=== PATIENT | female | born 1950 | race Caucasian/White ===

== ENCOUNTER → 2017-03-06 | Outpatient (CLI) | payer MEDICARE, SELFPAY | PROVIDERS: Visit Provider Surgery | DX: R13.10 Dysphagia, unspecified (principal) | CPT/HCPCS: 74220 ==

== ENCOUNTER 2017-04-02 07:56 | Day surgery (SDC) | payer MEDICARE, SELFPAY ==
[2017-04-01 12:29] VITALS: BMI 24.7
[2017-04-02] VITALS (10 sets, daily range): BP systolic 81–134; BP diastolic 53–77; PULSE 61–82; RESP 16–20; TEMP 36.6; O2SAT 95–100
--- NOTE | 2017-04-02 08:47 | HMH.SCOPE ---
- Procedure: Date: 04/02/17 Procedure Performed:: Esophagogastroduodenoscopy with biopsy Indications:: This is a 67-year-old female with intermittent dysphagia and a barium swallow revealing mild diffuse tapering of the upper thoracic esophagus. These findings were felt to be most likely secondary to postradiation changes. Performing Provider:: Scooter Moore MD Referring Provider:: Leticia Kang APRN Sedation:: IV sedation with 6 mg of Versed and 100 mcg of fentanyl Procedure:: After informed consent was obtained, the patient was taken to the endoscopy suite. IV sedation ensued after she was transferred to the left lateral decubitus position. The gastroscope was advanced. The gastroesophageal junction was at 33 cm. No significant stricture or mass was seen. Some tapering was noted but this was more pronounced with contractions and significantly less pronounced between contractions. The stomach was entered. Retroflexion revealed a small to moderate sliding hiatal hernia. Moderate gastritis was confirmed. A biopsy of the antrum was obtained. The pylorus was intubated. Very mild inflammatory response within the duodenum was noted. The gastroscope was carefully removed and the patient was transferred to recovery. Findings:: No mass lesions No significant stricture (mild stricture secondary to radiation not ruled out) Small to moderate sliding hiatal hernia Moderate gastritis Minimal duodenitis Specimens:: Antrum Recommendations:: [id number] PPI and/or H2 jose Complications:: No immediate Estimated blood obtained (mL): 1
== END 2017-04-02 10:10 | disposition home or self-care (01) ==
LOC: OUTP 07:58
PROVIDERS: Family Provider Nurse Practitioner Family; PCP Nurse Practitioner Family; Visit Provider Surgery
PROC: 0DJ08ZZ Inspection of Upper Intestinal Tract, Via Natural or Artificial Opening Endoscopic (ICD-10-PCS; CPT 43235; principal; 2017-04-02 08:30)
DX: R13.10 Dysphagia, unspecified (principal); K44.9 Diaphragmatic hernia without obstruction or gangrene; K29.70 Gastritis, unspecified, without bleeding
CPT/HCPCS: 43239; 88305; 99152

== ENCOUNTER → 2017-11-30 10:44 | Outpatient (CLI) | payer MEDICARE, SELFPAY ==
--- NOTE | 2017-11-30 | NVE_ITS ---
Venous Exam Indications: 729.5 Pain in limb. IMPRESSIONS 1. There is no evidence of significant Reflux. 2. No evidence of deep or superficial vein thrombosis involving the right lower extremity Right lower extremity venous duplex evaluation. Doppler flow study including spectral analysis, color and johnson scale imaging. Location: Vascular laboratory. Patient status: Outpatient. Tables: Venous flow and imaging: + +-------+ + Location Overall Flow properties + +-------+ + Right common femoral Patent Normal phasicity; spontaneous; normal augmentation; compressible + +-------+ + Right saphenofemoral junction Patent Compressible + +-------+ + Right profunda femoral Patent Compressible + +-------+ + Right femoral Patent Normal phasicity; spontaneous; normal augmentation; compressible + +-------+ + Right greater saphenous Patent Normal phasicity; spontaneous; normal augmentation; compressible + +-------+ + Right popliteal Patent Normal phasicity; spontaneous; normal augmentation; compressible + +-------+ + Right posterior tibial Patent Compressible + +-------+ + Right peroneal Patent Compressible + +-------+ + Right gastrocnemius Patent Compressible + +-------+ + Right soleal Patent Compressible + +-------+ + (Report amended ) Electronically signed by: Geoff Erickson [id number]
== END ==
PROVIDERS: Family Provider Nurse Practitioner Family; PCP Nurse Practitioner Family; Visit Provider Nurse Practitioner Family
DX: M79.604 Pain in right leg (principal)
CPT/HCPCS: 93971

== ENCOUNTER → 2018-06-02 09:49 | Outpatient (CLI) | payer MEDICARE, SELFPAY ==
--- NOTE | 2018-06-02 09:56 | XR_ITS ---
XR chest 2V HISTORY: ITS.REASON: COUGH ORDERING PHYSICIAN: Leticia Kang PATIENT AGE: 68 years COMPARISON: 03/17/2016 FINDINGS: There are postsurgical changes from prior left upper lobectomy with left apical pleural thickening and left lung volume loss with old left-sided rib fractures. Left fourth rib is missing laterally and there is thinning of the lateral aspect of the left fifth rib. Asymmetric increased density is present in the right apex unchanged. No lobar consolidation or collapse. COPD noted. There are degenerative changes of the thoracic spine. IMPRESSION: Postsurgical and chronic changes with COPD. No change with no acute finding
== END ==
PROVIDERS: PCP Nurse Practitioner Family; Visit Provider Nurse Practitioner Family
DX: M50.123 Cervical disc disorder at C6-C7 level with radiculopathy (principal)
CPT/HCPCS: 71046

== ENCOUNTER 2018-06-03 08:48 | Outpatient (RCR) | payer MEDICARE, SELFPAY | END 2018-06-03 08:55 | disposition home or self-care (01) | LOC: PT 08:48 | PROVIDERS: Visit Provider Nurse Practitioner Family | DX: M50.123 Cervical disc disorder at C6-C7 level with radiculopathy (principal) | CPT/HCPCS: 97010; 97012; 97014; 97035; 97110; 97163; G0283 ==

== ENCOUNTER → 2018-06-04 08:51 | Outpatient (CLI) | payer MEDICARE, SELFPAY ==
--- NOTE | 2018-06-04 08:53 | MR_ITS ---
MR cervical spine wo con, MR 3-d myelogram/MRCP HISTORY: Lt shoulder pain and numbness in LT hand. Symptoms [id number]. No trauma. Headache. No hx neck surgery. ITS.REASON: CERVICAL DISC DISEASE ORDERING PHYSICIAN: Leticia Kang PATIENT AGE: 68 years Comparison: None TECHNIQUE: Standard multiplanar multiecho sequences are performed without contrast. 3-D MIP and myelographic images are also rendered and reviewed FINDINGS: The craniocervical junction has an unremarkable appearance. There is fusion of C2-C3. C3-C4: Mild degenerative disc disease. C4-C5: Mild degenerative disc disease with minimal bulging disc with a small annular fissure. There is canal stenosis at this level and millimeters with minimal flattening of the cord anteriorly C5-C6: Mild degenerative disc disease with small central disc protrusion slightly eccentric to the left abutting but not displacing the cord anteriorly C6-C7: Small central disc protrusion slightly eccentric to the right causing some minimal flattening of the right aspect of the cord. C7-T1: Unremarkable. IMPRESSION: 1. Fusion of C2-C3 2. C4-C5: Mild degenerative disc disease with minimal bulging disc with a small annular fissure. There is canal stenosis at this level and millimeters with minimal flattening of the cord anteriorly 3. C5-C6: Mild degenerative disc disease with small central disc protrusion slightly eccentric to the left abutting but not displacing the cord anteriorly 4. C6-C7: Small central disc protrusion slightly eccentric to the right causing some minimal flattening of the right aspect of the cord
== END ==
PROVIDERS: PCP Nurse Practitioner Family; Visit Provider Nurse Practitioner Family
DX: M50.123 Cervical disc disorder at C6-C7 level with radiculopathy (principal)
CPT/HCPCS: 72141; 76376

== ENCOUNTER → 2018-06-17 08:47 | Outpatient (CLI) | payer MEDICARE, SELFPAY ==
--- NOTE | 2018-06-17 09:01 | MM_ITS ---
MM Dig screening mamm BI w/CAD ORDERING PHYSICIAN : Leticia Kang PATIENT AGE: 68 years GENDER: Female COMPARISON previous bilateral mammogram. March 2016;: January 2014, April INDICATION: ITS.Routine screening mammogram. Patient takes estrogen. Patient has history of lung cancer on the left with lobectomy with this there is a thick ridge along the left chest wall superiorly at 12-1 o'clock position. TECHNIQUE: Standard CC and MLO images were obtained. R2 CAD reviewed. FINDINGS: .. Moderately dense tissue persists at the retroareolar region bilaterally . RIGHT BREAST:No significant change,. Same pattern & appearance seen today was evident on January 2014 mammogram. There are some scattered areas of punctate calcifications some loosely grouped of the kidneys are stable with no significant change since 2014 either.... Follow-up right mammogram 1 year adequate. On right LEFT BREAST: No discrete new areas significant concern. Again moderately dense glandular tissue is most evident at the retroareolar region. No significant new findings here.. Regional density of interstitium and soft tissues towards the deep left axilla appears similar to previous 2014 studies. Very subtle and would not of noted without given history of palpable ridge in this area. May question to correlate... Suspect subtle accentuation of density Reflect underlying chest surgery in this region or possibly post radiation feature images. Unclear if it is a long-standing or new feature from history... Again Today's images here show no appreciable change since previous comparison studies 2013.. No focal mass evident here. (However there could be findings along the chest which are not imaged, & not included on mammography) Correlation with patient's follow-up CT chest for lung cancer may be helpful to also surveyed & review this area for interval change. No CT chest studies at our facility.. Thus apparently her follow-up CT chest studies are performed at another facility. However If the at the ridge currently palpated at superior left breast towards 12:00, is becoming more evident clinically, then follow-up CT chest along.... Again would least recommend 4-6 month mammogram/ultrasound to confirm stability technique with patient on estrogen.. IMPRESSION: 1. Bilateral Mammogram shows no discrete or suspicious new areas of concern within the breast themselves Moderately dense breast tissue retroareolar region bilaterally again noted, with no new findings here. 2. Because the patient's history of palpable ridge superior left breast 12:00; would suggest 4- 6 month follow-up mammogram & ultrasound to further survey this region. Note:. If the palpable ridge reported by patient at 12:00 superior left breast is is becoming more evident would suggest a follow-up CT chest in with comparison to previous CT studies in this patient with lung cancer on left..;. If long-standing rather than new feature I suspect this more likely reflect post surgery or postradiation feature.... Again Today's Mammography shows no definitive change here since 2014 today's mammogram.(However there could be findings along the chest which are not imaged, & not included on today's mammography) BI-RADS Category: 3 Probably Benign Finding Short Term Follow-up RECOMMENDED FOLLOW-UP: 6M - 6 MONTH FOLLOW-UP Left mammogram and left breast ultrasound 4-6 months . ( If palpable ridge superior left breast becoming more evident-would suggest follow-up CT chest in this patient with history left pneumonectomy for lung cancer) (A letter has been sent to the patient regarding results of the study.)
== END ==
PROVIDERS: PCP Nurse Practitioner Family; Visit Provider Nurse Practitioner Family
DX: Z12.31 Encounter for screening mammogram for malignant neoplasm of breast (principal)
CPT/HCPCS: 77067

== ENCOUNTER → 2018-10-18 13:32 | Outpatient (CLI) | payer MEDICARE, SELFPAY ==
--- NOTE | 2018-10-18 13:34 | MM_ITS ---
MM Dig mamm DX unilat LT CAD, US breast LT complete INDICATION: Palpable ridge of tissue in the upper outer aspect of the left breast. Prior lung cancer with radiation therapy. The patient has a palpable ridge of tissue in the upper outer left breast which according to the patient has not significantly changed in several years ORDERING PHYSICIAN: Leticia Kang APRN PATIENT AGE: 68 years COMPARISON: 06/17/2018, 03/17/2016 TECHNIQUE: Standard images on spot compression views and left breast ultrasound FINDINGS: Average fibroglandular tissue. There is some asymmetry in the lateral aspect of the left breast and in the inferior aspect of left breast. These areas however do appear to compress out as fibroglandular tissue not significantly changed. In the upper aspect of the left breast there is asymmetric density only seen on the MLO view.. No malignant appearing appearing microcalcification. Benign cluster of calcifications are noted in the medial left breast. Left breast ultrasound: No discrete mass is evident. At the area of palpable abnormality, there is some slight increase in heterogeneous echogenicity but no discrete mass that would correspond to the palpable abnormality.. IMPRESSION: There is some slight asymmetry density in the deep upper left breast with some heterogeneous echogenicity on ultrasound. Patient reports this palpable area is stable for multiple years. Suggest CT of the chest and chest wall for further evaluation. The area of palpable abnormality could be related to scarring/radiation changes BI-RADS Category: 0 Need Additional Imaging Evaluation RECOMMENDED FOLLOW-UP: IMM - IMMEDIATE FOLLOW-UP RECOMMENDED Suggest chest CT of the palpable abnormality (A letter has been sent to the patient regarding results of the study.)
== END ==
PROVIDERS: PCP Nurse Practitioner Family; Visit Provider Nurse Practitioner Family
DX: D24.2 Benign neoplasm of left breast (principal)
CPT/HCPCS: 76641; 77065

== ENCOUNTER → 2018-11-30 10:16 | Outpatient (POV) | payer MEDICARE, SELFPAY | PROVIDERS: Visit Provider Dermatology | DX: Z00.00 Encounter for general adult medical examination without abnormal findings (principal) ==

== ENCOUNTER → 2018-12-22 14:16 | Outpatient (CLI) | payer MEDICARE, SELFPAY ==
--- NOTE | 2018-12-22 14:23 | CT_ITS ---
PROCEDURE: CT CHEST WO CON The CLINICAL INDICATION: BENIGN NEOPLASM OF LT BREAST Palpable abnormality of the left breast negative mammogram and negative ultrasound COMPARISON: BRW/O MRI-BRAIN W/O from 04/22/2016 NEST NECK SOFT TISSUE from 01/26/2017 BREASTLT US breast LT complete from 10/18/2018 DIG MAMM-DX UNI-LT from 10/18/2018 TECHNIQUE: Axial images obtained with sagittal and coronal reformats. All CT scans at the facility use one or more dose reduction, viz: automated exposure control, ma/kV adjustment per patient size (including targeted exams where dose is matched to indication, i.e. head), or iterative reconstruction technique. FINDINGS: A BB is placed along the left breast superiorly and anteriorly to denote the area of palpable concern no obvious mass is evident deep to the placed BB. There is some slight increase in soft tissue density in the subcutaneous region deep to the BB but no discrete mass is evident. There is extensive left apical pleural thickening and postsurgical changes with prior resection of the left 4th and 5th ribs posterior laterally with an old fracture of the left 6th rib. There is extensive pleural thickening in the left apex. There are no previous exams available for comparison to determine if this is a stable finding. There is mediastinal shift toward the left. Extensive calcification is present in the right upper lobe in the apex. Nodularity is noted in the left upper lobe medially probably vascular and could be confirmed with repeat exam with contrast. Upper abdominal images show nonobstructing bilateral renal calculi. There are degenerative changes in the thoracic spine. IMPRESSION: 1. No discrete mass deep to the placed marker denoting a palpable abnormality over lying the upper aspect of the left breast. There is some stranding of the subcutaneous soft tissues in this region which could be due to some underlying inflammatory change. 2. A negative mammogram negative ultrasound in negative CT does not exclude the possibility of a malignancy. If there is a palpable abnormality then it should be managed on a clinical basis. 3. Extensive postsurgical changes of the left apex with extensive pleural thickening. Parenchymal calcification right upper lobe. 4. Bilateral nonobstructing renal calculi Dictated by: Gordo Nunez MD 12/22/2018 17:17 Electronically signed by Gordo Nunez MD in [place] 12/22/2018 17:17
--- NOTE | 2018-12-22 14:41 | HMH.ITSHM ---
Current Home Medications as stated by this patient Ariane Pathak or order entry representative. []levothyroxine 50 mcg pravastatin 80 mg omeprazole .05mg
== END ==
PROVIDERS: Visit Provider Nurse Practitioner
DX: D24.2 Benign neoplasm of left breast (principal)
CPT/HCPCS: 71250

== ENCOUNTER → 2019-01-21 10:14 | Outpatient (CLI) | payer MEDICARE, SELFPAY ==
[2019-01-21 12:26] LABS: Blood Urea Nitrogen 12 mg/dL (7-18); Creatinine,Serum 1.03 mg/dL (0.55-1.02); Estimated Glomerular Filt Rate 53 ml/min (>60); GFR (African American) 64 ML/MIN (>60)
--- NOTE | 2019-01-21 12:46 | CT_ITS ---
PROCEDURE: CT CHEST WO/W CON CLINCAL INDICATION: PLEURAL PLAGUE WITHOUT ASBESTOS Follow-up abnormal chest CT, left upper lobe mass versus scarring. COMPARISON: CT CHEST WO CON from 12/22/2018 TECHNIQUE: IV Contrast: 75ml Optiray 350 Axial images obtained with sagittal and coronal reformats. All CT scans at the facility use one or more dose reduction, viz: automated exposure control, ma/kV adjustment per patient size (including targeted exams where dose is matched to indication, i.e. head), or iterative reconstruction technique. FINDINGS: Extensive left apical pleural thickening and postsurgical change with volume loss once again noted as recently described with surgical clips in the left apex. The nodularity in the left upper lobe medially does correspond to a displaced pulmonary artery from the volume loss and previous surgery. No evidence of aortic aneurysm or pulmonary embolus. No mediastinal or hilar mass evident. Coronary artery calcifications are present best demonstrated on the unenhanced images. Mediastinum is shifted to the left as before. Right apical fibrocalcific changes are present. There is hyperinflation of the right upper lobe with emphysematous changes noted. Postsurgical changes of the left hemithorax once again noted with mild degenerative changes in the thoracic spine. IMPRESSION: 1. Overall no significant change from the previous study. Extensive postsurgical changes with left apical volume loss and pleural thickening once again noted as well as fibrocalcific changes in the right apex. 2. Previously noted left sided nodular opacity medially represents a mildly displaced pulmonary artery and not a pulmonary nodule Dictated by: Gordo Nunez MD 01/21/2019 18:24 Electronically signed by Gordo Nunez MD in [place] 01/22/2019 08:37
== END ==
PROVIDERS: Visit Provider Nurse Practitioner
DX: J92.9 Pleural plaque without asbestos (principal)
CPT/HCPCS: 36415; 71270; 82565; 84520; Q9967

== ENCOUNTER → 2019-04-26 14:06 | Outpatient (POV) | payer MEDICARE, SELFPAY | PROVIDERS: PCP Dermatology; Visit Provider Dermatology | DX: Z00.00 Encounter for general adult medical examination without abnormal findings (principal) ==

== ENCOUNTER → 2019-09-09 08:10 | Outpatient (CLI) | payer MEDICARE, SELFPAY ==
--- NOTE | 2019-09-09 08:15 | CT_ITS ---
PROCEDURE: CT LUNG SCREENING CLINICAL INDICATION: HISTORY OF SMOKING Forty pack-year smoking history, asymptomatic for lung cancer COMPARISON: CT CHEST WO/W CON from 01/21/2019 TECHNIQUE: The exam was performed on a GE Light Speed [address] scanner using 2.90 mGy CTDI. A low dose helical CT CHEST was performed on a multi-detector scanner. All CT scans at the facility use one or more dose reduction, viz: automated exposure control, ma/kV adjustment per patient size (including targeted exams where dose is matched to indication, i.e. head), or iterative reconstruction technique. The LDCT was performed in a facility that meets the criteria for the screening program. Data regarding this exam was submitted to ACR which is an approved registry. The order for this exam indicates that it came as a result of a lung cancer screening counseling shard decision-making visit that included all the elements required of such a visit including smoking cessation. The radiologist interpreting this exam meets the CMS criteria for the LDCT lung cancer screening program. The exam is reported using the Lung-RADS classification scale and reported to the ACR registry. NOTE: This study was performed for the specific purposes of lung cancer screening and is not an alternative to diagnostic chest CT. RADIATION DOSE: CTDI vol(CT dose Index-volume) = 2.90mG DLP (Dose Length Product) = 94.82 mGcm Lung Rads Category: FINDINGS: COPD with centrilobular and paraseptal emphysematous change. Large calcified nodule right upper lobe at 3.9 cm with a smaller calcified nodule just anterior to this area. Stables 5 mm subpleural nodule right upper lobe extensive left apical pleural thickening with some calcification. Postsurgical changes with rib resection on the left. Prior left upper lobectomy. OTHER FINDINGS: Coronary artery calcification. Nonobstructing left renal calculi IMPRESSION: Lung rads category 2, benign Recommend annual LD CT Dictated by: Gordo Nunez MD 09/18/2019 09:27 Electronically signed by Gordo Nunez MD in [place] 09/18/2019 09:27
== END ==
PROVIDERS: PCP Dermatology; Visit Provider Nurse Practitioner Family
DX: Z87.891 Personal history of nicotine dependence (principal); Z12.2 Encounter for screening for malignant neoplasm of respiratory organs

== ENCOUNTER → 2020-01-11 10:15 | Outpatient (CLI) | payer MEDICARE, SELFPAY ==
--- NOTE | 2020-01-11 10:18 | MM_ITS ---
PROCEDURE: MM DIG SCREENING MAMM BI W/CAD Referring Doctor: Ramya Ash Patient Age:69Y CLINICAL INDICATION: SCREENING routine. Patient takes estrogen.. No new complaints. Family history: Paternal aunt and paternal cousin with breast cancer screening Left lung previously removed COMPARISON: MG DIGMAMMS MAMMOGRAM SCREEN-[employer] N/C from 01/17/2008 MG DIGMAMMS MAMMOGRAM SCREEN-[employer] N/C from 01/12/2009 MG DMSB DIGITAL MAMM-SCREEN BILATERAL from 04/21/2011 MG DMSB DIG MAMM-SCREEN CHARY from 01/12/2014 MG DMSB DIG MAMM-SCREEN CHARY W/CAD from 03/17/2016 MG SCBI MM Dig screening mamm BI w/CAD from 06/17/2018 US US BREAST LT COMPLETE from 10/18/2018 MG MM DIG MAMM DX UNILAT LT CAD from 10/18/2018 TECHNIQUE: Standard CC and MLO images were obtained. R2 CAD reviewed. Bilateral digital breast tomosynthesis included. FINDINGS: Stable mild asymmetry with moderately dense breast tissue at the retroareolar region bilaterally most notable left retroareolar region but no suspicious calcifications. Scattered small skin calcifications and vascular calcifications bilateral Right breast: No new areas of significant concern. Minimal area nodularity at the lateral central breast unchanged since multiple previous studies dating back to 2013 Left breast no new areas of concern. Again see dense area fibroglandular tissue at the wrestler areolar region unchanged since multiple previous studies. Prior 2018 left breast ultrasound revealed what appear to be dense fibroglandular 11 o'clock position which correlated with palpable ridge of tissue on that previous study Bilateral follow-up 1 year adequate IMPRESSION: . Stable bilateral mammogram. Stable moderate asymmetry with no new areas of concern Bilateral follow-up 1 year recommended BI-RAD Category: 2 Benign Finding(s) FOLLOW-UP: 1YR 1 Year Follow-up (A letter has been sent to the patient regarding results of the study.) Dictated by: Geoff Erickson MD 01/11/2020 12:31 Geoff Erickson MD in [place] 01/11/2020 12:31
== END ==
PROVIDERS: PCP Dermatology; Visit Provider Nurse Practitioner
DX: Z12.31 Encounter for screening mammogram for malignant neoplasm of breast (principal)
CPT/HCPCS: 77063; 77067

== ENCOUNTER 2020-10-21 22:41 | Inpatient (IN) | payer MEDICARE, SELFPAY ==
[2020-10-21 22:41] VITALS: BP 168/103; PULSE 119; RESP 28; TEMP 36.7; O2SAT 69; BMI 22.8
[2020-10-21 22:42] VITALS: BMI 32.3
--- NOTE | 2020-10-21 22:42 | XR_ITS ---
PROCEDURE INFORMATION: Exam: XR Chest Exam date and time: 10/21/2020 10:42 PM Age: 70 years old Clinical indication: Patient HX: Extreme difficulty breathing sudden onset TECHNIQUE: Imaging protocol: XR of the chest. Views: 1 view. COMPARISON: CT CHEST WO/W CON 01/21/2019 1:55 PM FINDINGS: Lungs: There are chronic postsurgical changes of left upper lobectomy. Chronic opacification of the left apex appears similar to prior. Left hemithoracic volume loss with left basilar pleural thickening also grossly unchanged. Calcified mass at the right lung apex, as better seen on prior CT imaging. Pleural spaces: Large right pneumothorax, spanning the anterior craniocaudal length of the chest, estimated 60% of the right hemithoracic volume. No definite pleural effusion. Heart/Mediastinum: Normal heart size. Bones/joints: Scattered degenerative changes. Multiple chronic left rib deformities. IMPRESSION: 1. Large right pneumothorax. 2. Chronic partially calcified mass at the right lung apex. Chronic postsurgical changes of left upper lobectomy. THIS REPORT CONTAINS FINDINGS THAT MAY BE CRITICAL TO PATIENT CARE. The findings were verbally communicated via telephone conference with DARCY SHANNON at 11:02 PM EDT on 10/21/2020. The findings were acknowledged and understood.
[2020-10-21 22:50] LABS: ABG Base Excess -2.7 mmol/L (-2.4-2.3); ABG HCO3 26.2 mmhg (22.0-26.0); ABG Oxygen Saturation 81 % (90-100); ABG PO2 55.1 mmhg (80-100); ABG TCO2 28.5 mmhg (23-27)
[2020-10-21 22:51] LABS: ABG PH 7.15 mmol/L (7.35-7.45); Oxygen 10L %; Source R/B
[2020-10-21 22:52] LABS: ABG PCO2 76.7 mmhg (35.0-45.0)
--- NOTE | 2020-10-21 22:58 | PC.NURSE ---
Oscar called for chest tube placement at this time
--- NOTE | 2020-10-21 22:59 | ECG_ITS ---
APPROVED REPORT Exam: Resting ECG HR:121 bpm ECG Measurements Heart Rate 121 AXES AZ 128 P 102 QRSd 76 QRS 89 QT 318 T 82 QTc 451 Conclusion Sinus tachycardia Otherwise normal ECG Electronically signed by : Dillon Jones MD 10/24/2020 11:50:28
[2020-10-21 23:00] VITALS: BP 171/101; PULSE 120; RESP 30; O2SAT 86
--- NOTE | 2020-10-21 23:00 | PC.NURSE ---
RADHA called at this time Speaking with Matheus
[2020-10-21 23:02] LABS: Coronavirus 19, PCR Not Detected (NotDetected); Influenza A, PCR Not Detected (NotDetected); Influenza B, PCR Not Detected (NotDetected)
[2020-10-21 23:05] LABS: Basophils # 0.1 K/mm3 (0-0.2); Basophils % 0.9 % (0.1-2.0); Eosinophils # 0.4 K/mm3 (0.0-0.4); Eosinophils % 3.3 % (0.1-12.0); Hematocrit 39.4 % (37.0-47.0); Hemoglobin 12.9 g/dL (12.2-16.2); Lymphocytes # 7.9 K/mm3 (0.7-4.5); Lymphocytes % 62.9 % (10-50); Mean Corpuscular HGB Conc 32.8 g/dL (31.8-35.4); Mean Corpuscular Hemoglobin 33.3 pg (27.0-31.2); Mean Corpuscular Volume 101.5 fl (81-99); Mean Platelet Volume 7.5 fl (7.4-10.4); Monocytes # 1.1 K/mm3 (0.1-1.0); Monocytes % 8.7 % (1.7-9.3); Neutrophils % 24.2 % (37.0-80.0); Platelet Count 319 K/mm3 (142-424); Red Blood Count 3.89 M/mm3 (4.20-5.40); Red Cell Distribution Width 13.3 % (11.5-17.5); White Blood Count 12.5 K/mm3 (4.8-10.8)
[2020-10-21 23:08] LABS: MANUAL DIFFERENTIAL MANUAL DIFFERENTIAL (MANUAL DIFF)
[2020-10-21 23:10] LABS: Alanine Aminotransferase 19 U/L (12-78); Albumin Level 4.5 g/dl (3.5-5.0); Alkaline Phosphatase 75 U/L (38-126); Anion Gap 14.8 mEq/L (5-15); Aspartate Amino Transferase 34 U/L (14-36); Bilirubin,Direct 0.4 mg/dl (0.0-0.4); Bilirubin,Total 0.4 mg/dl (0.2-1.3); Blood Urea Nitrogen 12 mg/dl (7-17); Carbon Dioxide 27 mmol/L (22.0-30.0); Chloride 102 mmol/L (98-107); Creatinine Clearance Estimated 75 mL/min (50-200); Estimated Glomerular Filt Rate 62 ml/min (>60); GFR (African American) 75 ML/MIN (>60); Glucose 139 mg/dl (74-100); Potassium 3.8 mmoL/L (3.5-5.1); Sodium 140 mmol/L (136-145); Total Protein,Serum 8.6 g/dl (6.3-8.2)
--- NOTE | 2020-10-21 23:10 | PC.NURSE ---
Oscar arrived at this time
[2020-10-21 23:12] LABS: Eosinophils % 2 % (0-3); Lymphocytes % 70 % (10-50); Macrocytosis 1+; Monocytes % 4 % (2-9); Neutrophils % 23 % (42-76); Platelet Estimate Normal; Total Cells Counted 100
[2020-10-21 23:15] LABS: C-Reactive Protein 9.5 mg/L (0-4)
--- NOTE | 2020-10-21 23:16 | XR_ITS ---
PROCEDURE INFORMATION: Exam: XR Chest Exam date and time: 10/21/2020 11:16 PM Age: 70 years old Clinical indication: Device placement; Chest tube; Additional info: Check chest tube placement TECHNIQUE: Imaging protocol: XR of the chest. Views: 1 view. COMPARISON: CR XR CHEST PORTABLE 10/21/2020 10:50 PM FINDINGS: Tubes, catheters and devices: Interval placement of a right apically directed chest tube. Lungs: Chronic postsurgical changes of the left upper lung. Calcified mass at the right lung apex again noted. Pleural spaces: Marked interval decrease in size of the right pneumothorax, with probable trace residual measuring 3 mm at the apex. Heart/Mediastinum: Normal heart size. Bones/joints: Osteopenia. Scattered degenerative changes. Chronic left rib deformities. Soft tissues: Subcutaneous gas in the right lateral chest wall related to recent tube placement. IMPRESSION: Interval placement of a right chest tube with marked decrease in size of the right pneumothorax. Probable trace right apical residual pneumothorax.
[2020-10-21 23:20] LABS: Lactic Acid 1.5 mmol/L (0.7-2.1)
--- NOTE | 2020-10-21 23:22 | PC.NURSE ---
DR. BEACH BEDSIDE
[2020-10-21 23:25] LABS: Troponin I < 0.01 ng/ml (0.00-0.034)
[2020-10-21 23:29] VITALS: BP 146/72; PULSE 110; RESP 26; O2SAT 84
[2020-10-21 23:29] LABS: Procalcitonin 0.052 ng/mL (0.0-2.0)
[2020-10-21 23:30] LABS: Erythrocyte Sedimentation Rate 63 mm/hr (0-30)
[2020-10-21 23:36] VITALS: BP 146/68; PULSE 95; RESP 24; O2SAT 99
[2020-10-21 23:45] VITALS: BP 132/81; PULSE 96; RESP 24; O2SAT 100; BMI 25.5
--- NOTE | 2020-10-21 23:53 | P.OP_ITS ---
Date of procedure: 10/21/20 Pre-op Diagnosis:: Right pneumothorax Post-op Diagnosis:: Same Procedure performed:: Right thoracostomy tube placement (28 [place]) Surgeon:: Scooter Moore MD Anesthesia: local Estimated blood loss (mL): 1 Operative findings:: Large nava of air Tube anchored at 17 cm Operative note:: After informed consent was obtained the patient was maintained in the supine position. Her right chest was prepped and draped in a sterile fashion. After infiltration with local anesthetic a small transverse incision was made along t he anterior axillary line below the eighth interspace. The deep subcutaneous tissue was dissected up and over the rib margin. The pleural space was entered and a fairly large nava of air was noted. A 28 [place] thoracostomy tube was placed in position. The tube was secured at 17 cm with 0 Nurolon. Dressings were applied. Chest x-ray is pending. Condition: other (Guarded) Disposition: no change Specimens:: None Complications:: No immediate
--- NOTE | 2020-10-21 23:55 | HMH.EDSOB ---
ED Disposition Clinical Impression: Respiratory distress, acute Pneumothorax Qualifiers: Pneumothorax type: spontaneous, primary Qualified Code(s): J93.11 - Primary spontaneous pneumothorax Disposition: Admitted As Inpatient Condition on Discharge: Serious - Critical Care Critical Care Time: No Attestation: On 10/21/20, the high probability of a clinically significant, sudden or life threatening deterioration of the following system(s) required my full and direct attention, intervention and personal management. The time I documented below is in addition to time spent performing reported procedures but includes the following listed in this critical care notation. Medical Decision Making - Medical Records Medical records reviewed: Yes: I reviewed the patient's medical records. - Gomez Inquiry Pt receiving controlled substance: No Vital Signs: 10/21/20 22:41 10/21/20 23:00 10/21/20 23:29 Temperature 98.1 F Temperature Source Oral Pulse Rate 120 H 110 H Pulse Rate [Apical] 119 H Respiratory Rate 28 H 30 H 26 H Blood Pressure 171/101 H 146/72 H Blood Pressure [Right Arm] 168/103 H Blood Pressure Mean [Right Arm] 124 Blood Pressure Source Automatic Cuff Blood Pressure Source [Right Arm] Automatic Cuff Blood Pressure Position Sitting Blood Pressure Position [Right Arm] Sitting 02 Sat by Pulse Oximetry 69 L 86 L 84 L Oxygen Delivery Method Room Air Non-Rebreather Non-Rebreather Oxygen Flow Rate (LPM) 10/21/20 23:36 10/21/20 23:45 10/22/20 00:17 Temperature Temperature Source Pulse Rate 95 H 96 H 92 H Pulse Rate [Apical] Respiratory Rate 24 24 20 Blood Pressure 146/68 H 132/81 134/45 L Blood Pressure [Right Arm] Blood Pressure Mean [Right Arm] Blood Pressure Source Automatic Cuff Blood Pressure Source [Right Arm] Blood Pressure Position Sitting Blood Pressure Position [Right Arm] 02 Sat by Pulse Oximetry 99 100 97 Oxygen Delivery Method Non-Rebreather Non-Rebreather Nasal Cannula Oxygen Flow Rate (LPM) 10 2 10/22/20 00:24 Temperature Temperature Source Pulse Rate Pulse Rate [Apical] Respiratory Rate Blood Pressure Blood Pressure [Right Arm] Blood Pressure Mean [Right Arm] Blood Pressure Source Blood Pressure Source [Right Arm] Blood Pressure Position Blood Pressure Position [Right Arm] 02 Sat by Pulse Oximetry Oxygen Delivery Method Non-Rebreather Oxygen Flow Rate (LPM) - Lab Data Lab results reviewed: Yes: I reviewed the patient's lab results. Lab Results 10/21/20 22:48: WBC 12.5 H, RBC 3.89 L, Hgb 12.9, Hct 39.4, MCV 101.5 H, MCH 33.3 H, MCHC 32.8, RDW 13.3, Plt Count 319, MPV 7.5, Neut % (Auto) 24.2 L, Lymph % (Auto) 62.9 H, [place] % (Auto) 8.7, Eos % (Auto) 3.3, Baso % (Auto) 0.9, Neut # (Auto) 3.0, Lymph # (Auto) 7.9 H, [place] # (Auto) 1.1 H, Eos # (Auto) 0.4, Baso # (Auto) 0.1, Total Counted 100, Neutrophils % (Manual) 23 L, Band Neutrophils % 1.0, Lymphocytes % (Manual) 70 H, Monocytes % (Manual) 4, Eosinophils % (Manual) 2, Platelet Estimate Normal, Macrocytosis 1+, ESR 63 H 10/21/20 22:48: Sodium 140, Potassium 3.8, Chloride 102, Carbon Dioxide 27, Anion Gap 14.8, BUN 12, Creatinine 0.90, Estimated Creat Clear 75, Estimated GFR 62, Est GFR ( Amer) 75, Glucose 139 H, Calcium 9.0, Total Bilirubin 0.4, Direct Bilirubin 0.4, Conjugated Bilirubin 0.0, Indirect Bilirubin 0.0, Unconjugated Bilirubin 0.0, AST 34, ALT 19, Alkaline Phosphatase 75, Troponin I < 0.01, C-Reactive Protein 9.5 H, Total Protein 8.6 H, Albumin 4.5, Procalcitonin 0.052 10/21/20 22:48: SARS-CoV-2 (PCR) Not detected, Influenza A Untype (PCR) Not detected, Influenza Type B (PCR) Not detected 10/21/20 22:49: Specimen Source R/b, O2 % 10l, ABG pH 7.15 L*, ABG pCO2 76.7 H, ABG pO2 55.1 L, ABG HCO3 26.2 H, ABG Total CO2 28.5 H, ABG O2 Saturation 81 L*, ABG Base Excess -2.7 L 10/21/20 22:50: Lactate 1.5 Result diagrams: 10/21/20 22:48 10/21/20 22:48 Orders (Te
[2020-10-22] VITALS (12 sets, daily range): BP systolic 104–134; BP diastolic 45–76; PULSE 67–92; RESP 16–20; TEMP 36.5–36.8; O2SAT 95–100; BMI 25.5; BMI 25.4
--- NOTE | 2020-10-22 | PC.NURSE ---
2329- Time out performed. Pt prepared for chest tube insertion. Consent already signed and placed on chart. Pt tolerated procedure well.
[2020-10-22 00:46] LABS: ABG Base Excess -1.4 mmol/L (-2.4-2.3); ABG HCO3 24.1 mmhg (22.0-26.0); ABG Oxygen Saturation 97 % (90-100); ABG PCO2 43.5 mmhg (35.0-45.0); ABG PH 7.36 mmol/L (7.35-7.45); ABG PO2 94.7 mmhg (80-100); ABG TCO2 25.4 mmhg (23-27); Allen's Test Y; Oxygen 2 %; Source R/R
--- NOTE | 2020-10-22 01:10 | PC.NURSE ---
Report called to EMETERIO Moreno at this time
--- NOTE | 2020-10-22 01:59 | PC.NURSE ---
PT ARRIVED TO [facility] VIA STRETCHER FROM ED W/STAFF AT 0200
--- NOTE | 2020-10-22 04:43 | PC.NURSE ---
patient arrived to floor with no s/s of acute distress noted; up to bedside toilet with assistance - tolerated well. Bed at lowest level for safety, chest tube dressing c/d/i, Chest drainage chamber taped to floor to prevent from tipping over. Call light within reach; will continue to monitor.
[2020-10-22 05:23] LABS: Basophils % 0.2 % (0.1-2.0); Eosinophils % 0.4 % (0.1-12.0); Hematocrit 35.2 % (37.0-47.0); Lymphocytes # 1.7 K/mm3 (0.7-4.5); Lymphocytes % 14.7 % (10-50); Mean Corpuscular HGB Conc 32.7 g/dL (31.8-35.4); Mean Corpuscular Hemoglobin 32.8 pg (27.0-31.2); Mean Corpuscular Volume 100.2 fl (81-99); Mean Platelet Volume 8.4 fl (7.4-10.4); Monocytes # 0.9 K/mm3 (0.1-1.0); Monocytes % 8.1 % (1.7-9.3); Neutrophils # 8.7 K/mm3 (1.8-7.8); Neutrophils % 76.7 % (37.0-80.0); Platelet Count 252 K/mm3 (142-424); Red Blood Count 3.52 M/mm3 (4.20-5.40); Red Cell Distribution Width 13.3 % (11.5-17.5); White Blood Count 11.3 K/mm3 (4.8-10.8)
[2020-10-22 05:26] LABS: Hemoglobin 11.5 g/dL (12.2-16.2)
[2020-10-22 05:41] LABS: Anion Gap 13.3 mEq/L (5-15); Blood Urea Nitrogen 13 mg/dl (7-17); Calcium 8.6 mg/dl (8.4-10.2); Carbon Dioxide 28 mmol/L (22.0-30.0); Chloride 103 mmol/L (98-107); Creatinine Clearance Estimated 60 mL/min (50-200); Estimated Glomerular Filt Rate 71 ml/min (>60); GFR (African American) 86 ML/MIN (>60); Magnesium 1.6 mg/dl (1.6-2.3); Potassium 4.3 mmoL/L (3.5-5.1); Sodium 140 mmol/L (136-145)
[2020-10-22 05:52] LABS: Glucose 109 mg/dl (74-100); Troponin I 0.33 ng/ml (0.00-0.034)
--- NOTE | 2020-10-22 07:00 | XR_ITS ---
PROCEDURE: XR CHEST PORTABLE CLINICAL HISTORY: sob/chest tube COMPARISON: CR CXR2V XR chest 2V from 06/02/[address] CHEST WO/W CON from 01/21/2019 CR XR CHEST PORTABLE from 10/21/2020 CR XR CHEST PORTABLE from 10/21/2020 FINDINGS: Right-sided chest tube is present. No obvious pneumothorax. Small amount of subcutaneous emphysema noted along the right chest wall. Postsurgical changes on the left with left apical pleural thickening left upper lung volume loss. Fibrocalcific changes in the right apex. Normal heart size. No acute bony abnormalities. IMPRESSION: Right chest tube present. No evidence of pneumothorax Dictated by: Gordo Nunez MD 10/22/2020 07:21 Gordo Nunez MD in OV 10/22/2020 07:21
--- NOTE | 2020-10-22 07:28 | HMH.GSPN ---
Subjective Patient reports: feels better Progress Note: A&P (1) Pneumothorax Status: Acute Assessment and plan: Overall, doing well status post chest tube placement. Continue continuous suction for now Follow-up serial chest x-ray in AM Possibly place to waterseal tomorrow Exam Vital signs and Labs for Last 24 Hours: Temp Pulse Resp BP Pulse Ox 98 F 67 16 122/68 100 10/22/20 04:00 10/22/20 04:00 10/22/20 04:00 10/22/20 04:00 10/22/20 04:00 Laboratory Results - last 24 hr 10/21/20 22:48: WBC 12.5 H, RBC 3.89 L, Hgb 12.9, Hct 39.4, MCV 101.5 H, MCH 33.3 H, MCHC 32.8, RDW 13.3, Plt Count 319, MPV 7.5, Neut % (Auto) 24.2 L, Lymph % (Auto) 62.9 H, [place] % (Auto) 8.7, Eos % (Auto) 3.3, Baso % (Auto) 0.9, Neut # (Auto) 3.0, Lymph # (Auto) 7.9 H, [place] # (Auto) 1.1 H, Eos # (Auto) 0.4, Baso # (Auto) 0.1, Total Counted 100, Neutrophils % (Manual) 23 L, Band Neutrophils % 1.0, Lymphocytes % (Manual) 70 H, Monocytes % (Manual) 4, Eosinophils % (Manual) 2, Platelet Estimate Normal, Macrocytosis 1+, ESR 63 H 10/21/20 22:48: Sodium 140, Potassium 3.8, Chloride 102, Carbon Dioxide 27, Anion Gap 14.8, BUN 12, Creatinine 0.90, Estimated Creat Clear 75, Estimated GFR 62, Est GFR ( Amer) 75, Glucose 139 H, Calcium 9.0, Total Bilirubin 0.4, Direct Bilirubin 0.4, Conjugated Bilirubin 0.0, Indirect Bilirubin 0.0, Unconjugated Bilirubin 0.0, AST 34, ALT 19, Alkaline Phosphatase 75, Troponin I < 0.01, C-Reactive Protein 9.5 H, Total Protein 8.6 H, Albumin 4.5, Procalcitonin 0.052 10/21/20 22:48: SARS-CoV-2 (PCR) Not detected, Influenza A Untype (PCR) Not detected, Influenza Type B (PCR) Not detected 10/21/20 22:49: Specimen Source R/b, O2 % 10l, ABG pH 7.15 L*, ABG pCO2 76.7 H, ABG pO2 55.1 L, ABG HCO3 26.2 H, ABG Total CO2 28.5 H, ABG O2 Saturation 81 L*, ABG Base Excess -2.7 L 10/21/20 22:50: Lactate 1.5 10/22/20 00:44: Specimen Source R/r, O2 % 2, ABG pH 7.36, ABG pCO2 43.5, ABG pO2 94.7, ABG HCO3 24.1, ABG Total CO2 25.4, ABG O2 Saturation 97, ABG Base Excess -1.4, Gordo Test Y 10/22/20 02:10: Troponin I 0.30 H 10/22/20 05:00: Sodium 140, Potassium 4.3, Chloride 103, Carbon Dioxide 28, Anion Gap 13.3, BUN 13, Creatinine 0.80, Estimated Creat Clear 60, Estimated GFR 71, Est GFR ( Amer) 86, Glucose 109 H D, Calcium 8.6, Magnesium 1.6, Troponin I 0.33 H 10/22/20 05:00: WBC 11.3 H, RBC 3.52 L, Hgb 11.5 L D, Hct 35.2 L, MCV 100.2 H, MCH 32.8 H, MCHC 32.7, RDW 13.3, Plt Count 252, MPV 8.4, Neut % (Auto) 76.7, Lymph % (Auto) 14.7, [place] % (Auto) 8.1, Eos % (Auto) 0.4, Baso % (Auto) 0.2, Neut # (Auto) 8.7 H, Lymph # (Auto) 1.7, [place] # (Auto) 0.9, Eos # (Auto) 0.0, Baso # (Auto) 0.0 I & O for Last 24 hours: Intake & Output 10/19/20 10/20/20 10/21/20 10/22/20 11:59 11:59 11:59 11:59 Intake Total 999 / 999 Balance 999 / 999 Weight 159 lb - Constitutional no acute distress - *Routine Respiratory Exam Absent: respiratory distress Comments: Minimal swing noted in tubing. No obvious air leak. - *Routine Cardiovascular Exam Absent: tachycardia
--- NOTE | 2020-10-22 08:00 | CA_ITS ---
APPROVED REPORT EXAM: Comprehensive 2D, Doppler, and color-flow Echocardiogram Theater Education Teacher: Marilee Santana RDCS Ht: 5 ft 6 in Wt: 200lbs BSA: 2.00 BP: 134/45 mmHg Indications: CP,SOA,H/O CA LUNG 2D Dimensions LVOT 1.56 cm (M/F) 1.5-2.5 LA Volume 29.80 mL LA Volume Index 14.064824 mL/m2 (M/F) 16-34 M-Mode Dimensions RVDd 2.39 cm (0.9-2.6) LA Diam 3.28 cm (1.9-4.0) LVDd 4.17 cm (3.5-5.7) Ao Diam 2.90 cm (2.0-3.7) LVDs 2.96 cm (3.5-5.7) IVSd 0.80 cm (0.6-1.1) PWd 0.61 cm (0.6-1.1) EF (Teich) 56.10% FS 29.00% EDV (Teich) 77.30 mL TAPSE 2.17 (<1.7) ESV (Teich) 33.90 mL LV Diastology E Decel Time 173.00 (160-240 msec) E/A Ratio 0.9 MED E' 6.30 (< 7 cm/sec) E'/MED E' Ratio 11.16 (>14) LAT E' 9.30 (<10 cm/sec) E/LAT E' Ratio 7.56 (>14) Mitral Valve MV E Max [place]qu[place]. 70.00 (40-130 cm/s) MV A Velocity 81.00 (40-130 cm/s) E/A Ratio 0.87 MV Decel. Time 173.00 (160-240 ms) MV PHT 51.00 ms Left Ventricle Left atrium is mildly enlarged, left ventricle is normal size, visually estimated ejection fraction 55% with no regional wall motion abnormality, grade 1 diastolic dysfunction seen without tissue Doppler evidence of raise left atrial pressure. Right Ventricle Right atrium and right ventricle are normal size and contractility. Aortic Valve Aortic valve is minimally thickened and fibrosed, there is no aortic stenosis or aortic insufficiency. Mitral Valve Mitral valve is grossly normal, there is trace mitral regurgitation. Tricuspid Valve Tricuspid valve grossly normal, there is trace tricuspid regurgitation, tricuspid regurgitation jet velocity is inadequate for calculation of the right ventricular systolic pressure. Pulmonic Valve Pulmonic valve is poorly visualized. Great Vessels Aortic root is normal size. Pericardium No significant pericardial effusion noted. Conclusion 1. Mildly enlarged left atrium, normal left ventricular size, mild concentric left ventricular hypertrophy, visually estimated ejection fraction 55% with no regional wall motion abnormality, grade 1 diastolic dysfunction seen without tissue Doppler evidence of raise left atrial pressure. 2. Trace mitral and tricuspid regurgitation. 3. No significant pericardial effusion noted. Electronically signed by : Hermelindo Shannon MD 10/22/2020 22:06:32
--- NOTE | 2020-10-22 08:07 | HMH.PHAVTE ---
[facility] Pharmacy VTE Monitoring - Patient Demographics Admission date: 10/21/20 Report Date: 10/22/20 Time: 08:07 Allergies/Adverse Reactions: Patient Allergies No Known Allergies Allergy (Verified 04/08/17 09:18) Height: 1.68 m Weight: 72.121 kg Patient Problems: Current Active Problems Respiratory distress, acute (Acute) Pneumothorax (Acute) - VTE Risk Labs: VTE Related Lab Results Hgb 11.5 g/dL (12.2-16.2) L D 10/22/20 05:00 Hct 35.2 % (37.0-47.0) L 10/22/20 05:00 Plt Count 252 K/mm3 (142-424) 10/22/20 05:00 BUN 13 mg/dl (7-17) 10/22/20 05:00 Creatinine 0.80 mg/dl (0.52-1.04) 10/22/20 05:00 Estimated Creat Clear 60 mL/min (50-200) 10/22/20 05:00 - Prophylaxis VTE Prophylaxis Ordered?: Yes Types of VTE Prophylaxis: TEDS Knee High Location of Applied Device: Bilateral Lower Extremeties
--- NOTE | 2020-10-22 08:59 | HMH.HP ---
*Admission Date: 10/21/20 <Glenda Branham - 10/22/20 09:16> *Chief complaint: Chest pain and shortness of breath <Glenda Branham - 10/22/20 09:16> *History of present illness: Ms. Pathak is a 70-year-old female with a history of GERD and previous left lung cancer diagnosed in 2005 with treatment of lung resection, radiation, and chemotherapy who presented to [facility] emergency room last evening due to sudden onset of right sided chest pain and severe shortness of breath. She states it started when getting up to go to the bathroom and progressively worsened. She had a usual day yesterday. In the emergency room she presented with severe respiratory distress. Chest x-ray revealed a large right pneumothorax. ABGs showed a respiratory acidosis with a PO2 of 55.1. Dr. Moore, surgeon,Placed a right Thoracostomy tube after which ABGs improved and patient stabilized. She was then admitted for further evaluation and treatment 10/21/20 22:48: WBC 12.5 H, RBC 3.89 L, Hgb 12.9, Hct 39.4, MCV 101.5 H, MCH 33.3 H, MCHC 32.8, RDW 13.3, Plt Count 319, MPV 7.5, Neut % (Auto) 24.2 L, Lymph % (Auto) 62.9 H, [place] % (Auto) 8.7, Eos % (Auto) 3.3, Baso % (Auto) 0.9, Neut # (Auto) 3.0, Lymph # (Auto) 7.9 H, [place] # (Auto) 1.1 H, Eos # (Auto) 0.4, Baso # (Auto) 0.1, Total Counted 100, Neutrophils % (Manual) 23 L, Band Neutrophils % 1.0, Lymphocytes % (Manual) 70 H, Monocytes % (Manual) 4, Eosinophils % (Manual) 2, Platelet Estimate Normal, Macrocytosis 1+, ESR 63 H 10/21/20 22:48: Sodium 140, Potassium 3.8, Chloride 102, Carbon Dioxide 27, Anion Gap 14.8, BUN 12, Creatinine 0.90, Estimated Creat Clear 75, Estimated GFR 62, Est GFR ( Amer) 75, Glucose 139 H, Calcium 9.0, Total Bilirubin 0.4, Direct Bilirubin 0.4, Conjugated Bilirubin 0.0, Indirect Bilirubin 0.0, Unconjugated Bilirubin 0.0, AST 34, ALT 19, Alkaline Phosphatase 75, Troponin I < 0.01, C-Reactive Protein 9.5 H, Total Protein 8.6 H, Albumin 4.5, Procalcitonin 0.052 10/21/20 22:48: SARS-CoV-2 (PCR) Not detected, Influenza A Untype (PCR) Not detected, Influenza Type B (PCR) Not detected 10/21/20 22:49: Specimen Source R/b, O2 % 10l, ABG pH 7.15 L*, ABG pCO2 76.7 H, ABG pO2 55.1 L, ABG HCO3 26.2 H, ABG Total CO2 28.5 H, ABG O2 Saturation 81 L*, ABG Base Excess -2.7 L 10/21/20 22:50: Lactate 1.5 This a.m. patient states she simply has right-sided soreness. She denies shortness of breath. This morning CBC reveals white blood cell count 11,300 with a hemoglobin of 11.5 and hematocrit of 35.2. Blood chemistries reveal normal electrolytes with a BUN of 13 and creatinine 0.8. Troponin I's have been less than 0.01, 0.30, and 0.33. Repeat chest x-ray showed right chest tube present and no evidence of pneumothorax. <CarrolGlenda 10/22/20 09:36> [facility] History Medical History: Reports:: Cancer (lung), Gastroesophageal Reflux Disease(GERD), Lung Disease Denies:: Arrhythmia, Atherosclerotic Heart Disease, Diabetes Mellitus Type 1, Diabetes Mellitus Type 2, Seizures <Glenda Branham 10/22/20 09:16> *Have you ever received a pneumonia vaccine?: Yes <Glenda Branham 10/22/20 09:16> *Have you received a flu vaccine this season?: Yes <Glenda Branham 10/22/20 09:16> Other Medical History: Reports: Thyroid Disease <Glenda Branham 10/22/20 09:16> Other Surgeries: Yes: Cancer Surgery, Hysterectomy-Total <Glenda Branham 10/22/20 09:16> - *Social History Last grade of school completed: 9th or 10th <Glenda Branham 08/16/21 09:16> Smoking Status: Former smoker <Glenda Branham 10/22/20 09:16> Tobacco Type: cigarettes <Glenda Branham 10/22/20 09:16> Smoking End Date: 16 years ago <Glenda Branham 10/22/20 09:16> Alcohol Intake: never <Glenda Branham 10/22/20 09:16> Substance Use Type: denies use <Glenda Branham 10/22/20 09:16> *Occupational Status:: retired <Glenda Branham 10/22/20 09:16> Housing: house <Glenda Branham 10/22/20 09:16> Household Members: spouse <Glenda Branham 10/22/20 09:
--- NOTE | 2020-10-22 10:26 | HMH.PHAINT ---
MEDICATION RECONCILIATION COMPLETED ON PATIENT USING EXTERNAL FILL HISTORY FROM PHARMACY. -NIK LOERA, PEÑAD
--- NOTE | 2020-10-22 11:03 | HMH.PULMCON ---
*Admission Date: 10/21/20 *Reason for consult:: Pneumothorax *History of present illness: Ms. Pathak is a 70-year-old female greater than [id number] smoking history last moved in 2004, carries a diagnosis of lung cancer status post resection presented to the hospital with worsening respiratory failure and found to have a large right-sided pneumothorax status post chest tube placed and pulmonary was called for further management. Patient admits significant improvement in her symptoms since admission. [facility] History Medical History: Reports:: Cancer (lung), Gastroesophageal Reflux Disease(GERD), Lung Disease Denies:: Arrhythmia, Atherosclerotic Heart Disease, Diabetes Mellitus Type 1, Diabetes Mellitus Type 2, Seizures *Have you ever received a pneumonia vaccine?: Yes *Have you received a flu vaccine this season?: Yes Other Medical History: Reports: Thyroid Disease Other Surgeries: Yes: Cancer Surgery, Hysterectomy-Total - *Social History Last grade of school completed: 9th or 10th Smoking Status: Former smoker Tobacco Type: cigarettes Smoking End Date: 16 years ago Alcohol Intake: never Substance Use Type: denies use *Occupational Status:: retired Housing: house Household Members: spouse *Travel in the last 8 weeks: None Family Hx:: Cancer, Diabetes, Heart Attack, Hyperlipidemia, Hypertension, Kidney Disease, Thyroid Disorder ROS - Cons Denies anorexia, Denies body ache(s), Denies chills - Card Reports chest pain, Reports shortness of breath, Reports shortness of breath with activity - Resp Respiratory: Denies chest congestion, Denies cough, Denies excessive phlegm production - GI Gastrointestingal: Denies: abdominal pain - Psych Denies abnormal sleep pattern Meds Home Medications Medication Instructions Recorded Confirmed Type Famotidine [Acid Controller] 20 mg PO BID 10/21/20 10/21/20 History Omeprazole [Omeprazole 40mg 40 mg PO DAILY 10/21/20 10/21/20 History Capsule] Pravastatin Sodium 80 mg PO HS 10/21/20 10/21/20 History Levothyroxine Sodium 50 mcg PO DAILY 10/22/20 10/22/20 History [Levothyroxine 50mcg (0.05mg) Tab] estradioL [Estradiol] 0.5 mg PO DAILY 10/22/20 10/22/20 History Allergies Allergy/AdvReac Type Severity Reaction Status Date / Time No Known Allergies Allergy Verified 04/08/17 09:18 Exam - Constitutional Constitutional:: Present: no acute distress - HENMT Exam HENMT: Present: normocephalic, atraumatic - Eye Exam Eyes:: Present: normal appearance both eyes and related structures - Neck Exam Neck:: Present: normal visual inspection - Respiratory Exam Respiratory:: Present: able to speak in complete sentences, lungs clear, no respiratory distress - Cardiovascular Exam Cardiac:: Present: S1, S2 - GI Exam GI:: Present: soft - Skin Exam Skin: Present: warm, no rash - Neurological Exam Neurological: Present: alert, awake, normal cognition - Extremities Exam Extremities: Present: no cyanosis, no clubbing, no edema Internal Medicine - CN: Reslt - Labs CBC & Chem 7: 10/22/20 05:00 10/22/20 05:00 Labs: Short CBC 10/21/20 10/22/20 Range/Units 22:48 05:00 WBC 12.5 H 11.3 H (4.8-10.8) K/mm3 Hgb 12.9 11.5 L D (12.2-16.2) g/dL Hct 39.4 35.2 L (37.0-47.0) % Plt Count 319 252 (142-424) K/mm3 BMP 10/21/20 10/22/20 22:48 05:00 Sodium 140 140 Potassium 3.8 4.3 Chloride 102 103 Carbon Dioxide 27 28 BUN 12 13 Creatinine 0.90 0.80 Glucose 139 H 109 H D Calcium 9.0 8.6 Cardiac Enzymes 10/21/20 10/22/20 10/22/20 Range/Units 22:48 02:10 05:00 Troponin I < 0.01 0.30 H 0.33 H (0.00-0.034) ng/ml Liver Function 10/21/20 Range/Units 22:48 Total Bilirubin 0.4 (0.2-1.3) mg/dl Direct Bilirubin 0.4 (0.0-0.4) mg/dl AST 34 (14-36) U/L ALT 19 (12-78) U/L Alkaline Phosphatase 75 (38-126) U/L Albumin 4.5 (3.5-5.0) g/dl - ABG Interpretation ABG results:
--- NOTE | 2020-10-22 17:02 | PC.NURSE ---
PT IS RESTING IN BED. TOLERATED SITTING UP IN THE CHAIR FOR A FEW HOURS THIS SHIFT. PT STATES SHE ONLY HAS SOME DISCOMFORT AT THE INSERTION SITE FROM THE CHEST TUBE. DURING ROUNDS THIS MORNING REQUESTED FOR THE CHEST TUBE TO BE CLAMPED AND REPEAT CXR 6 HOURS LATER. AFTER READING NOTE IT STATED THAT HE WANTED PT TO CONTINUE CONNECTED TO SUCTION AND REPEAT CXR IN THE MORNING AND POSSIBLY WATER SEAL. UPON ENTERING THE ROOM TO ASSESS PT IT WAS NOTICED PT'S CHEST TUBE WAS DISCONNECTED FROM WALL SUCTION CANISTER. PT STATED THIS COULD HAVE BEEN AN ACCIDENT WHEN MOVING TO CHAIR OR BSC. NOTIFIED THAT ACCORDING TO BAYLEE'S NOTE HE DID NOT WANT PT TO GO TO WATER SEAL UNTIL TOMORROW. NOTIFIED DR. BEACH AND HE CLARIFIED HE WANTED THE PT TO CONTINUE TO STAY CONNECTED TO SUCTION AND FOR NOW ON IF HE WAS THE ONE THAT INSERTED THE CHEST TUBE HE OR THE SURGEON COVERING FOR HIM NEEDED TO BE THE ONE TO MANAGE IT. PT IS STILL AT 20CM LOW WALL SUCTION PER . PT HAS NOT COMPLAINED OF SOA T/O THE SHIFT. DRESSING TO THE SITE C/D/I. RT SIDED LUNG SOUNDS DIMINISHED. ABDOMEN SOFT/NON TENDER WITH ACTIVE BOWEL SOUNDS. 42 ML'S OF DRAINAGE NOTED(PLEUROVAC). EATING AND DRINKING WELL. WILL CONTINUE TO MONITOR.
[2020-10-23] VITALS (9 sets, daily range): BP systolic 115–157; BP diastolic 61–72; PULSE 68–92; RESP 17–20; TEMP 36.6–36.9; O2SAT 95–100; BMI 24.5
--- NOTE | 2020-10-23 04:29 | PC.NURSE ---
Patient has had no acute changes this shift. She is alert and oriented x4. Patient has rested well this shift with no complaints of pain just soreness. Patient's chest tube is connected to low wall suction, dressing is clean, dry and intact. Patient remains on 2LNC. Vitals signs are stable, will continue monitor, call light within reach.
--- NOTE | 2020-10-23 06:00 | XR_ITS ---
PROCEDURE INFORMATION: Exam: XR Chest Exam date and time: 10/23/2020 6:00 AM Age: 70 years old Clinical indication: Shortness of breath; Prior surgery; Surgery date: 6+ months; Surgery type: Lt lung cancer, top of left lobe removed; Additional info: R ptx TECHNIQUE: Imaging protocol: XR of the chest. Views: 1 view. COMPARISON: CR XR CHEST PORTABLE 10/22/2020 6:46 AM FINDINGS: Tubes, catheters and devices: Right-sided pleural drain in place. There is no significant pneumothorax. Lungs: Scarring of the left lung apex with multiple clips. The lungs are otherwise clear. Pleural spaces: No pleural effusion. No left-sided pneumothorax. Heart/Mediastinum: Unremarkable. No cardiomegaly. Bones/joints: Unremarkable. There is no acute fracture present. IMPRESSION: 1. Right-sided pleural drain in place. There is no significant pneumothorax. . 2. Scarring of the left lung apex with multiple clips. 3. No evidence of pneumonia.
--- NOTE | 2020-10-23 08:01 | HMH.ACPN2 ---
<Glenda Branham - Last Filed: 10/23/20 08:01> Internal Medicine - PN: Subj *Date: 10/23/20 *Time: 08:01 Interval history: Feeling well this AM. States she slept well last night. She has some chest wall soreness at the site of her chest tube. She denies shortness of breath and other chest pain. She has been eating without difficulty. She is been up and to the bedside commode. She denies dizziness. Patient was seen by Dr. Walsh yesterday. Chest tube was clamped. Chest x-ray this a.m. reveals no significant pneumothorax. No evidence of pneumonia. Exam Vital signs and Labs for Last 24 Hours: Temp Pulse Resp BP Pulse Ox 98 F 77 19 128/72 100 10/23/20 04:00 10/23/20 06:15 10/23/20 04:00 10/23/20 04:00 10/23/20 04:00 I & O for Last 24 hours: Intake & Output 10/20/20 10/21/20 10/22/20 10/23/20 11:59 11:59 11:59 11:59 Intake Total 1000 / 1000 2257 / 2257 Output Total 42 / 42 Balance 1000 / 1000 2215 / 2215 Weight 158 lb 11.725 oz 153 lb - Constitutional no acute distress Comments: Sitting up in the bed playing a game and drinking her coffee - *Routine Respiratory Exam Present: crackles Comments: Crackles on the right. - *Routine Cardiovascular Exam Present: RRR - *Routine Abdominal Exam Present: soft, normoactive bowel sounds. Absent: tenderness - *Routine Extremities Exam Absent: edema, calf tenderness - *Routine Neurological Exam Present: alert, oriented X3 Assessment and Plan (1) Respiratory distress, acute Status: Acute Category: Medical Code(s): R06.03 - Acute respiratory distress (2) Pneumothorax Status: Acute Qualifiers: Pneumothorax type: spontaneous, primary Qualified Code(s): J93.11 - Primary spontaneous pneumothorax Category: Medical Code(s): J93.9 - Pneumothorax, unspecified (3) GERD (gastroesophageal reflux disease) Status: Chronic Category: Medical Code(s): K21.9 - Gastro-esophageal reflux disease without esophagitis (4) History of lung cancer in adulthood Status: Chronic Category: Medical Code(s): Z85.118 - Personal history of other malignant neoplasm of bronchus and lung - Assessment and plan all Dx Assessment and Plan for all problems:: Continue current care. Patient also being followed by pulmonology and surgeon Dr. Moore. <Dallin John - Last Filed: 10/23/20 08:48> Internal Medicine - PN: Subj *Date: 10/23/20 *Time: 08:48 Exam Vital signs and Labs for Last 24 Hours: Temp Pulse Resp BP Pulse Ox 98 F 77 19 128/72 100 10/23/20 04:00 10/23/20 06:15 10/23/20 04:00 10/23/20 04:00 10/23/20 04:00 I & O for Last 24 hours: Intake & Output 10/20/20 10/21/20 10/22/20 10/23/20 23:59 23:59 23:59 23:59 Intake Total 3017 / 3257 240 / 240 Output Total 42 / 42 Balance 2975 / 3215 240 / 240 Weight 158 lb 14.4 oz 158 lb 11.725 oz 153 lb Assessment and Plan (1) Respiratory distress, acute Status: Acute Category: Medical Code(s): R06.03 - Acute respiratory distress (2) Pneumothorax Status: Acute Qualifiers: Pneumothorax type: spontaneous, primary Qualified Code(s): J93.11 - Primary spontaneous pneumothorax Category: Medical Code(s): J93.9 - Pneumothorax, unspecified (3) GERD (gastroesophageal reflux disease) Status: Chronic Category: Medical Code(s): K21.9 - Gastro-esophageal reflux disease without esophagitis (4) History of lung cancer in adulthood Status: Chronic Category: Medical Code(s): Z85.118 - Personal history of other malignant neoplasm of bronchus and lung - Assessment and plan all Dx Assessment and Plan for all problems:: Saw patient, agree with above note.
--- NOTE | 2020-10-23 08:18 | HMH.GSPN ---
Subjective Patient reports: no new complaints, feels better Progress Note: A&P (1) Respiratory distress, acute Status: Acute (2) Pneumothorax Status: Acute Assessment and plan: Overall, doing well status post chest tube placement. She has now been over 24 hours on suction. No air leak. No definitive evidence of persistent pneumothorax noted on this morning's chest film. Chest tube to waterseal Chest x-ray at 2 PM (3) GERD (gastroesophageal reflux disease) Status: Chronic (4) History of lung cancer in adulthood Status: Chronic Exam Vital signs and Labs for Last 24 Hours: Temp Pulse Resp BP Pulse Ox 98 F 77 19 128/72 100 10/23/20 04:00 10/23/20 06:15 10/23/20 04:00 10/23/20 04:00 10/23/20 04:00 I & O for Last 24 hours: Intake & Output 10/20/20 10/21/20 10/22/20 10/23/20 11:59 11:59 11:59 11:59 Intake Total 1000 / 1000 2257 / 2257 Output Total 42 / 42 Balance 1000 / 1000 2215 / 2215 Weight 158 lb 11.725 oz 153 lb - Constitutional no acute distress - *Routine Respiratory Exam Absent: respiratory distress Comments: Chest tube to suction with no air leak and no swing within tubing
--- NOTE | 2020-10-23 10:20 | PC.NURSE ---
0935 During physical instructor, pt noted to have NC off. SaO2 checked and 95-96% on room air. Pt denies any difficulty breathing/SOA. Will leave on room air for now and continue to monitor.
--- NOTE | 2020-10-23 11:52 | P.PN_ITS ---
Internal Medicine - PN: Subj *Date: 10/23/20 *Time: 11:52 Interval history: Patient denies any new respiratory complaints, on room air today. Denies any respiratory distress. Exam - Constitutional Constitutional:: Present: no acute distress, comfortable - HENMT Exam HENMT: Present: normocephalic, atraumatic - Eye Exam Eyes:: Present: normal appearance both eyes and related structures - Neck Exam Neck:: Present: normal visual inspection - Respiratory Exam Respiratory:: Present: able to speak in complete sentences, no respiratory distress. Absent: crackles, wheezing - Cardiovascular Exam Cardiac:: Present: S1, S2 - GI Exam GI:: Present: soft - Skin Exam Skin: Present: warm, no rash, dry - Neurological Exam Neurological: Present: alert, awake, reflexes normal - Extremities Exam Extremities: Present: no cyanosis, no clubbing, no edema Assessment and Plan (1) Respiratory distress, acute Status: Acute Category: Medical Code(s): R06.03 - Acute respiratory distress (2) Pneumothorax Status: Acute Qualifiers: Pneumothorax type: spontaneous, primary Qualified Code(s): J93.11 - Primary spontaneous pneumothorax Category: Medical Code(s): J93.9 - Pneumothorax, unspecified (3) GERD (gastroesophageal reflux disease) Status: Chronic Category: Medical Code(s): K21.9 - Gastro-esophageal reflux disease without esophagitis (4) History of lung cancer in adulthood Status: Chronic Category: Medical Code(s): Z85.118 - Personal history of other malignant neoplasm of bronchus and lung - Assessment and plan all Dx Assessment and Plan for all problems:: #Secondary spontaneous pneumothorax: #COPD: #History of lung cancer: 70-year-old female carries a diagnosis COPD last month 16 years ago lung cancer in 2000 for status post recent presented hospital with increased pain and found to have large right-sided pneumothorax status post chest tube placement. ABG on admission showed hypercarbic hypoxic respiratory failure. Plan:s -Continue oxygen supplementation to maintain O2 sat goal of 100%. Patient is not using any oxygen therapy at home, currently on 2 L saturating 99-100%. -DuoNebs every 6 hours scheduled along with albuterol every 6 hours as needed -Chest tube and pneumothorax are being managed by surgery #Patient also having large right upper lobe mass that has been stable since 2019 which was calcified less likely to be malignant. Patient also told that she had mentioned she had a diagnosis of cancer. Patient had her cancer care at [facility] in 2004, will obtain records as an outpatient basis to determine further imaging testing for the suspicious right upper lobe lung mass which is likely to be a benign lesion #Thank you for involving pulmonary in this patient care. We will follow the patient in pulmonary clinic in 4 to 6 weeks with a full PFTs and a 6-minute walk testing. Pulmonary will sign off at this point of time. Please call with any further questions or concerns.
--- NOTE | 2020-10-23 14:00 | XR_ITS ---
PROCEDURE: XR CHEST 2V CLINICAL HISTORY: right PTX; chest tube now to water seal COMPARISON: CT CT CHEST WO/W CON from 01/21/2019 CR XR CHEST PORTABLE from 10/21/2020 CR XR CHEST PORTABLE from 10/22/2020 CR XR CHEST PORTABLE from 10/23/2020 FINDINGS: Right chest tube remains in place. No evidence of pneumothorax. Chronic changes once again noted the left lobe postsurgical changes and tracheal shift toward the left. There is a small amount of subcutaneous emphysema on the right. IMPRESSION: No evidence of pneumothorax Dictated by: Gordo Nunez MD 10/23/2020 15:05 Gordo Nunez MD in [place] 10/23/2020 15:05
--- NOTE | 2020-10-23 16:52 | PC.NURSE ---
Pt has been pleasant and cooperative this shift. A&O X4. No complaints of pain or SOA. Pt is currently on room air with sats. >90%. Lung sounds are diminished. No edema noted. Skin is C/D/I. Chest tube in place to RT chest. Telemetry reveals NSR. Pt ambulates with stand-by assistance. Pt sat up in the recliner today for several hours. Urine is clear and yellow. No BM thus far this shift. 20 G peripheral IV in the RT AC is patent and infusing NS @ 100 ML/HR. VSS. Call light within reach. Will continue to monitor.
--- NOTE | 2020-10-23 22:48 | PC.NURSE ---
LATE ENTRY: 1999 REPORT RECEIVED FROM ISMAEL STORM ON 2ND FLOOR. PT A&OX3, NO ACUTE DEFICITS. VSS.
[2020-10-24] VITALS (7 sets, daily range): BP systolic 130–163; BP diastolic 62–72; PULSE 81–93; RESP 18–20; TEMP 36.6–36.8; O2SAT 94–96
--- NOTE | 2020-10-24 03:40 | PC.NURSE ---
PT HAS RESTED WELL MAJORITY OF THIS SHIFT WITH MINIMAL C/O DISCOMFORT R/T CHEST TUBE AND A SLIGHT HEADACHE (MEDICATED PER EMAR). VS REMAIN STABLE CHARTED. CHEST TUBE DRESSING REMAINS CDI, NO CHANGE IN DRAINAGE NOTED FROM 10/23 AT 1400. RESERVOIR REMAINS IN APPROPRIATE PLACEMENT. WILL CONTINUE TO MONITOR.
--- NOTE | 2020-10-24 06:00 | XR_ITS ---
PROCEDURE INFORMATION: Exam: XR Chest Exam date and time: 10/24/2020 6:00 AM Age: 70 years old Clinical indication: Shortness of breath; Prior surgery; Surgery date: 6+ months; Surgery type: Lf lung canccer; Additional info: R ptx TECHNIQUE: Imaging protocol: XR of the chest. Views: 1 view. COMPARISON: CR XR CHEST 2V 10/23/2020 2:33 PM FINDINGS: Tubes, catheters and devices: Right chest tube remains in similar position with tip oriented towards the apex. Lungs: Chronic changes bilaterally. No consolidation. Pleural spaces: No pneumothorax. Residual right chest wall subcutaneous emphysema. Heart/Mediastinum: Unremarkable. No cardiomegaly. Bones/joints: Chronic postsurgical changes in the left lung with surgical clips and rib deformities noted. IMPRESSION: No pneumothorax. Residual right chest wall subcutaneous emphysema.
--- NOTE | 2020-10-24 08:04 | HMH.GSPN ---
Subjective Patient reports: no new complaints Progress Note: A&P (1) Respiratory distress, acute Status: Acute (2) Pneumothorax Status: Acute Assessment and plan: No airleak. No residual pneumothorax noted on this morning's chest x-ray. Chest tube removed Follow-up x-ray ordered for 2 PM (3) GERD (gastroesophageal reflux disease) Status: Chronic (4) History of lung cancer in adulthood Status: Chronic Exam Vital signs and Labs for Last 24 Hours: Temp Pulse Resp BP Pulse Ox 98.0 F 83 18 143/71 H 94 L 10/24/20 03:39 10/24/20 06:42 10/24/20 03:39 10/24/20 03:39 10/24/20 03:39 I & O for Last 24 hours: Intake & Output 10/21/20 10/22/20 10/23/20 10/24/20 11:59 11:59 11:59 11:59 Intake Total 1000 / 1000 4066 / 4066 2414 / 2414 Output Total 42 / 42 408 / 408 Balance 1000 / 1000 4024 / 4024 2005 Weight 158 lb 11.725 oz 153 lb Microbiology Reports for the Last 24 Hours: Microbiology 10/21/20 22:50 Blood Blood Culture - Preliminary NO GROWTH AFTER 48 HOURS 10/21/20 22:50 Blood Blood Culture - Preliminary NO GROWTH AFTER 48 HOURS - Constitutional no acute distress - *Routine Respiratory Exam Absent: respiratory distress Comments: No air leak
--- NOTE | 2020-10-24 08:35 | PC.NURSE ---
Dr. Moore and RN present at bedside at 0737. Dr. Moore talked pt through removal of chest tube and removed it at approximately 0746. Xeroform, 4x4's and tape applied to site per MD. Pt tolerated removal well. Continuous pulse ox initiated after removal, RN at bedside for several minutes after to complete and assessment. Pt denies any SOA. SaO2 94-97% on room air. Call light placed within reach, pt aware that she needs to call out for any SOA.
--- NOTE | 2020-10-24 08:38 | HMH.ACPN2 ---
<Salena Casillas - Last Filed: 10/24/20 08:38> Internal Medicine - PN: Subj *Date: 10/24/20 *Time: 08:38 Interval history: Patient states she is feeling much better after her chest tube has been removed. She denies any pain or shortness of breath and is anxious for cup of coffee. Exam Vital signs and Labs for Last 24 Hours: Temp Pulse Resp BP Pulse Ox 97.9 F 84 19 145/71 H 95 10/24/20 08:00 10/24/20 08:00 10/24/20 08:00 10/24/20 08:00 10/24/20 08:00 I & O for Last 24 hours: Intake & Output 10/21/20 10/22/20 10/23/20 10/24/20 11:59 11:59 11:59 11:59 Intake Total 1000 / 1000 4066 / 4066 2414 / 2414 Output Total 42 / 42 408 / 408 Balance 1000 / 1000 4024 / 4024 2005 Weight 158 lb 11.725 oz 153 lb Microbiology Reports for the Last 24 Hours: Microbiology 10/21/20 22:50 Blood Blood Culture - Preliminary NO GROWTH AFTER 48 HOURS 10/21/20 22:50 Blood Blood Culture - Preliminary NO GROWTH AFTER 48 HOURS - Constitutional no acute distress - *Routine Respiratory Exam Present: CTA bilaterally - *Routine Cardiovascular Exam Present: RRR - *Routine Abdominal Exam Present: soft, normoactive bowel sounds. Absent: tenderness - *Routine Extremities Exam Absent: cyanosis, clubbing, edema - *Routine Skin Exam Present: warm. Absent: rash - *Routine Neurological Exam Present: alert, oriented X3 Assessment and Plan (1) Respiratory distress, acute Status: Acute Category: Medical Code(s): R06.03 - Acute respiratory distress (2) Pneumothorax Status: Acute Qualifiers: Pneumothorax type: spontaneous, primary Qualified Code(s): J93.11 - Primary spontaneous pneumothorax Category: Medical Code(s): J93.9 - Pneumothorax, unspecified (3) GERD (gastroesophageal reflux disease) Status: Chronic Category: Medical Code(s): K21.9 - Gastro-esophageal reflux disease without esophagitis (4) History of lung cancer in adulthood Status: Chronic Category: Medical Code(s): Z85.118 - Personal history of other malignant neoplasm of bronchus and lung - Assessment and plan all Dx Assessment and Plan for all problems:: Chest tube has been removed and patient has been seen by Dr. Moore this morning. He is ordered a follow-up chest x-ray for 2 PM and feels she may be able to be discharged as long as that x-ray is stable. <Dallin John - Last Filed: 10/24/20 09:13> Internal Medicine - PN: Subj *Date: 10/24/20 *Time: 09:13 Exam Vital signs and Labs for Last 24 Hours: Temp Pulse Resp BP Pulse Ox 97.9 F 84 19 145/71 H 95 10/24/20 08:00 10/24/20 08:00 10/24/20 08:00 10/24/20 08:00 10/24/20 08:00 I & O for Last 24 hours: Intake & Output 10/21/20 10/22/20 10/23/20 10/24/20 23:59 23:59 23:59 23:59 Intake Total 3017 / 3257 3853 / 3853 610 / 610 Output Total 42 / 42 108 / 108 300 / 300 Balance 2975 / 3215 3745 / 3745 310 / 310 Weight 158 lb 14.4 oz 158 lb 11.725 oz 153 lb Microbiology Reports for the Last 24 Hours: Microbiology 10/21/20 22:50 Blood Blood Culture - Preliminary NO GROWTH AFTER 48 HOURS 10/21/20 22:50 Blood Blood Culture - Preliminary NO GROWTH AFTER 48 HOURS Assessment and Plan (1) Respiratory distress, acute Status: Acute Category: Medical Code(s): R06.03 - Acute respiratory distress (2) Pneumothorax Status: Acute Qualifiers: Pneumothorax type: spontaneous, primary Qualified Code(s): J93.11 - Primary spontaneous pneumothorax Category: Medical Code(s): J93.9 - Pneumothorax, unspecified (3) GERD (gastroesophageal reflux disease) Status: Chronic Category: Medical Code(s): K21.9 - Gastro-esophageal reflux disease without esophagitis (4) History of lung cancer in adulthood Status: Chronic Category: Medical Code(s): Z85.118 - Personal hi
--- NOTE | 2020-10-24 09:18 | PC.NURSE ---
Continuous pulse oximeter applied for approx 1 hour follow chest tube removal. SaO2 94-97%. Pt continues to deny any SOA.
--- NOTE | 2020-10-24 13:39 | PC.NURSE ---
1309 Elevated BP of 163/72 noted. Pt recently ambulated to to void and reports BM. Per pt, she has been ambulating in the room. Will recheck BP. SaO2 WNL. Pt continues to deny any SOA, resps even and unlabored despite increasing activity.
--- NOTE | 2020-10-24 14:00 | XR_ITS ---
PROCEDURE: XR CHEST PORTABLE CLINICAL HISTORY: right PTX COMPARISON: CT CT CHEST WO/W CON from 01/21/2019 CR XR CHEST PORTABLE from 10/23/2020 CR XR CHEST 2V from 10/23/2020 CR XR CHEST PORTABLE from 10/24/2020 FINDINGS: Right chest tube is been removed. There is no evidence of pneumothorax. There remains some subcutaneous emphysema along the right lateral chest wall inferiorly. Postsurgical changes on the left with scarring in the left apex. Fibrocalcific changes are present in the right apex. IMPRESSION: No evidence of pneumothorax Dictated by: Gordo Nunez MD 10/24/2020 15:16 Gordo Nunez MD in [facility] 10/24/2020 15:16
--- NOTE | 2020-10-26 13:13 | HMH.DCSUM ---
General - General Admission date:: 10/22/20 Discharge date: 10/24/20 HPI HPI: Ms. Pathak is a 70-year-old female with a history of GERD and previous left lung cancer diagnosed in 2005 with treatment of lung resection, radiation, and chemotherapy who presented to [facility] emergency room due to sudden onset of right sided chest pain and severe shortness of breath. She stated it started when getting up to go to the bathroom and progressively worsened. She had a usual day yesterday. In the emergency room she presented with severe respiratory distress. Chest x-ray revealed a large right pneumothorax. ABGs showed a respiratory acidosis with a PO2 of 55.1. Dr. Moore, surgeon, placed a right Thoracostomy tube after which ABGs improved and patient stabilized. She was then admitted for further evaluation and treatment Lab data on admission: 10/21/20 22:48: WBC 12.5 H, RBC 3.89 L, Hgb 12.9, Hct 39.4, MCV 101.5 H, MCH 33.3 H, MCHC 32.8, RDW 13.3, Plt Count 319, MPV 7.5, Neut % (Auto) 24.2 L, Lymph % (Auto) 62.9 H, Canadian % (Auto) 8.7, Eos % (Auto) 3.3, Baso % (Auto) 0.9, Neut # (Auto) 3.0, Lymph # (Auto) 7.9 H, Canadian # (Auto) 1.1 H, Eos # (Auto) 0.4, Baso # (Auto) 0.1, Total Counted 100, Neutrophils % (Manual) 23 L, Band Neutrophils % 1.0, Lymphocytes % (Manual) 70 H, Monocytes % (Manual) 4, Eosinophils % (Manual) 2, Platelet Estimate Normal, Macrocytosis 1+, ESR 63 H 10/21/20 22:48: Sodium 140, Potassium 3.8, Chloride 102, Carbon Dioxide 27, Anion Gap 14.8, BUN 12, Creatinine 0.90, Estimated Creat Clear 75, Estimated GFR 62, Est GFR ( Amer) 75, Glucose 139 H, Calcium 9.0, Total Bilirubin 0.4, Direct Bilirubin 0.4, Conjugated Bilirubin 0.0, Indirect Bilirubin 0.0, Unconjugated Bilirubin 0.0, AST 34, ALT 19, Alkaline Phosphatase 75, Troponin I < 0.01, C-Reactive Protein 9.5 H, Total Protein 8.6 H, Albumin 4.5, Procalcitonin 0.052 10/21/20 22:48: SARS-CoV-2 (PCR) Not detected, Influenza A Untype (PCR) Not detected, Influenza Type B (PCR) Not detected 10/21/20 22:49: Specimen Source R/b, O2 % 10l, ABG pH 7.15 L*, ABG pCO2 76.7 H, ABG pO2 55.1 L, ABG HCO3 26.2 H, ABG Total CO2 28.5 H, ABG O2 Saturation 81 L*, ABG Base Excess -2.7 L 10/21/20 22:50: Lactate 1.5 The following a.m. patient stated she simply had right-sided soreness. She denied shortness of breath. Repeat CBC showed a jwhite blood cell count of 11,300 with a hemoglobin of 11.5 and hematocrit of 35.2. Blood chemistries revealed normal electrolytes with a BUN of 13 and creatinine 0.8. Troponin I's were less than 0.01, 0.30, and 0.33. Repeat chest x-ray showed right chest tube present and no evidence of pneumothorax. Hospital Course Hospital Course: Patient had a chest tube inserted in the emergency room after which she quickly stabilized. She was followed by surgeon, Dr. Moore as well as pulmonology, Dr. Walsh..She continually denied shortness of breath and chest pain. She did have soreness at chest tube insertion site. She ate without difficulty and was able to get up and use the bedside commode. Chest tube was clamped the p.m. of 10/22/2020 with follow-up chest x-ray showing no further pneumothorax. Chest tube was removed on 10/24/2020. Follow-up chest x-rays showed no pneumothorax. O2 sats remained in the high 90s on room air. In the p.m. 10/24/2020 patient was discharged home in stable and satisfactory condition. She was to follow-up with Dr. John with Dr. Walsh... Medications as per medication reconciliation sheet. Objective Vital signs: Temp Pulse Resp BP Pulse Ox 98.3 F 81 20 140/68 96 10/24/20 13:09 10/24/20 14:00 10/24/20 13:09 10/24/20 14:00 10/24/20 13:09 Narrative: Exam Vital signs and Labs for Last 24 Hours: Temp Pulse Resp BP Pulse Ox 97.9 F 84 19 145/71 H 95 10/24/20 08:00 10/24/20 08:00 10/24/20 08:00 10/24/20 08:00 10/24/20 08:00 I & O for Last 24 hours: Intake & Output 10/21/20 0
== END 2020-10-24 16:20 | disposition home or self-care (01) | DRG 199 ==
LOC: ER 22:51 → 2ND 10-22 00:49 → OB 10-23 19:53
PROVIDERS: Admitting Provider Family Medicine; Emergency Provider Emergency Medicine; PCP Nurse Practitioner; Visit Provider Family Medicine
DX: J93.11 Primary spontaneous pneumothorax (principal); J96.01 Acute respiratory failure with hypoxia; Z20.822 Contact with and (suspected) exposure to COVID-19; Z85.118 Personal history of other malignant neoplasm of bronchus and lung; J44.9 Chronic obstructive pulmonary disease, unspecified; J96.02 Acute respiratory failure with hypercapnia; K21.9 Gastro-esophageal reflux disease without esophagitis; Z79.899 Other long term (current) drug therapy; Z79.890 Hormone replacement therapy
CPT/HCPCS: 32551; 36415; 71045; 71046; 80048; 80076; 82803; 83605; 83735; 84145; 84484; 85007; 85025; 85651; 86140; 87040; 87077; 93005; 93306; 94640; 99285; U0003

== ENCOUNTER → 2020-10-30 08:40 | Outpatient (CLI) | payer MEDICARE, SELFPAY ==
--- NOTE | 2020-10-30 08:45 | XR_ITS ---
PROCEDURE: XR CHEST 2V CLINICAL HISTORY: Pnemonthorax Follow-up COMPARISON: CT CT CHEST WO/W CON from 01/21/2019 CR XR CHEST 2V from 10/23/2020 CR XR CHEST PORTABLE from 10/24/2020 CR XR CHEST PORTABLE from 10/24/2020 FINDINGS: The cardiomediastinal silhouette and pulmonary vascularity are within normal limits. No evidence of pneumothorax. Postsurgical changes are present in the left upper lobe with left apical pleural thickening and surgical clips. There has been partial resection of the left 3rd and 4th ribs. Fibrocalcific changes are present in the right apex. The no acute bony findings. IMPRESSION: No acute finding. No evidence of pneumothorax. Dictated by: Gordo Nunez MD 10/30/2020 09:49 Gordo Nunez MD in [facility] 10/30/2020 09:49
== END ==
PROVIDERS: PCP Family Medicine; Visit Provider Surgery
DX: J93.9 Pneumothorax, unspecified (principal)
CPT/HCPCS: 71046

== ENCOUNTER → 2021-01-03 11:58 | Outpatient (CLI) | payer MEDICARE, SELFPAY ==
[2021-01-03 13:01] LABS: Basophils % 0.4 % (0.1-2.0); Eosinophils # 0.2 K/mm3 (0.0-0.4); Eosinophils % 2.3 % (0.1-12.0); Hematocrit 38.6 % (37.0-47.0); Hemoglobin 12.3 g/dL (12.2-16.2); Lymphocytes # 2.7 K/mm3 (0.7-4.5); Lymphocytes % 39.8 % (10-50); Mean Corpuscular Hemoglobin 33.8 pg (27.0-31.2); Mean Corpuscular Volume 105.8 fl (81-99); Mean Platelet Volume 8.2 fl (7.4-10.4); Monocytes # 0.5 K/mm3 (0.1-1.0); Monocytes % 7.7 % (1.7-9.3); Neutrophils # 3.4 K/mm3 (1.8-7.8); Neutrophils % 49.7 % (37.0-80.0); Platelet Count 321 K/mm3 (142-424); Red Blood Count 3.65 M/mm3 (4.20-5.40); White Blood Count 6.9 K/mm3 (4.8-10.8)
[2021-01-03 13:52] LABS: Alanine Aminotransferase 14 U/L (12-78); Albumin Level 4.2 g/dl (3.5-5.0); Albumin/Globulin Ratio 1.1 (1.1-1.8); Alkaline Phosphatase 77 U/L (38-126); Aspartate Amino Transferase 31 U/L (14-36); Bilirubin,Total 0.3 mg/dl (0.2-1.3); Blood Urea Nitrogen 12 mg/dl (7-17); Calcium 9.4 mg/dl (8.4-10.2); Carbon Dioxide 28 mmol/L (22.0-30.0); Chloride 98 mmol/L (98-107); Cholesterol 206 mg/dl (140-200); Estimated Glomerular Filt Rate 71 ml/min (>60); GFR (African American) 86 ML/MIN (>60); Globulin 3.9 g/dL (1.3-3.2); Glucose 88 mg/dl (74-100); HDL Cholesterol 69 mg/dl (40-60); Phosphorous 3.6 mg/dl (2.5-4.5); Sodium 134 mmol/L (136-145); Total Protein,Serum 8.1 g/dl (6.3-8.2); Triglycerides 176 mg/dl (30-150); VLDL Cholesterol 35 mg/dL (0-40)
[2021-01-03 14:03] LABS: Direct LDL Cholesterol 103.33 mg/dL (100-129)
[2021-01-03 14:04] LABS: Intact Parathyroid Hormone 57.1 pg/mL (7.5-53.5)
[2021-01-03 14:09] LABS: Free T4 (Free Thyroxine) 1.22 ng/dl (0.78-2.19)
[2021-01-03 14:22] LABS: Thyroid Stimulating Hormone 1.69 uIU/mL (0.465-4.68)
[2021-01-04 16:12] LABS: H. pylori Breath Test Negative (Negative)
== END ==
PROVIDERS: Visit Provider Family Medicine
DX: R10.13 Epigastric pain (principal); K21.9 Gastro-esophageal reflux disease without esophagitis; E78.2 Mixed hyperlipidemia; E03.9 Hypothyroidism, unspecified; N28.9 Disorder of kidney and ureter, unspecified
CPT/HCPCS: 36415; 80053; 80061; 83013; 83970; 84100; 84439; 84443; 85025

== ENCOUNTER → 2021-05-09 09:43 | Outpatient (CLI) | payer MEDICARE, SELFPAY | PROVIDERS: PCP Family Medicine; Visit Provider Internal Medicine Pulmonary Disease | DX: J44.9 Chronic obstructive pulmonary disease, unspecified (principal) | CPT/HCPCS: 94060; 94618; 94726; 94729 ==

== ENCOUNTER → 2021-07-10 12:42 | Outpatient (CLI) | payer MEDICARE, SELFPAY ==
--- NOTE | 2021-07-10 12:45 | US_ITS ---
FINAL REPORT CLINICAL HISTORY: THYROMEGALY FINDINGS: THYROID ULTRASOUND Sonographic images of the thyroid was obtained. The thyroid is small with heterogeneous echotexture. The right lobe of the thyroid measures 2.5 x 1.2 x 1.0 cm. The left lobe of the thyroid measures 2.7 x 1.4 x 0.9 cm. The isthmus measures 3 mm. IMPRESSION: Thyroid is small with heterogeneous echotexture. This is a nonspecific finding which can be seen in chronic thyroiditis. No mass or thyroid nodule is identified. Reviewed, Interpreted and Dictated by Pineda Nguyen III, MD Transcribed by Dionna Singer Authenticated by Pineda Nguyen III, MD on 07/10/2021 02:31:52 PM [facility]
--- NOTE | 2021-07-10 12:46 | XR_ITS ---
FINAL REPORT CLINICAL HISTORY: LT SHOULDER PAIN FINDINGS: LEFT SHOULDER Three views demonstrate no acute fracture or dislocation. There are mild degenerative changes of the acromioclavicular and the glenohumeral joints. There is postoperative change in the left thorax. There are multiple chronic rib fractures. There is left apical pleural thickening. IMPRESSION: Mild degenerative change. Reviewed, Interpreted and Dictated by Pineda Nguyen III, MD Transcribed by Jorge Talamantes Authenticated by Pineda Nguyen III, MD on 07/11/2021 07:51:46 AM [facility]
== END ==
PROVIDERS: PCP Family Medicine; Visit Provider Family Medicine
DX: E01.0 Iodine-deficiency related diffuse (endemic) goiter (principal); M25.512 Pain in left shoulder
CPT/HCPCS: 73030; 76536

== ENCOUNTER → 2021-09-10 08:10 | Outpatient (POV) | payer MEDICARE, SELFPAY | PROVIDERS: Visit Provider Dermatology | DX: Z00.00 Encounter for general adult medical examination without abnormal findings (principal) ==

== ENCOUNTER → 2021-09-16 10:49 | Outpatient (CLI) | payer MEDICARE, SELFPAY ==
[2021-09-16 12:04] LABS: Blood Urea Nitrogen 14 mg/dl (7-17); Estimated Glomerular Filt Rate 62 ml/min (>60); GFR (African American) 75 ML/MIN (>60)
== END ==
PROVIDERS: PCP Family Medicine; Visit Provider Family Medicine
DX: D48.1 Neoplasm of uncertain behavior of connective and other soft tissue (principal)
CPT/HCPCS: 36415; 82565; 84520

== ENCOUNTER → 2021-09-18 13:12 | Outpatient (CLI) | payer MEDICARE, SELFPAY ==
--- NOTE | 2021-09-18 13:13 | CT_ITS ---
FINAL REPORT TECHNIQUE: Thin section axial CT images with coronal and sagittal reformats were performed after the administration of IV contrast. This study was performed with techniques to keep radiation doses as low as reasonably achievable (ALARA). Individualized dose reduction techniques using automated exposure control or adjustment of mA and/or kV according to the patient''s size were employed. CLINICAL HISTORY: neoplasm of uncertain behavior, lt side of neck COMPARISON: 01/21/2019 FINDINGS: There is stable left apical pleural and parenchymal scarring with calcification and volume loss. There are large bulky calcifications in the right upper lobe. There is advanced centrilobular emphysema the right apex. There is a stable, noncalcified nodule in the anterior right upper lobe measuring 8 mm. This is been stable over a span of 2 years. There is a cystic mass contiguous with or arising from the lateral aspect of the left submandibular gland measuring 1.4 cm in diameter. Finding is best seen on image 43 of series 3. The paranasal sinuses are well aerated. IMPRESSION: Mass contiguous with or arising from the lateral aspect of the left submandibular gland as above, neoplasia is not excluded. Needle sampling may be of value. Stable postinflammatory changes in the lung apices. Reviewed, Interpreted and Dictated by Nathaniel Hogue MD Transcribed by Glenda Pandya Authenticated and [facility]
== END ==
PROVIDERS: PCP Family Medicine; Visit Provider Family Medicine
DX: D48.1 Neoplasm of uncertain behavior of connective and other soft tissue (principal)
CPT/HCPCS: 70491; Q9967

== ENCOUNTER → 2021-09-23 08:29 | Outpatient (CLI) | payer MEDICARE, SELFPAY ==
--- NOTE | 2021-09-23 08:41 | US_ITS ---
FINAL REPORT CLINICAL HISTORY: NEOPLASM OF UNCERTAIN BEHAVIOR OF CONNECTIVE AND SOFT TISSUE lisa bradford-- fna lt submandibular palp area FINDINGS: ULTRASOUND GUIDED LEFT SUBMANDIBULAR LESION BIOPSY HISTORY: Left submandibular lesion biopsy. ATTENDING PHYSICIAN: Dr. Patrick MD PHYSICIAN RAILWAY SIGNALLING ENGINEER: Lisa Littlejohn PA-C PROCEDURE: Informed consent was obtained from the patient. A time out procedure was performed. Ultrasound was utilized to localize the left submandibular region nodule. Patient was prepped and draped in the usual sterile fashion over the left neck. 1% Lidocaine was utilized for local anesthesia. Approximately 1mL of fluid was aspirated. Two 25-gauge FNA and a 21-gauge FNA pass was made of the left submandibular nodule using ultrasound guidance. Tissue samples were placed in Cytolyt and RPMI and sent to the lab for analysis. Patient tolerated the procedure well and left the department in good condition. IMPRESSION: Technically successful ultrasound-guided FNA of a left submandibular region nodule, as described. Reviewed, Interpreted and Dictated by Pineda Nguyen III, MD Transcribed by Lisa Littlejohn PA-C Authenticated and [facility]
== END ==
PROVIDERS: PCP Family Medicine; Visit Provider Family Medicine
DX: R22.1 Localized swelling, mass and lump, neck (principal)
CPT/HCPCS: 10005; 76942; 88173

== ENCOUNTER → 2021-10-12 08:46 | Outpatient (CLI) | payer MEDICARE, SELFPAY ==
[2021-10-12 08:54] LABS: MANUAL DIFFERENTIAL MANUAL DIFFERENTIAL (MANUAL DIFF)
[2021-10-12 09:26] LABS: Basophils # 0.1 K/mm3 (0-0.2); Basophils % 1.1 % (0.1-2.0); Eosinophils # 0.3 K/mm3 (0.0-0.4); Eosinophils % 3.6 % (0.1-12.0); Hematocrit 40.3 % (37.0-47.0); Hemoglobin 12.1 g/dL (12.2-16.2); Lymphocytes % 41.2 % (10-50); Mean Corpuscular HGB Conc 30.1 g/dL (31.8-35.4); Mean Corpuscular Hemoglobin 32.6 pg (27.0-31.2); Mean Corpuscular Volume 108.2 fl (81-99); Mean Platelet Volume 8.1 fl (7.4-10.4); Monocytes # 0.7 K/mm3 (0.1-1.0); Monocytes % 9.2 % (1.7-9.3); Neutrophils # 3.3 K/mm3 (1.8-7.8); Neutrophils % 44.8 % (37.0-80.0); Platelet Count 353 K/mm3 (142-424); Red Blood Count 3.72 M/mm3 (4.20-5.40); Red Cell Distribution Width 13.3 % (11.5-17.5); White Blood Count 7.4 K/mm3 (4.8-10.8)
[2021-10-12 09:56] LABS: Alanine Aminotransferase 20 U/L (12-78); Albumin Level 3.9 g/dl (3.5-5.0); Albumin/Globulin Ratio 1.1 (1.1-1.8); Alkaline Phosphatase 74 U/L (38-126); Anion Gap 10.1 mEq/L (5-15); Aspartate Amino Transferase 31 U/L (14-36); Blood Urea Nitrogen 11 mg/dl (7-17); Calcium 9.3 mg/dl (8.4-10.2); Carbon Dioxide 27 mmol/L (22.0-30.0); Chloride 106 mmol/L (98-107); Estimated Glomerular Filt Rate 62 ml/min (>60); GFR (African American) 75 ML/MIN (>60); Globulin 3.5 g/dL (1.3-3.2); Glucose 110 mg/dl (74-100); Potassium 4.1 mmoL/L (3.5-5.1); Sodium 139 mmol/L (136-145); Total Protein,Serum 7.4 g/dl (6.3-8.2)
[2021-10-12 09:58] LABS: Bilirubin,Total < 0.1 mg/dl (0.2-1.3)
[2021-10-12 10:00] LABS: Anisocytosis 1+; Hypochromasia 1+; Lymphocytes % 37 % (10-50); Macrocytosis 1+; Monocytes % 9 % (2-9); Neutrophils % 54 % (42-76); Platelet Estimate Normal; Total Cells Counted 100
[2021-10-12 10:01] LABS: Ovalocytes 1+
== END ==
PROVIDERS: PCP Family Medicine; Visit Provider Otolaryngology
DX: R59.0 Localized enlarged lymph nodes (principal); Z01.812 Encounter for preprocedural laboratory examination; Z20.822 Contact with and (suspected) exposure to COVID-19
CPT/HCPCS: 80053; 85007; 85014; 85018; 85048; 85049; C9803; U0003; U0005

== ENCOUNTER 2021-10-14 06:40 | Day surgery (SDC) | payer MEDICARE, SELFPAY ==
[2021-10-10 10:29] VITALS: BMI 26.9
[2021-10-14] VITALS (11 sets, daily range): BP systolic 137–170; BP diastolic 58–82; PULSE 76–95; RESP 14–18; TEMP 36.1–36.3; O2SAT 95–100
--- NOTE | 2021-10-14 07:53 | ECG_ITS ---
APPROVED REPORT Exam: Resting ECG HR:65 bpm ECG Measurements Heart Rate 65 AXES NV 123 P 93 QRSd 89 QRS 82 QT 406 T 26 QTc 417 Conclusion SINUS RHYTHM NORMAL ECG UNCONFIRMED REPORT Electronically signed by : Dillon Jones MD 10/14/2021 13:51:28
--- NOTE | 2021-10-14 07:54 | HMH.ANESCL ---
[facility] Anesthesia Checklist - Patient Identification Patient Identification: Arm Band - Structural Data Admitted From: Home Planned Operative Procedure/s: Excision Left Neck/Submandibular Mass Consent for Planned Operative Procedure(s) Verified: Yes Verified Documents: Surgical Consent, History and Physical - NPO Status Verified Time NPO: 00:00 - Additional verifications Anesthesia Reactions: No Hx Blood Transfusions: No Blood Transfusion Reaction: No - Airway Assessment C-Spine Mobility Assessed: Yes (mp2) TMJ Mobility Assessed: Yes Dentition: Edentulous - Neurological Assessment Level of Consciousness: Awake, Alert - Anesthesia Plan Anesthesia Risk discussed: Yes Anesthesia Plan: Verified ASA Class: III Anesthesia Type: General [facility] History I have reviewed the patient's past medical history: Yes Medical History: Reports:: Cancer (lung), Gastroesophageal Reflux Disease(GERD), Lung Disease Denies:: Arrhythmia, Atherosclerotic Heart Disease, Diabetes Mellitus Type 1, Diabetes Mellitus Type 2, Internal Pacemaker, MRSA, Seizures *Have you ever received a pneumonia vaccine?: Yes *Have you received a flu vaccine this season?: Yes Other Medical History: Reports: Thyroid Disease. Denies: Blood Transfusion Reaction Anesthesia experience/problems:: nac Other Surgeries: Yes: Cancer Surgery, Colonoscopy, Hysterectomy-Total. No: Pacemaker Amputation: No - *Social History Last grade of school completed: 9th or 10th Smoking Status: Former smoker Tobacco Type: cigarettes Alcohol Intake: never Substance Use Type: denies use *Occupational Status:: retired Housing: house Household Members: spouse *Travel in the last 8 weeks: None Family Hx:: Cancer, Heart Attack
--- NOTE | 2021-10-14 10:19 | HMH.ANESI ---
[facility] Anesthesia Record Part I Intake, IV Amount: 850 Estimated blood loss (mL): 5 Urine output (mL): 0 Blood Pressure: 154/75 SaO2: 100 Pulse Rate: 95 Respiratory Rate: 14 Temperature: 97 F Patient is:: Awake Stable to PACU at:: 10:17
--- NOTE | 2021-10-14 10:20 | P.OP_ITS ---
Date of procedure: 10/14/21 Pre-op Diagnosis:: Left submandibular mass Post-op Diagnosis:: Pathology pending Procedure performed:: Excision of left submandibular mass with neurovascular dissection Surgeon:: Kamlesh Aguila III, MD MACHINE OPERATOR HOP PICKER:: Tanya Terry Anesthesia: GETA Estimated blood loss (mL): 10 Operative findings:: Left deep neck mass posterior to submandibular gland, appeared to be cystic in nature Operative note:: The patient was brought to the operating room placed under general endotracheal anesthesia. The neural integrity monitoring was used to monitor the orbicularis valerio musculature. Subcutaneous electrodes were used for this purpose, a grounding stimulating electrodes were also placed. The nerve was monitored throughout the case. The left neck was prepared and draped in the usual fashion. I pre injected with 1% lidocaine with epinephrine into a natural skin crease below the angle of the mandible in the neck. An incision was then made through the skin and subcutaneous tissue. The platysma muscle was divided and retracted superiorly and inferiorly. I was able to identify the marginal mandibular branch of the facial nerve and this was retracted superiorly and preserved. I then isolated the mass which appeared to be densely adherent to the retromandibular vein. It was carefully dissected off of the venous structure and the dissection was carried around to the posterior portion of the mass which was densely adherent to the deep cervical fascia. A branch of the retromandibular vein was feeding the mass and it was divided and ligated. The mass was then carefully dissected free from its underlying fascial and muscular attachments. I did elect to send a portion of the mass for flow cytometry in case this was a lymphoma. The rest was sent in formalin. The wound was irrigated with sterile water solution. A transcutaneous drain was then placed in the depths of the incision and sutured in place with a 2-0 silk. The drain was later hooked to suction once the incision was closed. Incision was closed in multiple layers using a 4-0 Monocryl to reapproximate the platysma muscle and a running 5-0 Monocryl in the subcuticular layer. Incision was then dressed; the patient was awakened in the operating room and taken to the recovery room in good condition Condition: stable Disposition: PACU Specimens:: Left neck mass Complications:: none
--- NOTE | 2021-10-14 13:15 | P.PN_ITS ---
[facility] Anesthesia Record Part II Discharge Time: 10:47 Destination: Surgical Day Care (OP Surgery) PACU nurse assessment reviewed?: Yes Patient Condition:: Good Anesthesia Complications:: None Swallowing reflex intact?: Yes Cyanosis?: No Blood Pressure: 138/58 Pulse Rate: 83 Temperature: 97.4 F Mental Status: Alert & Oriented Pain level:: 0 Nausea and/or vomitting:: None Intake, IV Amount: 0
== END 2021-10-14 11:25 | disposition home or self-care (01) ==
PROVIDERS: PCP Family Medicine; Visit Provider Otolaryngology
DX: C76.0 Malignant neoplasm of head, face and neck (principal); K21.9 Gastro-esophageal reflux disease without esophagitis; Z85.118 Personal history of other malignant neoplasm of bronchus and lung
CPT/HCPCS: 21556; 88305; 88342; 93005; 96374; J0330; J2405

== ENCOUNTER 2021-10-15 12:13 | Outpatient (CLI) | payer MEDICARE, SELFPAY ==
--- NOTE | 2021-10-15 15:34 | PC.NURSE ---
1200- ESTRELLITA drain removed from left neck surgical site, steri strips placed over drain insertion wound. No lbeeding noted. No blood in bulb, blood noted only in ESTRELLITA drain tubing. Pt tolerated well. Educated on s/s of infection as well as follow up appt.
== END 2021-10-15 12:35 | disposition home or self-care (01) ==
LOC: OUTP 12:15
PROVIDERS: PCP Family Medicine; Visit Provider Otolaryngology
DX: Z48.03 Encounter for change or removal of drains (principal); R22.1 Localized swelling, mass and lump, neck
CPT/HCPCS: G0463

== ENCOUNTER → 2021-10-23 14:50 | Outpatient (CLI) | payer MEDICARE, SELFPAY ==
--- NOTE | 2021-10-23 14:51 | CT_ITS ---
FINAL REPORT CLINICAL HISTORY: lung cancer screening, smoker for 15 years 2 ppd, quit 18 years ago COMPARISON: 12/22/2018 and 09/09/2019 FINDINGS: Low-Dose Chest CT Axial images were obtained from the lung apex to the mid abdomen by computed tomography. Low-dose protocol was utilized. CTDI vol (mGy): 2.90 DLP (mGy-cm): 90.64 There is no axillary adenopathy. There is no hilar adenopathy. There are several borderline sized mediastinal lymph nodes which are stable. The heart is proper size. There are moderate coronary artery calcifications. There are postoperative changes of the left thorax. There is no pericardial or pleural effusion. Limited images of the upper abdomen are unremarkable. Lung window images demonstrate no new mass or nodule. A calcified mass in the right lung apex measuring 3.5 cm is stable. A right upper lobe nodule measuring 5 mm is stable. There are presumed postoperative changes in the left chest wall. IMPRESSION: Stable findings. Lung RADS category 1. Recommend 12 month follow-up low-dose chest CT. Reviewed, Interpreted and Dictated by Pineda Nguyen III, MD Transcribed by Dionna Singer Authenticated and [facility]
== END ==
PROVIDERS: PCP Family Medicine; Visit Provider Internal Medicine Pulmonary Disease
DX: Z87.891 Personal history of nicotine dependence (principal); Z12.2 Encounter for screening for malignant neoplasm of respiratory organs
CPT/HCPCS: 71271

== ENCOUNTER → 2021-11-25 10:43 | Outpatient (CLI) | payer MEDICARE, SELFPAY ==
[2021-11-25 11:10] LABS: Basophils # 0.1 K/mm3 (0-0.2); Basophils % 0.8 % (0.1-2.0); Eosinophils # 0.3 K/mm3 (0.0-0.4); Eosinophils % 2.4 % (0.1-12.0); Hematocrit 39.4 % (37.0-47.0); Hemoglobin 12.5 g/dL (12.2-16.2); Lymphocytes # 3.3 K/mm3 (0.7-4.5); Lymphocytes % 23.2 % (10-50); Mean Corpuscular HGB Conc 31.6 g/dL (31.8-35.4); Mean Corpuscular Hemoglobin 33.2 pg (27.0-31.2); Mean Corpuscular Volume 104.9 fl (81-99); Mean Platelet Volume 7.8 fl (7.4-10.4); Monocytes # 1.1 K/mm3 (0.1-1.0); Monocytes % 7.7 % (1.7-9.3); Neutrophils # 9.2 K/mm3 (1.8-7.8); Neutrophils % 65.9 % (37.0-80.0); Platelet Count 418 K/mm3 (142-424); Red Blood Count 3.76 M/mm3 (4.20-5.40); Red Cell Distribution Width 12.9 % (11.5-17.5)
== END ==
PROVIDERS: PCP Family Medicine; Visit Provider Family Medicine
DX: Z20.822 Contact with and (suspected) exposure to COVID-19 (principal)
CPT/HCPCS: 36415; 85025; C9803; U0003; U0005

== ENCOUNTER 2021-12-12 09:07 | Outpatient (CLI) | payer MEDICARE, SELFPAY ==
[2021-12-12] VITALS (14 sets, daily range): BP systolic 99–140; BP diastolic 55–73; PULSE 67–85; RESP 16–18; TEMP 36.2; O2SAT 97; BMI 26.4
[2021-12-12 09:45] LABS: Basophils # 0.1 K/mm3 (0-0.2); Basophils % 1.5 % (0.1-2.0); Eosinophils # 0.3 K/mm3 (0.0-0.4); Eosinophils % 4.4 % (0.1-12.0); Hematocrit 43.9 % (37.0-47.0); Hemoglobin 14.3 g/dL (12.2-16.2); Lymphocytes # 1.8 K/mm3 (0.7-4.5); Lymphocytes % 27.8 % (10-50); Mean Corpuscular HGB Conc 32.5 g/dL (31.8-35.4); Mean Corpuscular Hemoglobin 33.4 pg (27.0-31.2); Mean Corpuscular Volume 102.7 fl (81-99); Mean Platelet Volume 7.6 fl (7.4-10.4); Monocytes # 0.6 K/mm3 (0.1-1.0); Monocytes % 9.7 % (1.7-9.3); Neutrophils # 3.7 K/mm3 (1.8-7.8); Neutrophils % 56.7 % (37.0-80.0); Platelet Count 397 K/mm3 (142-424); Red Blood Count 4.27 M/mm3 (4.20-5.40); Red Cell Distribution Width 13.4 % (11.5-17.5); White Blood Count 6.6 K/mm3 (4.8-10.8)
[2021-12-12 09:46] LABS: Chloride 96 mmol/L (98-107); Sodium 133 mmol/L (136-145)
[2021-12-12 09:48] LABS: Blood Urea Nitrogen 14 mg/dl (7-17)
[2021-12-12 09:49] LABS: Alanine Aminotransferase 19 U/L (12-78); Albumin Level 4.3 g/dl (3.5-5.0); Albumin/Globulin Ratio 1.1 (1.1-1.8); Alkaline Phosphatase 63 U/L (38-126); Aspartate Amino Transferase 45 U/L (14-36); Bilirubin,Total 0.5 mg/dl (0.2-1.3); Calcium 8.8 mg/dl (8.4-10.2); Carbon Dioxide 28 mmol/L (22.0-30.0); Creatinine Clearance Estimated 55 mL/min (50-200); Estimated Glomerular Filt Rate 71 ml/min (>60); GFR (African American) 86 ML/MIN (>60); Globulin 3.9 g/dL (1.3-3.2); Glucose 91 mg/dl (74-100); Magnesium 1.7 mg/dl (1.6-2.3); Total Protein,Serum 8.2 g/dl (6.3-8.2)
== END 2021-12-12 16:15 | disposition home or self-care (01) ==
LOC: INF 09:08
PROVIDERS: PCP Family Medicine; Visit Provider Internal Medicine Medical Oncology
DX: Z51.11 Encounter for antineoplastic chemotherapy (principal); C76.0 Malignant neoplasm of head, face and neck
CPT/HCPCS: 80053; 83735; 85025; 96413; 96415; J2469; J9060

== ENCOUNTER 2021-12-19 09:17 | Outpatient (CLI) | payer MEDICARE, SELFPAY ==
[2021-12-19] VITALS (10 sets, daily range): BP systolic 124–155; BP diastolic 68–81; PULSE 68–79; RESP 18–19; TEMP 36.3–36.4; O2SAT 98–99; BMI 26.4
[2021-12-19 09:33] LABS: Basophils % 0.4 % (0.1-2.0); Eosinophils # 0.2 K/mm3 (0.0-0.4); Eosinophils % 2.4 % (0.1-12.0); Hematocrit 38.7 % (37.0-47.0); Hemoglobin 12.7 g/dL (12.2-16.2); Lymphocytes # 1.9 K/mm3 (0.7-4.5); Lymphocytes % 20.5 % (10-50); Mean Corpuscular HGB Conc 32.8 g/dL (31.8-35.4); Mean Corpuscular Hemoglobin 33.5 pg (27.0-31.2); Mean Corpuscular Volume 102.2 fl (81-99); Mean Platelet Volume 8.8 fl (7.4-10.4); Monocytes # 0.9 K/mm3 (0.1-1.0); Monocytes % 9.4 % (1.7-9.3); Neutrophils # 6.1 K/mm3 (1.8-7.8); Neutrophils % 67.2 % (37.0-80.0); Platelet Count 354 K/mm3 (142-424); Red Blood Count 3.78 M/mm3 (4.20-5.40); Red Cell Distribution Width 13.3 % (11.5-17.5); White Blood Count 9.1 K/mm3 (4.8-10.8)
[2021-12-19 10:08] LABS: Magnesium 1.8 mg/dl (1.6-2.3)
[2021-12-19 10:35] LABS: Chloride 92 mmol/L (98-107); Potassium 4.3 mmoL/L (3.5-5.1); Sodium 129 mmol/L (136-145)
[2021-12-19 10:38] LABS: Alanine Aminotransferase 17 U/L (12-78); Albumin Level 3.6 g/dl (3.5-5.0); Albumin/Globulin Ratio 1.2 (1.1-1.8); Alkaline Phosphatase 74 U/L (38-126); Anion Gap 11.3 mEq/L (5-15); Aspartate Amino Transferase 29 U/L (14-36); Bilirubin,Total < 0.1 mg/dl (0.2-1.3); Blood Urea Nitrogen 15 mg/dl (7-17); Carbon Dioxide 30 mmol/L (22.0-30.0); Creatinine Clearance Estimated 55 mL/min (50-200); Estimated Glomerular Filt Rate 62 ml/min (>60); GFR (African American) 75 ML/MIN (>60); Total Protein,Serum 6.6 g/dl (6.3-8.2)
[2021-12-19 10:39] LABS: Calcium 8.4 mg/dl (8.4-10.2); Glucose 90 mg/dl (74-100)
== END 2021-12-19 15:24 | disposition home or self-care (01) ==
LOC: INF 09:18
PROVIDERS: PCP Family Medicine; Visit Provider Internal Medicine Medical Oncology
DX: Z51.11 Encounter for antineoplastic chemotherapy (principal); C76.0 Malignant neoplasm of head, face and neck
CPT/HCPCS: 80053; 83735; 85025; 96413; 96415; J2469; J9060

== ENCOUNTER 2021-12-26 08:54 | Outpatient (CLI) | payer MEDICARE, SELFPAY ==
[2021-12-26] VITALS (15 sets, daily range): BP systolic 111–152; BP diastolic 66–86; PULSE 71–92; RESP 16–18; O2SAT 97; BMI 26.2
[2021-12-26 09:39] LABS: Basophils % 0.2 % (0.1-2.0); Eosinophils # 0.1 K/mm3 (0.0-0.4); Eosinophils % 0.5 % (0.1-12.0); Hematocrit 35.7 % (37.0-47.0); Hemoglobin 11.4 g/dL (12.2-16.2); Lymphocytes # 1.3 K/mm3 (0.7-4.5); Lymphocytes % 13.8 % (10-50); Mean Corpuscular HGB Conc 32.1 g/dL (31.8-35.4); Mean Corpuscular Hemoglobin 32.9 pg (27.0-31.2); Mean Corpuscular Volume 102.7 fl (81-99); Mean Platelet Volume 8.2 fl (7.4-10.4); Monocytes # 0.6 K/mm3 (0.1-1.0); Monocytes % 6.5 % (1.7-9.3); Neutrophils # 7.2 K/mm3 (1.8-7.8); Platelet Count 235 K/mm3 (142-424); Red Blood Count 3.47 M/mm3 (4.20-5.40); Red Cell Distribution Width 12.9 % (11.5-17.5); White Blood Count 9.2 K/mm3 (4.8-10.8)
[2021-12-26 09:45] LABS: Creatinine Clearance Estimated 55 mL/min (50-200)
[2021-12-26 09:46] LABS: Carbon Dioxide 31 mmol/L (22.0-30.0); Magnesium 1.9 mg/dl (1.6-2.3)
[2021-12-26 10:39] LABS: Potassium 4.3 mmoL/L (3.5-5.1); Sodium 132 mmol/L (136-145)
[2021-12-26 10:40] LABS: Anion Gap 8.3 mEq/L (5-15); Blood Urea Nitrogen 19 mg/dl (7-17); Chloride 97 mmol/L (98-107); Estimated Glomerular Filt Rate 71 ml/min (>60)
[2021-12-26 10:41] LABS: Bilirubin,Total 0.1 mg/dl (0.2-1.3); Calcium 8.2 mg/dl (8.4-10.2); GFR (African American) 86 ML/MIN (>60); Glucose 85 mg/dl (74-100)
[2021-12-26 10:42] LABS: Alanine Aminotransferase 21 U/L (12-78); Aspartate Amino Transferase 30 U/L (14-36)
[2021-12-26 10:43] LABS: Albumin Level 3.4 g/dl (3.5-5.0); Albumin/Globulin Ratio 1.1 (1.1-1.8); Alkaline Phosphatase 81 U/L (38-126); Globulin 3.1 g/dL (1.3-3.2); Total Protein,Serum 6.5 g/dl (6.3-8.2)
--- NOTE | 2021-12-26 11:21 | PC.NURSE ---
1110-PREMEDICATED WITH ALOXI 0.25MG IV, DEXAMETHASONE 12MG IV, AND EMEND 125MG PO AT THIS TIME.
== END 2021-12-26 15:05 | disposition home or self-care (01) ==
LOC: INF 08:55
PROVIDERS: PCP Family Medicine; Visit Provider Internal Medicine Medical Oncology
DX: Z51.11 Encounter for antineoplastic chemotherapy (principal); C76.0 Malignant neoplasm of head, face and neck
CPT/HCPCS: 80053; 83735; 85025; 96413; 96415; J2469; J9060

== ENCOUNTER 2022-01-02 08:59 | Outpatient (CLI) | payer MEDICARE, SELFPAY ==
[2022-01-02] VITALS (7 sets, daily range): BP systolic 119–170; BP diastolic 70–89; PULSE 68–83; RESP 18; TEMP 36.3; O2SAT 96–98; BMI 26.2
[2022-01-02 09:31] LABS: Basophils % 0.6 % (0.1-2.0); Eosinophils % 0.8 % (0.1-12.0); Hematocrit 34.6 % (37.0-47.0); Hemoglobin 11.1 g/dL (12.2-16.2); Lymphocytes # 0.9 K/mm3 (0.7-4.5); Lymphocytes % 28.2 % (10-50); Mean Corpuscular HGB Conc 32.2 g/dL (31.8-35.4); Mean Corpuscular Hemoglobin 33.9 pg (27.0-31.2); Mean Corpuscular Volume 105.3 fl (81-99); Mean Platelet Volume 7.8 fl (7.4-10.4); Monocytes # 0.2 K/mm3 (0.1-1.0); Neutrophils # 2.1 K/mm3 (1.8-7.8); Neutrophils % 65.4 % (37.0-80.0); Platelet Count 234 K/mm3 (142-424); Red Blood Count 3.28 M/mm3 (4.20-5.40); Red Cell Distribution Width 13.3 % (11.5-17.5); White Blood Count 3.3 K/mm3 (4.8-10.8)
[2022-01-02 09:49] LABS: Chloride 94 mmol/L (98-107)
[2022-01-02 09:50] LABS: Potassium 4.9 mmoL/L (3.5-5.1); Sodium 132 mmol/L (136-145)
[2022-01-02 09:52] LABS: Alanine Aminotransferase 24 U/L (12-78); Aspartate Amino Transferase 32 U/L (14-36); Blood Urea Nitrogen 15 mg/dl (7-17); Creatinine Clearance Estimated 55 mL/min (50-200); Estimated Glomerular Filt Rate 71 ml/min (>60); GFR (African American) 86 ML/MIN (>60)
[2022-01-02 09:53] LABS: Albumin Level 3.6 g/dl (3.5-5.0); Albumin/Globulin Ratio 1.3 (1.1-1.8); Alkaline Phosphatase 77 U/L (38-126); Anion Gap 11.9 mEq/L (5-15); Calcium 8.4 mg/dl (8.4-10.2); Carbon Dioxide 31 mmol/L (22.0-30.0); Globulin 2.7 g/dL (1.3-3.2); Glucose 86 mg/dl (74-100); Magnesium 1.7 mg/dl (1.6-2.3); Total Protein,Serum 6.3 g/dl (6.3-8.2)
[2022-01-02 10:02] LABS: Bilirubin,Total 0.1 mg/dl (0.2-1.3)
== END 2022-01-02 15:15 | disposition home or self-care (01) ==
LOC: INF 09:00
PROVIDERS: PCP Family Medicine; Visit Provider Internal Medicine Medical Oncology
DX: Z51.11 Encounter for antineoplastic chemotherapy (principal); C76.0 Malignant neoplasm of head, face and neck
CPT/HCPCS: 80053; 83735; 85025; 96413; 96415; J2469; J9060

== ENCOUNTER 2022-01-09 09:03 | Outpatient (CLI) | payer MEDICARE, SELFPAY ==
[2022-01-09] VITALS (10 sets, daily range): BP systolic 119–163; BP diastolic 71–81; PULSE 72–82; RESP 18; TEMP 35.8; O2SAT 98; BMI 28.1
[2022-01-09 09:30] LABS: Basophils % 0.6 % (0.1-2.0); Eosinophils % 0.7 % (0.1-12.0); Hematocrit 32.2 % (37.0-47.0); Hemoglobin 10.8 g/dL (12.2-16.2); Lymphocytes # 0.7 K/mm3 (0.7-4.5); Lymphocytes % 34.8 % (10-50); Mean Corpuscular HGB Conc 33.4 g/dL (31.8-35.4); Mean Corpuscular Hemoglobin 33.9 pg (27.0-31.2); Mean Corpuscular Volume 101.5 fl (81-99); Mean Platelet Volume 8.4 fl (7.4-10.4); Monocytes # 0.1 K/mm3 (0.1-1.0); Monocytes % 6.9 % (1.7-9.3); Neutrophils # 1.2 K/mm3 (1.8-7.8); Neutrophils % 57.1 % (37.0-80.0); Platelet Count 219 K/mm3 (142-424); Red Blood Count 3.17 M/mm3 (4.20-5.40); Red Cell Distribution Width 13.3 % (11.5-17.5); White Blood Count 2.1 K/mm3 (4.8-10.8)
[2022-01-09 09:43] LABS: Alanine Aminotransferase 28 U/L (12-78); Albumin Level 3.7 g/dl (3.5-5.0); Albumin/Globulin Ratio 1.3 (1.1-1.8); Alkaline Phosphatase 101 U/L (38-126); Anion Gap 13.2 mEq/L (5-15); Aspartate Amino Transferase 33 U/L (14-36); Bilirubin,Total 0.2 mg/dl (0.2-1.3); Blood Urea Nitrogen 20 mg/dl (7-17); Calcium 8.9 mg/dl (8.4-10.2); Carbon Dioxide 31 mmol/L (22.0-30.0); Chloride 90 mmol/L (98-107); Creatinine Clearance Estimated 53 mL/min (50-200); Estimated Glomerular Filt Rate 71 ml/min (>60); GFR (African American) 86 ML/MIN (>60); Globulin 2.9 g/dL (1.3-3.2); Glucose 83 mg/dl (74-100); Potassium 4.2 mmoL/L (3.5-5.1); Sodium 130 mmol/L (136-145); Total Protein,Serum 6.6 g/dl (6.3-8.2)
[2022-01-09 09:44] LABS: Chol/HDL Ratio 2.9 (1-3.5); Cholesterol 194 mg/dl (140-200); HDL Cholesterol 67 mg/dl (40-60); Magnesium 1.4 mg/dl (1.6-2.3); Triglycerides 172 mg/dl (30-150); VLDL Cholesterol 34 mg/dL (0-40)
[2022-01-09 10:00] LABS: Free T4 (Free Thyroxine) 1.23 ng/dl (0.78-2.19)
[2022-01-09 10:01] LABS: Direct LDL Cholesterol 89.68 mg/dL (100-129)
[2022-01-09 10:14] LABS: Thyroid Stimulating Hormone 2.15 uIU/mL (0.465-4.68)
== END 2022-01-09 14:00 | disposition home or self-care (01) ==
LOC: INF 09:04
PROVIDERS: PCP Family Medicine; Visit Provider Internal Medicine Medical Oncology
DX: Z51.11 Encounter for antineoplastic chemotherapy (principal); C76.0 Malignant neoplasm of head, face and neck; E03.9 Hypothyroidism, unspecified; E78.2 Mixed hyperlipidemia
CPT/HCPCS: 80053; 80061; 83735; 84439; 84443; 85025; 96413; 96415; J2469; J9060

== ENCOUNTER → 2022-03-10 11:35 | Outpatient (CLI) | payer MEDICARE, SELFPAY ==
--- NOTE | 2022-03-10 11:41 | XR_ITS ---
PROCEDURE INFORMATION: Exam: XR Chest Exam date and time: 03/10/2022 11:46 AM Age: 72 years old Clinical indication: Pain; Right-sided; Additional info: R sided chest pain TECHNIQUE: Imaging protocol: Radiologic exam of the chest. Views: 2 views. COMPARISON: CT LUNG SCREENING 10/23/2021 3:07 PM FINDINGS: Lungs: No evidence of pneumonia or interstitial edema. Volume loss in the left upper lobe is re-identified in keeping with posttreatment changes. Pleural spaces: Unremarkable. No pleural effusion. No pneumothorax. Heart/Mediastinum: Unremarkable. No cardiomegaly. Bones/joints: Unremarkable. IMPRESSION: No evidence of pneumonia or interstitial edema.
[2022-03-10 13:54] LABS: Basophils % 0.2 % (0.1-2.0); Eosinophils # 0.2 K/mm3 (0.0-0.4); Eosinophils % 0.8 % (0.1-12.0); Hematocrit 31.3 % (37.0-47.0); Lymphocytes # 1.4 K/mm3 (0.7-4.5); Lymphocytes % 7.7 % (10-50); Mean Corpuscular Hemoglobin 34.4 pg (27.0-31.2); Mean Corpuscular Volume 107.7 fl (81-99); Monocytes # 0.7 K/mm3 (0.1-1.0); Monocytes % 3.9 % (1.7-9.3); Neutrophils # 15.7 K/mm3 (1.8-7.8); Neutrophils % 87.4 % (37.0-80.0); Platelet Count 305 K/mm3 (142-424); Red Blood Count 2.91 M/mm3 (4.20-5.40); Red Cell Distribution Width 16.6 % (11.5-17.5)
[2022-03-10 14:05] LABS: MANUAL DIFFERENTIAL MANUAL DIFFERENTIAL (MANUAL DIFF)
[2022-03-10 15:30] LABS: Lymphocytes % 10 % (10-50); Monocytes % 3 % (2-9); Neutrophils % 87 % (42-76); Rouleaux 1+; Total Cells Counted 100
[2022-03-10 15:31] LABS: Macrocytosis 2+; Platelet Estimate Normal
== END ==
PROVIDERS: PCP Family Medicine; Visit Provider Family Medicine
DX: R07.9 Chest pain, unspecified (principal)
CPT/HCPCS: 36415; 71046; 85007; 85025

== ENCOUNTER 2022-04-10 09:57 | Day surgery (SDC) | payer MEDICARE, SELFPAY ==
[2022-03-25 12:37] VITALS: BMI 22.4
[2022-04-10 10:40] VITALS: BP 124/65; PULSE 101; RESP 18; TEMP 36.5; O2SAT 94
--- NOTE | 2022-04-10 11:07 | EXP.ANES.CKL ---
[facility] Disclaimer: The information contained in this section may have been updated after the patient was seen, as this information can be updated by other users. Medical History COPD (chronic obstructive pulmonary disease) case management patient Encounter for screening for malignant neoplasm of lung in current smoker with 30 pack year history or greater GERD (gastroesophageal reflux disease) History of chemotherapy History of lung cancer in adulthood Hx of therapeutic radiation Hyperlipidemia Hypothyroid Lung disease Normal colonoscopy Pneumothorax Respiratory distress, acute Squamous cell carcinoma of head and neck Stopped smoking with greater than 30 pack year history Surgical History History of hysterectomy History of lung surgery Hx of colonoscopy Family History Other Cancer Colon cancer Diabetes Family history of myocardial infarction Heart attack Hyperlipidemia Hypertension Kidney disease Liver cancer Thyroid disorder Social History Smoking Status: Former smoker alcohol intake: never substance use type: denies use current occupational status: retired Travel in the last 8 weeks: None household members: spouse housing: house lives independently: Yes marital status: caffeine: Yes special giovanna needs: No agree to transfusion: No do you feel safe at home: Yes victim of physical abuse: No victim of emotional abuse: No victim of sexual abuse: No would you like helpful sources: No [facility] Anesthesia Checklist Patient Identification Patient Identification: Arm Band and Family Structural Data Admitted From: Home Planned Operative Procedure/s: EGD Consent for Planned Operative Procedure(s) Verified: Yes Verified Documents: Surgical Consent and History and Physical NPO Status Verified Time NPO: 00:00 Additional verifications Patient : No Anesthesia Reactions: No Hx Blood Transfusions: No Blood Transfusion Reaction: No Cephalosporin Allergy: No Previous Colonoscopy: Yes Airway Assessment C-Spine Mobility Assessed: Yes TMJ Mobility Assessed: Yes Dentition: Edentulous Neurological Assessment Level of Consciousness: Awake, Alert, Appropriate and Follows Commands Hx Seizures: No Numbness or tingling in extremities: No Anesthesia Plan Anesthesia Risk discussed: Yes ASA Class: III Anesthesia Type: MAC Preoperative Comments Pre-Operative Comments: Left upper lobe pneumonectomy. Hypothyroid. Gastric reflux. Quit smoking 2004.
[2022-04-10 11:26] VITALS: O2SAT 94
--- NOTE | 2022-04-10 11:36 | P.PCN_ITS ---
Procedure: Date: 04/10/22 Patient Date of :: 1950 Procedure Performed:: EGD and dilation Indications:: Anemia, dysphagia Performing Provider:: Susan Looney MD Referring Provider:: Dallin John Sedation:: Propofol Procedure:: The gastroscope was gently passed through the incisoral orifice into the oral cavity and under direct visualization the esophagus was intubated. The endoscope was passed down the esophagus, through the stomach, and into the duodenum. Color, texture, mucosa, and anatomy of the esophagus, stomach, and duodenum were carefully examined with the scope. Findings:: Oropharynx: normal Esophagus: normal, mid esophageal web noted, dilated with 56F bougie dilator EG Junction: intact at 40 cm Cardia: normal Fundus: normal Body: normal Antrum: normal Duodenal bulb: normal Duodenum (second and third portion): normal Impression: Esophageal web, treated with bougie dilation Overall normal EGD No evidence of ulcer disease or blood loss Recommendations:: Consider capsule endoscopy in [place] if clinically indicated. Repeat EGD in about THREE years or so for repeat dilation. Complications:: None Estimated blood obtained (mL): 0
[2022-04-10 11:39] VITALS: BP 113/61; PULSE 91; RESP 16; TEMP 36.1; O2SAT 94
[2022-04-10 11:49] VITALS: BP 110/63; PULSE 85; RESP 18; O2SAT 99
[2022-04-10 11:59] VITALS: BP 120/82; PULSE 86; RESP 17; O2SAT 99
[2022-04-10 12:09] VITALS: BP 124/86; PULSE 84; RESP 16; O2SAT 99
--- NOTE | 2022-04-10 13:39 | P.PN_ITS ---
[facility] Disclaimer: The information contained in this section may have been updated after the patient was seen, as this information can be updated by other users. Medical History Allergies COPD (chronic obstructive pulmonary disease) case management patient COPD mixed type Dyspnea on exertion Dyspnea on exertion Encounter for screening for malignant neoplasm of lung in current smoker with 30 pack year history or greater GERD (gastroesophageal reflux disease) Hilar lymphadenopathy History of cataract History of chemotherapy History of diverticulitis History of lung cancer in adulthood Hx of therapeutic radiation Hyperlipidemia Hypothyroid Lung cancer Lung disease Lung nodule Mediastinal lymphadenopathy Normal colonoscopy Pneumothorax Respiratory distress, acute Screening for lung cancer Sinus headache Squamous cell carcinoma of head and neck Stopped smoking with greater than 30 pack year history Stopped smoking with greater than 30 pack year history Surgical History H/O removal of cyst History of hysterectomy History of lung surgery left lung upper lobe cancer removed History of surgery Hx of cataract surgery Hx of colonoscopy Family History Other Cancer Colon cancer Diabetes Family history of myocardial infarction Heart attack Hyperlipidemia Hypertension Kidney disease Liver cancer Thyroid disorder Social History Smoking Status: Former smoker years smoked: 20 how long ago did patient quit smokin YEARS alcohol intake: never substance use type: denies use current occupational status: retired Travel in the last 8 weeks: None household members: spouse housing: house lives independently: Yes marital status: caffeine: Yes special giovanna needs: No agree to transfusion: No do you feel safe at home: Yes victim of physical abuse: No victim of emotional abuse: No victim of sexual abuse: No would you like helpful sources: No [facility] Anesthesia Checklist Patient Identification Patient Identification: Verbal (Name & ) Structural Data Admitted From: Home Planned Operative Procedure/s: egd Consent for Planned Operative Procedure(s) Verified: Yes Additional verifications Anesthesia Reactions: No Hx Blood Transfusions: No Blood Transfusion Reaction: No Cephalosporin Allergy: No Airway Assessment C-Spine Mobility Assessed: Yes TMJ Mobility Assessed: Yes Dentition: Good Dentition Neurological Assessment Level of Consciousness: Awake, Alert and Appropriate Anesthesia Plan Anesthesia Risk discussed: Yes Anesthesia Plan: Verified ASA Class: II Anesthesia Type: MAC
== END 2022-04-10 12:10 | disposition home or self-care (01) ==
PROVIDERS: PCP Family Medicine; Visit Provider Internal Medicine Gastroenterology
PROC: 0DJ08ZZ Inspection of Upper Intestinal Tract, Via Natural or Artificial Opening Endoscopic (ICD-10-PCS; CPT 43235; principal; 2022-04-10 11:30)
DX: R13.10 Dysphagia, unspecified (principal); D64.9 Anemia, unspecified; Z79.899 Other long term (current) drug therapy
CPT/HCPCS: 43248

== ENCOUNTER 2022-05-19 08:32 | Day surgery (SDC) | payer MEDICARE, SELFPAY ==
[2022-05-15 10:16] VITALS: BMI 23.0
[2022-05-19] VITALS (13 sets, daily range): BP systolic 107–139; BP diastolic 57–79; PULSE 82–101; RESP 13–18; TEMP 36.1–43; O2SAT 87–98
--- NOTE | 2022-05-19 09:24 | EXP.ANES.CKL ---
[facility] Disclaimer: The information contained in this section may have been updated after the patient was seen, as this information can be updated by other users. Medical History Allergies COPD (chronic obstructive pulmonary disease) case management patient COPD mixed type Dyspnea on exertion Dyspnea on exertion Encounter for screening for malignant neoplasm of lung in current smoker with 30 pack year history or greater GERD (gastroesophageal reflux disease) Hilar lymphadenopathy History of cataract History of chemotherapy History of diverticulitis History of lung cancer in adulthood Hx of therapeutic radiation Hyperlipidemia Hypothyroid Lung cancer Lung disease Lung nodule Mediastinal lymphadenopathy Normal colonoscopy Pneumothorax Respiratory distress, acute Screening for lung cancer Sinus headache Squamous cell carcinoma of head and neck Stopped smoking with greater than 30 pack year history Stopped smoking with greater than 30 pack year history Surgical History H/O removal of cyst History of hysterectomy History of lung surgery History of surgery Hx of cataract surgery Hx of colonoscopy Family History Other Cancer Colon cancer Diabetes Family history of myocardial infarction Heart attack Hyperlipidemia Hypertension Kidney disease Liver cancer Thyroid disorder Social History Smoking Status: Former smoker years smoked: 20 how long ago did patient quit smokin YEARS alcohol intake: never substance use type: denies use current occupational status: retired Travel in the last 8 weeks: None household members: spouse housing: house lives independently: Yes marital status: caffeine: Yes special giovanna needs: No agree to transfusion: No do you feel safe at home: Yes victim of physical abuse: No victim of emotional abuse: No victim of sexual abuse: No would you like helpful sources: No [facility] Anesthesia Checklist Patient Identification Patient Identification: Arm Band Structural Data Admitted From: Home Planned Operative Procedure/s: Bronchoscopy, EBUS Consent for Planned Operative Procedure(s) Verified: Yes Verified Documents: Surgical Consent and History and Physical NPO Status Verified Time NPO: 00:00 Additional verifications Anesthesia Reactions: No Hx Blood Transfusions: No Blood Transfusion Reaction: No Airway Assessment C-Spine Mobility Assessed: Yes TMJ Mobility Assessed: Yes Dentition: Edentulous Neurological Assessment Level of Consciousness: Awake and Alert Anesthesia Plan Anesthesia Risk discussed: Yes Anesthesia Plan: Verified ASA Class: III Anesthesia Type: General
--- NOTE | 2022-05-19 12:03 | XR_ITS ---
FINAL REPORT CLINICAL HISTORY: BRONCH IN OR, FT 2MIN FINDINGS: FLUORO TIME PROCEDURE: Fluoroscopy in the operating room. FINDINGS: Fluoroscopy time was provided by the radiology department for the clinical service. One spot film was obtained. Fluoroscopy exposure time: 2 minutes IMPRESSION: See above Reviewed, Interpreted and Dictated by Pineda Nguyen III, MD Transcribed by Dionna Singer Authenticated and [facility]
--- NOTE | 2022-05-19 12:12 | XR_ITS ---
FINAL REPORT TECHNIQUE: Single view chest CLINICAL HISTORY: post op Bronch COMPARISON: 03/10/2022 FINDINGS: A single view of the chest was obtained. The heart and mediastinum are within normal limits. There are postoperative changes noted in the left thorax. There is bilateral, left greater than right pleural thickening. The lungs are otherwise clear. There is no pneumothorax. Osseous structures are unremarkable. IMPRESSION: No acute cardiopulmonary process. No pneumothorax. Reviewed, Interpreted and Dictated by Pineda Nguyen III, MD Transcribed by Bobbi Carlisle Authenticated and [facility]
--- NOTE | 2022-05-19 12:15 | EXP.ANES.I ---
[facility] Anesthesia Record Part I Anesthesia Record I Intake, IV Amount: 900 Estimated blood loss (mL): 5 Urine output (mL): 0 Blood Pressure: 137/73 SaO2: 94 Pulse Rate: 100 Respiratory Rate: 13 Temperature: 97.0 F Patient is:: Drowsy, Nasal O2 and Stable Stable to PACU at:: 12:12
--- NOTE | 2022-05-19 12:26 | PC.NURSE ---
Lung sounds diminished in left lower lobe
--- NOTE | 2022-05-19 14:17 | P.PNANES_ITS ---
[facility] Anesthesia Record Part II Anesthesia Record Part II Discharge Time: 12:42 Destination: Surgical Day Care (OP Surgery) PACU nurse assessment reviewed?: Yes Patient Condition:: Good Anesthesia Complications:: None Swallowing reflex intact?: Yes Cyanosis?: No Blood Pressure: 124/73 Pulse Rate: 92 Temperature: 97.0 F Mental Status: Alert & Oriented Pain level:: 0 Nausea and/or vomitting:: None Intake, IV Amount: 0
--- NOTE | 2022-05-19 16:21 | EXP.BRONCH.N ---
Procedure: Date: 05/19/22 Patient Date of :: 1950 Procedure Performed:: Bronchoscopy airway examination, transbronchial biopsy EBUS FNA Indications:: Lung nodule and lymphadenopathy Performing Provider:: Giacomo Walsh MD Referring Provider:: Dr. Perdomo Sedation:: General anesthesia Procedure:: Bronchoscopy airway examination, bronchoalveolar lavage, endobronchial biopsy, transbronchial lung biopsy and EBUS FNA: A clean EBUS bronchoscopy was advanced to the ET tube and lymph node surveillance was performed. Patient noted lymphadenopathy at station 7. Total of 5 passes were performed. Pathology at bedside did not show any evidence of malignancy. Confirm adequate lymphoid tissue but will follow with final results. No other significantly enlarged lymphadenopathy noted. EBUS bronchoscopy was retracted and a clean A clean DIAGNOSTIC bronchoscopy was advanced through the ET tube and airways were examined up to subsegmental bronchi. Airways appeared grossly normal except for fibrotic changes noted in the left upper lobe bronchi, patient has a previous left upper lobectomy performed., No evidence of mucoid secretions, mucous plugging active bleeding/old blood clots noted. Bronchoalveolar lavage was performed in the RIGHT LOWER LOBE with instillation of 60 cc normal saline with return of 30 cc back. BAL fluid was sent for cell count and differential and cytopathology. No cultures were performed. Bronchial wash was also performed in the left upper lobe and was sent for cytopathologic examination. Endobronchial biopsies were also performed at the origin of the left upper lobe stump/bronchi where she had a prior lobectomy performed and were sent in formalin for cytopathologic examination. Transbronchial biopsy was performed in the LEFT LOWER LOBE with a total of 5 biopsies performed and were sent in formalin for cytopathologic examination. Patient tolerated the procedure with no immediate acute complications. We will follow the patient in pulmonary clinic in 7 to 10 days. Findings:: Please see the procedure note Recommendations:: Follow the patient in pulmonary clinic in 5 to 7 days. Follow postoperative procedure instructions Complications:: No acute immediate complications Estimated blood obtained (mL): 10
== END 2022-05-19 13:44 | disposition home or self-care (01) ==
PROVIDERS: PCP Family Medicine; Visit Provider Internal Medicine Pulmonary Disease
DX: R91.1 Solitary pulmonary nodule (principal); R59.0 Localized enlarged lymph nodes; C76.0 Malignant neoplasm of head, face and neck; Z87.891 Personal history of nicotine dependence; R06.09 Other forms of dyspnea; J44.9 Chronic obstructive pulmonary disease, unspecified; Z90.2 Acquired absence of lung [part of]; Z85.118 Personal history of other malignant neoplasm of bronchus and lung
CPT/HCPCS: 31624; 31628; 71045; 76000; 88112; 88172; 88173; 88177; 88305; 89051; 96372; J2405

== ENCOUNTER → 2022-07-01 09:41 | Outpatient (CLI) | payer MEDICARE, SELFPAY ==
--- NOTE | 2022-07-01 09:44 | MM_ITS ---
PROCEDURE INFORMATION: Exam: MG Bilateral Screening 3D Mammography Exam date and time: 07/01/2022 9:46 AM Age: 72 years old Clinical indication: Screening examination . Family history of breast carcinoma. TECHNIQUE: Imaging protocol: Bilateral Screening tomosynthesis and 2D mammography including computer-aided detection (CAD) when performed. COMPARISON: 1. MG MM DIG SCREENING MAMM BI W/CAD 01/11/2020 10:22 AM 2. MG MM DIG MAMM DX UNILAT LT CAD 10/18/2018 2:04 PM 3. MG SCBI MM Dig screening mamm BI w/CAD 06/17/2018 9:24 AM FINDINGS: MAMMOGRAPHY: Breast composition: The breasts are heterogeneously dense, which may obscure small masses. Mass: No suspicious masses. Architectural distortion: No suspicious distortion. Calcifications: No suspicious calcifications. Asymmetric density: None. Skin thickening: None. Axillary adenopathy: None. IMPRESSION: 1. No mammographic evidence of malignancy. Annual screening is recommended unless otherwise clinically indicated. 2. Given the reported risk factors for this patient, a breast cancer risk assessment may prove useful for further evaluation. ASSESSMENT: BI-RADS Category 1: Negative
== END ==
PROVIDERS: PCP Family Medicine; Visit Provider Family Medicine
DX: Z12.31 Encounter for screening mammogram for malignant neoplasm of breast (principal)
CPT/HCPCS: 77063; 77067

== ENCOUNTER → 2023-01-05 10:39 | Outpatient (CLI) | payer MEDICARE, SELFPAY ==
--- NOTE | 2023-01-05 10:51 | XR_ITS ---
FINAL REPORT CLINICAL HISTORY: LT HAND PAIN FINDINGS: LEFT HAND Three views demonstrate no acute fracture or dislocation. There are mild to moderate degenerative changes, greatest at the carpometacarpal joint. The soft tissues are unremarkable. IMPRESSION: No acute process. Reviewed, Interpreted and Dictated by Pineda Nguyen III, MD Transcribed by Bobbi Carlisle Authenticated and . [facility]
--- NOTE | 2023-01-05 10:51 | XR_ITS ---
FINAL REPORT CLINICAL HISTORY: RT HAND PAIN FINDINGS: RIGHT HAND Three views demonstrate no acute fracture or dislocation. There are mild to moderate degenerative changes, greatest at the carpometacarpal joint. The soft tissues are unremarkable. IMPRESSION: No acute process. Reviewed, Interpreted and Dictated by Pineda Nguyen III, MD Transcribed by Bobbi Carlisle Authenticated and . [facility]
== END ==
PROVIDERS: PCP Family Medicine; Visit Provider Family Medicine
DX: M79.641 Pain in right hand (principal); M79.642 Pain in left hand
CPT/HCPCS: 73130

== ENCOUNTER → 2023-02-26 10:08 | Outpatient (CLI) | payer MEDICARE, SELFPAY ==
--- NOTE | 2023-02-26 10:09 | CT_ITS ---
FINAL REPORT TECHNIQUE: Thin section axial CT images with coronal and sagittal reformats were performed through the neck. This study was performed with techniques to keep radiation doses as low as reasonably achievable (ALARA). Individualized dose reduction techniques using automated exposure control or adjustment of mA and/or kV according to the patient''s size were employed. CLINICAL HISTORY: right side swollen lymph node, hx of lymph node ca COMPARISON: Compared with a PET CT from 04/11/2022 FINDINGS: The paranasal sinuses are unremarkable in appearance. There is soft tissue stranding noted around the left submandibular gland. There is a nodule in the right posterior parotid gland measuring 1.2 cm in size best seen on image #39 of series 3. Larynx is unremarkable. Thyroid gland is unremarkable. There is a large densely calcified focus in the right upper lobe, which has been seen on prior examinations and is stable. There is volume loss secondary to pleural and parenchymal scarring in the left apex, also stable since May 2022. IMPRESSION: Soft tissue stranding around the left submandibular gland, where a mass was noted in September 2021 and may have been surgically resected. This may represent postoperative change, or may be secondary to infection or obstruction. There is a nodule in the right posterior parietal lobe measuring 1.2 cm in size seen on image #39 of series 3. Would recommend ultrasound for further evaluation. Chronic changes in the lung apices as described, which appears stable since prior exams. Reviewed, Interpreted and Dictated by Nathaniel Hogue MD Transcribed by Reny Burnett Authenticated and [facility]
== END ==
PROVIDERS: PCP Family Medicine; Visit Provider Nurse Practitioner
DX: R59.1 Generalized enlarged lymph nodes (principal)
CPT/HCPCS: 70490

== ENCOUNTER → 2023-03-06 09:07 | Outpatient (CLI) | payer MEDICARE, SELFPAY ==
--- NOTE | 2023-03-06 09:08 | US_ITS ---
FINAL REPORT TECHNIQUE: Real-time grayscale and color ultrasound of the soft tissues of the neck was performed. CLINICAL HISTORY: 1.2cm right neck nodule COMPARISON: CT neck soft tissue 02/26/2023 FINDINGS: Ultrasound images of the area of concern in the right side of the neck soft tissues were obtained. There is a lobular hypoechoic mass with mild through-transmission corresponding to the palpable abnormality and abnormality seen on CT scan. The parotid glands are otherwise unremarkable. The submandibular glands are unremarkable. IMPRESSION: Lobular mass as above. This could represent complex cyst or solid mass. Needle sampling may be of value to exclude malignancy. Reviewed, Interpreted and Dictated by Nathaniel Hogue MD Transcribed by Florecita Ordaz Authenticated and . [facility]
== END ==
PROVIDERS: PCP Family Medicine; Visit Provider Nurse Practitioner
DX: R59.1 Generalized enlarged lymph nodes (principal)
CPT/HCPCS: 76536

== ENCOUNTER 2023-03-16 09:19 | Outpatient (CLI) | payer MEDICARE, SELFPAY ==
--- NOTE | 2023-03-16 09:19 | US_ITS ---
FINAL REPORT CLINICAL HISTORY: .GEOFF MORALES -- RT PALPABLE LYMPH NODE FINDINGS: Ultrasound guided lymph node biopsy. HISTORY: Right neck lymph node, in or adjacent to the right parotid gland. Attending radiologist: Dr. Nguyen Physician Senior Ios Software Engineer: Geoff Grewal PA-C PROCEDURE: After informed consent was obtained and a time-out was performed, the patient was prepped and draped in usual sterile fashion over the right neck. Utilizing local anesthesia and sterile technique with a 25-gauge needle, access to lesion was obtained. A total of 5 passes were made under direct ultrasound guidance. The pathologist preschool assistant stated that the samples contained diagnostic material. The patient received no conscious sedation. The patient tolerated procedure well and left the department in good condition. IMPRESSION: Status post ultrasound guided biopsy of right neck lymph nodewithout immediate complication. Films reviewed , interpreted and dictated by Dr. Nguyen. Transcribed by Geoff Grewal PA-C. Reviewed, Interpreted and Dictated by Pineda Nguyen III, MD Transcribed by ANDREW Meier Authenticated and [facility]
== END 2023-03-16 23:59 ==
LOC: RAD 09:19
PROVIDERS: PCP Family Medicine; Visit Provider Nurse Practitioner
DX: R59.1 Generalized enlarged lymph nodes (principal)
CPT/HCPCS: 10005; 88173; 88184; 88185; 88305; 88341; 88342

== ENCOUNTER 2023-04-21 11:25 | Outpatient (CLI) | payer MEDICARE, SELFPAY ==
--- NOTE | 2023-04-21 11:27 | ECG_ITS ---
APPROVED REPORT Exam: Resting ECG HR:68 bpm ECG Measurements Heart Rate 68 AXES SD 127 P 93 QRSd 86 QRS 81 QT 370 T 50 QTc 387 Conclusion SINUS RHYTHM NORMAL ECG UNCONFIRMED REPORT Electronically signed by : Dillon Jones MD 04/21/2023 21:53:45
[2023-04-21 12:00] LABS: Basophils % 0.3 % (0.1-2.0); Eosinophils # 0.1 K/mm3 (0.0-0.4); Eosinophils % 2.1 % (0.1-12.0); Hematocrit 36.2 % (37.0-47.0); Hemoglobin 11.9 g/dL (12.2-16.2); Lymphocytes # 2.4 K/mm3 (0.7-4.5); Lymphocytes % 37.5 % (10-50); Mean Corpuscular HGB Conc 32.9 g/dL (31.8-35.4); Mean Corpuscular Hemoglobin 34.3 pg (27.0-31.2); Mean Corpuscular Volume 104.2 fl (81-99); Mean Platelet Volume 7.6 fl (7.4-10.4); Monocytes # 0.6 K/mm3 (0.1-1.0); Monocytes % 9.9 % (1.7-9.3); Neutrophils # 3.3 K/mm3 (1.8-7.8); Neutrophils % 50.2 % (37.0-80.0); Platelet Count 295 K/mm3 (142-424); Red Blood Count 3.47 M/mm3 (4.20-5.40); Red Cell Distribution Width 12.8 % (11.5-17.5); White Blood Count 6.5 K/mm3 (4.8-10.8)
[2023-04-21 12:47] LABS: Alanine Aminotransferase 16 U/L (12-78); Albumin Level 4.1 g/dl (3.5-5.0); Albumin/Globulin Ratio 1.3 (1.1-1.8); Alkaline Phosphatase 68 U/L (38-126); Anion Gap 7.8 mEq/L (5-15); Aspartate Amino Transferase 33 U/L (14-36); Bilirubin,Total 0.4 mg/dl (0.2-1.3); Blood Urea Nitrogen 16 mg/dl (7-17); Calcium 9.5 mg/dl (8.4-10.2); Carbon Dioxide 32 mmol/L (22.0-30.0); Chloride 95 mmol/L (98-107); Estimated Glomerular Filt Rate 61 ml/min (>60); GFR (African American) 74 ML/MIN (>60); Globulin 3.2 g/dL (1.3-3.2); Glucose 84 mg/dl (74-100); Potassium 4.8 mmoL/L (3.5-5.1); Sodium 130 mmol/L (136-145); Total Protein,Serum 7.3 g/dl (6.3-8.2)
== END 2023-04-21 23:59 ==
LOC: RT 11:27
PROVIDERS: PCP Family Medicine; Visit Provider Otolaryngology
DX: Z01.818 Encounter for other preprocedural examination (principal)
CPT/HCPCS: 36415; 80053; 85025; 93005

== ENCOUNTER 2023-06-18 09:17 | Outpatient (CLI) | payer MEDICARE, SELFPAY ==
[2023-06-18] VITALS (9 sets, daily range): BP systolic 109–140; BP diastolic 65–87; PULSE 68–76; RESP 18; TEMP 36.7; O2SAT 97–98; BMI 23.2
[2023-06-18 09:38] LABS: Basophils # 0.1 K/mm3 (0-0.2); Basophils % 0.6 % (0.1-2.0); Eosinophils # 0.1 K/mm3 (0.0-0.4); Eosinophils % 1.6 % (0.1-12.0); Hematocrit 37.8 % (37.0-47.0); Lymphocytes # 2.4 K/mm3 (0.7-4.5); Lymphocytes % 31.5 % (10-50); Mean Corpuscular HGB Conc 31.7 g/dL (31.8-35.4); Mean Corpuscular Hemoglobin 34.3 pg (27.0-31.2); Mean Corpuscular Volume 108.1 fl (81-99); Mean Platelet Volume 7.8 fl (7.4-10.4); Monocytes # 0.7 K/mm3 (0.1-1.0); Monocytes % 8.9 % (1.7-9.3); Neutrophils # 4.3 K/mm3 (1.8-7.8); Neutrophils % 57.3 % (37.0-80.0); Platelet Count 343 K/mm3 (142-424); White Blood Count 7.6 K/mm3 (4.8-10.8)
[2023-06-18 09:50] LABS: Chloride 98 mmol/L (98-107)
[2023-06-18 09:51] LABS: Potassium 4.3 mmoL/L (3.5-5.1); Sodium 131 mmol/L (136-145)
[2023-06-18 09:53] LABS: Alanine Aminotransferase 18 U/L (12-78); Alkaline Phosphatase 83 U/L (38-126); Anion Gap 6.3 mEq/L (5-15); Aspartate Amino Transferase 37 U/L (14-36); Bilirubin,Total 0.3 mg/dl (0.2-1.3); Blood Urea Nitrogen 18 mg/dl (7-17); Calcium 9.4 mg/dl (8.4-10.2); Carbon Dioxide 31 mmol/L (22.0-30.0); Creatinine Clearance Estimated 47 mL/min (50-200); Estimated Glomerular Filt Rate 61 ml/min (>60); GFR (African American) 74 ML/MIN (>60); Glucose 95 mg/dl (74-100)
[2023-06-18 09:54] LABS: Albumin/Globulin Ratio 1.3 (1.1-1.8); Globulin 3.2 g/dL (1.3-3.2); Total Protein,Serum 7.2 g/dl (6.3-8.2)
[2023-06-18] MEDS: ONDANSETRON 4MG ODT 16 MG (10:14)
[2023-06-18] MEDS: DEXAMETHASONE 4MG TABLET 12 MG (10:14)
[2023-06-18] MEDS: 0.9 % SODIUM CHLORIDE 50 ML 100 ML IV (10:15)
[2023-06-18] MEDS: LORATADINE 10MG TABLET 10 MG PO (10:15)
[2023-06-18] MEDS: FAMOTIDINE 20MG TABLET 20 MG (10:15)
[2023-06-18] MEDS: DEXTROSE 5% IV (10:47)
[2023-06-18] MEDS: PACLITAXEL IV (10:47)
[2023-06-18] MEDS: WATER IV (10:47)
[2023-06-18] MEDS: CARBOplatin 150 MG in 0.9 % SODIUM CHLORIDE 100 ML 230 MG IV (12:01)
== END 2023-06-18 12:40 | disposition home or self-care (01) ==
LOC: INF 09:18
PROVIDERS: PCP Family Medicine; Visit Provider Internal Medicine Medical Oncology
DX: C76.0 Malignant neoplasm of head, face and neck (principal)
CPT/HCPCS: 80053; 85025; 96413; 96415; 96417; J9045; J9267

== ENCOUNTER 2023-06-25 09:01 | Outpatient (CLI) | payer MEDICARE, SELFPAY ==
[2023-06-25 09:06] VITALS: BMI 23.2
--- NOTE | 2023-06-25 09:12 | PC.NURSE ---
09-collected labs via venipuncture stick in right ac with butterfly needle to collect labs; pt to wait on results
[2023-06-25 09:30] LABS: Basophils % 0.2 % (0.1-2.0); Eosinophils # 0.1 K/mm3 (0.0-0.4); Eosinophils % 1.2 % (0.1-12.0); Hematocrit 37.5 % (37.0-47.0); Mean Corpuscular Hemoglobin 34.2 pg (27.0-31.2); Mean Platelet Volume 7.6 fl (7.4-10.4); Monocytes # 0.5 K/mm3 (0.1-1.0); Neutrophils # 4.3 K/mm3 (1.8-7.8); Neutrophils % 62.6 % (37.0-80.0); Platelet Count 359 K/mm3 (142-424); Red Cell Distribution Width 13.3 % (11.5-17.5); White Blood Count 6.8 K/mm3 (4.8-10.8)
[2023-06-25 09:39] LABS: Alanine Aminotransferase 20 U/L (12-78); Albumin/Globulin Ratio 1.3 (1.1-1.8); Alkaline Phosphatase 72 U/L (38-126); Aspartate Amino Transferase 30 U/L (14-36); Bilirubin,Total 0.6 mg/dl (0.2-1.3); Blood Urea Nitrogen 25 mg/dl (7-17); Calcium 9.2 mg/dl (8.4-10.2); Carbon Dioxide 31 mmol/L (22.0-30.0); Chloride 97 mmol/L (98-107); Chol/HDL Ratio 3.7 (1-3.5); Cholesterol 209 mg/dl (140-200); Creatinine Clearance Estimated 47 mL/min (50-200); Estimated Glomerular Filt Rate 54 ml/min (>60); GFR (African American) 66 ML/MIN (>60); Globulin 3.1 g/dL (1.3-3.2); Glucose 88 mg/dl (74-100); HDL Cholesterol 56 mg/dl (40-60); Sodium 133 mmol/L (136-145); Total Protein,Serum 7.1 g/dl (6.3-8.2); Triglycerides 232 mg/dl (30-150); VLDL Cholesterol 46 mg/dL (0-40)
[2023-06-25 09:50] LABS: Direct LDL Cholesterol 92.31 mg/dL (100-129)
[2023-06-25] MEDS: ONDANSETRON 4MG ODT 16 MG (10:02)
[2023-06-25] MEDS: FAMOTIDINE 20MG TABLET 20 MG PO (10:03)
[2023-06-25] MEDS: LORATADINE 10MG TABLET 10 MG PO (10:03)
[2023-06-25] MEDS: DEXAMETHASONE 4MG TABLET 12 MG PO (10:03)
[2023-06-25] MEDS: ACETAMINOPHEN 325MG TAB 650 MG PO (10:03)
[2023-06-25 10:10] LABS: Thyroid Stimulating Hormone 3.66 uIU/mL (0.465-4.68)
[2023-06-25 10:14] LABS: Free T4 (Free Thyroxine) 1.17 ng/dl (0.78-2.19)
[2023-06-25] MEDS: WATER IV (10:46)
[2023-06-25] MEDS: DEXTROSE 5% IV (10:46)
[2023-06-25] MEDS: PACLITAXEL IV (10:46)
[2023-06-25 10:50] VITALS: BP 133/69; PULSE 76; O2SAT 100
[2023-06-25 11:20] VITALS: BP 124/74; PULSE 69
[2023-06-25 11:40] VITALS: BP 125/71; PULSE 66
[2023-06-25] MEDS: CARBOplatin 150 MG in 0.9 % SODIUM CHLORIDE 100 ML 230 MG IV (11:56)
[2023-06-25 12:00] VITALS: BP 125/73; PULSE 68; O2SAT 98
[2023-06-25 12:36] VITALS: BP 130/73; PULSE 68; O2SAT 98
== END 2023-06-25 12:36 | disposition home or self-care (01) ==
LOC: INF 09:02
PROVIDERS: PCP Family Medicine; Visit Provider Internal Medicine Medical Oncology
DX: C76.0 Malignant neoplasm of head, face and neck (principal); E03.9 Hypothyroidism, unspecified; E78.2 Mixed hyperlipidemia; Z79.899 Other long term (current) drug therapy
CPT/HCPCS: 80053; 80061; 84439; 84443; 85025; 96413; 96415; 96417; J9045; J9267

== ENCOUNTER 2023-07-02 09:02 | Outpatient (CLI) | payer MEDICARE, SELFPAY ==
[2023-07-02 09:16] VITALS: BMI 23.2
[2023-07-02 09:36] LABS: Basophils % 0.3 % (0.1-2.0); Eosinophils % 0.6 % (0.1-12.0); Hematocrit 33.2 % (37.0-47.0); Hemoglobin 10.8 g/dL (12.2-16.2); Lymphocytes # 1.4 K/mm3 (0.7-4.5); Mean Corpuscular HGB Conc 32.7 g/dL (31.8-35.4); Mean Corpuscular Hemoglobin 34.8 pg (27.0-31.2); Mean Corpuscular Volume 106.4 fl (81-99); Mean Platelet Volume 7.9 fl (7.4-10.4); Monocytes # 0.4 K/mm3 (0.1-1.0); Monocytes % 6.7 % (1.7-9.3); Neutrophils # 4.6 K/mm3 (1.8-7.8); Neutrophils % 71.4 % (37.0-80.0); Platelet Count 261 K/mm3 (142-424); Red Blood Count 3.12 M/mm3 (4.20-5.40); Red Cell Distribution Width 13.7 % (11.5-17.5); White Blood Count 6.5 K/mm3 (4.8-10.8)
[2023-07-02 09:42] LABS: Chloride 99 mmol/L (98-107); Sodium 132 mmol/L (136-145)
[2023-07-02 09:44] LABS: Alanine Aminotransferase 19 U/L (12-78); Aspartate Amino Transferase 30 U/L (14-36); Blood Urea Nitrogen 16 mg/dl (7-17); Creatinine Clearance Estimated 47 mL/min (50-200); Estimated Glomerular Filt Rate 61 ml/min (>60); GFR (African American) 74 ML/MIN (>60)
[2023-07-02 09:45] LABS: Albumin Level 3.6 g/dl (3.5-5.0); Albumin/Globulin Ratio 1.2 (1.1-1.8); Alkaline Phosphatase 73 U/L (38-126); Bilirubin,Total 0.5 mg/dl (0.2-1.3); Calcium 8.9 mg/dl (8.4-10.2); Carbon Dioxide 31 mmol/L (22.0-30.0); Globulin 3.1 g/dL (1.3-3.2); Glucose 95 mg/dl (74-100); Total Protein,Serum 6.7 g/dl (6.3-8.2)
[2023-07-02] MEDS: ACETAMINOPHEN 325MG TAB 650 MG (09:57)
[2023-07-02] MEDS: FAMOTIDINE 20MG TABLET 20 MG (09:58)
[2023-07-02] MEDS: ONDANSETRON 4MG ODT 16 MG (09:58)
[2023-07-02] MEDS: LORATADINE 10MG TABLET 10 MG PO (09:58)
[2023-07-02] MEDS: DEXAMETHASONE 4MG TABLET 12 MG (09:58)
[2023-07-02] MEDS: 0.9 % SODIUM CHLORIDE 50 ML 100 ML IV (09:58)
[2023-07-02] MEDS: PACLITAXEL IV (10:30)
[2023-07-02] MEDS: WATER IV (10:30)
[2023-07-02] MEDS: DEXTROSE 5% IV (10:30)
[2023-07-02 10:35] VITALS: BP 140/74; PULSE 71; RESP 18; TEMP 36.6; O2SAT 96
[2023-07-02 11:05] VITALS: BP 131/74; PULSE 69; RESP 18
[2023-07-02 11:46] VITALS: BP 137/77; PULSE 71; RESP 18
[2023-07-02] MEDS: CARBOplatin 150 MG in 0.9 % SODIUM CHLORIDE 100 ML 230 MG IV (11:49)
[2023-07-02 11:54] VITALS: BP 115/70; RESP 18
[2023-07-02 12:27] VITALS: RESP 18
[2023-07-02 12:34] VITALS: BP 128/71; PULSE 72; RESP 18; O2SAT 96
== END 2023-07-02 12:34 | disposition home or self-care (01) ==
LOC: INF 09:03
PROVIDERS: PCP Family Medicine; Visit Provider Internal Medicine Medical Oncology
DX: C76.0 Malignant neoplasm of head, face and neck (principal)
CPT/HCPCS: 80053; 85025; 96413; 96415; 96417; J9045; J9267

== ENCOUNTER 2023-07-09 08:56 | Outpatient (CLI) | payer MEDICARE, SELFPAY ==
[2023-07-09 09:01] VITALS: BMI 23.2
[2023-07-09 09:19] LABS: Basophils % 0.4 % (0.1-2.0); Hematocrit 30.7 % (37.0-47.0); Hemoglobin 10.2 g/dL (12.2-16.2); Lymphocytes # 0.9 K/mm3 (0.7-4.5); Mean Corpuscular HGB Conc 33.2 g/dL (31.8-35.4); Mean Corpuscular Volume 105.5 fl (81-99); Mean Platelet Volume 8.2 fl (7.4-10.4); Monocytes # 0.2 K/mm3 (0.1-1.0); Monocytes % 5.5 % (1.7-9.3); Neutrophils # 1.9 K/mm3 (1.8-7.8); Platelet Count 265 K/mm3 (142-424); Red Blood Count 2.91 M/mm3 (4.20-5.40); Red Cell Distribution Width 13.8 % (11.5-17.5)
[2023-07-09 09:36] LABS: Chloride 99 mmol/L (98-107)
[2023-07-09 09:37] LABS: Potassium 3.8 mmoL/L (3.5-5.1); Sodium 132 mmol/L (136-145)
[2023-07-09 09:39] LABS: Alanine Aminotransferase 21 U/L (12-78); Alkaline Phosphatase 77 U/L (38-126); Aspartate Amino Transferase 36 U/L (14-36); Bilirubin,Total 0.5 mg/dl (0.2-1.3); Blood Urea Nitrogen 16 mg/dl (7-17); Creatinine Clearance Estimated 47 mL/min (50-200); Estimated Glomerular Filt Rate 70 ml/min (>60); GFR (African American) 85 ML/MIN (>60)
[2023-07-09 09:40] LABS: Albumin Level 3.7 g/dl (3.5-5.0); Albumin/Globulin Ratio 1.3 (1.1-1.8); Anion Gap 9.8 mEq/L (5-15); Carbon Dioxide 27 mmol/L (22.0-30.0); Globulin 2.9 g/dL (1.3-3.2); Glucose 96 mg/dl (74-100); Total Protein,Serum 6.6 g/dl (6.3-8.2)
[2023-07-09] MEDS: DEXAMETHASONE 4MG TABLET 12 MG (10:48)
[2023-07-09] MEDS: FAMOTIDINE 20MG TABLET 20 MG (10:48)
[2023-07-09] MEDS: ACETAMINOPHEN 325MG TAB 650 MG (10:48)
[2023-07-09] MEDS: LORATADINE 10MG TABLET 10 MG PO (10:49)
[2023-07-09] MEDS: ONDANSETRON 4MG ODT 16 MG (10:49)
[2023-07-09] MEDS: DEXTROSE 5% IV (11:17)
[2023-07-09] MEDS: WATER IV (11:17)
[2023-07-09] MEDS: PACLITAXEL IV (11:17)
[2023-07-09 11:22] VITALS: BP 111/80; PULSE 79; RESP 18; TEMP 36.3; O2SAT 99
[2023-07-09 11:52] VITALS: BP 130/78; PULSE 69; RESP 18
[2023-07-09 12:30] VITALS: BP 133/73; PULSE 73; RESP 18
[2023-07-09] MEDS: CARBOplatin 150 MG in 0.9 % SODIUM CHLORIDE 100 ML 230 MG IV (12:35)
[2023-07-09 12:39] VITALS: BP 148/74; PULSE 71; RESP 18
[2023-07-09 13:00] VITALS: BP 137/77; PULSE 73; RESP 18
[2023-07-09 13:20] VITALS: BP 127/69; PULSE 71; RESP 18; O2SAT 99
== END 2023-07-09 13:20 | disposition home or self-care (01) ==
LOC: INF 08:57
PROVIDERS: PCP Family Medicine; Visit Provider Internal Medicine Medical Oncology
DX: C76.0 Malignant neoplasm of head, face and neck (principal)
CPT/HCPCS: 80053; 85025; 96413; 96415; 96417; J9045; J9267

== ENCOUNTER 2023-07-14 15:13 | Outpatient (CLI) | payer MEDICARE, SELFPAY ==
--- NOTE | 2023-07-14 15:13 | CT_ITS ---
FINAL REPORT TECHNIQUE: Axial images were obtained from the lung apex to the mid abdomen by computed tomography. Coronal and sagittal reformatted images were obtained. This study was performed with techniques to keep radiation doses as low as reasonably achievable, (ALARA). Individualized dose reduction techniques using automated exposure control or adjustment of mA and/or kV according to the patient''s size were employed. CLINICAL HISTORY: 12 mth F/U COMPARISON: October 23, 2021 FINDINGS: There is no evidence of mediastinal or hilar mass. Moderate to severe left coronary artery calcifications are seen. Postoperative changes are seen in the left thorax with left apical pleural thickening and left lateral chest wall deformity, stable. A large calcified mass is seen at the right lung apex which is stable. A partially calcified 5 mm nodule is noted at the right lung apex. There is mild scarring of the right lung. No new pulmonary mass or suspicious nodule is identified. Limited images of the upper abdomen are unremarkable. On the bone window images, no new bony abnormality is identified. IMPRESSION: Stable postoperative changes in the left thorax. No new abnormality identified. Authenticated and [facility]
== END 2023-07-14 23:59 | disposition home or self-care (01) ==
LOC: RAD 15:13
PROVIDERS: PCP Family Medicine; Visit Provider Internal Medicine Pulmonary Disease
DX: R91.8 Other nonspecific abnormal finding of lung field (principal)
CPT/HCPCS: 71250

== ENCOUNTER 2023-07-16 09:01 | Outpatient (CLI) | payer MEDICARE, SELFPAY ==
[2023-07-16 09:06] VITALS: BMI 28.3
[2023-07-16 09:35] LABS: Basophils % 0.6 % (0.1-2.0); Eosinophils % 0.3 % (0.1-12.0); Hematocrit 32.1 % (37.0-47.0); Hemoglobin 10.2 g/dL (12.2-16.2); Lymphocytes # 0.8 K/mm3 (0.7-4.5); Lymphocytes % 35.2 % (10-50); Mean Corpuscular Volume 106.2 fl (81-99); Monocytes # 0.1 K/mm3 (0.1-1.0); Neutrophils # 1.3 K/mm3 (1.8-7.8); Neutrophils % 57.9 % (37.0-80.0); Platelet Count 244 K/mm3 (142-424); Red Blood Count 3.02 M/mm3 (4.20-5.40); Red Cell Distribution Width 13.9 % (11.5-17.5); White Blood Count 2.2 K/mm3 (4.8-10.8)
[2023-07-16 09:47] LABS: Alanine Aminotransferase 21 U/L (12-78); Albumin Level 3.9 g/dl (3.5-5.0); Albumin/Globulin Ratio 1.3 (1.1-1.8); Alkaline Phosphatase 70 U/L (38-126); Anion Gap 11.8 mEq/L (5-15); Aspartate Amino Transferase 30 U/L (14-36); Bilirubin,Total 0.4 mg/dl (0.2-1.3); Blood Urea Nitrogen 14 mg/dl (7-17); Calcium 9.2 mg/dl (8.4-10.2); Carbon Dioxide 30 mmol/L (22.0-30.0); Chloride 96 mmol/L (98-107); Creatinine Clearance Estimated 57 mL/min (50-200); Estimated Glomerular Filt Rate 70 ml/min (>60); GFR (African American) 85 ML/MIN (>60); Globulin 3.1 g/dL (1.3-3.2); Glucose 106 mg/dl (74-100); Potassium 3.8 mmoL/L (3.5-5.1); Sodium 134 mmol/L (136-145)
[2023-07-16] MEDS: FAMOTIDINE 20MG TABLET 20 MG (10:03)
[2023-07-16] MEDS: DEXAMETHASONE 4MG TABLET 12 MG (10:03)
[2023-07-16] MEDS: ONDANSETRON 4MG ODT 16 MG (10:03)
[2023-07-16] MEDS: ACETAMINOPHEN 325MG TAB 650 MG (10:04)
[2023-07-16] MEDS: 0.9 % SODIUM CHLORIDE 50 ML 100 ML IV (10:04)
[2023-07-16] MEDS: LORATADINE 10MG TABLET 10 MG PO (10:04)
[2023-07-16] MEDS: WATER IV (10:40)
[2023-07-16] MEDS: DEXTROSE 5% IV (10:40)
[2023-07-16] MEDS: PACLITAXEL IV (10:40)
[2023-07-16 10:45] VITALS: BP 134/74; PULSE 80; RESP 18; TEMP 36.4; O2SAT 100
[2023-07-16 11:15] VITALS: BP 132/76; PULSE 73; RESP 18
[2023-07-16 11:45] VITALS: RESP 18
[2023-07-16] MEDS: CARBOplatin 150 MG in 0.9 % SODIUM CHLORIDE 100 ML 230 MG IV (11:46)
[2023-07-16 11:50] VITALS: BP 151/63; PULSE 79; RESP 18
[2023-07-16 12:20] VITALS: RESP 18
[2023-07-16 12:30] VITALS: BP 134/76; PULSE 75; RESP 18; O2SAT 100
== END 2023-07-16 12:30 | disposition home or self-care (01) ==
LOC: INF 09:03
PROVIDERS: PCP Family Medicine; Visit Provider Internal Medicine Medical Oncology
DX: C76.0 Malignant neoplasm of head, face and neck (principal)
CPT/HCPCS: 80053; 85025; 96413; 96415; 96417; J9045; J9267

== ENCOUNTER 2023-07-23 08:53 | Outpatient (CLI) | payer MEDICARE, SELFPAY ==
[2023-07-23] VITALS (9 sets, daily range): BP systolic 86–119; BP diastolic 50–83; PULSE 72–81; RESP 18; TEMP 36.6; O2SAT 96; BMI 23.0
[2023-07-23 09:23] LABS: Basophils % 0.6 % (0.1-2.0); Eosinophils % 0.3 % (0.1-12.0); Hematocrit 30.5 % (37.0-47.0); Hemoglobin 9.8 g/dL (12.2-16.2); Lymphocytes # 0.6 K/mm3 (0.7-4.5); Lymphocytes % 28.4 % (10-50); Mean Corpuscular Hemoglobin 34.4 pg (27.0-31.2); Mean Corpuscular Volume 107.3 fl (81-99); Mean Platelet Volume 8.2 fl (7.4-10.4); Monocytes # 0.2 K/mm3 (0.1-1.0); Monocytes % 9.1 % (1.7-9.3); Neutrophils # 1.3 K/mm3 (1.8-7.8); Neutrophils % 61.5 % (37.0-80.0); Platelet Count 272 K/mm3 (142-424); Red Blood Count 2.84 M/mm3 (4.20-5.40); Red Cell Distribution Width 14.7 % (11.5-17.5); White Blood Count 2.2 K/mm3 (4.8-10.8)
[2023-07-23 09:35] LABS: Alanine Aminotransferase 20 U/L (12-78); Albumin Level 3.8 g/dl (3.5-5.0); Albumin/Globulin Ratio 1.2 (1.1-1.8); Alkaline Phosphatase 68 U/L (38-126); Anion Gap 13.2 mEq/L (5-15); Aspartate Amino Transferase 28 U/L (14-36); Bilirubin,Total 0.5 mg/dl (0.2-1.3); Blood Urea Nitrogen 19 mg/dl (7-17); Calcium 9.1 mg/dl (8.4-10.2); Carbon Dioxide 29 mmol/L (22.0-30.0); Chloride 93 mmol/L (98-107); Creatinine Clearance Estimated 47 mL/min (50-200); Estimated Glomerular Filt Rate 61 ml/min (>60); GFR (African American) 74 ML/MIN (>60); Globulin 3.2 g/dL (1.3-3.2); Glucose 104 mg/dl (74-100); Potassium 4.2 mmoL/L (3.5-5.1); Sodium 131 mmol/L (136-145)
[2023-07-23] MEDS: LORATADINE 10MG TABLET 10 MG PO (09:59)
[2023-07-23] MEDS: DEXAMETHASONE 4MG TABLET 12 MG (09:59)
[2023-07-23] MEDS: FAMOTIDINE 20MG TABLET 20 MG (09:59)
[2023-07-23] MEDS: ACETAMINOPHEN 325MG TAB 650 MG (09:59)
[2023-07-23] MEDS: ONDANSETRON 4MG ODT 16 MG (09:59)
[2023-07-23] MEDS: PACLITAXEL IV (10:31)
[2023-07-23] MEDS: WATER IV (10:31)
[2023-07-23] MEDS: DEXTROSE 5% IV (10:31)
[2023-07-23] MEDS: SODIUM CHLORIDE 0.9% 50ML BAG 50 ML IV (10:40)
[2023-07-23] MEDS: CARBOplatin 150 MG in 0.9 % SODIUM CHLORIDE 100 ML 230 MG IV (11:44)
== END 2023-07-23 12:35 | disposition home or self-care (01) ==
LOC: INF 08:54
PROVIDERS: PCP Family Medicine; Visit Provider Internal Medicine Medical Oncology
DX: C76.0 Malignant neoplasm of head, face and neck (principal); Z79.899 Other long term (current) drug therapy
CPT/HCPCS: 80053; 85025; 96413; 96415; 96417; J9045; J9267

== ENCOUNTER 2023-08-06 08:43 | Outpatient (CLI) | payer MEDICARE, SELFPAY ==
[2023-08-06 08:46] VITALS: BMI 22.6
--- NOTE | 2023-08-06 08:53 | PC.NURSE ---
0851-collected labs via venipuncture stick in right ac; pt d/c to oncology appointment.
[2023-08-06 09:02] LABS: Basophils % 0.4 % (0.1-2.0); Eosinophils % 0.4 % (0.1-12.0); Hemoglobin 8.8 g/dL (12.2-16.2); Lymphocytes # 0.9 K/mm3 (0.7-4.5); Lymphocytes % 24.4 % (10-50); Mean Corpuscular HGB Conc 32.8 g/dL (31.8-35.4); Mean Corpuscular Hemoglobin 34.5 pg (27.0-31.2); Mean Corpuscular Volume 105.2 fl (81-99); Mean Platelet Volume 9.1 fl (7.4-10.4); Monocytes # 0.3 K/mm3 (0.1-1.0); Monocytes % 8.4 % (1.7-9.3); Neutrophils # 2.3 K/mm3 (1.8-7.8); Neutrophils % 66.3 % (37.0-80.0); Platelet Count 246 K/mm3 (142-424); Red Blood Count 2.56 M/mm3 (4.20-5.40); Red Cell Distribution Width 15.8 % (11.5-17.5); White Blood Count 3.5 K/mm3 (4.8-10.8)
[2023-08-06 09:20] LABS: Chloride 99 mmol/L (98-107)
[2023-08-06 09:21] LABS: Potassium 3.9 mmoL/L (3.5-5.1); Sodium 135 mmol/L (136-145)
[2023-08-06 09:23] LABS: Alanine Aminotransferase 23 U/L (12-78); Alkaline Phosphatase 82 U/L (38-126); Aspartate Amino Transferase 30 U/L (14-36); Bilirubin,Total 0.3 mg/dl (0.2-1.3); Blood Urea Nitrogen 14 mg/dl (7-17); Creatinine Clearance Estimated 44 mL/min (50-200); Estimated Glomerular Filt Rate 54 ml/min (>60); GFR (African American) 66 ML/MIN (>60)
[2023-08-06 09:24] LABS: Albumin Level 3.7 g/dl (3.5-5.0); Albumin/Globulin Ratio 1.1 (1.1-1.8); Anion Gap 10.9 mEq/L (5-15); Calcium 9.1 mg/dl (8.4-10.2); Carbon Dioxide 29 mmol/L (22.0-30.0); Globulin 3.3 g/dL (1.3-3.2); Glucose 116 mg/dl (74-100)
--- NOTE | 2023-08-06 10:19 | XR_ITS ---
FINAL REPORT CLINICAL HISTORY: PAIN IN SHOULDER COMPARISON: None FINDINGS: LEFT SHOULDER 3 views of the left shoulder were obtained. There is no acute fracture or dislocation. There are mild hypertrophic changes of the acromioclavicular joint. Soft tissues are unremarkable. Surgical clip is noted at the left apex. There is pleural and parenchymal scarring throughout the left apex. IMPRESSION: Mild hypertrophic changes without acute bony abnormality. Reviewed, Interpreted and Dictated by Nathaniel Hogue MD Transcribed by Florecita Ordaz Authenticated and [facility]
== END 2023-08-06 08:53 | disposition home or self-care (01) ==
LOC: INF 08:43
PROVIDERS: PCP Family Medicine; Visit Provider Internal Medicine Medical Oncology
DX: C76.0 Malignant neoplasm of head, face and neck (principal); M25.512 Pain in left shoulder; R53.1 Weakness; Z79.899 Other long term (current) drug therapy
CPT/HCPCS: 36415; 73030; 80053; 85025

== ENCOUNTER 2023-09-17 09:00 | Outpatient (RCR) | payer MEDICARE, SELFPAY ==
--- NOTE | 2023-08-19 10:42 | HMH.PTOPEV ---
PT Outpatient Evaluation Rehab PT Outpatient Evaluation Start: 08/19/23 07:55 Freq: Status: Active Protocol: Document 08/19/23 07:55 SUKHI (Rec: 08/19/23 10:42 SUKHI [id number]) E-signed By Skye Orozco, PT Outpatient Therapy Subjective History Subjective History Pt is a 73 y/o female who reports intermittent L shoulder pain for years. Pt reports pain is located in the anterior & posterior left shoulder that radiates to the left side of her neck. Pt also reports intermittent tingling into the left thumb and index finger that is worse at night time. Pt reports overall worsening of symptoms overtime . Pt had a left shoulder xray on 08/06/23 with impression of Mild hypertrophic changes without acute bony abnormality . Pt reports pain is aggravated by reaching overhead, reaching behind her and carrying/lifting objects. Pt reports she has to apply pressure to the left shoulder while sleeping at night in order to get comfortable. Pt reports she was diagnosed with R sided head/neck cancer in June of this year and recently finished chemo/ radiation treatment at the end of July. Pt reports she feels pretty good overall but does fatigues quickly. Pt reports she returns to Dr. Zabala in October or November for her next follow-up visit. R hand dominant Medical History: Diffuse small non-cleaved cell malignant lymphoma, Squamous cell carcinoma of head and neck, H/ O lung cancer status post resection of left upper lobe in 2004, COPD mixed type, Dyspnea on exertion, Allergies , Hyperlipidemia, Hypothyroid, GERD, Pneumothorax New diagnosis of cancer in past 12 Yes: see above months? Chief Complaint Pain,Paresthesia,Weakness Symptom Type Ache,Sharp,Dull,Burning, Numbness,Tingling Symptoms Relieved By Rest/Positioning,Heat,OTC Meds Symptoms Aggravated By Physical Activity,Lifting Current Functional Limitations Sleeping Symptom Description Constant but Variable Level of pain today (0-10) 1 Pain scale - at its best (0-10) 0 Pain scale - at its worst (0-10) 10 Cervical Eval Palpation Cervical Muscles L Cervical Paraspinal,R Suboccipital,L Suboccipital,L Upper Trapezius Cervical/Thoracic Palpation Findings Tenderness Flexibility Deficits Upper Trapezius Muscle Length (R) Moderate Tightness,(L) Moderate Tightness Levaetor Scapulae Muscle Length (R) Mild Tightness,(L) Mild Tightness Scalene Group Muscle Length (R) Moderate Tightness,(L) Moderate Tightness Pectoralis Major Muscle Length (R) Mild Tightness,(L) Mild Tightness Pectoralis Minor Muscle Length (R) Mild Tightness,(L) Mild Tightness Passive Joint Mobility Cervical PIVM Dec: R C4/5 L C4/5 R C5/6 L C5/6 R C6/7 L C6/7 AROM Cervical Spine Extension Active Range of 30 Motion (degrees) Cervical Spine Flexion Active Range of 50 Motion (degrees) Cervical Spine Right Lateral Flexion 20 tight Active Range of Motion (degrees) Cervical Spine Left Lateral Flexion 30 p! Active Range of Motion (degrees) Cervical Spine Right Rotation Active 55 Range of Motion (degrees) Cervical Spine Left Rotation Active 40 Range of Motion (degrees) Altered Sensation Left Upper extremity Dermatomes C6 Comment decreased light touch L compared to R Special Test C-Spine Foraminal Compression ([place]) Positive Left Test C-spine Verterbral Accessory Movements Central P/A [place],Left P/A that Elicit Symptoms [place] Shoulder/Elbow Eval Shoulder Objective Measurements Palpation Tenderness Shoulder Palpation Findings Tenderness Shoulder Palpation Overall Comment AC joint, UT/LS mm, infraspinatus Posture Shoulder Posture Standing Position (L) Rounded,(R) Rounded,(L) Forward,(R) Forward Shoulder ROM Left Shoulder Abduction Active Range of 145 (seated) Motion (degrees) Shoulder Abduction Passive Range of 160 (supine) Motion (degrees) Shoulder Flexion Active Range of Motion 145 (seated) (degrees) Query Text: Shoulder Flexion Passive Range of Motion 160 (supine) (degrees) Shoulder External Rotation Active Range 75 of Motion (degrees) Shoulder External Rotation Passive Range 90 of Motion (degrees) Shoulder Internal Rotation Active Range 45 of Motion (degrees) Shoulder Internal Rotation Passive Range 55 of Motion (degrees) pain with active ROM shoulder exam left standard Shoulder MMT Lower Trapezius Strength Grade 3+ Fair+ Middle Trapezius Strength Grade 3+ Fair+ Shoulder Abduction Strength Grade 4 Good Shoulder Extension Strength Grade 4 Good Shoulder Flexion Strength Grade 4 Good Shoulder External Rotation Strength 4- Good- Grade Shoulder Internal Rotation Strength 4- Good- Grade Shoulder Special Tests impingement sign present shoulder exam left standard Shoulder Drop Arm Test Negative Left Shoulder Cross-Over Impingement Test Positive Left Shoulder Knight-Hoang Impingement Positive Left Test Elbow Objective Measurements Wrist/Hand Eval Tab Cutting Machine Operator/Pinch Strength Right Tab Cutting Machine Operator Strength Measurement (lbs) 36.67 Left Tab Cutting Machine Operator Strength Measurement (lbs) 30 QuickDASH Activities Please rate your ability to do the following activities in the last week by selecting the number below the appropriate response. 1. Open a tight or new jar. Mild difficulty 2. Do heavy worsted winder (e.g., wash Unable [place], floors). 3. Carry a shopping bag or briefcase. Moderate difficulty 4. Wash your back. No difficulty 5. Use a knife to cut food. No difficulty 6. Recreational activities in which you Unable take some force or impact through your arm, shoulder, or hand (e.g., golf, hammering, tennis, etc.). 7. During the past week, to what extent Moderately has your arm, shoulder or hand problem interfered with your normal social activities with family, friends, neighbors or groups? 8. During the past week, were you Very limited limited in your work or other regular daily activites as a result of your arm, shoulder or hand problem? 9. Arm, shoulder or hand pain. Moderate 10. Tingling (pins and needles) in your Moderate arm, shoulder or hand. 11. During the past week, how much No difficulty difficulty have you had sleeping because of the pain in your arm, shoulder or hand? Quick DASH 31 Outpatient Therapy Assessment Impairments Problems/Impairmments Palpation Tenderness,Impaired Range of Motion,Impaired Strength,Impaired Lifting, Impaired Dressing,Impaired Household Care,Impaired Recreational Activities, Subjective C/O Pain,Impaired Self Care/Self Management Prognosis Rehab Potential Good Clinical Impression Consistent with Diagnosis Yes Consistent with also cervical radiculopathy Short Term Goals Number of Weeks 3 Increase Range of Motion Yes: Improve cervical AROM 5 degrees ea plane Decrease Subjective C/O Pain Yes: Improve pain at worst to 5/10 or less to improve overall QOL Improve Self Care/Self Management Yes Patient to be Ind w/ HEP Yes Interactive Media Marketing Specialist Goals Number of Weeks 6 Increase Range of Motion Yes: Improve L shoulder AROM elevation to 160, cervical AROM to WFL Increase Strength Yes: Improve LUE MMT to 4+/5 grossly to assist with function Improve Quick Dash Score Yes: Improve score to 25 or less to improve overall QOL Improve Self Care/Self Management Yes: Improve pain at worst to 3/10 or less to improve overall QOL Patient to be Ind w/ Advanced HEP Yes Outpatient Therapy Plan of Care Treatment Plan May Include Therapeutic Exercise Including Home Yes Exercise Program Manual Therapy Techniques Yes Neuromuscular Re-education Yes Therapeutic Activities to Return to Yes Previous Functional/Work Level ADL/Self Care Education Yes Mechanical Traction Yes Dry Needling Yes Thermal Modalities Yes Electrical Stimulation Yes Ultrasound/Phonophoresis Yes Iontophoresis Yes Massage Yes Group Therapy for Medicare Yes Eval/Re-Eval Yes Frequency Times per week 2 Duration Number of Weeks 4-6 Addendums This patient is a candidate for social No or vocational rehab? Patient/Guardian verbally acknowledges Yes understanding of treatment program and consents to further treatment? Patient/Guardian verbally acknowledges Yes understanding of diagnosis, prognosis and goals for treatment? Eval Complexity PT Charges 08866 - Moderate Complexity PHYSICIAN CERTIFICATION: I certify the specified therapy services for Ariane Pathak are required, authorized, and reviewed every 30 days.
--- NOTE | 2023-09-17 10:08 | HMH.RHREAS ---
Rehab Reassessment Rehab OP Re-assessment Start: 08/19/23 07:55 Freq: Status: Active Protocol: Document 09/17/23 09:07 SUKHI (Rec: 09/17/23 10:07 SUKHI [id number]) E-signed By Skye Orozco PT QuickDASH Activities Please rate your ability to do the following activities in the last week by selecting the number below the appropriate response. 1. Open a tight or new jar. Mild difficulty 2. Do heavy carpenter supervisor (e.g., wash No difficulty [place], floors). 3. Carry a shopping bag or briefcase. No difficulty 4. Wash your back. Mild difficulty 5. Use a knife to cut food. No difficulty 6. Recreational activities in which you Mild difficulty take some force or impact through your arm, shoulder, or hand (e.g., golf, hammering, tennis, etc.). 7. During the past week, to what extent Slightly has your arm, shoulder or hand problem interfered with your normal social activities with family, friends, neighbors or groups? 8. During the past week, were you Not limited at all limited in your work or other regular daily activites as a result of your arm, shoulder or hand problem? 9. Arm, shoulder or hand pain. None 10. Tingling (pins and needles) in your None arm, shoulder or hand. 11. During the past week, how much No difficulty difficulty have you had sleeping because of the pain in your arm, shoulder or hand? Quick DASH 15 Rehab Re-assessment Subjective Subjective Pt reports she feels 95% improved since starting PT. Pt reports she has not experienced pain of her L neck /shoulder in ~2 weeks. Pt reports stiffness has improved after she started using a cervical pillow to sleep with. Pt reports she is able to perform all functional activities without issues. Pt reports she is compliant with her HEP. Objective Objective Notes Cervical AROM: flex 50, ext 40 , RLF 25, LLF 30, 65 B rot L Shoulder AROM: 160 of elevation in seated MMT: 4+/5 grossly Assessment Progress Assessment Progressing as Expected Assessment Notes Pt has attended 7 PT treatment sessions consisting of cervical/shoulder AROM, scapular strengthening, postural re-education, cervical stretching, manual therapy and modalities with good tolerance. Pt demonstrated improved cervical /shoulder AROM, strength, QuickDASH score, and subjective report of pain since the initial evaluation. Pt has met most PT goals and is appropriate to discharge to independent HEP at this time. Patient goals met ST/4 LT/5 Goals Not Met cervical AROM Revised Goals n/a Plan Plan Discharge to independent HEP Time and Billing Re-Eval Time 11 Re-Eval Billing Units 1 PHYSICIAN CERTIFICATION: I certify the specified therapy services for Ariane Pathak are required, authorized, and reviewed every 30 days.
== END 2023-09-17 10:00 | disposition home or self-care (01) ==
LOC: PT 09:00
PROVIDERS: Visit Provider Internal Medicine Medical Oncology
DX: M25.812 Other specified joint disorders, left shoulder (principal)
CPT/HCPCS: 97035; 97110; 97140; 97163; 97164

== ENCOUNTER 2023-10-05 08:03 | Outpatient (CLI) | payer MEDICARE, SELFPAY ==
--- NOTE | 2023-10-05 08:07 | XR_ITS ---
FINAL REPORT CLINICAL HISTORY: left shoulder pain COMPARISON: None FINDINGS: 2 views of the left shoulder were obtained. There is no prior exam for comparison. There is no fracture or dislocation. Mild degenerative joint disease of the left shoulder is present. There is a left apical opacity, likely secondary to prior surgery in the left lung. IMPRESSION: No acute osseous abnormality of the left shoulder. Mild degenerative joint disease is present. Reviewed, Interpreted and Dictated by Veronica Aguero MD Transcribed by Reny Burnett Authenticated and [facility]
== END 2023-10-05 23:59 | disposition home or self-care (01) ==
LOC: RAD 08:04
PROVIDERS: PCP Family Medicine; Visit Provider Physician Assistant Surgical
DX: M25.512 Pain in left shoulder (principal)
CPT/HCPCS: 73030

== ENCOUNTER 2023-10-29 07:37 | Outpatient (CLI) | payer MEDICARE, SELFPAY ==
--- NOTE | 2023-10-29 07:59 | CT_ITS ---
FINAL REPORT TECHNIQUE: After the administration of oral and intravenous contrast, axial images were obtained through the abdomen and pelvis by computed tomography. The study was performed with techniques to keep radiation dose as low as reasonably achievable, (ALARA). Individual dose reduction techniques using automated exposure control or adjustment of mA and/or kV according to the patient's size were employed. CLINICAL HISTORY: .follow-up parotid cancer COMPARISON: None FINDINGS: CT ABDOMEN AND PELVIS WITH CONTRAST: Abdomen: The liver parenchyma is homogeneous. The gallbladder is present. The spleen, pancreas, adrenals and kidneys appear unremarkable. Dense vascular calcifications are noted, as well as a saccular aneurysm in the right posterolateral aorta, best seen on image #34 of series 5. The aorta measures up to 2.3 cm in diameter at this level. There is no free fluid or adenopathy. Pelvis: The appendix is normal in appearance. The urinary bladder is incompletely distended. There is no free fluid or adenopathy. There is diverticulosis of the sigmoid colon without evidence of diverticulitis. IMPRESSION: No acute intra-abdominal process. 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 This measures 2.3 cm in greatest diameter. Reviewed, Interpreted and Dictated by Nathaniel Hogue MD Transcribed by Reny Burnett Authenticated and [facility]
--- NOTE | 2023-10-29 08:00 | CT_ITS ---
FINAL REPORT TECHNIQUE: Thin section axial CT images with coronal and sagittal reformats were performed after the administration of IV contrast. This study was performed with techniques to keep radiation doses as low as reasonably achievable (ALARA). Individualized dose reduction techniques using automated exposure control or adjustment of mA and/or kV according to the patient's size were employed. CLINICAL HISTORY: follow-up parotid cancer COMPARISON: 02/26/2023 FINDINGS: Air-fluid levels and mucoperiosteal thickening are noted in the maxillary sinuses bilaterally, consistent with acute and chronic maxillary sinusitis. In the interval since the prior exam of February 2023 there has been resection of the right posterior parotid mass, with postoperative changes present in the surgical bed. No adenopathy or mass lesion is present . Salivary glands are otherwise normal. Larynx is unremarkable. Thyroid gland is somewhat atrophic. The large calcified mass in the right lung apex remains unchanged in appearance. Postoperative changes and scarring are once again noted in the left lung apex. IMPRESSION: Interval resection of the right posterior parotid mass since the prior exam of 2022, with postoperative changes noted in the right side of the neck. No focal cervical mass or adenopathy is identified. Changes in the lung apices noted on several prior CTs are stable. Reviewed, Interpreted and Dictated by Nathaniel Hogue MD Transcribed by Reny Burnett Authenticated and [facility]
--- NOTE | 2023-10-29 08:06 | CT_ITS ---
FINAL REPORT TECHNIQUE: Axial CT images of the chest were obtained with contrast. Coronal and sagittal reformatted images were also obtained. This study was performed with techniques to keep radiation doses as low as reasonably achievable, (ALARA). Individualized dose reduction techniques using automated exposure control or adjustment of mA and/or KV according to the patient's size were employed. CLINICAL HISTORY: follow-up parotid cancer COMPARISON: 07/14/2023 FINDINGS: CT CHEST WITH CONTRAST: Stable pleural and parenchymal scarring is present in the left lung base. Postoperative changes of the left hilum and deformity of the upper chest are once again noted. The right apical densely calcified mass noted on the prior exam remains present. Bilateral scarring is noted in the lung ceballos. There is no evidence of mediastinal or hilar mass or adenopathy. No axillary mass or adenopathy is identified. On lung window images, no pulmonary mass or dominant pulmonary nodule is otherwise identified. No localized pulmonary inflammatory process is identified. Limited images of the upper abdomen reveal no mass or localized inflammatory process. IMPRESSION: Stable postoperative changes in the upper lung ceballos bilaterally. No new mass or localized inflammatory process is seen. Reviewed, Interpreted and Dictated by Nathaniel Hogue MD Transcribed by Reny Burnett Authenticated and [facility]
[2023-10-29 08:08] LABS: Blood Urea Nitrogen 9 mg/dl (7-17); Estimated Glomerular Filt Rate 70 ml/min (>60); GFR (African American) 85 ML/MIN (>60)
[2023-10-29] MEDS: IOPAMIDOL-370 (76%);100ML BOTTLE 75 ML IV (08:38)
[2023-10-29] MEDS: BARIUM SULFATE(READI-CAT2);450ML BOTTLE 450 ML PO (08:38)
[2023-10-29] MEDS: SODIUM CHLORIDE 0.9% 10ML SYR (RAD ONLY) 10 ML IV (08:38)
[2023-10-29] MEDS: IOPAMIDOL-370 (76%);100ML BOTTLE 50 ML IV (08:39)
== END 2023-10-29 08:17 | disposition home or self-care (01) ==
LOC: RAD 07:37
PROVIDERS: PCP Family Medicine; Visit Provider Internal Medicine Medical Oncology
DX: C76.0 Malignant neoplasm of head, face and neck (principal); Z79.899 Other long term (current) drug therapy
CPT/HCPCS: 36415; 70491; 71260; 74177; 82565; 84520; Q9967

== ENCOUNTER 2023-11-05 11:29 | Outpatient (CLI) | payer MEDICARE, SELFPAY ==
[2023-11-05 11:33] VITALS: BMI 21.5
--- NOTE | 2023-11-05 11:38 | PC.NURSE ---
1138-collected labs via venipuncture stick in right ac with butterfly needle;pt to d/c home
[2023-11-05 11:46] LABS: Basophils % 0.5 % (0.1-2.0); Eosinophils # 0.1 K/mm3 (0.0-0.4); Eosinophils % 2.2 % (0.1-12.0); Hemoglobin 10.9 g/dL (12.2-16.2); Lymphocytes # 1.3 K/mm3 (0.7-4.5); Lymphocytes % 23.9 % (10-50); Mean Corpuscular HGB Conc 31.3 g/dL (31.8-35.4); Mean Corpuscular Hemoglobin 36.2 pg (27.0-31.2); Mean Corpuscular Volume 115.9 fl (81-99); Mean Platelet Volume 8.1 fl (7.4-10.4); Monocytes # 0.6 K/mm3 (0.1-1.0); Neutrophils # 3.6 K/mm3 (1.8-7.8); Neutrophils % 63.4 % (37.0-80.0); Platelet Count 367 K/mm3 (142-424); Red Blood Count 3.02 M/mm3 (4.20-5.40); Red Cell Distribution Width 13.6 % (11.5-17.5); White Blood Count 5.6 K/mm3 (4.8-10.8)
[2023-11-05 12:08] LABS: Alanine Aminotransferase 24 U/L (12-78); Albumin Level 4.3 g/dl (3.5-5.0); Alkaline Phosphatase 74 U/L (38-126); Anion Gap 11.1 mEq/L (5-15); Aspartate Amino Transferase 56 U/L (14-36); Bilirubin,Total 0.6 mg/dl (0.2-1.3); Blood Urea Nitrogen 12 mg/dl (7-17); Calcium 9.7 mg/dl (8.4-10.2); Carbon Dioxide 26 mmol/L (22.0-30.0); Chloride 95 mmol/L (98-107); Creatinine Clearance Estimated 42 mL/min (50-200); Estimated Glomerular Filt Rate 82 ml/min (>60); GFR (African American) 99 ML/MIN (>60); Globulin 4.4 g/dL (1.3-3.2); Glucose 93 mg/dl (74-100); Potassium 5.1 mmoL/L (3.5-5.1); Sodium 127 mmol/L (136-145); Total Protein,Serum 8.7 g/dl (6.3-8.2)
== END 2023-11-05 11:38 | disposition home or self-care (01) ==
LOC: INF 11:30
PROVIDERS: PCP Family Medicine; Visit Provider Internal Medicine Medical Oncology
DX: C76.0 Malignant neoplasm of head, face and neck (principal)
CPT/HCPCS: 36415; 80053; 85025

== ENCOUNTER 2023-11-16 12:01 | Outpatient (CLI) | payer MEDICARE, SELFPAY ==
[2023-11-17 16:23] LABS: Albumin 3.3 g/dL (2.9-4.4); Alpha-1-Globulin 0.3 g/dL (0.0-0.4); Alpha-2-Globulin 0.9 g/dL (0.4-1.0); Gamma Globulin 1.6 g/dL (0.4-1.8); Protein, Total 7.2 g/dL (6.0-8.5)
[2023-11-17 17:10] LABS: Immunoglobulin G, Qn 1480 mg/dL (586-1602)
[2023-11-18 12:51] LABS: PDF SCANNED IMAGE
== END 2023-11-16 23:59 | disposition home or self-care (01) ==
LOC: LAB 12:05
PROVIDERS: PCP Family Medicine; Visit Provider Internal Medicine Medical Oncology
DX: C76.0 Malignant neoplasm of head, face and neck (principal)
CPT/HCPCS: 36415; 82784; 84155; 84165

== ENCOUNTER 2024-01-28 12:53 | Outpatient (CLI) | payer MEDICARE, SELFPAY ==
[2024-01-28 13:26] LABS: Basophils % 0.6 % (0.1-2.0); Eosinophils # 0.2 K/mm3 (0.0-0.4); Eosinophils % 2.1 % (0.1-12.0); Hematocrit 33.1 % (37.0-47.0); Hemoglobin 10.8 g/dL (12.2-16.2); Lymphocytes # 2.3 K/mm3 (0.7-4.5); Lymphocytes % 32.4 % (10-50); Mean Corpuscular HGB Conc 32.7 g/dL (31.8-35.4); Mean Corpuscular Hemoglobin 33.4 pg (27.0-31.2); Mean Corpuscular Volume 102.4 fl (81-99); Mean Platelet Volume 7.3 fl (7.4-10.4); Monocytes # 0.7 K/mm3 (0.1-1.0); Monocytes % 9.7 % (1.7-9.3); Neutrophils # 3.9 K/mm3 (1.8-7.8); Neutrophils % 55.2 % (37.0-80.0); Platelet Count 333 K/mm3 (142-424); Red Blood Count 3.23 M/mm3 (4.20-5.40); White Blood Count 7.1 K/mm3 (4.8-10.8)
[2024-01-28 13:44] LABS: Alanine Aminotransferase 14 U/L (12-78); Albumin Level 4.2 g/dl (3.5-5.0); Albumin/Globulin Ratio 1.4 (1.1-1.8); Alkaline Phosphatase 88 U/L (38-126); Anion Gap 11.6 mEq/L (5-15); Aspartate Amino Transferase 32 U/L (14-36); Bilirubin,Total 0.5 mg/dl (0.2-1.3); Blood Urea Nitrogen 21 mg/dl (7-17); Calcium 9.3 mg/dl (8.4-10.2); Carbon Dioxide 28 mmol/L (22.0-30.0); Chloride 94 mmol/L (98-107); Estimated Glomerular Filt Rate 54 ml/min (>60); GFR (African American) 66 ML/MIN (>60); Globulin 3.1 g/dL (1.3-3.2); Glucose 73 mg/dl (74-100); Potassium 4.6 mmoL/L (3.5-5.1); Sodium 129 mmol/L (136-145); Total Protein,Serum 7.3 g/dl (6.3-8.2)
[2024-02-01 16:21] LABS: Albumin 3.6 g/dL (2.9-4.4); Alpha-1-Globulin 0.3 g/dL (0.0-0.4); Gamma Globulin 1.7 g/dL (0.4-1.8); Protein, Total 7.6 g/dL (6.0-8.5)
[2024-02-01 17:10] LABS: Immunoglobulin A, Qn 375 mg/dL (64-422); Immunoglobulin G, Qn 1641 mg/dL (586-1602); Immunoglobulin M, Qn 147 mg/dL (26-217)
[2024-02-03 10:13] LABS: PDF SCANNED IMAGE
== END 2024-01-28 23:59 | disposition home or self-care (01) ==
LOC: LAB 12:55
PROVIDERS: PCP Family Medicine; Visit Provider Internal Medicine Medical Oncology
DX: R59.1 Generalized enlarged lymph nodes (principal); Z85.118 Personal history of other malignant neoplasm of bronchus and lung
CPT/HCPCS: 36415; 80053; 82784; 84155; 84165; 85025; 86334

== ENCOUNTER 2024-04-26 11:35 | Outpatient (CLI) | payer MEDICARE, SELFPAY ==
[2024-04-26 12:05] LABS: Basophils % 0.3 % (0.1-2.0); Eosinophils # 0.1 K/mm3 (0.0-0.4); Eosinophils % 1.7 % (0.1-12.0); Hematocrit 31.8 % (37.0-47.0); Hemoglobin 10.7 g/dL (12.2-16.2); Lymphocytes # 2.3 K/mm3 (0.7-4.5); Lymphocytes % 29.5 % (10-50); Mean Corpuscular HGB Conc 33.6 g/dL (31.8-35.4); Mean Corpuscular Hemoglobin 34.3 pg (27.0-31.2); Mean Corpuscular Volume 101.9 fl (81-99); Mean Platelet Volume 8.7 fl (7.4-10.4); Monocytes % 12.3 % (1.7-9.3); Neutrophils # 4.3 K/mm3 (1.8-7.8); Neutrophils % 55.9 % (37.0-80.0); Platelet Count 303 K/mm3 (142-424); Red Blood Count 3.12 M/mm3 (4.20-5.40); Red Cell Distribution Width 13.2 % (11.5-17.5); White Blood Count 7.7 K/mm3 (4.8-10.8)
[2024-04-26 12:29] LABS: Albumin Level 4.3 g/dl (3.5-5.0); Chloride 95 mmol/L (98-107); Potassium 4.4 mmoL/L (3.5-5.1); Sodium 133 mmol/L (136-145)
[2024-04-26 12:32] LABS: Alanine Aminotransferase 20 U/L (12-78); Albumin/Globulin Ratio 1.4 (1.1-1.8); Alkaline Phosphatase 76 U/L (38-126); Anion Gap 11.4 mEq/L (5-15); Aspartate Amino Transferase 38 U/L (14-36); Bilirubin,Total 0.3 mg/dl (0.2-1.3); Blood Urea Nitrogen 17 mg/dl (7-17); Calcium 9.3 mg/dl (8.4-10.2); Carbon Dioxide 31 mmol/L (22.0-30.0); Estimated Glomerular Filt Rate 61 ml/min (>60); GFR (African American) 74 ML/MIN (>60); Globulin 3.1 g/dL (1.3-3.2); Glucose 75 mg/dl (74-100); Total Protein,Serum 7.4 g/dl (6.3-8.2)
[2024-04-27 15:11] LABS: Albumin 3.8 g/dL (2.9-4.4); Alpha-1-Globulin 0.3 g/dL (0.0-0.4); Alpha-2-Globulin 0.8 g/dL (0.4-1.0); Free Kappa Lt Chains 60.5 mg/L (3.3-19.4); Free Lambda Lt Chains 23.1 mg/L (5.7-26.3); Gamma Globulin 1.4 g/dL (0.4-1.8); Protein, Total 7.5 g/dL (6.0-8.5)
== END 2024-04-26 23:59 | disposition home or self-care (01) ==
LOC: INF 11:37
PROVIDERS: PCP Family Medicine; Visit Provider Internal Medicine Medical Oncology
DX: C76.0 Malignant neoplasm of head, face and neck (principal)
CPT/HCPCS: 36415; 80053; 82784; 83883; 84155; 84165; 85025

== ENCOUNTER 2024-08-02 09:39 | Outpatient (CLI) | payer MEDICARE, SELFPAY ==
--- OUTSIDE RECORDS SUMMARY | 2024-08-02 09:41 | XMS_ITS ---
Author Organization Unknown [facility] Start Date Provider Encounter for Check-up [phone] [facility]
--- OUTSIDE RECORDS SUMMARY | 2024-08-02 09:42 | XMS_ITS | Data Portability ---
Author Organization [place] - [facility] Address [address] [place] [address] Care Team Providers Care Weaving Machine Operator Name Role Phone BRI SHAH Guide Alpine DARSHAN COLEY Primary Care Provider BENJY LOVELL General Surgeon SONJA MCDONALD Tar Heater Operator FREDERIC LIANG Radiation Oncologist DARCY ZABALA Hematology/Oncology [phone] Registry Officer Assessment Encounter Date Assessment Date Assessment LastModified by Organization Details LastModified Time 07/27/2023 07/27/2023 Treatment summar y: She was treated to tumor bed right upper neck including the rest of the right neck nodes down to the supraclavicular area at risk planned with IMRT technique utilizing 6 mV photon beam treated by 3 arcs received a dose of 4500 cGy delivered by 25 fractions between 06/18/2023 and 07/22/2023 this was followed by a boost to the site of resection of the right parotid gland was treated by direct lateral oblique ceballos utilizing 9 MeV electron beam with no bolus received an additional 540 cGy by 3 fractions between 07/23/2003 and completed on 07/27/2023. She had mild sore throat no significant weight loss no severe mucositis skin of the treated area in the right neck showed some dryness no moist skin reaction she was advised to use had a true cortisone cream 1% and Aquaphor During her radiation she received 5 cycles of weekly carbotaxol. She was advised about soft diet. Will return to see us in 1 month for a follow-up Thanks for allowing us participate in the care of this pleasant patient, [email or web address] Not available 07/27/2023 09:10:54 08/24/2023 08/24/2023 patient doing quite well no evidence of recurrence or metastasis he is followed by Dr. Zabala she will return to see us in 3 months for a follow-up. Interview and review of records lasted for 30 minute. Thanks for allowing us participate in the care of this pleasant patient. [email or web address] Not available 08/24/2023 09:55:06 05/17/2024 05/17/2024 Patient is doing quite well no evidence for recurrence or metastasis will return to see us in 1 year for a follow-up. Interview and review her records lasted for 30 minute. Thanks for allowing us participate in the care of this pleasant patient. [email or web address] Not available 05/17/2024 10:45:00 Plan of Treatment Reminders Order Date Submit Date Provider Last Modified By Organization Details Last Modified Time Details Appointments None record ed. Lab None record ed. Referral None record ed. Procedures None record ed. Surgeries None record ed. Imaging None record ed. Medication Orders None record ed. Patient TargetsNo targets recorded. Patient InstructionsNo instructions recorded. Reason for Referral None Reported. 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 Medical Equipment None Reported. Allergies No known drug allergies Medications Name Sig Start Date Stop Date Status Note LastModified by Organization Details LastModified Time Magic Mouthwash w/ Nystatin Swish and Swallow 10ml every four to six hours as needed 2023 active Not Available Not Available Not Avai lable Magic Mouthwash w/ Nystatin 10 ml TID & PRN 02/03 completed Not Available Not Available Not Available diphenhydram ine 12.5 mg/5 mL oral liquid active Not Available Not Available Not Available promethazine -DM 6.25 mg-15 mg/5 mL oral syrup active Not Available Not Available Not Available nystatin 100,000 unit/mL oral suspension active Not Available Not Available N ot Available albuterol sulfate 2.5 mg/3 mL (0.083 %) solution for nebulization active Not Available Not Available Not Available azithromycin 250 mg tablet active Not Available Not Available Not Available Lidocaine Viscous 2 % mucosal solution active Not Available Not Available Not Available benzonatate 200 mg capsule active Not Available Not Available Not Available hydrocodone 5 mg-acetamino phen 325 mg tablet 11/19 completed Not Available Not Available Not Available ondansetron HCl 8 mg tablet active Not Available Not Available Not Available prochlorpera zine maleate 10 mg tablet active Not Available Not Available Not Available omeprazole 40 mg capsule,wilber yed release active Not Available Not Available Not Available triamcinolon e acetonide 0.1 % topical cream active Not Available Not Available Not Available meloxicam 7.5 mg tablet active Not Available Not Available Not Available famotidine 20 mg tablet 11/19 completed Not Available Not Available Not Available pravastatin 80 mg tablet active Not Available Not Available Not Available metronidazol e 0.75 % lotion 02/03 completed Not Available Not Available Not Available levothyroxin e 50 mcg tablet active Not Available Not Available Not Available hydrocodone 7.5 mg-acetamino phen 325 mg tablet active Not Available Not Available Not Available diphenhydram ine 25 mg capsule active Not Available Not Available Not Available dexamethason e 4 mg tablet active Not Available Not Available Not Available estradiol 0.5 mg tablet 04/09 completed Not Available Not Available Not Available azelastine 137 mcg (0.1 %) nasal spray active Not Available Not Available Not Available methylpredni solone 4 mg tablets in a dose pack active Not Available Not Available No t Available albuterol sulfate HFA 90 mcg/actuatio n aerosol inhaler active Not Available Not Available Not Available ondansetron 4 mg disintegrati ng tablet active Not Available Not Available No t Available cefdinir 300 mg capsule Take 1 capsule every 12 hours by oral route. active Not Available Not Available No t Available doxycycline hyclate 100 mg tablet 11/19 completed Not Available Not Available Not Available cyclobenzapr ine 5 mg tablet 11/19 completed Not Available Not Available Not Available Antacid Regular Strength 200 mg-200 mg-20 mg/5 mL oral suspension active Not Available Not Available N ot Available Stiolto Respimat 2.5 mcg-2.5 mcg/actuatio n solution for inhalation active Not Available Not Available N ot Available Bevespi Aerosphere 9 mcg-4.8 mcg HFA aerosol inhaler active Not Available Not Available Not Available Vitals Date Recorded Body height Body mass index (BMI) Body weight Body temperature Oxygen saturation Oxygen saturation in Arterial blood by Pulse oximetry Heart rate Respiratory rate Systolic And Diastolic Provider Name and Address Organization Details Last Updated DateTime 5 160.02 cm 20.5 kg/m2 13375.2 8 g 97.5 [degF] 99 % 99 % 73 /min 17 /min 132/63 mm[Hg] Cristina SMYTH [facility] 5 10:39:10 Date Recorded Body height Body mass index (BMI) Body weight Body temperature Oxygen saturation Oxygen saturation in Arterial blood by Pulse oximetry Heart rate Respiratory rate Systolic And Diastolic Provider Name and Address Organization Details Last Updated DateTime 4 160.02 cm 22.2 kg/m2 13608.7 6 g 97.7 [degF] 99 % 99 % 76 /min 17 /min 112/73 mm[Hg] Cristina SMYTH [facility] & [place] 4 09:07:11 Date Recorded Body height Body mass index (BMI) Body weight Body temperature Oxygen saturation Oxygen saturation in Arterial blood by Pulse oximetry Heart rate Respiratory rate Systolic And Diastolic Provider Name and Address Organization Details Last Updated DateTime 4 160.02 cm 22.1 kg/m2 23705.3 3 g 97.1 [degF] 96 % 96 % 96 /min 17 /min 126/86 mm[Hg] Cristina Pham [place] - [facility] - [place] & [place] 4 09:44:32 Social History None recorded. Functional Status None recorded. Mental Status None recorded. Family History Relationship Description Onset Age of this Age Resolved Age Notes LastModified by Organization Details LastModified Time Mother Malignant neoplastic disease [email or web address] Not available 2021 14:59:01 Sister Malignant neoplastic disease [email or web address] Not available 2021 14:59:01 Brother Myocardial infarction [email or web address] Not available 11/26 14:59:30 Father Cerebrovascu lar accident [email or web address] Not available 14:59:47 Medical History No medical history recorded. Gynecological HistoryNo gynecological history recorded. Obstetrics History GPAL:G 0 P 0 0 0 0 Past Encounters Encounter ID Performer Location Encounter Start Date Encounter Closed Date Diagnosis/Indication Diagnosis SNOMED-CT Code Diagnosis ICD10 Code Diagnosis Note [id number] MD LAWRENCE Boyer [address] [address] 11/19/2021 09:29:57 11/19/2021 11:19:53 Malignant tumor of submandibular gland 034863186 C08.0 Squamous c ell carcinoma of nose 258487080 C44.321 [id number] MD LAWRENCE Boyer [address] [address] 11/20/2021 13:58:04 11/20/2021 14:55:10 [id number] Carlo Chu MD [address] [place] [address] 11/26/2021 14:45:02 11/27/2021 11:11:14 Malignant tumor of submandibular gland 388667566 C08.0 Cervical lymphadenopathy 329848878 R59.0 [id number] MD LAWRENCE Boyer [address] [address] 12/04/2021 09:11:03 12/04/2021 10:06:52 Malignant tumor of submandibular gland 611849988 C08.0 Squamous c ell carcinoma of nose 959600854 C44.321 [id number] Frederic Liang MD [place] [address] [place] [address] 8 12/05/2021 09:00:43 12/05/2021 09:38:18 Malignant tumor of submandibular gland 307456844 C08.0 Squamous c ell carcinoma of nose 841303154 C44.321 [id number] Frederic Liang MD [place] [address] [place] [address] 8 12/06/2021 09:11:26 12/06/2021 09:29:49 Malignant tumor of submandibular gland 732573500 C08.0 Squamous c ell carcinoma of nose 327368773 C44.321 [id number] Frederic Liang MD [place] [address] 8 12/09/2021 09:10:48 12/09/2021 09:35:35 Malignant tumor of submandibular gland 019819004 C08.0 Squamous c ell carcinoma of nose 904929392 C44.321 [id number] Frederic Liang MD [place] [address] [place] [address] 8 12/10/2021 08:54:19 12/10/2021 09:33:57 Malignant tumor of submandibular gland 639116399 C08.0 Squamous c ell carcinoma of nose 160195303 C44.321 [id number] Frederic Liang MD [place] [address] [place] [address] 8 12/11/2021 09:17:06 12/11/2021 09:33:24 Malignant tumor of submandibular gland 231375086 C08.0 Squamous c ell carcinoma of nose 659921419 C44.321 [id number] Frederic Liang MD [address] [address] 12/12/2021 07:56:14 12/12/2021 08:22:56 [id number] [place] [address] 12/13/2021 08:56:07 12/13/2021 09:16:52 Malignant tumor of submandibular gland 202624276 C08.0 Squamous c ell carcinoma of nose 123859448 C44.321 [id number] Frederic Liang MD [place] [address] 8 12/16/2021 09:04:51 12/16/2021 09:32:26 Malignant tumor of submandibular gland 600280893 C08.0 Squamous c ell carcinoma of nose 134948736 C44.321 [id number] Frederic Liang MD [place] [address] 8 12/17/2021 09:00:16 12/17/2021 09:13:49 Malignant tumor of submandibular gland 393639891 C08.0 Squamous c ell carcinoma of nose 195206096 C44.321 [id number] Frederic Liang MD [place] [address] 8 12/18/2021 08:54:24 12/18/2021 09:19:38 Malignant tumor of submandibular gland 501340405 C08.0 Squamous c ell carcinoma of nose 016043070 C44.321 [id number] Frederic Liang MD [place] [address] 8 12/19/2021 07:59:01 12/19/2021 08:30:27 Malignant tumor of submandibular gland 572086068 C08.0 Squamous c ell carcinoma of nose 910063578 C44.321 [id number] Frederic Liang MD [place] [address] 8 12/20/2021 08:54:58 12/20/2021 09:35:47 Malignant tumor of submandibular gland 027753004 C08.0 [id number] Frederic Liang MD [place] [address] 8 12/23/2021 08:43:21 12/23/2021 09:52:58 Malignant tumor of submandibular gland 449255073 C08.0 Squamous c ell carcinoma of nose 731368019 C44.321 [id number] Frederic Liang MD [place] [address] 8 12/24/2021 08:54:12 12/24/2021 09:25:06 Malignant tumor of submandibular gland 562014908 C08.0 Squamous c ell carcinoma of nose 715195873 C44.321 [id number] Frederic Liang MD [place] [address] 8 12/25/2021 08:52:51 12/25/2021 09:26:51 Malignant tumor of submandibular gland 059631945 C08.0 Squamous c ell carcinoma of nose 268690402 C44.321 [id number] Frederic Laing MD [place] [address] 8 12/27/2021 09:23:30 12/27/2021 09:34:03 Malignant tumor of submandibular gland 513060233 C08.0 Squamous c ell carcinoma of nose 389813405 C44.321 [id number] Frederic Liang MD [place] [address] 8 12/30/2021 08:49:49 12/30/2021 09:26:46 Malignant tumor of submandibular gland 543536332 C08.0 Squamous c ell carcinoma of nose 731204329 C44.321 [id number] Frederic Liang MD [place] [address] 8 12/31/2021 09:05:17 12/31/2021 09:20:19 Malignant tumor of submandibular gland 990232411 C08.0 Squamous c ell carcinoma of nose 737599316 C44.321 [id number] Frederic Liang MD [place] [address] 8 01/01/2022 08:58:55 01/01/2022 09:43:14 Malignant tumor of submandibular gland 386042152 C08.0 [id number] Frederic Liang MD [place] [address] 8 01/02/2022 08:00:17 01/02/2022 08:05:30 Malignant tumor of submandibular gland 979562818 C08.0 [id number] Frederic Liang MD [place] [address] 8 01/03/2022 09:04:45 01/03/2022 09:24:39 Malignant tumor of submandibular gland 473024914 C08.0 Squamous c ell carcinoma of nose 405254777 C44.321 [id number] Frederic Liang MD [place] [address] 8 01/06/2022 08:48:40 01/06/2022 09:28:44 Squamous cell carcinoma of nose 554380782 C44.321 Malignant tumor of submandibular gland 477508902 C08.0 [id number] Frederic Liang MD [place] [address] 8 01/07/2022 08:57:10 01/07/2022 09:25:06 Malignant tumor of submandibular gland 371022747 C08.0 Squamous c ell carcinoma of nose 176351514 C44.321 [id number] Frederic Liang MD [place] [address] 8 01/08/2022 09:06:55 01/08/2022 09:48:28 Malignant tumor of submandibular gland 272211985 C08.0 Squamous c ell carcinoma of nose 817071518 C44.321 [id number] Frederic Liang MD [place] [address] 8 01/09/2022 07:54:01 01/09/2022 08:07:48 Malignant tumor of submandibular gland 048503093 C08.0 Squamous c ell carcinoma of nose 475743618 C44.321 [id number] Frederic Liang MD [place] [address] 8 01/10/2022 08:49:00 01/10/2022 09:12:11 Malignant tumor of submandibular gland 181620527 C08.0 Squamous c ell carcinoma of nose 474480392 C44.321 [id number] Frederic Liang MD [place] [address] 8 01/13/2022 08:46:32 01/13/2022 09:29:37 Malignant tumor of submandibular gland 618473106 C08.0 Squamous c ell carcinoma of nose 699373145 C44.321 [id number] Frederic Liang MD [place] [address] 8 01/14/2022 08:49:19 01/14/2022 09:15:11 Malignant tumor of submandibular gland 229184604 C08.0 Squamous c ell carcinoma of nose 862340510 C44.321 [id number] Frederic Liang MD [place] [address] 8 2022 09:01:56 2022 09:20:57 Malignant tumor of submandibular gland 601957143 C08.0 Squamous c ell carcinoma of nose 435061656 C44.321 [id number] Frederic Liang MD [place] [address] 8 02/18/2022 08:48:22 02/18/2022 09:09:26 Malignant tumor of submandibular gland 688644975 C08.0 Squamous c ell carcinoma of nose 241875299 C44.321 [id number] Frederic Liang MD [place] [address] 8 05/27/2022 08:47:27 05/27/2022 09:28:39 Malignant tumor of submandibular gland 154514437 C08.0 Squamous c ell carcinoma of nose 159469160 C44.321 [id number] Frederic Liang MD [place] [address] 8 02/03/2023 08:42:00 02/03/2023 08:57:43 Malignant tumor of submandibular gland 679429659 C08.0 Squamous c ell carcinoma of nose 498390257 C44.321 [id number] Frederic Liang MD [place] [address] 8 04/09/2023 08:45:11 04/09/2023 09:58:26 Malignant tumor of submandibular gland 324342001 C08.0 Squamous c ell carcinoma of nose 653237643 C44.321 [id number] Frederic Liang MD [place] [address] 8 06/01/2023 10:17:30 06/01/2023 10:36:35 Malignant tumor of salivary gland 445736679 C07 [id number] Frederic Liang MD [place] [address] 8 06/16/2023 10:50:04 06/16/2023 12:51:44 Malignant tumor of submandibular gland 962296505 C08.0 Squamous c ell carcinoma of nose 394322712 C44.321 Malignant tumor of salivary gland 647738153 C07 Malignant tumor of head and neck 161573811 C76.0 [id number] Frederic Liang MD [place] [address] 8 06/18/2023 08:00:43 06/18/2023 08:17:54 Malignant tumor of head and neck 022423145 C76.0 Malignant tumor of salivary gland 367981200 C07 Malignant tumor of submandibular gland 772941134 C08.0 [id number] Frederic Liang MD [place] [address] 06/19/2023 09:00:11 06/19/2023 09:34:12 Malignant tumor of head and neck 823433018 C76.0 Malignant tumor of salivary gland 335162774 C07 Malignant tumor of submandibular gland 306002752 C08.0 Squamous c ell carcinoma of nose 196923453 C44.028 [id number] Frederic Liang MD [place] [address] 8 06/22/2023 08:49:18 06/22/2023 09:10:46 Malignant tumor of head and neck 540367344 C76.0 Malignant tumor of salivary gland 669356700 C07 Malignant tumor of submandibular gland 141229751 C08.0 [id number] Frederic Liang MD [place] [address] 06/23/2023 08:56:08 06/23/2023 09:33:53 Malignant tumor of head and neck 916964073 C76.0 Malignant tumor of salivary gland 653238566 C07 Malignant tumor of submandibular gland 815164075 C08.0 [id number] Frederic Liang MD [place] [address] 8 06/24/2023 08:54:13 06/24/2023 09:23:05 Malignant tumor of head and neck 105280769 C76.0 Malignant tumor of salivary gland 823359036 C07 Malignant tumor of submandibular gland 954450971 C08.0 [id number] Frederic Liang MD [address] [address] 06/25/2023 07:52:33 06/25/2023 08:12:34 Malignant tumor of head and neck 140762581 C76.0 Malignant tumor of salivary gland 055928670 C07 Malignant tumor of submandibular gland 747838527 C08.0 [id number] Frederic Liang MD [place] [address] 8 06/26/2023 08:56:18 06/26/2023 09:27:14 Malignant tumor of salivary gland 864826025 C07 Malignant tumor of submandibular gland 391478906 C08.0 [id number] Frederic Liang MD [place] [address] 8 06/29/2023 08:49:57 06/29/2023 09:22:44 Squamous cell carcinoma of nose 378798565 C44.594 [id number] Frederic Liang MD [place] [address] 8 06/30/2023 08:53:49 06/30/2023 09:46:19 Malignant tumor of salivary gland 046428314 C07 Malignant tumor of submandibular gland 025888274 C08.0 [id number] Frederic Liang MD [place] [address] 8 07/01/2023 08:53:01 07/01/2023 09:36:58 Malignant tumor of submandibular gland 373761969 C08.0 Malignant tumor of salivary gland 455060338 C07 [id number] Frederic Liang MD [place] [address] 8 07/02/2023 07:59:28 07/02/2023 08:14:49 Malignant tumor of salivary gland 752857063 C07 Malignant tumor of submandibular gland 501908589 C08.0 [id number] Frederic Liang MD [place] [address] 8 07/03/2023 08:51:24 07/03/2023 09:22:21 Squamous cell carcinoma of nose 792073841 C44.321 Malignant tumor of submandibular gland 151445297 C08.0 Malignant tumor of salivary gland 203279036 C07 [id number] [facility] [place] [address] 8 07/06/2023 08:46:46 07/06/2023 09:18:14 Malignant tumor of salivary gland 286772682 C07 Malignant tumor of submandibular gland 644507553 C08.0 [id number] Frederic Liang MD [place] [address] 8 07/07/2023 09:11:43 07/07/2023 09:25:08 Malignant tumor of salivary gland 514138383 C07 Malignant tumor of submandibular gland 436564204 C08.0 [id number] Frederic Liang MD [place] [address] 8 07/08/2023 08:49:34 07/08/2023 09:52:23 Malignant tumor of submandibular gland 114229605 C08.0 Malignant tumor of salivary gland 613656281 C07 [id number] Frederic Liang MD [place] [address] 8 07/09/2023 08:02:39 07/09/2023 08:03:11 Malignant tumor of salivary gland 192555345 C07 Malignant tumor of submandibular gland 590584693 C08.0 [id number] Frederic Liang MD [place] [address] 8 07/10/2023 08:49:58 07/10/2023 09:19:02 Malignant tumor of salivary gland 442119938 C07 Malignant tumor of submandibular gland 089379035 C08.0 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 169643754 K12.33 [id number] Frederic Liang MD [place] [address] 8 07/13/2023 08:48:15 07/13/2023 09:19:12 Malignant tumor of salivary gland 855618618 C07 Malignant tumor of submandibular gland 037982181 C08.0 [id number] [facility] [place] [address] 8 07/14/2023 08:54:25 07/14/2023 09:23:50 Malignant tumor of submandibular gland 855378222 C08.0 Malignant tumor of salivary gland 368586996 C07 [id number] Frederic Liang MD [place] [address] 8 07/15/2023 08:53:23 07/15/2023 09:13:48 Malignant tumor of salivary gland 487848580 C07 Malignant tumor of submandibular gland 472266415 C08.0 [id number] Frederic Liang MD [place] [address] 8 07/16/2023 08:05:53 07/16/2023 08:06:37 Malignant tumor of submandibular gland 107003129 C08.0 Malignant tumor of salivary gland 841892647 C07 [id number] Frederic Liang MD [place] [address] 8 07/17/2023 08:52:05 07/17/2023 09:20:23 Malignant tumor of salivary gland 891888127 C07 Malignant tumor of submandibular gland 073320382 C08.0 [id number] Frederic Liang MD [place] [address] 8 07/20/2023 09:27:55 07/20/2023 10:21:26 Malignant tumor of salivary gland 291288812 C07 Malignant tumor of submandibular gland 158597698 C08.0 [id number] Frederic Liang MD [place] [address] 8 07/21/2023 08:50:24 07/21/2023 09:10:33 Malignant tumor of salivary gland 358911459 C07 Malignant tumor of submandibular gland 557348351 C08.0 [id number] Frederic Liang MD [place] [address] 8 07/22/2023 08:46:44 07/22/2023 09:15:05 Malignant tumor of salivary gland 424258961 C07 Malignant tumor of submandibular gland 120656963 C08.0 [id number] Frederic Liang MD [place] [address] 8 07/23/2023 07:58:50 07/23/2023 08:42:42 Squamous cell carcinoma of nose 189758236 C44.508 [id number] Frederic Liang MD [place] [address] 8 07/24/2023 09:01:11 07/24/2023 09:35:19 Malignant tumor of salivary gland 535622780 C07 Malignant tumor of submandibular gland 650735896 C08.0 [id number] Frederic Liang MD [place] [address] 8 07/27/2023 08:53:54 07/27/2023 10:01:39 Malignant tumor of submandibular gland 038508872 C08.0 [id number] Frederic Liang MD [place] [address] 8 08/24/2023 09:19:15 08/24/2023 10:07:05 Malignant tumor of head and neck 422715355 C76.0 Malignant tumor of salivary gland 260356959 C07 Squamous c ell carcinoma of nose 389207767 C44.261 [id number] Frederic Liang MD [place] [address] 8 05/17/2024 10:19:53 05/17/2024 11:47:58 Malignant tumor of salivary gland 470714426 C07 Health Concerns Section Related Observation LastModified by Organization Detai ls LastModified Time None Recorded Concern Status LastModified by Organization Details LastModified Time None Recorded Advance Directives Directive None Recorded Payers Insurance Date Sequence Insurance Name Policy Number Policy Spann Covered Member ID Spann Member ID Guarantor Name 06/08/2024 Sarah STEELE (MEDICARE REPLACEMENT/ ADVANTAGE - PPO) [id number] Ariane Pathak [id number] Ariane Pathak Notes Date Note Type Note Provider Name and Address Organization Details Recorded Time 07/27/2023 text/html Patient complete d her radiation therapy today and was well tolerated. 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 October 14, 2021 HPV 16 positive followed by left neck radiation with weekly cisplatin no recurrence in the left neck developed a mass in the lower part of the right parotid gland locally excised with negative margins shown to be 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 Zabala in October 2019 possibly will have additional follow-up CT scan. 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 to the left neck node adjacent to the submandibular salivary gland locally excised October 14, 2021 HPV 16 positive followed by left neck radiation with weekly cis-[place] developed a mass in the lower part of the right parotid gland locally excised with negative margins showed to be 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 Frederic Liang MD [address] [facility],[address], [place], [address], [place] [facility] - [place] & [place] 05/17/2024 10:49:25 OBGyn Episode No OBEpisode recorded.
[2024-08-02 09:58] LABS: Basophils % 0.2 % (0.1-2.0); Eosinophils # 0.3 Kmm3 (0.0-0.4); Hematocrit 31.5 % (37.0-47.0); Hemoglobin 10.8 g/dL (12.2-16.2); Immature Granulocytes # 0.05 10^3uL; Immature Granulocytes % 0.6 %; Lymphocytes # 1.7 K/mm3 (0.7-4.5); Lymphocytes % 20.4 % (10-50); Mean Corpuscular HGB Conc 34.3 g/dL (31.8-35.4); Mean Corpuscular Hemoglobin 34.5 pg (27.0-31.2); Mean Corpuscular Volume 100.6 fl (81-99); Mean Platelet Volume 8.5 fl (7.4-10.4); Monocytes # 0.9 K/mm3 (0.1-1.0); Monocytes % 10.5 % (1.7-9.3); Neutrophils # 5.5 K/mm3 (1.8-7.8); Neutrophils % 65.3 % (37.0-80.0); Nucleated Red Blood Cells # 0 10^3/uL; Nucleated Red Blood Cells % 0 %; Platelet Count 320 K/mm3 (142-424); Red Blood Count 3.13 M/mm3 (4.20-5.40); Red Cell Distribution Width 12.4 % (11.5-17.5); White Blood Count 8.4 K/mm3 (4.8-10.8)
[2024-08-02 10:17] LABS: Alanine Aminotransferase 21 U/L (12-78); Albumin Level 4.3 g/dl (3.5-5.0); Albumin/Globulin Ratio 1.4 (1.1-1.8); Alkaline Phosphatase 77 U/L (38-126); Anion Gap 10.5 mEq/L (5-15); Aspartate Amino Transferase 36 U/L (14-36); Bilirubin,Total 0.4 mg/dl (0.2-1.3); Blood Urea Nitrogen 18 mg/dl (7-17); Calcium 9.3 mg/dl (8.4-10.2); Carbon Dioxide 31 mmol/L (22.0-30.0); Chloride 93 mmol/L (98-107); Estimated Glomerular Filt Rate 70 ml/min (>60); GFR (African American) 85 ML/MIN (>60); Glucose 88 mg/dl (74-100); Potassium 4.5 mmoL/L (3.5-5.1); Sodium 130 mmol/L (136-145); Total Protein,Serum 7.3 g/dl (6.3-8.2)
== END 2024-08-02 23:59 | disposition home or self-care (01) ==
LOC: LAB 09:40
PROVIDERS: PCP Family Medicine; Visit Provider Internal Medicine Medical Oncology
DX: R59.1 Generalized enlarged lymph nodes (principal)
CPT/HCPCS: 36415; 80053; 85025

== ENCOUNTER 2024-08-11 07:15 | Outpatient (CLI) | payer MEDICARE, SELFPAY ==
--- OUTSIDE RECORDS SUMMARY | 2024-08-11 07:18 | XMS_ITS | Data Portability ---
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 LIBRA Arizmendi - [facility] - [place] & [place] 2 11:58:29 Squamous cell carcinoma of nose 630414387 Active 2021 Cristina horta [place] - [facility] & [place] 2 11:58:51 Malignant tumor of head and neck 360162897 Active 2023 Cristina horta [place] - [facility] - [place] & [place] 4 11:10:50 Malignant tumor of salivary gland 895977687 Active 2023 Frederic Liang MD [address] [place] [address],[address], [address] [facility] [place] - [facility] - [place] & [place] 4 08:10:01 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 Medical [...] Pulse oximetry Heart rate Respiratory rate Systolic blood pressure Diastolic blood pressure Provider Name and Address Organization Details Last Updated DateTime 5 160.02 cm 20.5 kg/m2 91410.2 8 g 97.5 [degF] 99 % 99 % 73 /min 17 /min 132 mm[Hg] 63 mm[Hg] Cristina SMYTH [facility] 5 10:39:10 Date Recorded Body height Body mass index (BMI) Body weight Body temperature Oxygen saturation Oxygen saturation in Arterial blood by Pulse oximetry Heart rate Respiratory rate Systolic blood pressure Diastolic blood pressure Provider Name and Address Organization Details Last Updated DateTime 4 160.02 cm 22.2 kg/m2 91557.7 6 g 97.7 [degF] 99 % 99 % 76 /min 17 /min 112 mm[Hg] 73 mm[Hg] Cristina [facility] & [place] 4 09:07:11 Date Recorded Body height Body mass index (BMI) Body weight Body temperature Oxygen saturation Oxygen saturation in Arterial blood by Pulse oximetry Heart rate Respiratory rate Systolic blood pressure Diastolic blood pressure Provider Name and Address Organization Details Last Updated DateTime 4 160.02 cm 22.1 kg/m2 31563.3 3 g 97.1 [degF] 96 % 96 % 96 /min 17 /min 126 mm[Hg] 86 mm[Hg] [facility] & [place] 4 09:44:32 Social History None recorded. Functional [...] SNOMED-CT Code Diagnosis ICD10 Code Diagnosis Note [id number] MD LAWRENCE Boyer [address] [address] 11/19/2021 09:29:57 11/19/2021 11:19:53 Malignant tumor of submandibular gland 969608084 C08.0 Squamous c ell carcinoma of nose 158327553 C44.321 [id number] MD LAWRENCE Boyer [address] [address] 11/20/2021 13:58:04 11/20/2021 14:55:10 [id number] Carlo Chu MD [address] [place] [address] 11/26/2021 14:45:02 11/27/2021 11:11:14 Malignant tumor of submandibular gland 253152084 C08.0 Cervical lymphadenopathy 551035635 R59.0 [id number] Wagih Azul, MD [place] [address] 12/04/2021 09:11:03 12/04/2021 10:06:52 Malignant tumor of submandibular gland 526699303 C08.0 Squamous c ell carcinoma of nose 650699434 C44.321 [id number] Frederic Liang MD [place] [address] 8 12/05/2021 09:00:43 12/05/2021 09:38:18 Malignant tumor of submandibular gland 097687187 C08.0 Squamous c ell carcinoma of nose 374181421 C44.321 [id number] Frederic Liang MD [place] [address] 8 12/06/2021 09:11:26 12/06/2021 09:29:49 Malignant tumor of submandibular gland 998324537 C08.0 Squamous c ell carcinoma of nose 952132258 C44.321 [id number] Frederic Liang MD [place] [address] 8 12/09/2021 09:10:48 12/09/2021 09:35:35 Malignant tumor of submandibular gland 466699746 C08.0 Squamous c ell carcinoma of nose 670860512 C44.321 [id number] Frederic Liang MD [place] [address] 8 12/10/2021 08:54:19 12/10/2021 09:33:57 Malignant tumor of submandibular gland 454447945 C08.0 Squamous c ell carcinoma of nose 452019940 C44.321 [id number] Frederic Liang MD [place] [address] 8 12/11/2021 09:17:06 12/11/2021 09:33:24 Malignant tumor of submandibular gland 478385894 C08.0 Squamous c ell carcinoma of nose 791867227 C44.321 [id number] [facility] [place] [id number] [place] [address]278 8 12/12/2021 07:56:14 12/12/2021 08:22:56 [id number] Frederic Liang MD [place] 345685 [place] [address]278 8 12/13/2021 08:56:07 12/13/2021 09:16:52 Malignant tumor of submandibular gland 623608327 C08.0 Squamous c ell carcinoma of nose 472615221 C44.321 [id number] Frederic Liang MD [place] 345685 [place] [address] 8 12/16/2021 09:04:51 12/16/2021 09:32:26 Malignant tumor of submandibular gland 680687540 C08.0 Squamous c ell carcinoma of nose 104788103 C44.321 [id number] Frederic Liang MD [place] [address] 8 12/17/2021 09:00:16 12/17/2021 09:13:49 Malignant tumor of submandibular gland 224531387 C08.0 Squamous c ell carcinoma of nose 068043149 C44.321 [id number] Frederic Liang MD [place] [address] 8 12/18/2021 08:54:24 12/18/2021 09:19:38 Malignant tumor of submandibular gland 113982798 C08.0 Squamous c ell carcinoma of nose 785123392 C44.321 [id number] Frederic Liang MD [place] 345685 [place] [address] 8 12/19/2021 07:59:01 12/19/2021 08:30:27 Malignant tumor of submandibular gland 356887703 C08.0 Squamous c ell carcinoma of nose 859365982 C44.321 [id number] Frederic Liang MD [place] [address] 8 12/20/2021 08:54:58 12/20/2021 09:35:47 Malignant tumor of submandibular gland 503287854 C08.0 [id number] Frederic Liang MD [place] [address] 8 12/23/2021 08:43:21 12/23/2021 09:52:58 Malignant tumor of submandibular gland 342563885 C08.0 Squamous c ell carcinoma of nose 534244896 C44.321 [id number] Frederic Liang MD [place] [address] 8 12/24/2021 08:54:12 12/24/2021 09:25:06 Malignant tumor of submandibular gland 936182885 C08.0 Squamous c ell carcinoma of nose 420711715 C44.321 [id number] Frederic Liang MD [place] [address] 8 12/25/2021 08:52:51 12/25/2021 09:26:51 Malignant tumor of submandibular gland 248673318 C08.0 Squamous c ell carcinoma of nose 022451980 C44.321 [id number] Frederic Liang MD [place] [address] 8 12/27/2021 09:23:30 12/27/2021 09:34:03 Malignant tumor of submandibular gland 935110539 C08.0 Squamous c ell carcinoma of nose 527373669 C44.321 [id number] Frederic Liang MD [place] [address] 8 12/30/2021 08:49:49 12/30/2021 09:26:46 Malignant tumor of submandibular gland 216252551 C08.0 Squamous c ell carcinoma of nose 543089179 C44.321 [id number] Frederic Liang MD [place] [address] 8 12/31/2021 09:05:17 12/31/2021 09:20:19 Malignant tumor of submandibular gland 978188255 C08.0 Squamous c ell carcinoma of nose 414545619 C44.321 [id number] Frederic Liang MD [place] [address] 8 01/01/2022 08:58:55 01/01/2022 09:43:14 Malignant tumor of submandibular gland 655937548 C08.0 [id number] Frederic Liang MD [place] [address] 8 01/02/2022 08:00:17 01/02/2022 08:05:30 Malignant tumor of submandibular gland 659534289 C08.0 [id number] Frederic Liang MD [place] [address] 8 01/03/2022 09:04:45 01/03/2022 09:24:39 Malignant tumor of submandibular gland 289564207 C08.0 Squamous c ell carcinoma of nose 382392006 C44.321 [id number] Frederic Liang MD [place] [address] 8 01/06/2022 08:48:40 01/06/2022 09:28:44 Squamous cell carcinoma of nose 961073853 C44.321 Malignant tumor of submandibular gland 465720753 C08.0 [id number] Frederic Liang MD [place] [address] 8 01/07/2022 08:57:10 01/07/2022 09:25:06 Malignant tumor of submandibular gland 350932072 C08.0 Squamous c ell carcinoma of nose 080553963 C44.321 [id number] Frederic Liang MD [place] [address] 8 01/08/2022 09:06:55 01/08/2022 09:48:28 Malignant tumor of submandibular gland 125593610 C08.0 Squamous c ell carcinoma of nose 337129928 C44.321 [id number] Frederic Liang MD [place] [address] 8 01/09/2022 07:54:01 01/09/2022 08:07:48 Malignant tumor of submandibular gland 458585887 C08.0 Squamous c ell carcinoma of nose 748719707 C44.321 [id number] Frederic Liang MD [place] [address] 8 01/10/2022 08:49:00 01/10/2022 09:12:11 Malignant tumor of submandibular gland 216507993 C08.0 Squamous c ell carcinoma of nose 139579671 C44.321 [id number] Frederic Liang MD [place] [address] 8 01/13/2022 08:46:32 01/13/2022 09:29:37 Malignant tumor of submandibular gland 730431003 C08.0 Squamous c ell carcinoma of nose 900889600 C44.321 [id number] Frederic Liang MD [place] [address] 8 01/14/2022 08:49:19 01/14/2022 09:15:11 Malignant tumor of submandibular gland 110762938 C08.0 Squamous c ell carcinoma of nose 223888141 C44.321 [id number] Frederic Liang MD [place] [address] 8 2022 09:01:56 2022 09:20:57 Malignant tumor of submandibular gland 482064685 C08.0 Squamous c ell carcinoma of nose 086828698 C44.321 [id number] Frederic Liang MD [place] [address] 8 02/18/2022 08:48:22 02/18/2022 09:09:26 Malignant tumor of submandibular gland 861219950 C08.0 Squamous c ell carcinoma of nose 617939178 C44.321 [id number] Frederic Liang MD [place] [address] 8 05/27/2022 08:47:27 05/27/2022 09:28:39 Malignant tumor of submandibular gland 352653831 C08.0 Squamous c ell carcinoma of nose 688830649 C44.321 [id number] Frederic Liang MD [place] [address] 8 02/03/2023 08:42:00 02/03/2023 08:57:43 Malignant tumor of submandibular gland 364077404 C08.0 Squamous c ell carcinoma of nose 026276675 C44.321 [id number] Frederic Liang MD [place] [address] 8 04/09/2023 08:45:11 04/09/2023 09:58:26 Malignant tumor of submandibular gland 949986210 C08.0 Squamous c ell carcinoma of nose 518987969 C44.321 [id number] Frederic Liang MD [place] [address] 8 06/01/2023 10:17:30 06/01/2023 10:36:35 Malignant tumor of salivary gland 858880661 C07 [id number] Frederic Liang MD [place] [address] 8 06/16/2023 10:50:04 06/16/2023 12:51:44 Malignant tumor of submandibular gland 932317284 C08.0 Squamous c ell carcinoma of nose 638658308 C44.321 Malignant tumor of salivary gland 751941659 C07 Malignant tumor of head and neck 459746763 C76.0 [id number] Frederic Liang MD [place] [address] 8 06/18/2023 08:00:43 06/18/2023 08:17:54 Malignant tumor of head and neck 213155136 C76.0 Malignant tumor of salivary gland 559891334 C07 Malignant tumor of submandibular gland 606735846 C08.0 [id number] [place] [address] 06/19/2023 09:00:11 06/19/2023 09:34:12 Malignant tumor of head and neck 564587514 C76.0 Malignant tumor of salivary gland 143383579 C07 Malignant tumor of submandibular gland 762533973 C08.0 Squamous c ell carcinoma of nose 529459017 C44.515 [id number] Frederic Liang MD [place] [address] 8 06/22/2023 08:49:18 06/22/2023 09:10:46 Malignant tumor of head and neck 071098864 C76.0 Malignant tumor of salivary gland 800968924 C07 Malignant tumor of submandibular gland 168759535 C08.0 [id number] Frederic Liang MD [place] [address] 8 06/23/2023 08:56:08 06/23/2023 09:33:53 Malignant tumor of head and neck 711271158 C76.0 Malignant tumor of salivary gland 332737284 C07 Malignant tumor of submandibular gland 484821657 C08.0 [id number] Frederic Liang MD [place] [address] 8 06/24/2023 08:54:13 06/24/2023 09:23:05 Malignant tumor of head and neck 913753437 C76.0 Malignant tumor of salivary gland 493479951 C07 Malignant tumor of submandibular gland 775768883 C08.0 [id number] Frederci Liang MD [place] [address] 8 06/25/2023 07:52:33 06/25/2023 08:12:34 Malignant tumor of head and neck 303449563 C76.0 Malignant tumor of salivary gland 070734933 C07 Malignant tumor of submandibular gland 880444835 C08.0 [id number] Frederic Liang MD [place] [address] 8 06/26/2023 08:56:18 06/26/2023 09:27:14 Malignant tumor of salivary gland 076731373 C07 Malignant tumor of submandibular gland 718254581 C08.0 [id number] Frederic Liang MD [place] [address] 8 06/29/2023 08:49:57 06/29/2023 09:22:44 Squamous cell carcinoma of nose 670725722 C44.892 [id number] Frederic Liang MD [place] [address] 8 06/30/2023 08:53:49 06/30/2023 09:46:19 Malignant tumor of salivary gland 735393485 C07 Malignant tumor of submandibular gland 052913665 C08.0 [id number] Frederic Liang MD [place] [address] 8 07/01/2023 08:53:01 07/01/2023 09:36:58 Malignant tumor of submandibular gland 140751368 C08.0 Malignant tumor of salivary gland 666931055 C07 [id number] Frederic Liang MD [place] [address] 8 07/02/2023 07:59:28 07/02/2023 08:14:49 Malignant tumor of salivary gland 378062220 C07 Malignant tumor of submandibular gland 004631102 C08.0 [id number] Frederic Liang MD [place] [address] 8 07/03/2023 08:51:24 07/03/2023 09:22:21 Squamous cell carcinoma of nose 954976645 C44.321 Malignant tumor of submandibular gland 094712617 C08.0 Malignant tumor of salivary gland 040148955 C07 [id number] Frederic Liang MD [place] [address] 8 07/06/2023 08:46:46 07/06/2023 09:18:14 Malignant tumor of salivary gland 503474438 C07 Malignant tumor of submandibular gland 391062732 C08.0 [id number] Frederic Liang MD [place] [address] 8 07/07/2023 09:11:43 07/07/2023 09:25:08 Malignant tumor of salivary gland 989836911 C07 Malignant tumor of submandibular gland 495556937 C08.0 [id number] Frederic Liang MD [place] [address] 8 07/08/2023 08:49:34 07/08/2023 09:52:23 Malignant tumor of submandibular gland 264694120 C08.0 Malignant tumor of salivary gland 984901651 C07 [id number] Frederic Liang MD [place] [address] 8 07/09/2023 08:02:39 07/09/2023 08:03:11 Malignant tumor of salivary gland 588041582 C07 Malignant tumor of submandibular gland 824405786 C08.0 [id number] Frederic Liang MD [place] [address] 8 07/10/2023 08:49:58 07/10/2023 09:19:02 Malignant tumor of salivary gland 791830952 C07 Malignant tumor of submandibular gland 257662308 C08.0 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 821941539 K12.33 [id number] Frederic Liang MD [place] [address] 8 07/13/2023 08:48:15 07/13/2023 09:19:12 Malignant tumor of salivary gland 777702380 C07 Malignant tumor of submandibular gland 315941543 C08.0 [id number] Frederic Liang MD [place] [address] 8 07/14/2023 08:54:25 07/14/2023 09:23:50 Malignant tumor of submandibular gland 938491320 C08.0 Malignant tumor of salivary gland 285283151 C07 [id number] Frederic Liang MD [place] [address] 8 07/15/2023 08:53:23 07/15/2023 09:13:48 Malignant tumor of salivary gland 364131716 C07 Malignant tumor of submandibular gland 945201426 C08.0 [id number] Frederic Liang MD [place] [address] 8 07/16/2023 08:05:53 07/16/2023 08:06:37 Malignant tumor of submandibular gland 194982356 C08.0 Malignant tumor of salivary gland 043817258 C07 [id number] Frederic Liang MD [place] [address] 8 07/17/2023 08:52:05 07/17/2023 09:20:23 Malignant tumor of salivary gland 361025188 C07 Malignant tumor of submandibular gland 388575260 C08.0 [id number] Frederic Liang MD [place] [address] 8 07/20/2023 09:27:55 07/20/2023 10:21:26 Malignant tumor of salivary gland 617629320 C07 Malignant tumor of submandibular gland 293539995 C08.0 [id number] Frederic Liang MD [place] [address] 8 07/21/2023 08:50:24 07/21/2023 09:10:33 Malignant tumor of salivary gland 467314225 C07 Malignant tumor of submandibular gland 585366642 C08.0 [id number] Frederic Liang MD [place] [id number] 07/22/2023 08:46:44 07/22/2023 09:15:05 Malignant tumor of salivary gland 338554861 C07 Malignant tumor of submandibular gland 634405263 C08.0 [id number] Frederic Liang MD [place] [address] 8 07/23/2023 07:58:50 07/23/2023 08:42:42 Squamous cell carcinoma of nose 613921728 C44.375 [id number] Frederic Liang MD [place] [address] 8 07/24/2023 09:01:11 07/24/2023 09:35:19 Malignant tumor of salivary gland 448304928 C07 Malignant tumor of submandibular gland 051012761 C08.0 [id number] Frederic Liang MD [place] [address] 8 07/27/2023 08:53:54 07/27/2023 10:01:39 Malignant tumor of submandibular gland 085483622 C08.0 [id number] Frederic Liang MD [place] [address] 08/24/2023 09:19:15 08/24/2023 10:07:05 Malignant tumor of head and neck 269601519 C76.0 Malignant tumor of salivary gland 475835016 C07 Squamous c ell carcinoma of nose 683074060 C44.393 [id number] Frederic Liang MD [address] [address] 05/17/2024 10:19:53 05/17/2024 11:47:58 Malignant tumor of salivary gland 594964978 C07 Health Concerns Section Related Observation LastModified by Organization Detai ls LastModified Time None Recorded Concern Status LastModified by Organization Details LastModified Time None Recorded Advance Directives Directive None Recorded Payers Insurance Date Sequence Insurance Name Policy Number Policy Spann Covered Member ID Spann Member ID Guarantor Name 06/08/2024 Sarah STEELE (MEDICARE REPLACEMENT/ ADVANTAGE - PPO) [id number] Ariane Pathak [id number] Ariane Pathak Notes Date Note Type Note [...] followed by left neck radiation with weekly cis-[place] no recurrence in the left neck had a mass in the lower part of right parotid gland locally excised and negative margins shown to be 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 Frederic Liang MD [facility] [employer], [address], [place] [facility] 07/27/2023 09:10:59 08/24/2023 text/html She is here [...] additional follow-up CT scan. 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 Frederic Liang MD [address] [facility],[address], [place], [address], [place] - [place] & [place] 05/17/2024 10:49:25 OBGyn Episode No OBEpisode recorded.
[2024-08-11] MEDS: ALBUTEROL 0.083% 2.5 MG/3 ML NEB IH (07:54)
--- NOTE | 2024-08-11 08:45 | CT_ITS ---
FINAL REPORT TECHNIQUE: Thin section axial images are obtained through the abdomen and pelvis after intravenous contrast. Reconstruction images were obtained from the axial data. Exam was performed using dose reduction techniques. This study was performed with techniques to keep radiation doses as low as reasonably achievable (ALARA). Individualized dose reduction techniques using automated exposure control or adjustment of mA and/or kV according to the patient's size were employed. CLINICAL HISTORY: head and neck cancer. f/u COMPARISON: 10/29/2023 FINDINGS: LUNG BASES: The previously seen left lower lobe reticulonodular opacities on the prior CT of 2023 have resolved. Heart size is normal. LIVER: Homogeneous. No focal lesion. GALLBLADDER/BILIARY SYSTEM: Gallbladder is present. No gallstones. No biliary dilatation. SPLEEN: Unremarkable. PANCREAS: Unremarkable. ADRENALS: Unremarkable. KIDNEYS/URETERS/BLADDER: No hydronephrosis, renal mass, or renal stone. Unremarkable urinary bladder. GI TRACT: No small bowel obstruction or dilatation. Normal appendix. There is mild wall of the proximal portion of the colon, and mild colitis is not excluded. There is diverticulosis without evidence of diverticulitis. PELVIC ORGANS: The uterus is absent. LYMPH NODES/RETROPERITONEUM/MESENTERY: No lymphadenopathy. There is a stable 2.5 cm saccular aneurysm in the infrarenal abdominal aorta, was previously 2.4 cm (on remeasurement). ABDOMINAL WALL: The abdominal wall is intact. FREE FLUID: No ascites. BONES: No acute osseous abnormality. IMPRESSION: Stable 2.5 cm saccular aneurysm of the infrarenal abdominal aorta. Mild wall thickening of the proximal colon, and mild colitis is not excluded. Correlate with history of diarrhea. Reviewed, Interpreted and Dictated by Veronica Aguero MD Transcribed by Reny Burnett Authenticated and . [facility]
[2024-08-11] MEDS: 0.9 % SODIUM CHLORIDE 50 ML VIAL 40 ML IV (08:53)
[2024-08-11] MEDS: SODIUM CHLORIDE 0.9% 10ML SYR (RAD ONLY) 10 ML IV (08:53)
[2024-08-11] MEDS: IOPAMIDOL-370 (76%);100ML BOTTLE 155 ML IV (08:53)
--- NOTE | 2024-08-11 09:30 | CT_ITS ---
FINAL REPORT TECHNIQUE: Thin-section axial CT with IV contrast supplemented with multi planar reconstruction under CT angiogram protocol was performed of the neck. This study was performed technique to keep radiation doses as low as reasonably achievable, (ALARA). NASCET criteria was utilized during interpretation. CLINICAL HISTORY: head and neck cancer. f/u COMPARISON: Prior CT of the soft tissues of the neck dated 10/29/2023 FINDINGS: Aortic arch: Arch shows no significant narrowing. Great vessel origins are widely patent. Right carotid: No significant stenosis is seen at the cervical common or internal carotid artery. Left carotid: No significant stenosis is seen at the cervical common or internal carotid artery. Vertebrals: Antegrade flow is noted in both vertebral arteries. No significant stenosis is present. There are posttreatment changes in the lung apices, seen on several prior CT examinations. The lung apices appear unchanged since the prior exam of 10/29/2023. No cervical adenopathy is noted. IMPRESSION: No evidence of significant stenosis or major branch occlusion. Posttreatment changes in the lung apices, unchanged since the prior exam of 10/29/2023. No cervical adenopathy is noted. Reviewed, Interpreted and Dictated by Veronica Aguero MD Transcribed by Reny Burnett Authenticated and [facility]
== END 2024-08-11 23:59 | disposition home or self-care (01) ==
LOC: RT 07:15
PROVIDERS: PCP Family Medicine; Visit Provider Internal Medicine Pulmonary Disease
DX: C76.0 Malignant neoplasm of head, face and neck (principal); I71.43 Infrarenal abdominal aortic aneurysm, without rupture; J44.9 Chronic obstructive pulmonary disease, unspecified; R59.1 Generalized enlarged lymph nodes; R93.3 Abnormal findings on diagnostic imaging of other parts of digestive tract
CPT/HCPCS: 70498; 74160; 94010; 94618; Q9967

== ENCOUNTER 2024-08-12 11:17 | Outpatient (CLI) | payer MEDICARE, SELFPAY ==
--- OUTSIDE RECORDS SUMMARY | 2023-09-28 05:00 | XMS_ITS ---
[facility] Address [address] [place] [id number] Care Team Providers Care Wheel Roller Name Role Phone Dallin John Unavailable [phone] Allergies No Known Allergies Results Component Value [...] shoulde r region, 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) [facility] Referring Provider First Name Dallin Referring Provider [...] MG 1 cap(s) Orally Two times a day for 7 days 09/28/2023 Active Omeprazole 40 MG 1 cap(s) orally once daily for 90 days Active Promethazine-DM 6.25-15 MG/5ML 5 ml as needed Orally every 6 hrs 09/28/2023 Active Benzonatate 200 MG 1 capsule as needed Orally Three times a day 09/28/2023 Active metroNIDAZOLE 0.75 % 1 lynette applied topic ally 2 times a day 11/08/2020 Active Anoro Ellipta 62.5-25 MCG/ACT 1 puff(s) inhaled once a day for 90 days Active Bevespi Aerosphere 9-4.8 MCG/ACT 2 puffs Inhalation Twice a day 01/07/2023 Active Pravastatin Sodium 80 MG 1 tab(s) orally once a day for 90 days Active Levothyroxine Sodium 50 MCG 1 tab(s) ora lly once a day for 90 days Active Problems Problem Type SNOMED Code ICD Code Onset Dates Problem Status W/U Status Risk Notes Problem 015859282 COPD exacerbation (J44.1) Active confirmed Problem [id number] Arthritis of shoulder region, 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) Active confirmed Vital Signs Blood pressure systolic 140 mm Hg 09/28/19 24 Blood pressure diastolic 80 mm Hg 024 Heart Rate 110 /min 09/28/2023 Height 62 in 09/28/2023 Weight 124 lbs 09/28/2023 BMI 22.68 kg/m2 09/28/2023 Encounters Encounter Location Date Provider Diagnosis [facility] [address] [facility] [address] [place], [place] [address], [place] [id number] 09/28/2023 Dallin John COPD exacerbation J4 4.1 ; Pain [...] MG 1 cap(s) Orally Two times a day for 7 days 09/28/2023 Promethazine-DM 6.25-15 MG/5ML 5 ml as n eeded Orally every 6 hrs 09/28/2023 Benzonatate 200 MG 1 capsule as needed Orally Three times a day 09/28/2023 Referrals Referral Date Details 09/28/2023 09/28/2023, Jamison Arguello nt Next Appt Details Follow Up: via phone to repo rt progress, Reason: Provider Name:Dallin Molina ry, 01/05/2025 09:00:00 AM, [address] , [place], [place], [phone], Progress Notes * MANDO BENJAMINADOB: 0 (74 yo F)Acc No.[id number]:09/28/2023 Progress Notes Patient: CATALINO STOVALL Provider: Marcelina John M.D. :1950 A ge:73 Y S ex:Female Date:09/28/2023 Address:[address] [place] [address], [facility] Subjective: * Chief Complaints: * 1 . [...] Examination: E NT/Respiratory: General Appearance: N AD. Eyes: P ERRLA, sclera clear. Ears: a uditory canals normal bilaterally, TM's WNL. Oral cavity : m inimal erythema without exudate on pharynx.? Heart : R RR, normal S1 S2. Lungs: c lear to auscultation bilaterally. S houlder / Upper arm: Shoulder: left. Palpation: tenderness over AC joint. Range of motion: restricted rotations and abduction. Assessment: [...] p lat 302 100 - 400 * Kiera Jenkins 09/28/2023 9:12:07 AM > , Provider reviewed results while patient in office. 2.?Pain in left shoulder? Referral To:Jamison Perez??Orthopedic Surgery ?Reason: 3.?Arthritis of shoulder region, left? Referral To:Jamison Perez??Orthopedic Surgery ?Reason: * Procedure Codes: G 2211 Complex e/[place], [address] [place], [address] CAPILLARY BLOOD DRAW, 479[address] CBC WITH AUTO DIFF * Follow Up: v ia phone to report progress * Billing Information: * Visit Code: 00848 Office Visit, Est Pt., Level 4. * Procedure Codes: G2211 Complex e/[place] [address] [place] [address] CAPILLARY BLOOD DRAW. 82980 CBC WITH AUTO DIFF. * Electronic signature of Trini John MD on 08/12/2024 at 11:19 AM EDT Sign off status: Pending * Provider: Marcelina John M.D. Date: 0 09/28/2023 Generated for Teofilo catherine/Ankush/eTransmitting on: 0 08/12/2024 11:19 AM EDT History and Physical Notes * [...]
--- OUTSIDE RECORDS SUMMARY | 2024-01-06 05:00 | XMS_ITS ---
Author Organization [facility] Address [address] [facility] [address] [facility] [address] [place] [id number] Care Team Providers Care Core Inserter Name Role Phone Dallin John Unavailable [phone] Allergies No Known Allergies Results Component Value Reference Range Notes CBC Venipuncture (in house) Reviewed date:01/06/2024 02:44:15 PM Interpretation: Performing Lab: Notes/Report: wbc 15.2 3.5 - 10 lymph 9.1% 15 - 50 mid 3.0% 2 - 15 gran 87.9% 35 - 80 rbc 3.19 3.5 - 5.5 hgb 10.8 11.5 - 16.5 hct 32.0 35 - 55 mcv 100.3 75 - 100 mch 34.0 25 - 35 mchc 33.9 31 - 38 platlet 323 100 - 400 P-Comprehensive Metabolic Pa josse (CMP) Reviewed date:01/12/2024 11:29:47 AM Interpretation: Performing Lab: Notes/Report: Test performed by [facility], [facility] [address] [place] [address] , [address], [place] [address] Drew Meyer MD, [employer] Instrument Repairer CLIA: [id number] Sodium 133 135-145 mmol/L Potassium 4.5 3.5-5.3 mmol/L Chloride 93 97-108 mmol/L CO2 26 22-32 mmol/L Glucose 91 65-99 mg/dL BUN 15 8-23 mg/dL Creatinine 0.91 0.50-1.00 mg/dL Calcium 9.7 8.6-10.4 mg/dL eGFR by Creatinine 66 >59 mL/min/1.73m2 Protein 7.6 6.0-8.3 g/dL Albumin 4.1 3.5-5.3 g/dL Alkaline Phosphatase 106 35-121 IU/L ALT (SGPT) 16 <5-47 IU/L AST (SGOT) 22 <5-40 IU/L Bilirubin, Total 0.2 <0.2-1.2 mg/dL A/G Ratio 1.2 1.1-2.5 P-T4 Free (thyroxine) Reviewed date:01/12/2024 11:29:47 AM Interpretation: Performing Lab: Notes/Report: Test performed by [facility] [address] [place] [address] , [place] [address] Drew Meyer MD, [employer] Instrument Repairer CLIA: [id number] Thyroxine Free (free T4) 1.09 0.86-1.76 ng/dL P-Lipid Panel Reviewed date:01/12/2024 11:29:47 AM Interpretation: Performing Lab: Notes/Report: Test performed by [facility] [address] [place] [address] , [place] [address] Drew Meyer MD, [employer] Instrument Repairer CLIA: [id number] Cholesterol 148 <200 mg/dL Triglycerides 75 <150 mg/dL See [place] dated 01/11/2024 regarding triglyceride results. Corrected Result. Previous result was 41 HDL Cholesterol 66 >39 mg/dL Cholesterol / HDL Ratio 2.24 0.00-4.44 Ratio Non-HDL Cholesterol 82 <130 mg/dL LDL Cholesterol (Calculation) 67 <130 mg/dL LDL Cholesterol Levels* Less than 100 mg/dL Optimal 100 to 129 mg/dL Near Optimal/ Above Optimal 130 to 159 mg/dL Borderline High 160 to 189 mg/dL High 190 mg/dL and above Very High * Categories as recommended by the 2004 ATPIII guidelines See [place] dated 01/11/2024 regarding triglyceride results. Corrected Result. Previous result was 74 LDL/HDL Ratio 1.0 <3.3 Ratio See [place] dated 01/11/2024 regarding triglyceride results. Corrected Result. Previous result was 1.1 LDL Cholesterol Patient History Test Date: 01/06/2024 LDL Results: 67 Units: mg/dL % Change: - P-TSH Reviewed date:01/12/2024 11:29:47 AM Interpretation: Performing Lab: Notes/Report: Test performed by [facility], [address] , [facility], [place] [address] Drew Meyer MD, [employer] Instrument Repairer CLIA: [id number] TSH 2.64 0.43-5.25 mU/L REASON FOR VISIT 6 month check Medications Medication SIG (Take, Route, Frequency, Duration) Notes Start Date End Date Status Benzonatate 200 MG 1 capsule as needed Orally Three times a day 01/06/2024 Active Triamcinolone Acetonide 0.1 % 1 application Externally Twice a day 01/06/2024 Active Anoro Ellipta 62.5-25 MCG/ACT 1 puff(s) inhaled once a day for 90 days Active Bevespi Aerosphere 9-4.8 MCG/ACT 2 puffs Inhalation Twice a day 01/07/2023 Active Omeprazole 40 MG 1 cap(s) orally once daily for 90 days Active Pravastatin Sodium 80 MG 1 tab(s) orally once a day for 90 days Active Zithromax Z-Shaka 250 MG as directed Orall y once daily for 5 day(s) 01/06/2024 Active Levothyroxine Sodium 50 MCG 1 tab(s) ora lly once a day for 90 days Active Albuterol Sulfate (2.5 MG/3ML) 0.083% 3 ml as needed Inhalation every 6 hrs 09/28/2023 Active Problems Problem Type SNOMED Code ICD Code Onset Dates Problem Status W/U Status Risk Notes Problem 549041489 Anemia, unspecified type (D64.9) Active confirmed Vital Signs Blood pressure systolic 110 mm Hg 01/06/20 24 Blood pressure diastolic 58 mm Hg 024 Heart Rate 79 /min 01/06/2024 Height 62 in 01/06/2024 Weight 114.8 lbs 01/06/2024 BMI 20.99 kg/m2 01/06/2024 Encounters Encounter Location Date Provider Diagnosis [facility] [address] [place], [place] [id number] 01/06/2024 Dallin John Hypothyroidism, unspecified type E03.9 ; Gastroesophageal reflux disease, unspecified whether esophagitis present K21.9 ; Mixed hyperlipidemia E78.2 ; Productive cough R05.8 and Anemia, unspecified type D64.9 Assessments Encounter Date Diagnosis (ICD Code) Assessment Notes Treatment Notes Treatment Clinical Notes Section Notes 01/06/2024 Hypothyroidism, unspecified type (ICD-10 - E03.9) 01/06/2024 Gastroesophageal reflux disease, unspecified whether esophagitis present (ICD-10 - K21.9) 01/06/2024 Mixed hyperlipidemia (ICD-10 - E78.2) 01/06/2024 Productive cough (ICD-10 - R05.8) 01/06/2024 Anemia, unspecified type (ICD-10 - D64.9) Plan Of Treatment Medication Medication Name Sig Start Date Stop Date Notes Benzonatate 200 MG 1 capsule as needed Orally Three times a day 01/06/2024 Triamcinolone Acetonide 0.1 % 1 applicat ion Externally Twice a day 01/06/2024 Omeprazole 40 MG 1 cap(s) orally once daily for 90 days Pravastatin Sodium 80 MG 1 tab(s) orally once a day for 90 days Zithromax Z-Shaka 250 MG as directed Orall y once daily for 5 day(s) 01/06/2024 Levothyroxine Sodium 50 MCG 1 tab(s) ora lly once a day for 90 days Next Appt Details Follow Up: 6 Months, Reason: Provider Name:Dallin grewal, 01/05/2025 09:00:00 AM, [address], [address], [place], [place], [id number], Progress Notes * GEOVANNY BENJAMIN: 0 (74 yo F)Acc No.[id number]:01/06/2024 Progress Notes Patient: CATALINO STOVALL Provider: Marcelina John M.D. :1950 A ge:73 Y S ex:Female Date:01/06/2024 Address:[address] [place] [address], [facility] Subjective: * Chief Complaints: * 1 . 6 month check. * HPI: E ndocrinology: 73 year old female presents with c/o Hypothyroidism P t here for 6 mo f/u, states she is doing well and does not have any concerns. C ardiology: c/o Hyperlipidemia P t is fasting today. E NT/respiratory: c/o cough P t complains of greenish yellow sputum production cough for 2 days. Associated with nasal congestion. Pt states that cough is worse at night . Denies : Fever. D enies : body aches. * ROS: D ERMATOLOGY: no R lila. [...] Family History: F ather: unknown, diagnosed with Hypertension, Heart Disease. M other: unknown, diagnosed with Hypertension, Heart Disease, Cancer. * Social History: C URRENT TOBACCO USE: No . C affeine: yes, frequency: 4 cups a day. Alcohol: no. * Medications: T aking Anoro Ellipta 62.5-25 MCG/ACT Aerosol Powder Breath [...] Release 1 cap(s) orally once daily , Taking Albuterol Sulfate (2.5 MG/3ML) 0.083% Nebulization Solution 3 ml as needed Inhalation every 6 hrs , Discontinued metroNIDAZOLE 0.75 % Lotion 1 lynette applied topically 2 times a day , Discontinued Cefdinir 300 MG Capsule 1 cap(s) Orally Two times a day , Discontinued Promethazine-DM 6.25-15 MG/5ML Syrup 5 ml as needed Orally every 6 hrs , Discontinued Benzonatate 200 MG Capsule 1 capsule as needed Orally Three times a day , Medication List reviewed and reconciled with the patient * Allergies: N .K.D.A. Objective: * Vitals: W t:114.8, Temp:98.1, BP:110/58, HR:79, O2 Sat:98% on RA, Nurse:roseann, Ht: 62, BMI:20.99. * Examination: E NT/Respiratory: General Appearance: N AD. Eyes: P ERRLA, sclera clear. Oral cavity : m inimal erythema without exudate on pharynx.? Heart : R RR, normal S1 S2. Lungs: c lear to auscultation bilaterally. Assessment: * Assessment: 1. H ypothyroidism, unspecified type - E03.9 (Primary) 2 . G astroesophageal reflux disease, unspecified whether esophagitis present - K21.9 3 . M ixed hyperlipidemia - E78.2 4 . P roductive cough - R05.8 5 . A nemia, unspecified type - D64.9 Plan: * Treatment: Value Reference Range T hyroxine Free (free T4) 1.09 0.86-1.76 - ng/d L * Dallin John 01/08/2024 2 :18:47 PM > Results are satisfactory, sent to to inform. Tricia Garnica 01/08/2024 3:43:15 PM > pt informed of results ?LAB: P-TSH (Collection Date & Time - 01/06/2024 08:45 AM)* Value Reference Range T SH 2.64 0.43-5.25 - mU/L * Dallin John 01/08/2024 2 :18:47 PM > Results are satisfactory, sent to to inform. Tricia Garnica 01/08/2024 3:43:15 PM > pt informed of results 2.?Gastroesophageal reflux disease, unspecified whether esophagitis present? Refill Omeprazole Capsule Delayed Release, 40 MG, 1 cap(s), orally, once daily, 90 days, 90, Refills 1.??3.?Mixed hyperlipidemia? Refill Pravastatin Sodium Tablet, 80 MG, 1 tab(s), orally, once a day, 90 days, 90, Refills 1.?LAB: P-Comprehensive Metabolic Panel (CMP) (Collection Date & Time - 01/06/2024 08:45 AM)* Value Reference Range A /G Ratio 1.2 1.1-2.5 - * A lbumin 4.1 3.5-5.3 - g/dL * A lkaline Phosphatase 106 35-121 - IU/L * A LT (SGPT) 16 <5-47 - IU/L * A ST (SGOT) 22 <5-40 - IU/L * B ilirubin, Total 0.2 <0.2-1.2 - mg/dL * B UN 15 8-23 - mg/dL * C alcium 9.7 8.6-10.4 - mg/dL * C hloride 93 L 97-108 - mmol/L * C O2 26 22-32 - mmol/L * C reatinine 0.91 0.50-1.00 - mg/dL * G lucose 91 65-99 - mg/dL * P otassium 4.5 3.5-5.3 - mmol/L * S odium 133 L 135-145 - mmol/L * P rotein 7.6 6.0-8.3 - g/dL * e GFR by Creatinine 66 >59 - mL/min/1.73m2 * Dallin John 01/08/2024 2 :18:47 PM > Results are satisfactory, sent to to inform. Tricia Garnica 01/08/2024 3:43:15 PM > pt informed of results ?LAB: P-Lipid Panel (Collection Date & Time - 01/06/2024 08:45 AM)* Value Reference Range C holesterol / HDL Ratio 2.24 0.00-4.44 - Ratio * C holesterol 148 <200 - mg/dL * H DL Cholesterol 66 >39 - mg/dL * L DL Cholesterol (Calculation) 67 <130 - mg/d L * L DL/HDL Ratio 1.0 <3.3 - Ratio * N on-HDL Cholesterol 82 <130 - mg/dL * T riglycerides 75 <150 - mg/dL * Dallin John 01/08/2024 2 :18:47 PM > Results are satisfactory, sent to to inform. Tricia Garnica 01/08/2024 3:43:15 PM > pt informed of results 4.?Productive cough? Start Zithromax Z-Shaka Tablet, 250 MG, as directed, Orally, once daily, 5 day(s), 6 tabs, Refills 0; Start Benzonatate Capsule, 200 MG, 1 capsule as needed, Orally, Three times a day, 30, Refills1.?LAB: CBC Venipuncture (in house) (Collection Date & Time - 01/06/2024)* Value Reference Range w bc 15.2 3.5 - 10 * l ymph 9.1% 15 - 50 * m id 3.0% 2 - 15 * g ran 87.9% 35 - 80 * r bc 3.19 3.5 - 5.5 * h gb 10.8 11.5 - 16.5 * h ct 32.0 35 - 55 * m cv 100.3 75 - 100 * m ch 34.0 25 - 35 * m chc 33.9 31 - 38 * p latlet 323 100 - 400 * Kiera Jenkins 01/06/2024 10:31: 26 AM > , Provider reviewed results while patient in office. 5.?Others? Start Triamcinolone Acetonide Cream, 0.1 %, 1 application, Externally, Twice a day, 30 grams, Refills 1.?? * Procedure Codes: G 2211 Complex e/[place], [address] [place], [address] CBC WITH AUTO DIFF * Follow Up: 6 Months * Billing Information: * Visit Code: 31825 Office Visit, Est Pt., Level 4. * Procedure Codes: G2211 Complex e/[place]. [address] [place]. [address] CBC WITH AUTO DIFF. * Electronic signature of Trini John MD on 08/12/2024 at 11:20 AM EDT Sign off status: Pending * Provider: Marcelina John M.D. Date: Generated for Teofilo catherine/Ankush/Robertitting on: 0 08/12/2024 11:20 AM EDT History and Physical Notes * HPI (History of Present Illness) Category Sub-Category Detail Notes Category Not es ENT/respiratory cough Pt complains of greenish yellow sputum production cough for 2 days. Associated with nasal congestion. Pt states that cough is worse at night Fever body aches Endocrinology Hypothyroidism Pt here for 6 mo f/u, states she is doing well and does not have any concerns Cardiology Hyperlipidemia Pt is fasting today Examination Category Sub-Category Detail Notes Category Not es ENT/Respiratory Oral cavity : minimal erythema without exudate on pharynx Heart : RRR, normal S1 S2 Lungs: clear to auscultatio n bilaterally General Appearance: NAD Eyes: PERRLA, sclera clear
--- OUTSIDE RECORDS SUMMARY | 2024-07-06 05:00 | XMS_ITS ---
Author Organization [facility] Address [address] [facility] [address] [place] [id number] Care Team Providers Care Billing Collections Specialist Name Role Phone Alvaro Dallin Unavailable [phone] Allergies No Known Allergies REASON FOR VISIT [...] once a day for 90 days Active Pravastatin Sodium 80 MG 1 tab(s) orally once a day for 90 days Active Omeprazole 40 MG 1 cap(s) orally once daily for 90 days Active Stiolto Respimat 2.5-2.5 MCG/ACT 2 puffs Inhalation Once a day for 90 days Active Vital Signs Blood pressure systolic 112 mm Hg 07/07/19 25 Blood pressure diastolic 62 mm Hg 025 Heart Rate 77 /min 07/06/2024 Height 62 in 07/06/2024 Weight 114.2 lbs 07/06/2024 BMI 20.89 kg/m2 07/06/2024 Encounters Encounter Location Date Provider Diagnosis [place] [address] [place] [address] [place] [id number] 07/06/2024 Dallin John Chronic obstructive pulmonary disease, [...] lly once a day for 90 days Pravastatin Sodium 80 MG 1 tab(s) orally once a day for 90 days Omeprazole 40 MG 1 cap(s) orally once daily for 90 days Stiolto Respimat 2.5-2.5 MCG/ACT 2 puffs Inhalation Once a day for 90 days Next Appt Details Follow Up: 6 Months, Reason: Provider Name:Dallin Molina ry, 01/05/2025 09:00:00 AM, [address] [facility] [address] [facility], [address] [place] [address], [phone], Progress Notes * SOURAV, LEYDAB: 0 (74 yo F)Acc No.[id number]:07/06/2024 Progress Notes Patient: CATALINO STOVALL Provider: Marcelina John M.D. :1950 A ge:74 Y S ex:Female Date:07/06/2024 Address:[address] [place] [address], [facility] Subjective: * Chief Complaints: * 1 . [...] G eneral Examination: General Appearance: N AD. Heart: R SR. Lungs: c lear to auscultation. Peripheral pulses: n ormal (2+) bilaterally. Extremities: n o leg edema. Assessment: * Assessment: 1. C hronic obstructive pulmonary disease, unspecified COPD type - J44.9 2 .?LPRD (laryngopharyngeal reflux disease) - K21.9 3 . H ypothyroidism, unspecified type - E03.9 4 . M ixed hyperlipidemia - E78.2 5 . B PA 20.0-20.9, adult - Z68.20 Plan: * Treatment: [...] HG * Follow Up: 6 Months * Billing Information: * Visit Code: 90816 Office Visit, Est Pt., Level 4. * Procedure Codes: G2211 Complex e/m visit add on. 3074F SYST BP LT 130 MM HG. 3078F DIAST BP < 80 MM HG. * Electronic signature of Trini John MD on 08/12/2024 at 11:20 AM EDT Sign off status: Pending * Provider: Marcelina John M.D. Date: 07/06/2024 Generated for Teofilo catherine/Ankush/Robertitting on: 08/12/2024 11:20 AM EDT History and Physical [...]
--- OUTSIDE RECORDS SUMMARY | 2024-08-12 11:20 | XMS_ITS | Patient Health Record ---
[facility] Address [address] [facility] [address] [place] [id number] Care Team Providers Care Roller [place] Name Role Phone Dallin John Unavailable [phone] Allergies No Known Allergies Results Component Value [...] - 38 plat 302 100 - 400 CBC Venipuncture (in house) Reviewed date:01/06/2024 02:44:15 [...] date:01/12/2024 11:29:47 AM Interpretation: Performing Lab: Notes/Report: CLIA: [id number] Drew Meyer MD, Professor Of English [address] [place] [address] , [place] [address] Test performed by [facility] Sodium 133 135-145 mmol/L Potassium 4.5 3.5-5.3 [...] Interpretation: Performing Lab: Notes/Report: Test performed by [facility] [address] [place] [address] , [place] [address] Drew Meyer MD, Professor Of English CLIA: [id number] Thyroxine Free (free T4) 1.09 0.86-1.76 ng/dL P-Lipid Panel Reviewed date:01/12/2024 11:29:47 AM Interpretation: Performing Lab: Notes/Report: CLIA: [id number] Drew Meyer MD, Professor Of English [address] [place] [address] , [place] [id number] Test performed by [facility] Cholesterol 148 <200 mg/dL Triglycerides 75 <150 [...] Interpretation: Performing Lab: Notes/Report: Test performed by [facility], [address] , [address], [place] [address] Drew Meyer MD, Professor Of English CLIA: [id number] TSH 2.64 0.43-5.25 mU/L Reason For Referral Diagnosis 1 Pain in left shoulde r (M25.512) Diagnosis 2 Arthritis of shoulde r region, 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) Referral Organization [facility] Referring Provider First Name Dallin Referring Provider Last Name Alvaro Referring Provider Speciality Family Pra ctice Referred Provider Jamison Perez Referred Provider Specialty Orthopedic S urgery General Notes Rachelle Song 09/28/19 9:39:37 AM > [facility] Ortho 10/05/23 at 09:00am; tried to call patient with appt time but no answer and no vm; will try again later, Rachelle Song 09/28/2023 9:48:08 AM > patient informed Referral Priority Routine Medications Medication SIG (Take, Route, Frequency, Duration) Notes Start Date End Date Status Levothyroxine Sodium 50 MCG 1 tab(s) ora lly once a day for 90 days Active Triamcinolone Acetonide 0.1 % 1 application Externally Twice a day 01/06/2024 Active Pravastatin Sodium 80 MG 1 tab(s) orally once a day for 90 days Active Omeprazole 40 MG 1 cap(s) orally once daily for 90 days Active Stiolto Respimat 2.5-2.5 MCG/ACT 2 puffs Inhalation Once a day for 90 days Active Albuterol Sulfate (2.5 MG/3ML) 0.083% 3 ml as needed Inhalation every 6 hrs 09/28/2023 Active Immunizations Vaccine Route Administration Date Status Comme nts Prevnar (PCV13) Unknown 02/24/2019 Administered PNEUMOVAX 23 VACCINE Unknown 12/30/2019 Administered Fluzone PF Quad (6-35 months) Unknown 12/30/2019 Administered Fluzone PF Quad (6-35 months) Unknown 01/23/2022 Administered Fluzone High Dose (65yr and older) IM Intramuscular 01/03/2021 Administered COVID 19 Moderna Unknown 05/31/2020 Administered COVID 19 Moderna Unknown 01/24/2021 Administered Problems Problem Type SNOMED Code ICD Code Onset Dates Problem Status W/U Status Risk Notes Problem 477386385 Rosacea (L71.9) Active confirmed Problem 838061244 COPD exacerbatio n (J44.1) Active confirmed Problem 080700240 Malignant neopla sm of head, face and neck (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) Active confirmed Problem 639806253 Mixed hyperlipidemia (E78.2) Active confirmed Problem 68405036 Other chronic pa in (G89.29) Active confirmed Problem 200564037 Acquired hypothyroidism (E03.9) Active confirmed Problem 52924227 Chronic obstruct deanna pulmonary disease, unspecified COPD type (J44.9) Active confirmed Problem 747961160 Anemia, unspecif ied type (D64.9) Active confirmed Problem 82516736 Hypothyroidism, unspecified type (E03.9) Active confirmed Problem 8020272 Thyromegaly (E01.0) Active confirmed Problem 837880178 LPRD (laryngopharyngeal reflux disease) (K21.9) Active confirmed Problem 953511662 Asthma, unspecif ied asthma severity, unspecified whether complicated, unspecified whether persistent (J45.909) Active confirmed Problem 993916809 Gastroesophageal reflux disease, unspecified whether esophagitis present (K21.9) Active confirmed Problem 382818977584671 Arthritis of shoulder region, 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) Active confirmed Vital Signs Heart Rate 77 /min 07/06/2024 Blood pressure diastolic 62 mm Hg 07/06/2024 Height 62 in 07/06/2024 Blood pressure systolic 112 mm Hg 07/06/2024 Weight 114.2 lbs 07/06/2024 BMI 20.89 kg/m2 07/06/2024 Encounters Encounter Location Date Provider Diagnosis [facility] [address] [facility] [address] [place], [place] [id number] 09/28/2023 Dallin [place] COPD exacerbation J4 4.1 ; Pain in left shoulder M25.512 and Arthritis of shoulder region, left M19.012 [facility] [address] [facility] [address] [place], [place] [id number] 01/06/2024 Dallin [place] Hypothyroidism, unspecified type E03.9 ; Gastroesophageal reflux disease, unspecified whether esophagitis present K21.9 ; Mixed hyperlipidemia E78.2 ; Productive cough R05.8 and Anemia, unspecified type D64.9 [facility] [address] [facility] [address] [place], [place] [id number] 07/06/2024 Dallin [place] Chronic obstructive pulmonary disease, unspecified COPD type J44.9 ; LPRD (laryngopharyngeal reflux disease) K21.9 ; Hypothyroidism, unspecified type E03.9 ; Mixed hyperlipidemia E78.2 and BMI 20.0-20.9, adult Z68.20 Assessments Encounter Date Diagnosis (ICD Code) Assessment Notes Treatment Notes Treatment Clinical Notes Section Notes 09/28/2023 COPD exacerbation (ICD-10 - J44.1) 09/28/2023 Pain in left shoulder (ICD-10 - M25.512) 01/06/2024 Hypothyroidism, unspecified type (ICD-10 - E03.9) 01/06/2024 Gastroesophageal reflux disease, unspecified whether esophagitis present (ICD-10 - K21.9) 07/06/2024 Chronic obstructive pulmonary disease, unspecified COPD type (ICD-10 - J44.9) 07/06/2024 LPRD (laryngopharyngeal reflux disease) (ICD-10 - K21.9) 07/06/2024 Hypothyroidism, unspecified type (ICD-10 - E03.9) 09/28/2023 Arthritis of shoulder region, left (ICD-10 - M19.012) 01/06/2024 Mixed hyperlipidemia (ICD-10 - E78.2) 01/06/2024 Productive cough (ICD-10 - R05.8) 07/06/2024 Mixed hyperlipidemia (ICD-10 - E78.2) 01/06/2024 Anemia, unspecified type (ICD-10 - D64.9) 07/06/2024 BMI 20.0-20.9, adult (ICD-10 - Z68.20) Plan Of Treatment Next Appt Details Provider Name:Dallin Molina ry, 01/05/2025 09:00:00 AM, [address], [address], [place], [place], [id number], Insurance Providers Payer Name Payer Address Payer Phone Subscriber Number Group Number Insured Name Patient Relationship to Insured Coverage Start Date Coverage End Date [employer] (MEDICAR E) [address] [address] [place] [phone] [phone] [id number] CATALINO BENJAMIN Self - patient is the insured Medical (General) History Medical History History ICD Code Asthma, unspecified asthma s everity, unspecified whether complicated, unspecified whether persistent J45.909 Hypercholesteremia E78.00 Hypothyroidism, unspecified type E03.9 lung cancer, Dx: 2004 RT Lung Pneumothorax, 10/2020 Esophageal Reflux Rosacea COPD LT Nose Squamous Celll Skin Cancer, 06/08 022 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 Zabala 06/11/2023 Hospitalization History Reason Date(Month/Year)
--- OUTSIDE RECORDS SUMMARY | 2024-08-12 11:21 | XMS_ITS | Data Portability ---
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 Cristina horta [place] - [facility] & [place] 2 11:58:51 Malignant tumor of head and neck 397638843 Active 2023 Cristina horta [place] [facility] - [place] 4 11:10:50 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 Medical Equipment None Reported. Allergies No known drug allergies Medications Name Sig Start Date Stop Date Status Note LastModified by Organization Details LastModified Time Magic Mouthwash w/ Nystatin 10 ml TID & PRN 02/03 completed Not Available Not Available Not Available Magic Mouthwash w/ Nystatin Swish and Swallow 10ml every four to six hours as needed 2023 active Not Available Not Available Not Avai lable diphenhydram ine 12.5 mg/5 mL oral liquid [...] Updated DateTime 5 160.02 cm 20.5 kg/m2 27675.2 8 g 97.5 [degF] 99 % 99 % 73 /min 17 /min 132 mm[Hg] 63 mm[Hg] Cristina SMYTH [facility] 5 10:39:10 Date Recorded Body height Body mass index (BMI) Body weight Body temperature Oxygen saturation Oxygen saturation in Arterial blood by Pulse oximetry Heart rate Respiratory rate Systolic blood pressure Diastolic blood pressure Provider Name and Address Organization Details Last Updated DateTime 4 160.02 cm 22.2 kg/m2 19968.7 6 g 97.7 [degF] 99 % 99 % 76 /min 17 /min 112 mm[Hg] 73 mm[Hg] [facility] & [place] 4 09:07:11 Date Recorded Body height Body mass index (BMI) Body weight Body temperature Oxygen saturation Oxygen saturation in Arterial blood by Pulse oximetry Heart rate Respiratory rate Systolic blood pressure Diastolic blood pressure Provider Name and Address Organization Details Last Updated DateTime 4 160.02 cm 22.1 kg/m2 47186.3 3 g 97.1 [degF] 96 % 96 % 96 /min 17 /min 126 mm[Hg] 86 mm[Hg] [facility] & [place] 4 09:44:32 Social History None recorded. Functional [...] SNOMED-CT Code Diagnosis ICD10 Code Diagnosis Note [id number] MD LAWRENCE Boyer [address] [address] 11/19/2021 09:29:57 11/19/2021 11:19:53 Malignant tumor of submandibular gland 984261194 C08.0 Squamous c ell carcinoma of nose 435603997 C44.321 [id number] MD LAWRENCE Boyer [address] [address] 11/20/2021 13:58:04 11/20/2021 14:55:10 [id number] Carlo Chu MD [address] [place] [address] 11/26/2021 14:45:02 11/27/2021 11:11:14 Malignant tumor of submandibular gland 917190666 C08.0 Cervical lymphadenopathy 834592068 R59.0 [id number] Wagih Azul, MD [place] [address] 12/04/2021 09:11:03 12/04/2021 10:06:52 Malignant tumor of submandibular gland 237487608 C08.0 Squamous c ell carcinoma of nose 913453891 C44.321 [id number] Frederic Liang MD [place] [address] 8 12/05/2021 09:00:43 12/05/2021 09:38:18 Malignant tumor of submandibular gland 710883092 C08.0 Squamous c ell carcinoma of nose 059030452 C44.321 [id number] Frederic Liang MD [place] [address] 8 12/06/2021 09:11:26 12/06/2021 09:29:49 Malignant tumor of submandibular gland 131494995 C08.0 Squamous c ell carcinoma of nose 721623477 C44.321 [id number] Frederic Liang MD [place] [address] 8 12/09/2021 09:10:48 12/09/2021 09:35:35 Malignant tumor of submandibular gland 376620346 C08.0 Squamous c ell carcinoma of nose 198121275 C44.321 [id number] Frederic Liang MD [place] [address] 8 12/10/2021 08:54:19 12/10/2021 09:33:57 Malignant tumor of submandibular gland 154565678 C08.0 Squamous c ell carcinoma of nose 269396699 C44.321 [id number] Frederic Liang MD [place] [address] 8 12/11/2021 09:17:06 12/11/2021 09:33:24 Malignant tumor of submandibular gland 235722000 C08.0 Squamous c ell carcinoma of nose 412299231 C44.321 [id number] [facility] [place] [address] [place] [address] 8 12/12/2021 07:56:14 12/12/2021 08:22:56 [id number] Frederic Liang MD [place] [address] [place] [address] 8 12/13/2021 08:56:07 12/13/2021 09:16:52 Malignant tumor of submandibular gland 293505634 C08.0 Squamous c ell carcinoma of nose 588156483 C44.321 [id number] Frederic Liang MD [place] [address] [place] [address] 8 12/16/2021 09:04:51 12/16/2021 09:32:26 Malignant tumor of submandibular gland 182352905 C08.0 Squamous c ell carcinoma of nose 757718601 C44.321 [id number] Frederic Liang MD [place] [address] 8 12/17/2021 09:00:16 12/17/2021 09:13:49 Malignant tumor of submandibular gland 912334036 C08.0 Squamous c ell carcinoma of nose 180615074 C44.321 [id number] Frederic Liang MD [place] [address] 8 12/18/2021 08:54:24 12/18/2021 09:19:38 Malignant tumor of submandibular gland 448552949 C08.0 Squamous c ell carcinoma of nose 063041124 C44.321 [id number] Frederic Liang MD [place] [address] [place] [address] 8 12/19/2021 07:59:01 12/19/2021 08:30:27 Malignant tumor of submandibular gland 395736692 C08.0 Squamous c ell carcinoma of nose 894457120 C44.321 [id number] Frederic Liang MD [place] [address] 8 12/20/2021 08:54:58 12/20/2021 09:35:47 Malignant tumor of submandibular gland 955565317 C08.0 [id number] Frederic Liang MD [place] [address] 8 12/23/2021 08:43:21 12/23/2021 09:52:58 Malignant tumor of submandibular gland 531159140 C08.0 Squamous c ell carcinoma of nose 273807031 C44.321 [id number] Frederic Liang MD [place] [address] 8 12/24/2021 08:54:12 12/24/2021 09:25:06 Malignant tumor of submandibular gland 349101578 C08.0 Squamous c ell carcinoma of nose 316672274 C44.321 [id number] Frederic Liang MD [place] [address] 8 12/25/2021 08:52:51 12/25/2021 09:26:51 Malignant tumor of submandibular gland 947969432 C08.0 Squamous c ell carcinoma of nose 157789614 C44.321 [id number] Frederic Liang MD [place] [address] 8 12/27/2021 09:23:30 12/27/2021 09:34:03 Malignant tumor of submandibular gland 904117834 C08.0 Squamous c ell carcinoma of nose 092150282 C44.321 [id number] Frederic Liang MD [place] [address] 8 12/30/2021 08:49:49 12/30/2021 09:26:46 Malignant tumor of submandibular gland 117680532 C08.0 Squamous c ell carcinoma of nose 003579331 C44.321 [id number] Frederic Liang MD [place] [address] 8 12/31/2021 09:05:17 12/31/2021 09:20:19 Malignant tumor of submandibular gland 487917850 C08.0 Squamous c ell carcinoma of nose 682123270 C44.321 [id number] Frederic Liang MD [place] [address] 8 01/01/2022 08:58:55 01/01/2022 09:43:14 Malignant tumor of submandibular gland 425391798 C08.0 [id number] Frederic Liang MD [place] [address] 8 01/02/2022 08:00:17 01/02/2022 08:05:30 Malignant tumor of submandibular gland 237605932 C08.0 [id number] Frederic Liang MD [place] [address] 8 01/03/2022 09:04:45 01/03/2022 09:24:39 Malignant tumor of submandibular gland 948384342 C08.0 Squamous c ell carcinoma of nose 762314055 C44.321 [id number] Frederic Liang MD [place] [address] 8 01/06/2022 08:48:40 01/06/2022 09:28:44 Squamous cell carcinoma of nose 285696711 C44.321 Malignant tumor of submandibular gland 976149337 C08.0 [id number] Frederic Liang MD [place] [address] 8 01/07/2022 08:57:10 01/07/2022 09:25:06 Malignant tumor of submandibular gland 960846015 C08.0 Squamous c ell carcinoma of nose 419220456 C44.321 [id number] Frederic Liang MD [place] [address] 8 01/08/2022 09:06:55 01/08/2022 09:48:28 Malignant tumor of submandibular gland 730721146 C08.0 Squamous c ell carcinoma of nose 105749120 C44.321 [id number] Frederic Liang MD [place] [address] 8 01/09/2022 07:54:01 01/09/2022 08:07:48 Malignant tumor of submandibular gland 874043658 C08.0 Squamous c ell carcinoma of nose 395808073 C44.321 [id number] Frederic Liang MD [place] [address] 8 01/10/2022 08:49:00 01/10/2022 09:12:11 Malignant tumor of submandibular gland 347905086 C08.0 Squamous c ell carcinoma of nose 864483967 C44.321 [id number] Frederic Liang MD [place] [address] 8 01/13/2022 08:46:32 01/13/2022 09:29:37 Malignant tumor of submandibular gland 092258478 C08.0 Squamous c ell carcinoma of nose 695150615 C44.321 [id number] Frederic Liang MD [place] [address] 8 01/14/2022 08:49:19 01/14/2022 09:15:11 Malignant tumor of submandibular gland 632186903 C08.0 Squamous c ell carcinoma of nose 449656074 C44.321 [id number] Frederic Liang MD [place] [address] 8 2022 09:01:56 2022 09:20:57 Malignant tumor of submandibular gland 197381990 C08.0 Squamous c ell carcinoma of nose 208568640 C44.321 [id number] Frederic Liang MD [place] [address] 8 02/18/2022 08:48:22 02/18/2022 09:09:26 Malignant tumor of submandibular gland 422658676 C08.0 Squamous c ell carcinoma of nose 715376572 C44.321 [id number] Frederic Liang MD [place] [address] 8 05/27/2022 08:47:27 05/27/2022 09:28:39 Malignant tumor of submandibular gland 625610713 C08.0 Squamous c ell carcinoma of nose 642036216 C44.321 [id number] Frederic Liang MD [place] [address] 8 02/03/2023 08:42:00 02/03/2023 08:57:43 Malignant tumor of submandibular gland 224514495 C08.0 Squamous c ell carcinoma of nose 853948124 C44.321 [id number] Frederic Liang MD [place] [address] 8 04/09/2023 08:45:11 04/09/2023 09:58:26 Malignant tumor of submandibular gland 535317477 C08.0 Squamous c ell carcinoma of nose 055921861 C44.321 [id number] Frederic Liang MD [place] [address] 8 06/01/2023 10:17:30 06/01/2023 10:36:35 Malignant tumor of salivary gland 172683651 C07 [id number] Frederic Liang MD [place] [address] 8 06/16/2023 10:50:04 06/16/2023 12:51:44 Malignant tumor of submandibular gland 363112705 C08.0 Squamous c ell carcinoma of nose 587599131 C44.321 Malignant tumor of salivary gland 380151066 C07 Malignant tumor of head and neck 852501386 C76.0 [id number] Frederic Liang MD [place] [address] 8 06/18/2023 08:00:43 06/18/2023 08:17:54 Malignant tumor of head and neck 902822977 C76.0 Malignant tumor of salivary gland 399589295 C07 Malignant tumor of submandibular gland 592691124 C08.0 [id number] [place] [address] 06/19/2023 09:00:11 06/19/2023 09:34:12 Malignant tumor of head and neck 308990281 C76.0 Malignant tumor of salivary gland 735760066 C07 Malignant tumor of submandibular gland 608259376 C08.0 Squamous c ell carcinoma of nose 382321431 C44.225 [id number] Frederic Liang MD [place] [address] 8 06/22/2023 08:49:18 06/22/2023 09:10:46 Malignant tumor of head and neck 388747891 C76.0 Malignant tumor of salivary gland 191494488 C07 Malignant tumor of submandibular gland 306850499 C08.0 [id number] Frederic Liang MD [place] [address] 8 06/23/2023 08:56:08 06/23/2023 09:33:53 Malignant tumor of head and neck 533946486 C76.0 Malignant tumor of salivary gland 942584762 C07 Malignant tumor of submandibular gland 023337275 C08.0 [id number] Frederic Liang MD [place] [address] 8 06/24/2023 08:54:13 06/24/2023 09:23:05 Malignant tumor of head and neck 295727422 C76.0 Malignant tumor of salivary gland 835412142 C07 Malignant tumor of submandibular gland 578335339 C08.0 [id number] Frederic Liang MD [place] [address] 8 06/25/2023 07:52:33 06/25/2023 08:12:34 Malignant tumor of head and neck 619494326 C76.0 Malignant tumor of salivary gland 785556324 C07 Malignant tumor of submandibular gland 687923265 C08.0 [id number] Frederic Liang MD [place] [address] 8 06/26/2023 08:56:18 06/26/2023 09:27:14 Malignant tumor of salivary gland 842888684 C07 Malignant tumor of submandibular gland 016370702 C08.0 [id number] Frederic Liang MD [place] [address] 8 06/29/2023 08:49:57 06/29/2023 09:22:44 Squamous cell carcinoma of nose 089009814 C44.059 [id number] Frederic Liang MD [place] [address] 8 06/30/2023 08:53:49 06/30/2023 09:46:19 Malignant tumor of salivary gland 910341068 C07 Malignant tumor of submandibular gland 086340717 C08.0 [id number] Frederic Liang MD [place] [address] 8 07/01/2023 08:53:01 07/01/2023 09:36:58 Malignant tumor of submandibular gland 968219021 C08.0 Malignant tumor of salivary gland 221935476 C07 [id number] Frederic Liang MD [place] [address] 8 07/02/2023 07:59:28 07/02/2023 08:14:49 Malignant tumor of salivary gland 391735166 C07 Malignant tumor of submandibular gland 443683875 C08.0 [id number] Frederic Liang MD [place] [address] 8 07/03/2023 08:51:24 07/03/2023 09:22:21 Squamous cell carcinoma of nose 066721600 C44.321 Malignant tumor of submandibular gland 376173108 C08.0 Malignant tumor of salivary gland 954512696 C07 [id number] Frederic Liang MD [place] [address] 8 07/06/2023 08:46:46 07/06/2023 09:18:14 Malignant tumor of salivary gland 071775406 C07 Malignant tumor of submandibular gland 343178354 C08.0 [id number] Frederic Liang MD [place] [address] 8 07/07/2023 09:11:43 07/07/2023 09:25:08 Malignant tumor of salivary gland 500734659 C07 Malignant tumor of submandibular gland 347117606 C08.0 [id number] Frederic Liang MD [place] [address] 8 07/08/2023 08:49:34 07/08/2023 09:52:23 Malignant tumor of submandibular gland 654974464 C08.0 Malignant tumor of salivary gland 608167339 C07 [id number] Frederic Liang MD [place] [address] 8 07/09/2023 08:02:39 07/09/2023 08:03:11 Malignant tumor of salivary gland 661032830 C07 Malignant tumor of submandibular gland 428882649 C08.0 [id number] Frederic Liang MD [place] [address] 8 07/10/2023 08:49:58 07/10/2023 09:19:02 Malignant tumor of salivary gland 960327733 C07 Malignant tumor of submandibular gland 625001225 C08.0 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 932440005 K12.33 [id number] Frederic Liang MD [place] [address] 8 07/13/2023 08:48:15 07/13/2023 09:19:12 Malignant tumor of salivary gland 914962923 C07 Malignant tumor of submandibular gland 349740958 C08.0 [id number] Frederic Liang MD [place] [address] 8 07/14/2023 08:54:25 07/14/2023 09:23:50 Malignant tumor of submandibular gland 177092192 C08.0 Malignant tumor of salivary gland 961788147 C07 [id number] Frederic Liang MD [place] [address] 8 07/15/2023 08:53:23 07/15/2023 09:13:48 Malignant tumor of salivary gland 183594890 C07 Malignant tumor of submandibular gland 819990111 C08.0 [id number] Frederic Liang MD [place] [address] 8 07/16/2023 08:05:53 07/16/2023 08:06:37 Malignant tumor of submandibular gland 462156090 C08.0 Malignant tumor of salivary gland 480721653 C07 [id number] Frederic Liang MD [place] [address] 8 07/17/2023 08:52:05 07/17/2023 09:20:23 Malignant tumor of salivary gland 225409094 C07 Malignant tumor of submandibular gland 042498769 C08.0 [id number] Frederic Liang MD [place] [address] 8 07/20/2023 09:27:55 07/20/2023 10:21:26 Malignant tumor of salivary gland 030462991 C07 Malignant tumor of submandibular gland 398665760 C08.0 [id number] Frederic Liang MD [place] [address] 8 07/21/2023 08:50:24 07/21/2023 09:10:33 Malignant tumor of salivary gland 267229488 C07 Malignant tumor of submandibular gland 454054636 C08.0 [id number] Frederic Liang MD [place] [address] 07/22/2023 08:46:44 07/22/2023 09:15:05 Malignant tumor of salivary gland 064477429 C07 Malignant tumor of submandibular gland 242772719 C08.0 [id number] Frederic Liang MD [place] [address] 8 07/23/2023 07:58:50 07/23/2023 08:42:42 Squamous cell carcinoma of nose 219357811 C44.532 [id number] Frederic Liang MD [place] [address] 8 07/24/2023 09:01:11 07/24/2023 09:35:19 Malignant tumor of salivary gland 708811063 C07 Malignant tumor of submandibular gland 522543269 C08.0 [id number] Frederic Liang MD [place] [address] 8 07/27/2023 08:53:54 07/27/2023 10:01:39 Malignant tumor of submandibular gland 404266711 C08.0 [id number] Frederic Liang MD [place] [address] 8 08/24/2023 09:19:15 08/24/2023 10:07:05 Malignant tumor of head and neck 190145472 C76.0 Malignant tumor of salivary gland 369069262 C07 Squamous c ell carcinoma of nose 586391803 C44.813 [id number] Frederic Liang MD [address] [address] 05/17/2024 10:19:53 05/17/2024 11:47:58 Malignant tumor of salivary gland 575675863 C07 Health Concerns Section Related Observation LastModified by Organization Detai ls LastModified Time None Recorded Concern Status LastModified by Organization Details LastModified Time None Recorded Advance Directives Directive None Recorded Payers Insurance Date Sequence Insurance Name Policy Number Policy Spann Covered Member ID Spann Member ID Guarantor Name 06/08/2024 Sarah STEELE (MEDICARE REPLACEMENT/ ADVANTAGE - PPO) [id number] Ariane Pathak [id number] Ariane Pathak Notes Date Note Type Note [...] followed by left neck radiation with weekly cis-venetie no recurrence in the left neck had a mass in the lower part of right parotid gland locally excised and negative margins shown to be 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 Frederic Liang MD [facility] [employer],[address], [place], [address], [place] [facility] 07/27/2023 09:10:59 08/24/2023 text/html She is here [...] additional follow-up CT scan. 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 Frederic Liang MD [address] [facility],[address], [place], [address], [place] [facility] [place] 05/17/2024 10:49:25 OBGyn Episode No OBEpisode recorded.
--- OUTSIDE RECORDS SUMMARY | 2024-08-12 11:21 | XMS_ITS | Data Portability ---
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 POSTOPERATIVE DIAGNOSIS: Right tail of parotid mass. Pathology pending. PROCEDURE: Right inferior parotidectomy with facial nerve dissection and neural integrity monitoring. INDICATIONS: Catalino Pathak is 73 years old. She has had previous lung cancer. She has had a recent PET scan, which did show an abnormal lesion within the right parotid inferiorly. Did appear to be tail of parotid lesion distinct from the remaining portion of the parotid. We discussed consideration of removal of this due to lack of proper treatment. She did understand and wished to proceed. OPERATIVE NOTE: The patient was brought to the operating room and placed under general endotracheal anesthesia. She was not given any paralytic during the procedure. Neural integrity monitoring was used for 4 channels of the branches of the facial nerve. This was monitored throughout the case, gave us good feedback. The right neck was prepared and draped in the usual fashion. A pre-injection of 1% lidocaine with epinephrine was injected over the parotid fascia and the upper portion of the neck in a natural skin crease. An incision was marked out in the skin crease extending up to the earlobe. Divided the skin and subcutaneous tissue. I then carefully dissected the mass free from the surrounding parotid gland as well as posteriorly from the sternocleidomastoid muscle. The greater auricular nerve was intact and maintained throughout the case. Prior to making our dissection anteriorly, I was able to identify the marginal mandibular branch of the facial nerve. This was preserved and not included in the specimen. I did dissect the retromandibular vein and ligated this. This allowed us to free up the mass from the underlying fascial attachments. Then the last portion freed up was the superior portion dividing the gland from the mass with careful dissection and use of bipolar cautery. The nerve was probed after the procedure and was noted to be intact. The wound was irrigated with sterile water solution. Any bleeding spots were spot coagulated. A drain was placed subcutaneously, came up through a separate incision posteriorly. This was sewn in with a 2-0 silk. Incision was then closed using a 4-0 Monocryl in the subcutaneous layer followed by Dermabond in the skin, skin glue. Pressure dressing was applied. The patient was then awakened in the operating room, taken to recovery room in good condition. The drain was hooked to suction. Estimated blood loss was less than 30 mL. [email or web address] Not available 05/12/2023 13:52:19 Plan of Treatment Reminders Order Date Submit Date Provider Last Modified By Organization Details Last Modified Time Details Appointments None record ed. Lab None record ed. Referral None record ed. Procedures None record ed. Surgeries None record ed. Imaging None record ed. Medication Orders None record ed. Patient TargetsNo targets recorded. Patient Instructions Encounter Date Encounter Id Patient Instructions Last Modified By Organization Details Last Modified Time 10/25/2021 [id number] 1. Discussed results of biopsy with patient. I do not see any signs of a primary within the oral cavity or oropharynx. 2. p/o bandange removed in office today. 3. Laryngoscopy flex performed in office today. Full risks, complications, and benefits of non-operative intervention have been thoroughly discussed. Understanding was expressed, informed consent given, and we will proceed with the discussed operative treatment plan. There were no questions for me at the end of the office visit. 4. PET scan ordered and scheduled in office today. 5. f/u with results. [email or web address] Not available 10/25/2021 17:04:57 04/29/2023 [id number] 1. PET obtained in office today. Results discussed with patient. I previously evaluated her hypopharynx and larynx and did not see any abnormalities. The left side of the neck is also free of palpable exam. However she does have a lesion at the tail of the parotid which likely will be accessible from a upper neck incision. It is my hope they will not need to remove the entire gland and the nerve will be free from any extension of the lesion. 2. Recommended Excision of Right Neck Mass Full risks, complications, and benefits of operative versus non-operative intervention have been thoroughly discussed. Understanding was expressed, informed consent given, and we will proceed with the discussed operative treatment plan. There were no questions for me at the end of the office visit 3. f/u p/o britney Not available 04/29/2023 16:45:28 I had a long discussion with Ms. aPthak and her family regarding goals, risks, potential complications as well as proposed benefits regarding the procedure. Possible operative/postoper ative complications we discussed included, but were not limited to: postoperative infection, facial nerve injury/weakness, bleeding, postoperative fluid collection, recurrent lesion, Nia's syndrome, failure to correct problem, and potential anesthesia issues. She stated understanding and would like to proceed. [email or web address] Not available 04/29/2023 16:45:50 Reason for Referral None Reported. Results Created Date Observation Date Name Description Value Unit Range Abnormal Flag Note LastModifiedBy Organization Detail LastModifiedTime 05/11/19 24 05/11/2023 SURGI RYAN surgical SEE BELOW abnormal Depar tment of Patho logy Surgi ryan Patho logy Repor t NAME: MANDO ELDER PATH. 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 Surgi ryan resec tion richie ns are uninv olved . Note: Secti ons demon strat e a poorl y diffe renti ated non-s mall cell carci noma invol ving lymph node and possi ble saliv tonya gland . The clini ryan histo ry of metas tatic squam ous cell carci noma is noted . A panel of immun ochem ical stain s has been perfo rmed and the immun ophen otype would be purnima tible with that diagn osis. Elver narvaez, the stain ing marcos rn is not speci fic for squam ous carci noma and may be seen in the setti ng of prima ry saliv tonya gland tumor s. If addit ional molec ular testi ng is neede d for defin itive tumor class ifica tion/ immun other apy decis ion makin g, pleas e conta ct the labor atory for send out to a refer ence labor atory that perfo elen such testi ng. 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 There is no overl moisés skin. The speci men is inked blue and secti oned to revea l a solid , firm, pale white cut surfa ce. Entir broderick submi tted in three casse ttes label ed A1-A3 . ANTOINETTE 05/11 12:18 PM Micro scopi c Descr iptio n: Secti ons demon strat e sheet s of tumor cells repla cing lymph node paren chyma as well as saliv tonya gland tissu e. The tumor cells are compo sed of large , polyg onal cells with pleom orphi c, vesic ular nucle i with promi nent nucle skylar and abund ant amoun ts of ampho phili c cytop lasm. No kerat in produ ction or disti nct gland forma tions are seen. A limit ed panel of immun ohist ochem ical stain s has been perfo rmed and the tumor is stron gly and diffu sely immun oreac tive for both high molec ular weigh t cytok erati n (34be taE12 ) and p63, while the tumor is not immun oreac tive for David-E P4, TTF1, Napsi n A, and Melan -A. While this stain ing profi le is purnima tible with squam ous carci noma, other prima ry saliv tonya gland tumor s may also show a simil ar immun ohist ochem ical stain ing patte rn. DESI PARK M.D. Darling d Out Date: 05/12 16:04 Page 1 of 1 Not Available [facility] [address] [facility], [place], [address], 05/13/2023 16:05:41 10/15/19 22 10/14/2021 elect gayatri urrutia am No observ ation record ed. [email or web address] [place] [address], [place], [address], 10/15/2021 17:48:50 10/29/19 22 10/23/2021 lung cance r scree mariangel eligi bilit y asses sment * No observ ation record ed. BARCODE Not Available 2021 11:22:01 11/07/19 22 11/06/2021 PET-C T, skull base to mid-t high scan [facility] [address] [facility] [place] [address] Patien t Name: CATALINO Nye Patien t : [address] [facility] Provid er: BEKA LOVELL III EXAM DATE: 2021 EXAM: PET-CT TUMOR SKULL BASE-M ID THIGH INT ST CLINIC AL INFORM ATION: Head and Neck Cancer - Initia l. Lung cancer 2004. PROCED URE: Baseli ne blood glucos e level was 92 mg/dL. 14.2 mCi F-18 FDG ([facility] 40533- 0511-3 0) was inject ed IV. After an uptake time of 48 minute s, skull base to midthi gh PET imagin g was perfor med. This was follow ed by a low dose attenu ation correc tion/a natomi c locali zation CT from lower craniu m throug h the midthi gh levels withou t IV or oral contra st. COMPAR JOSE DAVID: None FINDIN GS ON PET WITH CT CORREL ATION: HEAD AND NECK: Follow ing areas of abnorm al hyperm etabol ism are seen. 1. Subcen timete r nodule in the tail of the right paroti d gland. SUV = 4.8. Corres ponds with the abnorm ality seen on CT. 2. Hyperm etabol ic left subman dibula r lymph node. SUV = 14.6. Corres ponds with the abnorm ality seen on CT. 3. Focal lesion in the title assistant ior portio n of the cricoi d cartil age. SUV = 7.2. No corres pondin g abnorm ality is seen on CT. UPPER LIMBS: No abnorm al areas of F-18 FDG uptake are seen. CHEST: Normal uptake of F-18 FDG is noted in the myocar dium. No abnorm al areas of F-18 FDG uptake are seen. ABDOME N: Normal uptake of F-18 FDG is noted in the liver, spleen , bowel and kidney s along with excret ion into the ureter s. No abnorm al areas of F-18 FDG uptake are seen. PELVIS : Normal excret ory collec tion of F-18 FDG is noted in the urinar y bladde r. No abnorm al areas of F-18 FDG uptake are seen. LOWER LIMBS: No abnorm al areas of F-18 FDG uptake are seen. FINDIN GS ON CT WITH PET CORREL ATION: Interp retati on is limite d due to the examin ation being an attenu ation correc tion/a natomi c locali zation CT. NECK: No intrac ranial abnorm ality is seen. Orbits and sinuse s are clear. Vocal cord asymme try is seen. No abnorm ality is seen corres pondin g to the focal hyperm etabol ism is seen in the region of the right cricoi d arch. There is a 1.5 cm, hyperm etabol ic left subman dibula r saliva ry lymph node. There is a 5 mm hyperm etabol ic nodule in the tail of the right paroti d gland. CHEST: AIRWAY S AND LUNGS: Trache a, princi pal bronch i and major bronch ial branch es are patent and normal . Fibrot ic change s are seen in the left upper lobe. There is a 1.6 cm diamet er nodule in the left upper lobe. It shows no hyperm etabol ism. No other lung nodule or mass is seen. MEDIAS TINUM: Limite d evalua tion due to absenc e of IV contra st. No medias tinal lympha denopa thy. Aorta shows athero sclero tic calcif icatio ns with normal calibe r. SVC, pulmon tonya arteri es, pulmon tonya veins and their major branch es and tribut salome are normal . Mac ry artery calcif icatio ns are noted. PLEURA AND CHEST WALL: No pleura l effusi on or mass. No chest wall abnorm ality. ABDOME N: UPPER ABDOMI NAL ORGANS : Liver, gallbl adder, spleen , pancre as, adrena ls and both kidney s are normal . BOWEL AND MESENT PEPPER: Stomac h, small bowel and colon are normal . No mesent alyssia lympha denopa thy or perito messi free fluid. RETROP ERITON EUM:Li mited evalua tion due to absenc e of IV contra st. Aorta shows athero sclero tic calcif icatio ns with normal aortic calibe r. IVC and branch es are normal . No retrop eriton eal lympha denopa thy. BODY WALL AND MUSCUL OSKELE UDAY STRUCT URES: Degene rative change s of the lumbar spine are noted. Anteri or abdomi nal wall is normal . PELVIS : PELVIC CAVITY : Urinar y bladde r and rectos igmoid are normal . Uterus is surgic ally absent . Ovarie s are not visual ized. No pelvic or inguin al lympha denopa thy, mass or fluid. MUSCUL OSKELE UDAY STRUCT URES: Normal . COMBIN ED IMPRES DAMARI: 1. Signif icantl y hyperm etabol ic left subman dibula r lymph node. 2. Mildly hyperm etabol ic nodule in the tail of the right paroti d gland. 3. Focal hyperm etabol ism in the right cricoi d arch. No corres pondin g abnorm ality is seen. Signif icance is not clear. 4. No eviden ce of neopla stic spread is seen elsewh ere in the neck, chest, abdome n or pelvis . Interp reted By: Vicki Allen MD Electr onical ly Signed By: Vicki Allen MD on 022 12:[address] Rad[facility] [address], [address], 11/08/2021 15:54:08 04/02/19 24 04/02/2023 PET-C T, skull base to mid-t high scan [place] [id number] [place] [address] Paticarrington t Name: CATALINO Nye Paticarrington t : [address] Orderi ng Provid er: RICHY VIRGEN EXAM DATE: 2023 EXAM: PET-CT TUMOR SKULL BASE-M ID THIGH SUB ST CLINIC AL INFORM ATION: Head and Neck Cancer - Restag ing. Primar y in the left subman dibula r saliva ry gland. PROCED URE: Baseli ne blood glucos e level was 99 mg/dL. 13.6 mCi F-18 FDG ([facility] 49703- 0511-3 0) was inject ed IV. After an uptake time of 61 minute s, skull base to midthi gh PET imagin g was perfor med. This was follow ed by a low dose attenu ation correc tion/a natomi c locali zation CT from lower craniu m throug h the midthi gh levels withou t IV or oral contra st. The patien t did not requir e sedati on for this exam. COMPAR JOSE DAVID: None FINDIN GS ON PET WITH CT CORREL ATION: HEAD AND NECK: 1. Previo usly seen left subman dibula r lymph node has resolv ed. No hyperm etabol ism is seen. 2. Amorph ous tissue anteri or to the left caroti d sheath . This image 56 of series 2 and 8. SUV = 4.2. It was not presen t before . 3. Previo usly seen hyperm etabol ic nodule in the right paroti d gland. Size = 1.3 cm. SUV = 14.5. It has increa sed in size and shows more intens e hyperm etabol ism. 4. Focal area of increa sed metabo lism in the title assistant ior portio n of the cricoi d cartil age on the right. SUV = 5.2. No corres pondin g abnorm ality on CT. UPPER LIMBS: No abnorm al areas of F-18 FDG uptake are seen. CHEST: Normal uptake of F-18 FDG is noted in the myocar dium. No abnorm al areas of F-18 FDG uptake are seen. ABDOME N: Normal uptake of F-18 FDG is noted in the liver, spleen , bowel and kidney s along with excret ion into the ureter s. No abnorm al areas of F-18 FDG uptake are seen. PELVIS : Normal excret ory collec tion of F-18 FDG is noted in the urinar y bladde r. No abnorm al areas of F-18 FDG uptake are seen. LOWER LIMBS: No abnorm al areas of F-18 FDG uptake are seen. ADDITI ONAL SIGNIF ICANT CT FINDIN GS: Calcif ied nonhyp ermeta bolic mass is seen in the right lung apex. Fibrot ic change s are seen in the left lung apex. No hyperm etabol ism is seen. COMBIN ED IMPRES DAMARI: 1. Resolu tion of the previo usly seen left subman dibula r lymph node. 2. Amorph ous soft tissue at level 2 on the left side. It may be postop erativ e. It shows some hyperm etabol ism. Recurr ence cannot be ruled out. 3. Increa se in size and metabo lism of the nodule in the right paroti d tail. 4. Stable hyperm etabol ic focus in the title assistant ior portio n of the cricoi d cartil age on the right side. Clinic al signif icance is doubtf ul. Interp reted By: Vicki Allen MD Electr onical ly Signed By: Vicki Allen MD on 024 1:52 PM [email or web address] [facility] [address] [facility], [place], [address], 04/02/2023 14:48:38 05/04/19 24 02/26/2023 CT, neck, soft tissu e, w/o contr ast No observ ation record ed. BARCODE Not Available 2023 08:46:48 05/05/19 24 04/21/2023 elect gayatri urrutia am No observ ation record ed. [email or web address] Not Available 2023 09:17:19 02/01/20 24 02/01/2024 PET-C T, skull base to mid-t high scan [facility] [address] [place] [address], [place] [address] Patien t Name: CATALINO Nye Patien t : [address] Orderi ng Provid er: RICHY VIRGEN EXAM DATE: 2023 EXAM: PET-CT TUMOR SKULL BASE-M ID THIGH INT ST CLINIC AL INFORM ATION: Head and Neck Cancer - Restag ing PROCED URE: Baseli ne blood glucos e level was 95 mg/dL. 12.8 mCi F-18 FDG ([facility] [id number]- 0511-3 0) was inject ed IV. After an uptake time of 51 minute s, skull base to midthi gh PET imagin g was perfor med. This was follow ed by a low dose attenu ation correc tion/a natomi c locali zation CT from lower craniu m throug h the midthi gh levels withou t IV or oral contra st. The patien t did not requir e sedati on for this exam. Compar jose david: PET/CT 024 FINDIN GS ON PET WITH CT CORREL ATION: HEAD AND NECK: Focal hyperm etabol ism in the vicini ty of the left neck at the tip of the cricoi d cartil age, SUV 6.8. Grossl y unchan ged. Simila r smalle r lesion on the right side at the same level which was presen t on retros pectiv e review of the prior study. There is hyperm etabol ism of the facet joint on the left at C3-4 likely due to active DJD. Previo usly noted hyperm etabol ic lesion in the right paroti d gland is no longer visual ized. There is activi ty dorsal to both subman dibula r glands with no defini te CT correl ate. Previo usly noted UPPER LIMBS: No abnorm al areas of F-18 FDG uptake are seen. CHEST: Normal uptake of F-18 FDG is noted in the myocar dium. No abnorm al areas of F-18 FDG uptake are seen. Stable calcif ic lesion in the right apex with left apical pleura l thicke mariangel. Neithe r area shows hyperm etabol ic activi ty. ABDOME N: Normal uptake of F-18 FDG is noted in the liver, spleen , bowel and kidney s along with excret ion into the ureter s. No abnorm al areas of F-18 FDG uptake are seen. PELVIS : Normal excret ory collec tion of F-18 FDG is noted in the urinar y bladde r. No abnorm al areas of F-18 FDG uptake are seen. LOWER LIMBS: No abnorm al areas of F-18 FDG uptake are seen. IMPRES DAMARI: 1. Persis tent subcen timete r mildly hyperm etabol ic nodes in the neck. Of note is interv al improv ement or cleari ng of the larges t lesion involv ing the right paroti d 2. No suspic ious findin gs elsewh ere in the chest, abdome n, and pelvis Interp reted By: Beny Bella MD Electr onical ly Signed By: Beny Bella MD on 2023 12:33 PM [email or web address] [facility] [address] [place], [address], 02/01/2024 13:03:53 Result Notes None recorded. Problems No Known Problems Procedures Surgical History Date Name Laterality Status Provider Name and Address Organization Details Recorded Time 10/26/19 22 Laryngoscopy Flex completed Ramya Dotson [facility] 10/25/2021 14:54:18 03/09/19 22 excision of mass completed Ariana Rosario [facility] 10/25/2021 14:28:42 03/09/19 05 procedure on lung completed Ariana Rosario [facility] 10/25/2021 14:28:24 procedure on nose completed Nataly Caro [facility] 04/29/2023 15:23:08 Imaging Results None recorded. Procedure Notes None recorded. Medical Equipment None Reported. Allergies No known drug allergies Medications Name Sig Start Date Stop Date Status Note LastModified by Organization Details LastModified Time desonide 0.05 % topical cream As Directed 2008 active Instructi ons: apply to affected area on face bid x2 weeks prn;Frequ ency: as direct.;M edication Descripti on: desonide topical; Dosage:as directed; Route:top ical; refills:1 ; Quantity: 30gm cream Not Available Not Available Not Available hydrocodon e 5 mg-acetami nophen 325 mg tablet active Not Available Not Available No t Available omeprazole 40 mg capsule,de layed release active Not Available Not Available Not Available pravastati n 80 mg tablet active Not Available Not Available Not Available metronidaz ole 0.75 % lotion active Not Available Not Available Not Available levothyrox ine 50 mcg tablet active Not Available Not Available Not Available hydrocodon e 7.5 mg-acetami nophen 325 mg tablet Take 1 tablet every 6 hours by oral route. active Not Available Not Available No t Available estradiol 0.5 mg tablet active Not Available Not Available Not Available azelastine 137 mcg (0.1 %) nasal spray active Not Available Not Available Not Available albuterol sulfate HFA 90 mcg/actuat ion aerosol inhaler active Not Available Not Available Not Available ondansetro n 4 mg disintegra ting tablet Place 1 tablet twice a day by transling ual route. active Not Available Not Available No t Available doxycyclin e hyclate 100 mg tablet active Not Available Not Available Not Available cyclobenza indu 5 mg tablet active Not Available Not Available Not Available Stiolto Respimat 2.5 mcg-2.5 mcg/actuat ion solution for inhalation active Not Available Not Available N ot Available Bevespi Aerosphere 9 mcg-4.8 mcg HFA aerosol inhaler active Not Available Not Available Not Available Vitals Date Recorded Body height Body temperature Oxygen saturation Oxygen saturation in Arterial blood by Pulse oximetry Heart rate Body mass index (BMI) Body weight Systolic blood pressure Diastolic blood pressure Provider Name and Address Organization Details Last Updated DateTime 4 157.48 cm 98.4 [degF] 98 % 98 % 84 /min 24.1 kg/m2 49198.1 9 g 132 mm[Hg] 73 mm[Hg] Nataly Caro [facility] 4 15:24:31 Date Recorded Body weight Body temperature Heart rate Systolic blood pressure Diastolic blood pressure Provider Name and Address Organization Details Last Updated DateTime 10/25/2021 92678.6 6 g 97.4 [degF] 88 /min 113 mm[Hg] 64 mm[Hg] Ariana Rosario [facility] 14:31:44 Social History None recorded. Functional Status None recorded. Mental Status None recorded. Family History Nothing Reported. Medical History No medical history recorded. Gynecological HistoryNo gynecological history recorded. Obstetrics History GPAL:G 0 P 0 0 0 0 Past Encounters Encounter ID Performer Location Encounter Start Date Encounter Closed Date Diagnosis/Indication Diagnosis SNOMED-CT Code Diagnosis ICD10 Code Diagnosis Note [id number] MD LIBRA JAIME III RD [address] [place] [address] 10/25/2021 13:59:54 10/28/2021 07:57:26 Lymphadenopathy 53906248 R59.0 Metastatic squamous cell carcinoma 809642651 C77.0 Denture present 08993789 5 Z97.2 [id number] MD LIBRA JAIME III [address] [place] [address] 04/29/2023 14:55:00 05/05/2023 14:20:30 Metastatic squamous cell carcinoma 779316221 C77.0 Lymphadenopathy 89671202 R59.0 Denture present 59009618 5 Z97.2 Mass of ri ght parotid gland 9620367266 6192976 R22.1 [id number] BENJY LOVELL III, MD SURGERY SCHEDULE [address] [place] [address] 05/11/2023 08:57:26 05/11/2023 09:04:01 Health Concerns Section Related Observation LastModified by Organization Detai ls LastModified Time None Recorded Concern Status LastModified by Organization Details LastModified Time None Recorded Advance Directives Directive None Recorded Payers Insurance Date Sequence Insurance Name Policy Number Policy Spann Covered Member ID Spann Member ID Guarantor Name 01/29/2024 1 [employer] (MEDICARE REPLACEMENT/A DVANTAGE - PPO) Catalino Pathak [id number] Catalino Pathak Notes Date Note Type Note Provider Name and Address Organization Details Recorded Time 10/25/2021 text/html Catalino comes in today for an evaluation of metastatic squamous cell carcinoma. She had a recent neck biopsy on the left side. Catalino states that she has been doing very well since last seen. She denies any pain or discomfort from the area of mass removal. Catalino does complain of possible reflux saying that her throat will often burn. She has not had any other problems with her throat or referred otalgia. - 2004 surgery for lung cancer ,left lung and left top rib removed . BENJY LVOELL III, MD [facility] [place], [address], [facility] 10/25/2021 17:05:51 04/29/2023 text/html Catalino visits us in office today to follow up on her metastatic squamous cell carcinoma. Her PET scan shows an that her right parotid mass has increased in size. Also a small mass in the right cricoid region and left carotid sheath is noted. She often has pain across the right side of her neck most mornings. She is concerned about the recent findings of her right neck mass. BENJY LOVELL III, MD [address] [place] [address] [place], [address], [facility] 04/29/2023 16:46:11 OBGyn Episode No OBEpisode recorded.
--- NOTE | 2024-08-12 11:30 | CT_ITS ---
FINAL REPORT TECHNIQUE: Thin section axial images were obtained from the thoracic inlet through the upper abdomen after intravenous contrast injection. Reconstruction images were obtained from the axial data. Exam was performed using dose reduction technique. CLINICAL HISTORY: head and neck cancer COMPARISON: 10/29/2023 FINDINGS: There is no mediastinal, hilar, or axillary lymphadenopathy. There are stable post operative changes to the left upper lung with stable pleural effusion. There is no pericardial effusion. There is a stable calcified mass at the right apex. There are a few scattered nodular opacities in the right upper lobe which are similar to prior. For example, small nodule on series 2, image 19 measures 7 mm, previously measured 5 mm. The difference is likely related to slice selection. For findings regard the upper abdomen, please see report from yesterday CT abdomen and pelvis. No acute osseous abnormality. IMPRESSION: Stable exam of the chest with stable treatment related changes and chronic findings. Reviewed, Interpreted and Dictated by Veronica Aguero MD Transcribed by Glenda Pandya Authenticated and [facility]
[2024-08-12] MEDS: SODIUM CHLORIDE 0.9% 10ML SYR (RAD ONLY) 10 ML IV (11:38)
[2024-08-12] MEDS: IOPAMIDOL-370 (76%);100ML BOTTLE 75 ML IV (11:39)
== END 2024-08-12 23:59 | disposition home or self-care (01) ==
LOC: RAD 11:17
PROVIDERS: PCP Family Medicine; Visit Provider Internal Medicine Medical Oncology
DX: C76.0 Malignant neoplasm of head, face and neck (principal); J90 Pleural effusion, not elsewhere classified; R91.8 Other nonspecific abnormal finding of lung field; R59.1 Generalized enlarged lymph nodes
CPT/HCPCS: 71260; Q9967

== ENCOUNTER 2024-10-25 08:19 | Outpatient (CLI) | payer MEDICARE, SELFPAY ==
--- OUTSIDE RECORDS SUMMARY | 2024-07-06 05:00 | XMS_ITS ---
Author Organization [facility] Address [address] [facility] [address] [place] [id number] Care Team Providers Care Curb Builder Name Role Phone Alvaro Dallin Unavailable [phone] Allergies No Known Allergies REASON FOR VISIT [...] Provider Diagnosis [place] [address] [place] [address] [place] [phone] 07/06/2024 Dallin John Chronic obstructive pulmonary disease, [...] Molina ry, 01/05/2025 09:00:00 AM, [address] [place] [facility] [address], [address] [place] [address], [id number], Progress Notes * ALEIDA BENJAMINTYB: 0 (74 yo F)Acc No.[id number]:07/06/2024 Progress Notes Patient: CATALINO STOVALL Provider: Marcelina John M.D. :1950 A ge:74 Y S ex:Female Date:07/06/2024 Address:[address] [place] [address], [facility] Subjective: * Chief Complaints: * 1 . [...] ixed hyperlipidemia - E78.2 5 . B RI 20.0-20.9, adult - Z68.20 Plan: * Treatment: [...] * Images: Billing Information: * Visit Code: 06553 Office Visit, Est Pt., Level 4. * Procedure Codes: G2211 Complex e/m visit add on. 3074F SYST BP LT 130 MM HG. 3078F DIAST BP < 80 MM HG. * Electronic signature of Trini John MD on 10/25/2024 at 08:31 AM EDT Sign off status: Pending * Provider: Marcelina John M.D. Date: 0 07/06/2024 Generated for Teofilo catherine/Ankush/eTransmitting on: 0 10/25/2024 08:31 AM EDT History and Physical Notes * [...]
--- OUTSIDE RECORDS SUMMARY | 2024-09-06 11:15 | XMS_ITS ---
Author Organization Valeria Address 1210 [facility] 36 [facility] [address] [place] [id number] Care Team Providers Care Furnace Loader Name Role Phone Dallin John Unavailable [phone] Popeye Zarate Unavailable [phone] Allergies No Known Allergies REASON FOR VISIT [...] Duration: 90 days Active Vital Signs Weight 116 lbs 09/06/2024 Blood pressure systolic 114 mm Hg 09/07/19 25 Blood pressure diastolic 68 mm Hg 025 Heart Rate 70 /min 09/06/2024 Height 62 in 09/06/2024 BMI 21.21 kg/m2 09/06/2024 Encounters Encounter Location Date Provider Diagnosis [facility] 36 [facility] [address] [place] [phone] 09/06/2024 Popeye Zarate Dermatitis L30.9 and BMI [...] Molina ry, 01/05/2025 09:00:00 AM, [address] [place] [facility] [address], [address], [place], [place], [id number], Progress Notes * ALEIDA BENJAMINTYB: 0 (74 yo F)Acc No.[id number]:09/06/2024 Progress Notes Patient: CATALINO STOVALL Provider: Popeye Zarate M.D. :1950 A ge:74 Y S ex:Female Date:09/06/2024 Address:[address] [place] [address], [facility] Subjective: * Chief Complaints: * 1 . [...] ermatitis - L30.9 (Primary) 2 . B [place] 21.0-21.9, adult - Z68.21 ? Plan: * Treatment: * Procedure Codes: G 2211 Complex e/m visit add on, 1036F TOBACCO NON-USER, G8420 BMI<30 AND >=22 CALC & DOCU, G5845 BP SCR PRFRM RCMDD DEFIND SCR INTVL, G8752 MOST RECENT SYSTOLIC BP < 140MM HG, G8754 MOST RECENT DIASTOLIC BP < 90MM HG * Follow Up: 1 Week,prn * Images: Billing Information: * Visit Code: 57594 Office Visit, Est Pt., Level 3. * Procedure Codes: G2211 Complex e/m visit add on. 1036F TOBACCO NON-USER. G8420 BMI<30 AND >=22 CALC & DOCU. G8783 BP SCR PRFRM RCMDD DEFIND SCR INTVL. G8752 MOST RECENT SYSTOLIC BP < 140MM HG. G8754 MOST RECENT DIASTOLIC BP < 90MM HG. * Electronic signature of Popeye Zarate MD on 10/25/2024 at 08:31 AM EDT Sign off status: Pending * Provider: Popeye Zarate M.D. Date: 09/06/2024 Generated for Teofilo catherine/Ankush/Robertitting on: 10/25/2024 08:31 AM EDT History and Physical [...]
--- OUTSIDE RECORDS SUMMARY | 2024-09-20 10:10 | XMS_ITS ---
Author Organization [facility] Address [facility]0 [address] [place], [place] [phone] Care Team Providers Care Supervisor Home Restoration Service Name Role Phone Dallin John Unavailable [phone] REASON FOR VISIT due cas, col, dexa Encounters Encounter Location Date Provider [facility]10 [facility] 36 [facility] [address] [place], [place] [phone] 09/20/2024 Dallin John Screening for breast cancer Z12.39 and Screening for osteoporosis Z13.820 Assessments Encounter Date Diagnosis (ICD Code) Assessment Notes Treatment Notes Treatment Clinical Notes Section Notes 09/20/2024 Screening for breast cancer (ICD-10 - Z12.39) 09/20/2024 Screening for osteoporosis (ICD-10 - Z13.820) Plan Of Treatment Pending Test Test Name Order Date Bone density 09/20/2024 Mammogram 09/20/2024 Next Appt Details Provider Name:Dallin Molina ry, 01/05/2025 09:00:00 AM, 1210 [facility] 36 [facility], [address], [place], [place], [phone], Progress Notes * MANDO PATHAKADOB: 0 (74 yo F)Acc No.[id number]:09/20/2024 Patient: CATALINO STOVALL :1950 A ge:74 Y S ex:Female Address:[address] [place] [address], [place], [address] Subjective: * Chief Complaints: * D ue [...] 2022. Sent to Rachelle for referral to [facility] * Procedure Codes: * true * Date: Generated for eTofilo catherine/Ankush/Robertitting on: 0 10/25/2024 08:31 AM EDT
--- NOTE | 2024-10-25 08:22 | XR_ITS ---
FINAL REPORT TECHNIQUE: Bone densitometry calculations of the lumbar spine and bilateral hips were obtained. CLINICAL HISTORY: post menopausal COMPARISON: None FINDINGS: Using L1-4, the bone mineral density of the spine is 1.029 g/cm2, corresponding to T-score of -0.2. Using the left hip, the bone mineral density of the femoral neck is 0.663 g/cm2, corresponding to a T-score of -2.3. Using the right hip, the bone mineral density of the femoral neck is 0. 764 g/cm?, corresponding to a T-score of -1.5. NOTE: T-score: Standard deviation compared with peak bone mass of young adult mean. *Following the recommendations of the International Society of Bone densitometry, classification of hip BMD is based on the lower of two T-scores; total hip or femoral neck. IMPRESSION: Diminished bone mineral density of the bilateral hips consistent with osteopenia. Normal bone mineral density of the lumbar spine. Reviewed, Interpreted and Dictated by Nathaniel Hogue MD Transcribed by Reny Burnett Authenticated and [facility]
--- NOTE | 2024-10-25 08:22 | MM_ITS ---
PROCEDURE INFORMATION: Exam: MG Bilateral Screening 3D Mammography Exam date and time: 10/25/2024 8:39 AM Age: 74 years old Clinical indication: Screening examination TECHNIQUE: Imaging protocol: Bilateral Screening tomosynthesis and 2D mammography including computer-aided detection (CAD) when performed. COMPARISON: 1. MG MM DIG SCREENING MAMM BI W/CAD 07/01/2022 9:46 AM 2. MG MM DIG SCREENING MAMM BI W/CAD 01/11/2020 10:22 AM FINDINGS: MAMMOGRAPHY: Breast composition: The breasts are heterogeneously dense, which may obscure small masses. Mass: None. Architectu ral distortion: None. Calcifications: No suspicious calcifications. Asymmetric density: None. Skin thickening: None. Axillary adenopathy: None. Other findings: . IMPRESSION: No mammographic evidence of malignancy. Annual screening is recommended unless otherwise clinically indicated. ASSESSMENT: BI-RADS Category 1: Negative.
--- OUTSIDE RECORDS SUMMARY | 2024-10-25 08:32 | XMS_ITS | Patient Health Record ---
Author Organization [facility] Address [address] [facility] [address] [place] [id number] Care Team Providers Care Sales Enablement Consultant Name Role Phone Dallin John Unavailable [phone] Popeye Zarate Unavailable [phone] Allergies No Known Allergies Results Component Value Reference Range Notes P-TSH Reviewed date:01/12/2024 11:29:47 AM Interpretation: Performing Lab: Notes/Report: Test performed by [facility] [address] [place] [address] , [address], [place] [address] Drew Meyer MD, Reading Interventionist CLIA: [id number] TSH 2.64 0.43-5.25 mU/L P-Lipid Panel Reviewed date:01/12/2024 11:29:47 AM Interpretation: Performing Lab: Notes/Report: Test performed by [facility] [address] [place] [address] , [address], [place] [address] Drew Meyer MD, Reading Interventionist CLIA: [id number] Cholesterol 148 <200 mg/dL Triglycerides 75 <150 [...] result was 1.1 LDL Cholesterol Patient History P-T4 Free (thyroxine) Reviewed date:01/12/2024 11:29:47 AM Interpretation: Performing Lab: Notes/Report: Test performed by [facility] [address] , [place] [address] Drew Meyer MD, Reading Interventionist CLIA: [id number] Thyroxine Free (free T4) 1.09 0.86-1.76 ng/dL P-Comprehensive Metabolic Pa josse (CMP) Reviewed date:01/12/2024 11:29:47 AM Interpretation: Performing Lab: Notes/Report: Test performed by [facility] [address] , [address], [place] [address] Drew Meyer MD, Reading Interventionist CLIA: [id number] Sodium 133 135-145 mmol/L Potassium 4.5 3.5-5.3 [...] 0.2 <0.2-1.2 mg/dL A/G Ratio 1.2 1.1-2.5 CBC Venipuncture (in house) Reviewed date:01/06/2024 02:44:15 [...] - 38 platlet 323 100 - 400 Reason For Referral No Information Medications Medication SIG (Take, Route, Frequency, Duration) [...] application Externally twice a day 09/06/2024 Active Immunizations Vaccine Route Administration Date Status [...] Problem Status W/U Status Risk Notes Problem Rosacea (582688494) Rosacea (L71.9) Active conf irmed Problem Acute exacerbation of chronic obstructive airways disease (166896157) COPD exacerbation (J44.1) Active confirmed Problem Malignant neopla sm of head, face and neck (C76.0) Active confirmed Problem Mixed hyperlipidemia (385484729) Mixed hyperlipidemia (E78.2) Active confirmed Problem Chronic pain (93797440) Other chronic pain (G89.29) Active confirmed Problem Acquired hypothyroidism (179460956) Acquired hypothyroidism (E03.9) Active confirmed Problem COPD - Chronic obstructive pulmonary disease (78483967) Chronic obstructive pulmonary disease, unspecified COPD type (J44.9) Active confirmed Problem Anemia (412159195) Anemia, unspecified type (D64.9) Active confirmed Problem Hypothyroidism (82072195) Hypothyroidism, unspecified type (E03.9) Active confirmed Problem Thyromegaly (3510759) Thyromegaly (E01.0) Active confirmed Problem Laryngopharyngeal reflux (788648852) LPRD (laryngopharyngeal reflux disease) (K21.9) Active confirmed Problem Asthma without status asthmaticus (21854250) Asthma, unspecified asthma severity, unspecified whether complicated, unspecified whether persistent (J45.909) Active confirmed Problem Gastroesophageal reflux disease (607920105) Gastroesophageal reflux disease, unspecified whether esophagitis present (K21.9) Active confirmed Problem Inflammation of joint of shoulder region (551118550) Arthritis of shoulder region, 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) Active confirmed Vital Signs Heart Rate 70 /min 09/06/2024 Blood pressure diastolic 68 mm Hg 09/06/2024 Height 62 in 09/06/2024 Blood pressure systolic 114 mm Hg 09/06/2024 Weight 116 lbs 09/06/2024 BMI 21.21 kg/m2 09/06/2024 Encounters Encounter Location Date Provider Diagnosis [facility] [address] [place] [address] [place] [phone] 01/06/2024 Dallin [place] Hypothyroidism, unspecified type E03.9 ; Gastroesophageal reflux disease, unspecified whether esophagitis present K21.9 ; Mixed hyperlipidemia E78.2 ; Productive cough R05.8 and Anemia, unspecified type D64.9 [facility] [address] [place] [id number] 07/06/2024 Dallin [place] Chronic obstructive pulmonary disease, unspecified COPD type J44.9 ; LPRD (laryngopharyngeal reflux disease) K21.9 ; Hypothyroidism, unspecified type E03.9 ; Mixed hyperlipidemia E78.2 and BMI 20.0-20.9, adult Z68.20 [facility] [address] [place] [address] [place] [id number] 09/06/2024 R Omid Gileet Dermatitis L30.9 and BMI 21.0-21.9, adult Z68.21 [facility] [address] [place] [address] [place] [phone] 09/20/2024 Dallin [place] Screening for breast cancer Z12.39 and Screening for osteoporosis Z13.820 Assessments Encounter Date Diagnosis (ICD Code) Assessment Notes Treatment Notes Treatment Clinical Notes Section Notes 01/06/2024 Hypothyroidism, unspecified type (ICD-10 - E03.9) 01/06/2024 Gastroesophageal reflux disease, unspecified whether esophagitis present (ICD-10 - K21.9) 07/06/2024 Chronic obstructive pulmonary disease, unspecified COPD type (ICD-10 - J44.9) 09/06/2024 Dermatitis (ICD-10 - L30.9) 09/06/2024 BMI 21.0-21.9, adult (ICD-10 - Z68.21) 09/20/2024 Screening for breast cancer (ICD-10 - Z12.39) 09/20/2024 Screening for osteoporosis (ICD-10 - Z13.820) 07/06/2024 LPRD (laryngopharyngeal reflux disease) (ICD-10 - K21.9) 07/06/2024 Hypothyroidism, unspecified type (ICD-10 - E03.9) 01/06/2024 Mixed hyperlipidemia (ICD-10 - E78.2) 01/06/2024 Productive cough (ICD-10 - R05.8) 07/06/2024 Mixed hyperlipidemia (ICD-10 - E78.2) 01/06/2024 Anemia, unspecified type (ICD-10 - D64.9) 07/06/2024 BMI 20.0-20.9, adult (ICD-10 - Z68.20) Plan Of Treatment Pending Test Test Name Order Date Bone density 09/20/2024 Mammogram 09/20/2024 Next Appt Details Provider Name:Dallin Molina ry, 01/05/2025 09:00:00 AM, [address], [place], [place], [id number], Insurance Providers Payer Name Payer Address Payer Phone Subscriber Number Group Number Insured Name Patient Relationship to Insured Coverage Start Date Coverage End Date [employer] (MEDICAR E) [address] [address] [place] [address] [id number] CATALINO BENJAMIN Self - patient is the [...]
--- OUTSIDE RECORDS SUMMARY | 2024-10-25 08:32 | XMS_ITS | Clinical Summary ---
Author Organization [facility] Address [address] [place] [address] Care Team Providers Care Supervisor [employer] Name Role Phone Leticia Kang MARAL Primary Care Provider +1- [phone] Allergies No known active allergies Medications estradiol (ESTRACE) 0.5 MG tablet Take 0.5 mg by mouth Daily. Active diclofenac (VOLTAREN) 75 MG EC tablet Take 75 mg by mouth 2 (Two) Times a Day. Active levothyroxine (SYNTHROID, LEVOTHROID) 50 MCG tablet Take 50 mcg by mouth Daily. Active omeprazole (priLOSEC) 40 MG capsule Take 40 mg by mouth Daily. Active pravastatin (PRAVACHOL) 80 MG tablet Take 80 mg by mouth Daily. Active aspirin 81 MG EC tablet Take 81 mg by mouth Daily. Active albuterol (ACCUNEB) 1.25 MG/3ML nebulizer solution Take 1 ampule by nebulization Every 6 (Six) Hours As Needed for Wheezing. Active Active Problems Problem Noted Date Diagnosed Date Bulging of cervical intervertebral disc C5-6 06/2018 Family History Medical History Relation Name Comments Hypertension Father Hypertension Mother Cancer Sister colon Relation Name Status Comments Father Mother Sister colon Alive Social History Tobacco Use Types Packs/Day Years Used Date Smoking Tobacco: Former Cigarettes Q uit: 2005 Smokeless Tobacco: Never Alcohol Use Standard Drinks/Week Comments No 0 (1 standard drink = 0.6 oz pur e alcohol) AUDIT-C Answer Date Recorded Frequency of Alcohol Consumption Never 06/10/2018 Average Number of Drinks Not on file 019 Frequency of Binge Drinking Not on file 06/2018 Abuse Screen Answer Date Recorded Unsafe at Home or Work/School Not on file Feels Threatened by Someone? Not on file 11/2022 Does Anyone Keep You from Co ntacting Others or Doint Things Outside the Home? Not on file 12/15/2022 Physical Sign of Abuse Present Not on file 1 Housing Stability Answer Date Recorded Current Living Arrangements Not on file 11/2022 Potentially Unsafe Housing Conditions Not on [place] e 12/15/2022 Family and Community Support Answer Scooter e Recorded Help with Day-to-Day Activities Not on file 12/15/2022 Lonely or Isolated Not on file 12/15/2022 Employment Answer Date Recorded Do you want help finding or keeping work or a jenni b? Not on file 12/15/2022 Disabilities Answer Date Recorded Concentrating, Remembering, or Making Decisions Difficulty Not on file 12/15/2022 Doing Errands Independently Difficulty Not on fi le 12/15/2022 Education Answer Date Recorded Help with school or training? Not on file Preferred Language Not on file 12/15/2022 Comments Unknown Sex and Gender Information Value Date Recorded Sex Assigned at Not on file Legal Sex Female 9:58 AM EDT Gender Identity Not on file Sexual Orientation Not on file Last Filed Vital Signs Vital Sign Reading Time Taken Comments Blood Pressure 133/82 02/24/2014 8:22 AM EST Pulse 74 02/24/2014 8:22 AM EST Temperature 36.7 C (98.1 F) 02/24/2014 8:22 AM EST Respiratory Rate - - Oxygen Saturation 98% 02/24/2014 8:22 AM EST Inhaled Oxygen Concentration - - Weight 64.4 kg (142 lb) 06/10/2018 8:18 AM EDT Height 167.6 cm (5' 6 ) 06/10/2018 8:18 AM EDT Body Mass Index 22.92 06/10/2018 8:18 AM EDT Plan of Treatment Health Maintenance Due Date Last Done Comments DXA SCAN 1950 TDAP/TD VACCINES (1 - Tdap) 1969 MAMMOGRAM 1990 COLOGUARD 1995 COLON CANCER SCREENING 5 YEAR SIGMOIDOSCOPY 1995 COLONOSCOPY 1995 COL[address]AL CANCER SCREENING 1995 CT COLONOGRAPHY 1995 FECAL OCCULT BLOOD TEST 1995 FIT Testing (1 year) 1995 Pneumococcal Vaccine 50+ (1 of 1 - PCV) 01/16/2000 ZOSTER VACCINE (1 of 2) 01/16/2000 ANNUAL PHYSICAL 06/09/2018 HEPATITIS C SCREENING 06/09/2018 COVID-19 Vaccine (2023- season) 2023 INFLUENZA VACCINE 12/07/2024 Insurance MEDICARE ADVANTAGE Care Teams Supervisor [employer] Relationship Specialty Start Date End Date Leticia Kang APRN [address] [place] [address] PCP - General Family Medicine 06/07/18
== END 2024-10-25 23:59 | disposition home or self-care (01) ==
LOC: RAD 08:19
PROVIDERS: PCP Family Medicine; Visit Provider Family Medicine
DX: Z12.31 Encounter for screening mammogram for malignant neoplasm of breast (principal); M85.852 Other specified disorders of bone density and structure, left thigh; M85.851 Other specified disorders of bone density and structure, right thigh; R92.333 Mammographic heterogeneous density, bilateral breasts; Z13.820 Encounter for screening for osteoporosis; Z78.0 Asymptomatic menopausal state
CPT/HCPCS: 77063; 77067; 77080

== ENCOUNTER 2024-10-31 13:30 | Outpatient (CLI) | payer MEDICARE, SELFPAY ==
--- OUTSIDE RECORDS SUMMARY | 2024-07-06 05:00 | XMS_ITS ---
Author Organization [facility] Address [address] [facility] [address] [place] [id number] Care Team Providers Care Home Improvement Installer Name Role Phone Alvaro Dallin Unavailable [phone] Allergies No Known Allergies REASON FOR VISIT 6 months Medications Medication SIG (Take, Route, Frequency, Duration) Notes Start Date End Date Status Triamcinolone Acetonide 0.1 % 1 application Externally Twice a day 01/06/2024 Active Albuterol Sulfate (2.5 MG/3ML) 0.083% 3 ml as needed Inhalation every 6 hrs 09/28/2023 Active Levothyroxine Sodium 50 MCG 1 tab(s) ora lly once a day; Duration: 90 days Active Pravastatin Sodium 80 MG 1 tab(s) orally once a day; Duration: 90 days Active Omeprazole 40 MG 1 cap(s) orally once daily; Duration: 90 days Active Stiolto Respimat 2.5-2.5 MCG/ACT 2 puffs Inhalation Once a day; Duration: 90 days Active Vital Signs Blood pressure systolic 112 mm Hg 07/07/19 25 Blood pressure diastolic 62 mm Hg 025 Heart Rate 77 /min 07/06/2024 Height 62 in 07/06/2024 Weight 114.2 lbs 07/06/2024 BMI 20.89 kg/m2 07/06/2024 Encounters Encounter Location Date Provider Diagnosis [facility] [address] [place] [id number] 07/06/2024 Dallin John Chronic obstructive pulmonary disease, unspecified COPD type J44.9 ; LPRD (laryngopharyngeal reflux disease) K21.9 ; Hypothyroidism, unspecified type E03.9 ; Mixed hyperlipidemia E78.2 and BMI 20.0-20.9, adult Z68.20 Assessments Encounter Date Diagnosis (ICD Code) Assessment Notes Treatment Notes Treatment Clinical Notes Section Notes 07/06/2024 Chronic obstructive pulmonary disease, unspecified COPD type (ICD-10 - J44.9) 07/06/2024 LPRD (laryngopharyngeal reflux disease) (ICD-10 - K21.9) 07/06/2024 Hypothyroidism, unspecified type (ICD-10 - E03.9) 07/06/2024 Mixed hyperlipidemia (ICD-10 - E78.2) 07/06/2024 BMI 20.0-20.9, adult (ICD-10 - Z68.20) Plan Of Treatment Medication Medication Name Sig Start Date Stop Date Notes Levothyroxine Sodium 50 MCG 1 tab(s) ora lly once a day; Duration: 90 days Pravastatin Sodium 80 MG 1 tab(s) orally once a day; Duration: 90 days Omeprazole 40 MG 1 cap(s) orally once daily; Duration: 90 days Stiolto Respimat 2.5-2.5 MCG/ACT 2 puffs Inhalation Once a day; Duration: 90 days Next Appt Details Follow Up: 6 Months, Reason: Provider Name:Dallin Molina ry, 01/05/2025 09:00:00 AM, [address] [facility] [address], [address] [place] [address], [id number], Progress Notes * ALEIDA BENJAMINYTB: 0 (74 yo F)Acc No.[id number]:07/06/2024 Progress Notes Patient: CATALINO STOVALL Provider: Marcelina John M.D. :1950 A ge:74 Y S ex:Female Date:07/06/2024 Address:[address] [place] [address], [facility] Subjective: * Chief Complaints: * 1 . 6 months. * HPI: E ndocrinology: 74 year old female presents with c/o Hypothyroidism P t here for 6 mo f/u. Pt states she is doing well and does not have any concerns. C ardiology: c/o Hyperlipidemia P t is fasting today. * ROS: D ERMATOLOGY: no R lila. [...] day. Alcohol: no. * Medications: T aking Stiolto Respimat 2.5-2.5 MCG/ACT Aerosol Solution 2 puffs Inhalation Once a day , Taking Albuterol Sulfate (2.5 MG/3ML) 0.083% Nebulization Solution 3 ml as needed Inhalation every 6 hrs , Taking Levothyroxine Sodium 50 MCG Tablet 1 tab(s) orally once a day , Taking Pravastatin Sodium 80 MG Tablet 1 tab(s) orally once a day , Taking Omeprazole 40 MG Capsule Delayed Release 1 cap(s) orally once daily , Taking Triamcinolone Acetonide 0.1 % Cream 1 application Externally Twice a day , Discontinued Anoro Ellipta 62.5-25 MCG/ACT Aerosol Powder Breath Activated 1 puff(s) inhaled once a day , Discontinued Bevespi Aerosphere 9-4.8 MCG/ACT Aerosol 2 puffs Inhalation Twice a day , Discontinued Zithromax Z-Shaka 250 MG Tablet as directed Orally once daily , Discontinued Benzonatate 200 MG Capsule 1 capsule as needed Orally Three times a day , Medication List reviewed and reconciled with the patient * Allergies: N .K.D.A. Objective: * Vitals: W t: 114.2, Temp: 98.0, BP: 112/62, HR: 77, O2 Sat: 98% on RA, Nurse: roseann, Ht: 62, BMI:20.89. * Examination: G eneral Examination: General Appearance: N AD. H eart: R SR. L ungs:?clear to auscultation. P eripheral pulses: n ormal (2+) bilaterally. E xtremities:?no leg edema. Assessment: * Assessment: 1. C hronic obstructive pulmonary disease, unspecified COPD type - J44.9 2 .?LPRD (laryngopharyngeal reflux disease) - K21.9 3 . H ypothyroidism, unspecified type - E03.9 4 . M ixed hyperlipidemia - E78.2 5 . B MT 20.0-20.9, adult - Z68.20 Plan: * Treatment: 2. L PRD (laryngopharyngeal reflux disease) Refill Omeprazole Capsule Delayed Release, 40 MG, 1 cap(s), orally, once daily, 90 days, 90, Refills 1. 3. H ypothyroidism, unspecified type Refill Levothyroxine Sodium Tablet, 50 MCG, 1 tab(s), orally, once a day, 90 days, 90, Refills 1.? 4. M ixed hyperlipidemia Refill Pravastatin Sodium Tablet, 80 MG, 1 tab(s), orally, once a day, 90 days, 90, Refills 1. * Procedure Codes: G 2211 Complex e/m visit [place] on, [address]F SYST BP LT 130 MM HG, 3078F DIAST BP < 80 MM HG * Follow Up: 6 Months * Images: Billing Information: * Visit Code: 88878 Office Visit, Est Pt., Level 4. * Procedure Codes: G2211 Complex e/[place]. 3074F SYST BP LT 130 MM HG. 3078F DIAST BP < 80 MM HG. * Electronic signature of Trini John MD on 10/31/2024 at 01:41 PM EDT Sign off status: Pending * Provider: Marcelina John M.D. Date: 0 07/06/2024 Generated for Teofilo catherine/Ankush/eTransmitting on: 0 10/31/2024 01:41 PM EDT History and Physical Notes * HPI (History of Present Illness) Category Sub-Category Detail Notes Category Not es Endocrinology Hypothyroidism Pt here for 6 mo f/u. Pt states she is doing well and does not have any concerns Cardiology Hyperlipidemia Pt is fasting today Examination Category Sub-Category Detail Notes Category Not es General Examination Heart: RSR Lungs: clear to auscultatio n Extremities: no leg edema General Appearance: NAD Peripheral pulses: normal (2+) bilatera lly
--- OUTSIDE RECORDS SUMMARY | 2024-09-06 11:15 | XMS_ITS ---
Author Organization Valeria Address 1210 [facility] 36 [facility] [address] [place] [id number] Care Team Providers Care Ambulatory Care Name Role Phone Dallin John Unavailable [phone] Popeye Zarate Unavailable [phone] Allergies No Known Allergies REASON FOR VISIT left leg rash Medications Medication SIG (Take, Route, Frequency, Duration) Notes Start Date End Date Status Albuterol Sulfate (2.5 MG/3ML) 0.083% 3 ml as needed Inhalation every 6 hrs 09/28/2023 Active Triamcinolone Acetonide 0.1 % 1 application Externally Twice a day 01/06/2024 Active Omeprazole 40 MG 1 cap(s) orally once daily; Duration: 90 days Active Stiolto Respimat 2.5-2.5 MCG/ACT 2 puffs Inhalation Once a day; Duration: 90 days Active Betamethasone Dipropionate Aug 0.05 % 1 application Externally twice a day 09/06/2024 Active Levothyroxine Sodium 50 MCG 1 tab(s) ora lly once a day; Duration: 90 days Active Pravastatin Sodium 80 MG 1 tab(s) orally once a day; Duration: 90 days Active Vital Signs Blood pressure systolic 114 mm Hg 09/07/19 25 Blood pressure diastolic 68 mm Hg 025 Heart Rate 70 /min 09/06/2024 Height 62 in 09/06/2024 Weight 116 lbs 09/06/2024 BMI 21.21 kg/m2 09/06/2024 Encounters Encounter Location Date Provider Diagnosis [facility] 36 [facility] [address] [place] [id number] 09/06/2024 Popeye Zarate Dermatitis L30.9 and BMI 21.0-21.9, adult Z68.21 Assessments Encounter Date Diagnosis (ICD Code) Assessment Notes Treatment Notes Treatment Clinical Notes Section Notes 09/06/2024 Dermatitis (ICD-10 - L30.9) 09/06/2024 BMI 21.0-21.9, adult (ICD-10 - Z68.21) Plan Of Treatment Medication Medication Name Sig Start Date Stop Date Notes Betamethasone Dipropionate A ug 0.05 % 1 application Externally twice a day 09/06/2024 Next Appt Details Follow Up: 1 Week,prn, Reaso n: Provider Name:Dallin Molina ry, 01/05/2025 09:00:00 AM, [address] [facility] [address], [address], [place], [place], [phone], Progress Notes * ALEIDA BENJAMINTYB: 0 (74 yo F)Acc No.[id number]:09/06/2024 Progress Notes Patient: CATALINO STOVALL Provider: Popeye Zarate M.D. :1950 A ge:74 Y S ex:Female Date:09/06/2024 Address:[address] [place] [address], [facility] Subjective: * Chief Complaints: * 1 . Left leg rash. * HPI: D ermatology: 74 year old female presents with c/o rash P t is here for a rash on her left leg. Pt states this stared Thursday. Rash is not pruritic. * ROS: C ARDIOLOGY: no D izziness. n o C hest pain. G ASTROENTEROLOGY: no N ausea. n o V omiting. n o D iarrhea.? U ROLOGY: no D ifficulty urinating. n [...] Cancer Removal - Dr. Zabala 06/11/2023. * Family History: F ather: unknown, diagnosed with Hypertension, Heart Disease. M other: unknown, diagnosed with Cancer, Hypertension, Heart Disease. * Social History: C URRENT TOBACCO USE: No . C affeine: yes, frequency: 4 cups a day. Alcohol: no. * Medications: T aking Levothyroxine Sodium 50 MCG Tablet 1 tab(s) orally once a day , Taking Pravastatin Sodium 80 MG Tablet 1 tab(s) orally once a day , Taking Omeprazole 40 MG Capsule Delayed Release 1 cap(s) orally once daily , Taking Albuterol Sulfate (2.5 MG/3ML) 0.083% Nebulization Solution 3 ml as needed Inhalation every 6 hrs , Taking Triamcinolone Acetonide 0.1 % Cream 1 application Externally Twice a day , Taking Stiolto Respimat 2.5-2.5 MCG/ACT Aerosol Solution 2 puffs Inhalation Once a day , Medication List reviewed and reconciled with the patient * Allergies: N .K.D.A. Objective: * Vitals: W t: 116, Temp: 97.7, BP: 114/68, HR: 70, Nurse: kimi, Ht: 62, BMI:21.21. * Examination: D ermatology: Extremities: S cattered petechiae and small red macules on the left lower leg on the sun exposed areas. No excoriations. No erythema or tenderness.? R ight leg is clear. Assessment: * Assessment: 1. D ermatitis - L30.9 (Primary) 2 . B [place] 21.0-21.9, adult - Z68.21 ? Plan: * Treatment: * Procedure Codes: G 2211 Complex e/m visit add on, 1036F TOBACCO NON-USER, G8420 BMI<30 AND >=22 CALC & DOCU, G7383 BP SCR PRFRM RCMDD DEFIND SCR INTVL, G8752 MOST RECENT SYSTOLIC BP < 140MM HG, G8754 MOST RECENT DIASTOLIC BP < 90MM HG * Follow Up: 1 Week,prn * Images: Billing Information: * Visit Code: 90695 Office Visit, Est Pt., Level 3. * Procedure Codes: G2211 Complex e/m visit add on. 1036F TOBACCO NON-USER. G8420 BMI<30 AND >=22 CALC & DOCU. G8783 BP SCR PRFRM RCMDD DEFIND SCR INTVL. G8752 MOST RECENT SYSTOLIC BP < 140MM HG. G8754 MOST RECENT DIASTOLIC BP < 90MM HG. * Electronic signature of Popeye Zarate MD on 10/31/2024 at 01:41 PM EDT Sign off status: Pending * Provider: Popeye Zarate M.D. Date: 09/06/2024 Generated for Teofilo catherine/Ankush/Robertitting on: 10/31/2024 01:41 PM EDT History and Physical Notes * HPI (History of Present Illness) Category Sub-Category Detail Notes Category Not es Dermatology rash Pt is here for a rash on her left leg. Pt states this stared Thursday. Rash is not pruritic Examination Category Sub-Category Detail Notes Category Not es Dermatology Extremities: Scattered petech iae and small red macules on the left lower leg on the sun exposed areas. No excoriations. No erythema or tenderness. Right leg is clear
--- OUTSIDE RECORDS SUMMARY | 2024-09-20 10:10 | XMS_ITS ---
Author Organization Whitney Address 1210 [facility] 36 [facility] [address] [place] [phone] Care Team Providers Care Rail Signal Designer Name Role Phone Alvaro Dallin Unavailable [phone] Results Component Value Reference Range Notes Bone density Reviewed date:10/26/2024 11:06:39 AM Interpretation:osteopenia bilateral hips Performing Lab: Notes/Report: osteopenia bilateral hips Bone density osteopenia bilateral hips Mammogram Reviewed date:10/28/2024 01:36:54 PM Interpretation:Negative Performing Lab: Notes/Report: Negative result Negative REASON FOR VISIT due cas, col, dexa Encounters Encounter Location Date Provider Diagnosis [facility] 1210 [facility] 36 [facility] [address] [place] [id number] 09/20/2024 Dallin John Screening for breast cancer Z12.39 and Screening for osteoporosis Z13.820 Assessments Encounter Date Diagnosis (ICD Code) Assessment Notes Treatment Notes Treatment Clinical Notes Section Notes 09/20/2024 Screening for breast cancer (ICD-10 - Z12.39) 09/20/2024 Screening for osteoporosis (ICD-10 - Z13.820) Plan Of Treatment Next Appt Details Provider Name:Dallin Molina ry, 01/05/2025 09:00:00 AM, [address] [place] [address] [facility], [address], [place], [phone], Progress Notes * LEYDA BENJAMINB: 0 (74 yo F)Acc No.[id number]:09/20/2024 Patient: Marcelina TEOFILOALEIDA ROMERONDA :1950 A ge:74 Y S ex:Female Address:[address] [place] [address], [place] [address] Subjective: * Chief Complaints: * D ue cas, col, dexa * Medical History: * Surgical History: * Hospitalization/Major Diagno stic Procedure: * Medications: Objective: * Vitals: * Physical Examination: Assessment: * Assessment: 1. S creening for breast cancer - Z12.39 (Primary) 2 . S creening for osteoporosis - Z13.820 Plan: * Treatment: 2.?Screening for osteoporosis?Imaging: Bone density* Shelby Kaiser 10/06/2024 10:5 1:12 AM EDT >patient is unsure when last screening was but the last I was able to find was 2022. Sent to Rachelle for referral to [facility] * Procedure Codes: * true * Date: Generated for Teofilo catherine/Ankush/Robertitting on: 0 10/31/2024 01:40 PM EDT
--- OUTSIDE RECORDS SUMMARY | 2024-10-31 13:41 | XMS_ITS | Clinical Summary ---
Author Organization [facility] Address [address] [place] [address] Care Team Providers Care Digital Sales Planner Name Role Phone Leticia Kang MARAL Primary Care Provider +1- [phone] Allergies No known active allergies Medications estradiol [...] VACCINE 12/07/2024 Insurance MEDICARE ADVANTAGE Care Teams Digital Sales Planner Relationship Specialty Start Date End Date Leticia Kang APRN [address] [place] [address] PCP - General Family Medicine 06/07/18
--- OUTSIDE RECORDS SUMMARY | 2024-10-31 13:41 | XMS_ITS | Patient Health Record ---
[facility] Address [address] [place] [id number] Care Team Providers Care Cigarette Package Examiner Name Role Phone Dallin John Unavailable [phone] Popeye Zarate Unavailable [phone] Allergies No Known Allergies Results Component Value Reference Range Notes Bone density Reviewed date:10/26/2024 11:06:39 AM Interpretation:osteopenia bilateral hips Performing Lab: Notes/Report: osteopenia bilateral hips Bone density osteopenia bilateral hips Mammogram Reviewed date:10/28/2024 01:36:54 PM Interpretation:Negative Performing Lab: Notes/Report: Negative result Negative CBC Venipuncture (in house) Reviewed date:01/06/2024 02:44:15 [...] Interpretation: Performing Lab: Notes/Report: Test performed by [facility], [facility] [address] [place] [address] , [address], [place] [address] Drew Meyer MD, Nursing Executive CLIA: [id number] Sodium 133 135-145 mmol/L Potassium 4.5 3.5-5.3 [...] Interpretation: Performing Lab: Notes/Report: Test performed by [email or web address] [address] [place] [address] , [place] [address] Drew Meyer MD, Nursing Executive CLIA: [id number] Thyroxine Free (free T4) 1.09 0.86-1.76 ng/dL P-Lipid Panel Reviewed date:01/12/2024 11:29:47 AM Interpretation: Performing Lab: Notes/Report: Test performed by [email or web address] [address] [place] [address] , [address], [place] [address] Drew Meyer MD, Nursing Executive CLIA: [id number] Cholesterol 148 <200 mg/dL Triglycerides 75 <150 [...] Interpretation: Performing Lab: Notes/Report: Test performed by [email or web address], [address] , [address], [place] [address] Drew Meyer MD, Nursing Executive CLIA: [id number] TSH 2.64 0.43-5.25 mU/L Reason For Referral No Information Medications Medication [...] Status W/U Status Risk Notes Problem Rosacea (589351329) Rosacea (L71.9) Active conf irmed Problem Acute exacerbation of chronic obstructive airways disease (382522586) COPD exacerbation (J44.1) Active confirmed Problem Malignant neopla sm of head, face and neck (C76.0) Active confirmed Problem Mixed hyperlipidemia (819910398) Mixed hyperlipidemia (E78.2) Active confirmed Problem Chronic pain (87298584) Other chronic pain (G89.29) Active confirmed Problem Acquired hypothyroidism (189140058) Acquired hypothyroidism (E03.9) Active confirmed Problem COPD - Chronic obstructive pulmonary disease (38177559) Chronic obstructive pulmonary disease, unspecified COPD type (J44.9) Active confirmed Problem Anemia (731235768) Anemia, unspecified type (D64.9) Active confirmed Problem Hypothyroidism (42501570) Hypothyroidism, unspecified type (E03.9) Active confirmed Problem Thyromegaly (5942911) Thyromegaly (E01.0) Active confirmed Problem Laryngopharyngeal reflux (868714897) LPRD (laryngopharyngeal reflux disease) (K21.9) Active confirmed Problem Asthma without status asthmaticus (47186579) Asthma, unspecified asthma severity, unspecified whether complicated, unspecified whether persistent (J45.909) Active confirmed Problem Gastroesophageal reflux disease (282496941) Gastroesophageal reflux disease, unspecified whether esophagitis present (K21.9) Active confirmed Problem Inflammation of joint of shoulder region (544356293) Arthritis of shoulder region, 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) Active confirmed Vital Signs Heart Rate 70 /min 09/06/2024 Blood pressure diastolic 68 mm Hg 09/06/2024 Height 62 in 09/06/2024 Blood pressure systolic 114 mm Hg 09/06/2024 Weight 116 lbs 09/06/2024 BMI 21.21 kg/m2 09/06/2024 Encounters Encounter Location Date Provider Diagnosis [facility] [address] [place] [address] [place] [id number] 01/06/2024 Dallin [place] Hypothyroidism, unspecified type E03.9 ; Gastroesophageal reflux disease, unspecified whether esophagitis present K21.9 ; Mixed hyperlipidemia E78.2 ; Productive cough R05.8 and Anemia, unspecified type D64.9 [facility] [address] [place] [address] [place] [id number] 07/06/2024 Dallin [place] Chronic obstructive pulmonary disease, unspecified COPD type J44.9 ; LPRD (laryngopharyngeal reflux disease) K21.9 ; Hypothyroidism, unspecified type E03.9 ; Mixed hyperlipidemia E78.2 and BMI 20.0-20.9, adult Z68.20 [facility] [address] [place] [address] [place] [id number] 09/06/2024 R Omid Zarate Dermatitis L30.9 and BMI 21.0-21.9, adult Z68.21 [facility] [address] [place] [address] [place] [id number] 09/20/2024 Dallin [place] Screening for breast cancer Z12.39 and Screening for osteoporosis Z13.820 [facility] [address] [place] [address] [place] [id number] 10/26/2024 Dallin [place] Assessments Encounter Date Diagnosis (ICD Code) Assessment Notes Treatment Notes Treatment Clinical Notes Section Notes 07/06/2024 Chronic obstructive pulmonary disease, unspecified COPD type (ICD-10 - J44.9) 07/06/2024 LPRD (laryngopharyngeal reflux disease) (ICD-10 - K21.9) 09/06/2024 Dermatitis (ICD-10 - L30.9) 09/06/2024 BMI 21.0-21.9, adult (ICD-10 - Z68.21) 09/20/2024 Screening for breast cancer (ICD-10 - Z12.39) 09/20/2024 Screening for osteoporosis (ICD-10 - Z13.820) 01/06/2024 Hypothyroidism, unspecified type (ICD-10 - E03.9) 01/06/2024 Gastroesophageal reflux disease, unspecified whether esophagitis present (ICD-10 - K21.9) 01/06/2024 Mixed hyperlipidemia (ICD-10 - E78.2) 07/06/2024 Hypothyroidism, unspecified type (ICD-10 - E03.9) 07/06/2024 Mixed hyperlipidemia (ICD-10 - E78.2) 01/06/2024 Productive cough (ICD-10 - R05.8) 07/06/2024 BMI 20.0-20.9, adult (ICD-10 - Z68.20) 01/06/2024 Anemia, unspecified type (ICD-10 - D64.9) Plan Of Treatment Next Appt Details Provider Name:Dallin grewal, 01/05/2025 09:00:00 AM, [address], [address], [place], [place], [id number], Insurance Providers Payer Name Payer Address Payer Phone Subscriber Number Group Number Insured Name Patient Relationship to Insured Coverage Start Date Coverage End Date [employer] (MEDICAR E) [address] [address] [place] [address] [id number] CATALINO BENJAMIN Self - patient is the insured Medical (General) History Medical History History ICD Code Asthma, unspecified asthma s everity, unspecified whether complicated, unspecified whether persistent J45.909 Hypercholesteremia E78.00 Hypothyroidism, unspecified type E03.9 lung cancer, Dx: 2004 RT Lung Pneumothorax, 10/2020 Esophageal Reflux Rosacea COPD LT Nose Squamous Celll Skin Cancer, 06/08 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 Zabala 06/11/2023 Hospitalization History Reason Date(Month/Year)
[2024-10-31 14:25] LABS: Hematocrit 31.3 % (37.0-47.0); Hemoglobin 10.6 g/dL (12.2-16.2); Immature Granulocytes % 0.3 %; Mean Corpuscular HGB Conc 33.9 g/dL (31.8-35.4); Mean Corpuscular Hemoglobin 33.4 pg (27.0-31.2); Mean Corpuscular Volume 98.7 fl (81-99); Nucleated Red Blood Cells % 0 %; Platelet Count 285 K/mm3 (142-424); Red Blood Count 3.17 M/mm3 (4.20-5.40); Red Cell Distribution Width-SD 43.8 fL; White Blood Count 7.4 K/mm3 (4.8-10.8)
[2024-10-31 14:40] LABS: Alanine Aminotransferase 19 U/L (12-78); Albumin Level 4.4 g/dl (3.5-5.0); Albumin/Globulin Ratio 1.4 (1.1-1.8); Alkaline Phosphatase 87 U/L (38-126); Anion Gap 13.1 mEq/L (5-15); Aspartate Amino Transferase 38 U/L (14-36); Bilirubin,Total 0.3 mg/dl (0.2-1.3); Blood Urea Nitrogen 16 mg/dl (7-17); Calcium 9.6 mg/dl (8.4-10.2); Carbon Dioxide 29 mmol/L (22.0-30.0); Chloride 89 mmol/L (98-107); Creatinine,Serum 0.70 mg/dl (0.52-1.04); Estimated Glomerular Filt Rate 82 ml/min (>60); GFR (African American) 99 ML/MIN (>60); Globulin 3.1 g/dL (1.3-3.2); Glucose 79 mg/dl (74-100); Potassium 5.1 mmoL/L (3.5-5.1); Sodium 126 mmol/L (136-145); Total Protein,Serum 7.5 g/dl (6.3-8.2)
== END 2024-10-31 23:59 | disposition home or self-care (01) ==
LOC: LAB 13:31
PROVIDERS: PCP Family Medicine; Visit Provider Internal Medicine Medical Oncology
DX: C44.42 Squamous cell carcinoma of skin of scalp and neck (principal)
CPT/HCPCS: 36415; 80053; 85025

== ENCOUNTER 2025-01-05 09:49 | Outpatient (CLI) | payer MEDICARE, SELFPAY ==
--- OUTSIDE RECORDS SUMMARY | 2023-09-28 05:00 | XMS_ITS ---
[facility] Address [address] [place] [id number] Care Team Providers Care Cissp Name Role Phone Dallin John Unavailable [phone] Allergies No Known Allergies Results Component Value Reference Range Notes CBC Fingerstick (in house) Reviewed date:09/28/2023 12:02:43 PM Interpretation: Performing Lab: Notes/Report: wbc 9.9 3.5 - 10 lym 23.0% 15 - 50 mid 6.0% 2 - 15 gran 71.0% 35 - 80 rbc 3.09 3.5 - 5.5 hgb 11.0 11.5 - 16.5 hct 33.5 35 - 55 mcv 108.3 75 - 100 mch 35.7 25 - 35 mchc 32.9 31 - 38 plat 302 100 - 400 Reason For Referral Diagnosis 1 Pain in left shoulde r (M25.512) Diagnosis 2 Arthritis of shoulde r region, 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) [facility] Referring Provider First Name Dallin Referring Provider Last Name Alvaro Referring Provider Speciality Family Pra ctice Referred Provider Jamison Perez Referred Provider Specialty Orthopedic S urgery General Notes Rachelle Song 09/28/19 9:39:37 AM > [facility] 10/05/23 at 09:00am; tried to call patient with appt time but no answer and no vm; will try again later, Rachelle Song 09/28/2023 9:48:08 AM > patient informed Referral Priority Routine REASON FOR VISIT congestion Medications Medication SIG (Take, Route, Frequency, Duration) Notes Start Date End Date Status Albuterol Sulfate (2.5 MG/3ML) 0.083% 3 ml as needed Inhalation every 6 hrs 09/28/2023 Active Cefdinir 300 MG 1 cap(s) Orally Two times a day; Duration: 7 days 09/28/2023 Active Omeprazole 40 MG 1 cap(s) orally once daily; Duration: 90 days Active Promethazine-DM 6.25-15 MG/5ML 5 ml as needed Orally every 6 hrs 09/28/2023 Active Benzonatate 200 MG 1 capsule as needed Orally Three times a day 09/28/2023 Active metroNIDAZOLE 0.75 % 1 lynette applied topic ally 2 times a day 11/08/2020 Active Anoro Ellipta 62.5-25 MCG/ACT 1 puff(s) inhaled once a day; Duration: 90 days Active Bevespi Aerosphere 9-4.8 MCG/ACT 2 puffs Inhalation Twice a day 01/07/2023 Active Pravastatin Sodium 80 MG 1 tab(s) orally once a day; Duration: 90 days Active Levothyroxine Sodium 50 MCG 1 tab(s) ora lly once a day; Duration: 90 days Active Problems Problem Type SNOMED Code ICD Code Onset Dates Problem Status W/U Status Risk Notes Problem Acute exacerbation of chronic obstructive airways disease (024881185) COPD exacerbation (J44.1) Active confirmed Problem Inflammation of joint of shoulder region (611861912) Arthritis of shoulder region, 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) Active confirmed Vital Signs Weight 124 lbs 09/28/2023 Blood pressure systolic 140 mm Hg 09/28/19 24 Blood pressure diastolic 80 mm Hg 024 Heart Rate 110 /min 09/28/2023 Height 62 in 09/28/2023 BMI 22.68 kg/m2 09/28/2023 Encounters Encounter Location Date Provider Diagnosis [facility] [address] [place], [place] [id number] 09/28/2023 Dallinvictor m John COPD exacerbation J4 4.1 ; Pain in left shoulder M25.512 and Arthritis of shoulder region, left M19.012 Assessments Encounter Date Diagnosis (ICD Code) Assessment Notes Treatment Notes Treatment Clinical Notes Section Notes 09/28/2023 COPD exacerbation (ICD-10 - J44.1) 09/28/2023 Pain in left shoulder (ICD-10 - M25.512) 09/28/2023 Arthritis of shoulder region, left (ICD-10 - M19.012) Plan Of Treatment Medication Medication Name Sig Start Date Stop Date Notes Albuterol Sulfate (2.5 MG/3M L) 0.083% 3 ml as needed Inhalation every 6 hrs 09/28/2023 Cefdinir 300 MG 1 cap(s) Orally Two times a day; Duration: 7 days 09/28/2023 Promethazine-DM 6.25-15 MG/5ML 5 ml as n eeded Orally every 6 hrs 09/28/2023 Benzonatate 200 MG 1 capsule as needed Orally Three times a day 09/28/2023 Referrals Referral Date Details 09/28/2023 09/28/2023, Jamison Arguello nt Next Appt Details Follow Up: via phone to repo rt progress, Reason: Provider Name:Dallin Molina ry, 07/06/2025 09:15:00 AM, [address] [facility] [address] [facility], [address], [phone], Progress Notes * ALEIDA BENJAMINTYB: 0 (74 yo F)Acc No.[id number]:09/28/2023 Progress Notes Patient: CATALINO STOVALL Provider: Marcelina John M.D. :1950 A ge:73 Y S ex:Female Date:09/28/2023 Address:[address] [place], [place] [phone] Subjective: * Chief Complaints: * 1 . Congestion. * HPI: E NT/respiratory: 73 year old female presents with c/o cough P t complains of greenish yellow sputum production cough for about 5 days. Associated with chest congestion and wheezing. Pt states her breathing got worse on Thursday and she is concerned. * ROS: D ERMATOLOGY: no R lila. n o H charu. G ASTROENTEROLOGY: no N ausea. n o V omiting. U ROLOGY: no D ifficulty urinating. n o B lood in urine. 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 * Surgical History: L umpectomy 2004, Lung Biopsy 05/2022, Cancer Removal - Dr. Zabala 06/11/2023. * Hospitalization/Major Diagno stic Procedure: D enies Past Hospitalization. * Family History: F ather: unknown, diagnosed with Heart Disease, Hypertension. M other: unknown, diagnosed with Hypertension, Heart Disease, Cancer. * Social History: C URRENT TOBACCO USE: No . C affeine: yes, frequency: 4 cups a day. Alcohol: no. * Medications: T aking metroNIDAZOLE 0.75 % Lotion 1 lynette applied topically 2 times a day , Taking Anoro Ellipta 62.5-25 MCG/ACT Aerosol Powder Breath Activated 1 puff(s) inhaled once a day , Taking Bevespi Aerosphere 9-4.8 MCG/ACT Aerosol 2 puffs Inhalation Twice a day , Taking Pravastatin Sodium 80 MG Tablet 1 tab(s) orally once a day , Taking Levothyroxine Sodium 50 MCG Tablet 1 tab(s) orally once a day , Taking Omeprazole 40 MG Capsule Delayed Release 1 cap(s) orally once daily , Medication List reviewed and reconciled with the patient * Allergies: N .K.D.A. Objective: * Vitals: W t:124, Temp:97.3, BP:140/80, HR:110, O2 Sat:96% on RA, Nurse:roseann, Ht: 62, BMI:22.68. * Examination: E NT/Respiratory: General Appearance: N AD. E yes: P ERRLA, sclera clear. E ars: a uditory canals normal bilaterally, TM's WNL. O ral cavity : m inimal erythema without exudate on pharynx. H eart : R RR, normal S1 S2. L ungs: c lear to auscultation bilaterally. S houlder / Upper arm: Shoulder: left. P alpation: tenderness over AC joint. R rahul of motion: restricted rotations and abduction. Assessment: * Assessment: 1. C OPD exacerbation - J44.1 (Primary) 2 . P ain in left shoulder - M25.512 3 . A rthritis of shoulder region, left - M19.012 Plan: * Treatment: Value Reference Range w bc 9.9 3.5 - 10 * l ym 23.0% 15 - 50 * m id 6.0% 2 - 15 * g ran 71.0% 35 - 80 * r bc 3.09 3.5 - 5.5 * h gb 11.0 11.5 - 16.5 * h ct 33.5 35 - 55 * m cv 108.3 75 - 100 * m ch 35.7 25 - 35 * m chc 32.9 31 - 38 * p lat 302 100 - 400 * GregoryFabianKiera 09/28/2023 9:12:07 AM > , Provider reviewed results while patient in office. 2.?Pain in left shoulder? Referral To:Jamison Perez??Orthopedic Surgery ?Reason: 3.?Arthritis of shoulder region, left? Referral To:Jamison Perez??Orthopedic Surgery ?Reason: * Procedure Codes: G 2211 Complex e/[place], [address] [place], [address] CAPILLARY BLOOD DRAW, 31456 CBC WITH AUTO DIFF * Follow Up: v ia phone to report progress * Images: Billing Information: * Visit Code: 51785 Office Visit, Est Pt., Level 4. * Procedure Codes: G2211 Complex e/[place] [address] [place]. [address] CAPILLARY BLOOD DRAW. 71850 CBC WITH AUTO DIFF. * Electronic signature of Trini John MD on 01/05/2025 at 10:16 AM EDT Sign off status: Pending * Provider: Marcelina John M.D. Date: 0 09/28/2023 Generated for Teofilo catherine/Ankush/Robertitting on: 1 10:16 AM EDT History and Physical Notes * HPI (History of Present Illness) Category Sub-Category Detail Notes Category Not es ENT/respiratory cough Pt complains of greenish yellow sputum production cough for about 5 days. Associated with chest congestion and wheezing. Pt states her breathing got worse on Thursday and she is concerned Examination Category Sub-Category Detail Notes Category Not es ENT/Respiratory Oral cavity : minimal erythema without exudate on pharynx Ears: auditory canals norm al bilaterally, TM's WNL Heart : RRR, normal S1 S2 Lungs: clear to auscultatio n bilaterally General Appearance: NAD Eyes: PERRLA, sclera clear Shoulder / Upper arm Range of motion: restricted rotat ions and abduction Shoulder: left Palpation: tenderness over AC j oint Consultation Request Notes Referral Date Referring Provider Referred Provider Not es 09/28/2023 Dallin John Jason
--- OUTSIDE RECORDS SUMMARY | 2024-01-06 05:00 | XMS_ITS ---
Author Organization [facility]US[facility] Alberto Address [address] [facility] [address] [facility] [address] [place] [id number] Care Team Providers Care Pit Hoist Operator Name Role Phone Dallin John Unavailable [phone] Allergies No Known Allergies Results Component Value [...] Interpretation: Performing Lab: Notes/Report: Test performed by [facility], [facility] [address] [place] [address] , [address], [place] [address] Drew Meyer MD, Web Machine Tender CLIA: [id number] Sodium 133 135-145 mmol/L Potassium 4.5 3.5-5.3 [...] Interpretation: Performing Lab: Notes/Report: Test performed by [facility] [address] [place] [address] , [place] [address] Drew Meyer MD, Web Machine Tender CLIA: [id number] Thyroxine Free (free T4) 1.09 0.86-1.76 ng/dL P-Lipid Panel Reviewed date:01/12/2024 11:29:47 AM Interpretation: Performing Lab: Notes/Report: Test performed by [facility] [address] [place] [address] , [place] [address] Drew Meyer MD, Web Machine Tender CLIA: [id number] Cholesterol 148 <200 mg/dL Triglycerides 75 <150 [...] was 74 LDL/HDL Ratio 1.0 <3.3 Ratio Test Date: 01/06/2024 LDL Results: 67 Units: mg/dL % Change: - See [place] dated 01/11/2024 regarding triglyceride results. Corrected Result. Previous result was 1.1 LDL Cholesterol Patient History P-TSH Reviewed date:01/12/2024 11:29:47 AM Interpretation: Performing Lab: Notes/Report: Test performed by [facility], [address] , [facility], [place] [address] Drew Meyer MD, Web Machine Tender CLIA: [id number] TSH 2.64 0.43-5.25 mU/L REASON FOR VISIT [...] orally once daily; Duration: 90 days Active Pravastatin Sodium 80 MG 1 tab(s) orally once a day; Duration: 90 days Active Zithromax Z-Shaka 250 MG as directed Orall y once daily; Duration: 5 day(s) 01/06/2024 Active Levothyroxine Sodium 50 MCG 1 tab(s) ora lly once a day; Duration: 90 days Active Albuterol Sulfate (2.5 MG/3ML) 0.083% 3 ml as needed Inhalation every 6 hrs 09/28/2023 Active Problems Problem Type SNOMED Code ICD Code Onset Dates Problem Status W/U Status Risk Notes Problem Anemia ([id number]) Anemia, unspecified type (D64.9) Active confirmed Vital Signs Weight 114.8 lbs 01/06/2024 Blood pressure systolic 110 mm Hg 01/06/20 24 Blood pressure diastolic 58 mm Hg 024 Heart Rate 79 /min 01/06/2024 Height 62 in 01/06/2024 BMI 20.99 kg/m2 01/06/2024 Encounters Encounter Location Date Provider Diagnosis [facility] [address] [place], [place] [id number] 01/06/2024 Dallin [place] Hypothyroidism, unspecified type E03.9 ; Gastroesophageal reflux [...] cap(s) orally once daily; Duration: 90 days Pravastatin Sodium 80 MG 1 tab(s) orally once a day; Duration: 90 days Zithromax Z-Shaka 250 MG as directed Orall y once daily; Duration: 5 day(s) 01/06/2024 Levothyroxine Sodium 50 MCG 1 tab(s) ora lly once a day; Duration: 90 days Next Appt Details Follow Up: 6 Months, Reason: Provider Name:Dallin Molina ry, 07/06/2025 09:15:00 AM, [address], [address], [place], [place], [id number], Progress Notes * MANDO BENJAMINADOB: 0 (74 yo F)Acc No.[id number]:01/06/2024 Progress Notes Patient: CATALINO STOVALL Provider: Marcelina John M.D. :1950 A ge:73 Y S ex:Female Date:01/06/2024 Address:[address] [place] [address], [facility] Subjective: * Chief Complaints: * 1 . [...] AD. E yes: P ERRLA, sclera clear. O ral cavity : m inimal erythema without exudate on pharynx. H eart : R RR, normal S1 S2. L ungs: c lear to auscultation bilaterally. Assessment: * [...] Results are satisfactory, sent to to inform. DanikaTricia 01/08/2024 3:43:15 PM > pt informed of [...] G 2211 Complex e/[place], [address] [place], [address] CBC WITH AUTO DIFF * Follow Up: 6 Months * Images: Billing Information: * Visit Code: 34872 Office Visit, Est Pt., Level 4. * Procedure Codes: G2211 Complex e/[place]. [address] [place]. [address] CBC WITH AUTO DIFF. * Electronic signature of Trini John MD on 01/05/2025 at 10:17 AM EDT Sign off status: Pending * Provider: Marcelina John M.D. Date: Generated for Lupei ng/Falevg/eTransmitting on: 10:17 AM EDT History and Physical Notes * [...]
--- OUTSIDE RECORDS SUMMARY | 2024-07-06 05:00 | XMS_ITS ---
Author Organization [facility] Address [address] [facility] [address] [place] [id number] Care Team Providers Care Information Analyst Name Role Phone Alvaro Dallin Unavailable [phone] Allergies No Known Allergies REASON FOR VISIT [...] day; Duration: 90 days Active Vital Signs Weight 114.2 lbs 07/06/2024 Blood pressure systolic 112 mm Hg 07/07/19 25 Blood pressure diastolic 62 mm Hg 025 Heart Rate 77 /min 07/06/2024 Height 62 in 07/06/2024 BMI 20.89 kg/m2 07/06/2024 Encounters Encounter Location Date Provider Diagnosis [place] [address] [place] [id number] 07/06/2024 Dallin John Chronic obstructive pulmonary disease, [...] Molina ry, 07/06/2025 09:15:00 AM, [address] [facility] [address], [address] [place] [address], [id number], Progress Notes * ALEIDA BENJAMINTYB: 0 (74 yo F)Acc No.[id number]:07/06/2024 Progress Notes Patient: CATALINO STOVALL Provider: Marcelina John M.D. :1950 A ge:74 Y S ex:Female Date:07/06/2024 Address:[address] [place] [address], [facility] Subjective: * Chief Complaints: * 1 . [...] ixed hyperlipidemia - E78.2 5 . B MD 20.0-20.9, adult - Z68.20 Plan: * Treatment: [...] * Images: Billing Information: * Visit Code: 41409 Office Visit, Est Pt., Level 4. * Procedure Codes: G2211 Complex e/[place]. 3074F SYST BP LT 130 MM HG. 3078F DIAST BP < 80 MM HG. * Electronic signature of Trini John MD on 01/05/2025 at 10:17 AM EDT Sign off status: Pending * Provider: Marcelina John M.D. Date: 0 07/06/2024 Generated for Teofilo catherine/Ankush/eTransmitting on: 1 10:17 AM EDT History and Physical Notes [...]
--- OUTSIDE RECORDS SUMMARY | 2024-09-06 11:15 | XMS_ITS ---
Author Organization Valeria Address 1210 [facility] 36 [facility] [address] [place] [id number] Care Team Providers Care Montessori Paraprofessional Name Role Phone Dallin John Unavailable [phone] Popeye Zarate Unavailable [phone] Allergies No Known Allergies REASON FOR VISIT [...] Encounter Location Date Provider Diagnosis [facility] 36 [facility] [address] [place] [phone] 09/06/2024 Popeye Zarate Dermatitis L30.9 and BMI [...] Week,prn, Reaso n: Provider Name:Dallin Molina ry, 07/06/2025 09:15:00 AM, [address] [place] [address], [place], [place], [id number], Progress Notes * MANDO BENJAMINANDRESB: 0 (74 yo F)Acc No.[id number]:09/06/2024 Progress Notes Patient: CATALINO STOVALL Provider: Popeye Zarate M.D. :1950 A ge:74 Y S ex:Female Date:09/06/2024 Address:[address] [place] [address], [facility] Subjective: * Chief Complaints: * 1 . [...] ermatitis - L30.9 (Primary) 2 . B [place] 21.0-21.9, adult - Z68.21 ? Plan: * Treatment: * Procedure Codes: G 2211 Complex e/m visit add on, 1036F TOBACCO NON-USER, G8420 BMI<30 AND >=22 CALC & DOCU, G6101 BP SCR PRFRM RCMDD DEFIND SCR INTVL, G8752 MOST RECENT SYSTOLIC BP < 140MM HG, G8754 MOST RECENT DIASTOLIC BP < 90MM HG * Follow Up: 1 Week,prn * Images: Billing Information: * Visit Code: 63121 Office Visit, Est Pt., Level 3. * Procedure Codes: G2211 Complex e/m visit add on. 1036F TOBACCO NON-USER. G8420 BMI<30 AND >=22 CALC & DOCU. G8783 BP SCR PRFRM RCMDD DEFIND SCR INTVL. G8752 MOST RECENT SYSTOLIC BP < 140MM HG. G8754 MOST RECENT DIASTOLIC BP < 90MM HG. * Electronic signature of Popeye Zarate MD on 01/05/2025 at 10:17 AM EDT Sign off status: Pending * Provider: Popeye Zarate M.D. Date: 0 09/06/2024 Generated for Teofilo catherine/Ankush/Robertitting on: 1 10:17 AM EDT History and [...]
--- OUTSIDE RECORDS SUMMARY | 2024-11-23 06:30 | XMS_ITS ---
[facility] [address] [facility] [address] [facility] [address] [place] [id number] Care Team Providers Care Stock Driver Name Role Phone Dallin John Unavailable [phone] Allergies No Known Allergies Results Component Value Reference Range Notes CBC Fingerstick (in house) Reviewed date:11/23/2024 11:33:35 AM Interpretation: Performing Lab: Notes/Report: wbc 7.8 3.5 - 10 lym 28.1% 15 - 50 mid 7.6% 2 - 15 gran 64.3% 35 - 80 rbc 3.48 3.5 - 5.5 hgb 11.6 11.5 - 16.5 hct 34.8 35 - 55 mcv 100.0 75 - 100 mch 33.5 25 - 35 mchc 33.5 31 - 38 plat 158 100 - 400 REASON FOR VISIT pain in back, cold Medications Medication SIG (Take, Route, Frequency, Duration) Notes Start Date End Date Status Levothyroxine Sodium 50 MCG 1 tab(s) ora lly once a day; Duration: 90 days Active Pravastatin Sodium 80 MG 1 tab(s) orally once a day; Duration: 90 days Active Zithromax Z-Shaka 250 MG as directed Orall y daily; Duration: 5 days 11/23/2024 Active Stiolto Respimat 2.5-2.5 MCG/ACT 2 puffs Inhalation Once a day; Duration: 90 days Active Betamethasone Dipropionate Aug 0.05 % 1 application Externally twice a day 09/06/2024 Active Omeprazole 40 MG 1 cap(s) orally once daily; Duration: 90 days Active Albuterol Sulfate (2.5 MG/3ML) 0.083% 3 ml as needed Inhalation every 6 hrs 09/28/2023 Active Triamcinolone Acetonide 0.1 % 1 application Externally Twice a day 01/06/2024 Active Vital Signs Weight 115.8 lbs 11/23/2024 Blood pressure systolic 110 mm Hg 11/24/19 25 Blood pressure diastolic 68 mm Hg 025 Heart Rate 84 /min 11/23/2024 Height 62 in 11/23/2024 BMI 21.18 kg/m2 11/23/2024 Encounters Encounter Location Date Provider Diagnosis [facility] [address] [facility] [address] [facility] [address] [place] [phone] 11/23/2024 Dallin John Acute URI J06.9 ; Upper back pain on right side M54.9 and BMI 21.0-21.9, adult Z68.21 Assessments Encounter Date Diagnosis (ICD Code) Assessment Notes Treatment Notes Treatment Clinical Notes Section Notes 11/23/2024 Acute URI (ICD-10 - J06.9) 11/23/2024 Upper back pain on right side (ICD-10 - M54.9) heating pad to affected areas 2 to 3 times a day 11/23/2024 BMI 21.0-21.9, adult (ICD-10 - Z68.21) Plan Of Treatment Medication Medication Name Sig Start Date Stop Date Notes Zithromax Z-Shaka 250 MG as directed Orall y daily; Duration: 5 days 11/23/2024 Treatment Notes Assessment Notes Upper back pain on right side heating pa d to affected areas 2 to 3 times a day Next Appt Details Follow Up: as scheduled,and prn, Reason: Provider Name:Dallin Molina ry, 07/06/2025 09:15:00 AM, [address] [facility] [address] [facility], [address], [place], [id number], Progress Notes * LEYDA BENJAMINB: 0 (74 yo F)Acc No.[id number]:11/23/2024 Progress Notes Patient: CATALINO STOVALL Provider: Marcelina John M.D. :1950 A ge:74 Y S ex:Female Date:11/23/2024 Address:[address] [place] [address], [place], [id number] Subjective: * Chief Complaints: * 1 . Pain in back, cold. * HPI: E NT/respiratory: 74 year old female presents with c/o cough s mall amount of white sputum, worse at night. c/o nasal congestion s tuffy in am and at night. c/o chest congestion P t states when she lays down at night she feels pressure in her chest. headache b oth sinuses, pressure like sensation, frontal.? U pper back: c/o pain P t states under her right shoulder blade she has a dull aching pain. Pt states this has been going on since 11/22. Pt states she cannot get comfortable laying down or sitting up. * Medical History: A sthma, unspecified asthma [...] puffs Inhalation Once a day , Taking Betamethasone Dipropionate Aug 0.05 % Cream 1 application Externally twice a day , Medication List reviewed and reconciled with the patient * Allergies: N .K.D.A. Objective: * Vitals: W t: 115.8, Temp: 98.2, BP: 110/68, HR: 84, Nurse: KANE, Ht: 62, BMI:21.18. * Examination: E NT/Respiratory: General Appearance: N AD. E yes: P ERRLA, sclera clear. O ral cavity : e rythema without exudate on pharynx. N reginaldo : n o cervical lymphadenopathy. H eart : R RR, normal S1 S2. L ungs: c lear to auscultation bilaterally.? U pper Back: Vertebral spine tenderness: a bsent. P araspinal muscle spasm: p resent on right side. Assessment: * Assessment: 1. A cute URI - J06.9 (Primary) 2 . U pper back pain on right side - M54.9? 3. B MN 21.0-21.9, adult - Z68.21 Plan: * Treatment: Value Reference Range w bc 7.8 3.5 - 10 * l ym 28.1% 15 - 50 * m id 7.6% 2 - 15 * g ran 64.3% 35 - 80 * r bc 3.48 3.5 - 5.5 * h gb 11.6 11.5 - 16.5 * h ct 34.8 35 - 55 * m cv 100.0 75 - 100 * m ch 33.5 25 - 35 * m chc 33.5 31 - 38 * p lat 158 100 - 400 * Kiera Jenkins 11/23/2024 11:11: 23 AM EDT > Provider reviewed results while patient in office. 2.?Upper back pain on right side? Notes: heating pad to affected areas 2 to 3 times a day?? * Procedure Codes: G 2211 Complex e/[place], [address] CAPILLARY BLOOD DRAW, 79443 CBC WITH AUTO DIFF, 1036F TOBACCO NON-USER, G8783 BP SCR PRFRM RCMDD DEFIND SCR INTVL, 3074F SYST BP LT 130 MM HG, 3078F DIAST BP < 80 MM HG * Follow Up: a s scheduled,and prn * Images: Billing Information: * Visit Code: 94680 Office Visit, Est Pt., Level 3. * Procedure Codes: G2211 Complex e/[place]. [address] CAPILLARY BLOOD DRAW. 23429 CBC WITH AUTO DIFF. 1036F TOBACCO NON-USER. G8783 BP SCR PRFRM RCMDD DEFIND SCR INTVL. 3074F SYST BP LT 130 MM HG. 3078F DIAST BP < 80 MM HG. * Electronic signature of Trini John MD on 01/05/2025 at 10:17 AM EDT Sign off status: Pending * Provider: Marcelina John M.D. Date: 0 11/23/2024 Generated for Teofilo catherine/Ankush/Robertitting on: 1 10:17 AM EDT History and Physical Notes * HPI (History of Present Illness) Category Sub-Category Detail Notes Category Not es ENT/respiratory cough small amount of white sputum, worse at night headache both sinuses, pressu re like sensation, frontal chest congestion Pt states when she l ays down at night she feels pressure in her chest nasal congestion stuffy in am and at night Upper back pain Pt states under her right shoulder blade she has a dull aching pain. Pt states this has been going on since 11/22. Pt states she cannot get comfortable laying down or sitting up Examination Category Sub-Category Detail Notes Category Not es ENT/Respiratory Oral cavity : erythema without exudate on pharynx Neck : no cervical lymphade nopathy Heart : RRR, normal S1 S2 Lungs: clear to auscultatio n bilaterally General Appearance: NAD Eyes: PERRLA, sclera clear Upper Back Vertebral spine tenderness: absent Paraspinal muscle spasm: present on righ t side
--- OUTSIDE RECORDS SUMMARY | 2025-01-05 10:16 | XMS_ITS | Continuity of Care Document ---
Author Organization [facility] JSAON Shi [place]DE[place] Address [address] [place] [address] Care Team Providers Care Physician Assistant Surgery Name Role Phone DARSHAN COLEY Primary Care Provider Assessment Encounter Date Assessment Date Assessment LastModified by Organization Details LastModified Time 12/19/2024 12/19/2024 POST-OPERATIVE 1. Team members confirm that all sharps are accounted for and safely contained prior to dressing application. Yamil Meza LPN 2. Vitals signs are documented and acceptable for discharge. Lien Ca RN 3. Photos have been taken and uploaded into the chart. TEVIN Krishnamurthy 4. Written post-operative instructions, prescriptions, and overnight dressing supplies are provided. Yamil Meza LPN Dressing Appearance: dry, clean and intact Patient's Pain Level: 0 LOC: Alert DC Instruction sheets received by patient: YES Overnight supplies given: YES Patient discharged with: Self Other Notes: [email or web address] Not available 12/19/2024 16:04:42 Plan of Treatment Reminders Order Date Submit Date Provider Last Modified By Organization Details Last Modified Time Details Appointments MOHS FOLLOWUP 2025 09:20A M TIAN BLANCHARD MD Not available Not available Not available Lab None recorded. Referral None recorded. Procedures None recorded. Surgeries None recorded. Imaging None recorded. Medication Orders None recorded. Patient TargetsNo targets recorded. Patient InstructionsNo instructions recorded. Reason for Referral None Reported. Problems No Known Problems Procedures Surgical History Date Name Laterality Status Provider Name and Address Organization Details Recorded Time 01/03/20 Suture/Staple removal active Treri Tineo [facility] 01/02/2025 10:18:40 12/27/19 25 Mohs 1 Lesion completed [facility] 12/26/2024 13:01:09 12/27/19 25 Mohs Repair: Full-thickness skin graft completed [facility] 12/26/2024 13:20:56 12/20/19 25 Mohs 1 Lesion completed [facility] 12/19/2024 16:03:44 12/20/19 25 Mohs Repair: Complex Linear completed [facility] 12/19/2024 16:04:17 10/26/19 22 Laryngoscopy Flex completed Ramya Mauri [facility] 10/25/2021 14:54:18 03/09/19 22 excision of mass completed Ariana Rosario [facility] 10/25/2021 14:28:42 03/09/19 05 procedure on lung completed Ariana Rosario [facility] 10/25/2021 14:28:24 procedure on nose completed Nataly Caro [facility] 04/29/2023 15:23:08 Imaging Results None recorded. Procedure [...] cream Not Available Not Available Not Available doxycyclin e hyclate 100 mg capsule TAKE 1 CAPSULE BY MOUTH 2 TIMES A DAY with meals FOR 5 DAYS active Not Available Not Available No t Available azithromyc in 250 mg tablet TAKE 2 TABLETS BY MOUTH ON DAY 1, THEN TAKE 1 TABLET DAILY ON DAYS 2 THROUGH 5 active Not Available Not Available No t Available benzonatat e 200 mg capsule TAKE ONE CAPSULE BY MOUTH 3 TIMES A DAY NEEDED active Not Available Not Available No t Available hydrocodon e 5 mg-acetami nophen 325 mg tablet active Not Available Not Available No t Available betamethas one, augmented 0.05 % topical cream APPLY TO THE AFFECTED AREA(S) 2 TIMES A DAY active Not Available Not Available No t Available omeprazole 40 mg capsule,de layed release TAKE 1 CAPSULE BY MOUTH ONCE A DAY active Not Available Not Available No t Available pravastati n 80 mg tablet TAKE 1 TABLET BY MOUTH ONCE A DAY active Not Available Not Available No t Available metronidaz ole 0.75 % lotion active Not Available Not Available Not Available levothyrox ine 50 mcg tablet TAKE 1 TABLET BY MOUTH ONCE A DAY active Not Available Not Available No t Available hydrocodon e 7.5 mg-acetami nophen 325 mg tablet Take 1 tablet every 6 hours by oral route. active Not Available Not Available No t Available triamcinol one acetonide 0.1 % topical ointment APPLY TO THE AFFECTED AREA(S) FOR 3 WEEKS THEN take 1 WEEK off. REPEAT needed active Not Available Not Available No t [...] active Not Available Not Available Not Available Combivent Respimat active Not Available Not Available Not Available Stiolto Respimat 2.5 mcg-2.5 mcg/actuat ion solution for inhalation INHALE 2 PUFFS BY MOUTH ONCE A DAY active Not Available Not Available No t Available Bevespi Aerosphere 9 mcg-4.8 mcg HFA aerosol inhaler active Not Available Not Available Not Available Vitals Date Recorded Body temperature Heart rate Systolic And Diastolic Provider Name and Address Organization Details Last Updated DateTime 12/19/2024 96.8 [degF] 89 /min 133/79 mm[Hg] [facility] 12/[facility]24 09:14:11 Social History None recorded. Functional Status None recorded. Mental Status None recorded. Family History Nothing Reported. Medical History No medical history recorded. Gynecological HistoryNo gynecological history recorded. Obstetrics History GPAL:G 0 P 0 0 0 0 Past Encounters Encounter ID Performer Location Encounter Start Date Encounter Closed Date Diagnosis/Indication Diagnosis SNOMED-CT Code Diagnosis ICD10 Code Diagnosis IMO Codes Diagnosis Note [id number] TIAN BLANCHARD MD [address] [place] [address] 12/19/2024 08:34:01 12/21/2024 10:00:10 Basal cell carcinoma of forehead 438616651 C44.319 [id number] Health Concerns Section Related Observation LastModified by Organization Detai ls LastModified Time None Recorded Concern Status LastModified by Organization Details LastModified Time None Recorded Payers Encounter Date Sequence Insurance Name Policy Number Policy Spann Covered Member ID Spann Member ID Guarantor Name 12/19/2024 1 [employer] (MEDICARE REPLACEMENT/A DVANTAGE - PPO) Ariane Pathak [id number] Ariane Pathak Notes Date Note Type Note Provider Name and Address Organization Details Recorded Time 12/19/2024 text/html Patient presents for mohs surgery today to treat a BCC on the right forehead. PREOP CHECKLIST1. Pacemaker or Defibrillator? NO2. Artificial heart valve or joints? NO3. Pt currently on antibiotic? NO - Notes:4. History of bleeding, infection or complications with other surgeries?NO5. Med history, medications and allergies reviewed? YES6. Has pt taken Immunosuppressive meds (imuran, cyclosporine,mycopheno late, chemo etc.?, or steroids in last 2 weeks? NO7. Prearranged Closure? NO - Notes:8. Have a ride home? YES - Notes: PRE PROCEDURE1. Patient Name and confirmed with medical recordYamil Meza LPN2. Allergies documented and reviewed.Yamil Meza LPN3. Pathology report reviewed with patient.Figueroa Krishnamurthy MD4. Surgical consent is confirmed for accuracy and signatures.Figueroa Krishnamurthy MD5. Surgical site is marked with pen by surgeon, confirmed by patient using a mirror, and all other patient care providers prior to administration of pre-operative medications and local anesthesia.Tian Blanchard MD6. Pre-operative medication is administered as ordered by surgeon.7. Pre-operative local anesthetic injected.AMAURY Yuen MD [address] [place] [address], [phone], [facility] 12/19/2024 16:43:46 OBGyn Episode No OBEpisode recorded.
--- OUTSIDE RECORDS SUMMARY | 2025-01-05 10:16 | XMS_ITS | Patient Health Record ---
Author Organization [facility] Address [address] [facility] [address] [place] [id number] Care Team Providers Care Prepress Stripper Name Role Phone Dallin John Unavailable [phone] Popeye Zarate Unavailable [phone] Allergies No Known Allergies Results Component Value [...] Interpretation: Performing Lab: Notes/Report: Test performed by [facility] [address] [place] [address] , [address], [place] [address] Drew Meyer MD, Ophthalmology Technician CLIA: [id number] Sodium 133 135-145 mmol/L Potassium 4.5 3.5-5.3 [...] Interpretation: Performing Lab: Notes/Report: Test performed by [facility] [address] [place] [address] , [place] [address] Drew Meyer MD, Ophthalmology Technician CLIA: [id number] Thyroxine Free (free T4) 1.09 0.86-1.76 ng/dL P-Lipid Panel Reviewed date:01/12/2024 11:29:47 AM Interpretation: Performing Lab: Notes/Report: Test performed by [facility] [address] [place] [address] , [place] [address] Drew Meyer MD, Ophthalmology Technician CLIA: [id number] Cholesterol 148 <200 mg/dL Triglycerides 75 <150 [...] Interpretation: Performing Lab: Notes/Report: Test performed by [facility] [address] [place] [address] , [address], [place] [address] Drew Meyer MD, Ophthalmology Technician CLIA: [id number] TSH 2.64 0.43-5.25 mU/L CBC Fingerstick (in house) Reviewed date:11/23/2024 11:33:35 [...] - 38 plat 158 100 - 400 Mammogram Reviewed date:10/28/2024 01:36:54 PM Interpretation:Negative Performing Lab: Notes/Report: Negative result Negative Bone density Reviewed date:10/26/2024 11:06:39 AM Interpretation:osteopenia bilateral hips Performing Lab: Notes/Report: osteopenia bilateral hips Bone density osteopenia bilateral hips Reason For Referral No Information Medications Medication SIG (Take, Route, Frequency, Duration) Notes Start Date End Date Status Benzonatate 200 MG 1 capsule Orally Three times a day As needed 01/05/2025 Active Stiolto Respimat 2.5-2.5 MCG/ACT 2 puffs Inhalation Once a day; Duration: 90 days Active Betamethasone Dipropionate Aug 0.05 % 1 application Externally twice a day 09/06/2024 Active Albuterol Sulfate (2.5 MG/3ML) 0.083% 3 ml as needed Inhalation every 6 hrs 09/28/2023 Active Triamcinolone Acetonide 0.1 % 1 application Externally Twice a day 01/06/2024 Active Pravastatin Sodium 80 MG 1 tab(s) orally once a day; Duration: 90 days Active Omeprazole 40 MG 1 cap(s) orally once daily; Duration: 90 days Active Levothyroxine Sodium 50 MCG 1 tab(s) ora lly once a day; Duration: 90 days Active Immunizations Vaccine Route Administration Date Status Comme nts COVID 19 Moderna Unknown 05/31/2020 Administered COVID 19 Moderna Unknown 01/24/2021 Administered Fluzone High Dose (65yr and older) IM Intramuscular 01/03/2021 Administered Fluzone High Dose (65yr and older) IM Intramuscular 01/05/2025 Administered Fluzone PF Quad (6-35 months) Unknown 12/30/2019 Administered Fluzone PF Quad (6-35 months) Unknown 01/23/2022 Administered PNEUMOVAX 23 VACCINE Unknown 12/30/2019 Administered Prevnar (PCV13) Unknown 02/24/2019 Administered Problems Problem Type SNOMED Code ICD Code Onset Dates Problem Status W/U Status Risk Notes Problem Rosacea (453119280) Rosacea (L71.9) Active conf irmed Problem Acute exacerbation of chronic obstructive airways disease (486722806) COPD exacerbation (J44.1) Active confirmed Problem Malignant neopla sm of head, face and neck (C76.0) Active confirmed Problem Mixed hyperlipidemia (124706251) Mixed hyperlipidemia (E78.2) Active confirmed Problem Chronic pain (32625118) Other chronic pain (G89.29) Active confirmed Problem Acquired hypothyroidism (836702966) Acquired hypothyroidism (E03.9) Active confirmed Problem COPD - Chronic obstructive pulmonary disease (85074136) Chronic obstructive pulmonary disease, unspecified COPD type (J44.9) Active confirmed Problem Anemia (877476116) Anemia, unspecified type (D64.9) Active confirmed Problem Hypothyroidism (85853240) Hypothyroidism, unspecified type (E03.9) Active confirmed Problem Thyromegaly (5484805) Thyromegaly (E01.0) Active confirmed Problem Laryngopharyngeal reflux (545495605) LPRD (laryngopharyngeal reflux disease) (K21.9) Active confirmed Problem Asthma without status asthmaticus (33782197) Asthma, unspecified asthma severity, unspecified whether complicated, unspecified whether persistent (J45.909) Active confirmed Problem Gastroesophageal reflux disease (653534312) Gastroesophageal reflux disease, unspecified whether esophagitis present (K21.9) Active confirmed Problem Inflammation of joint of shoulder region (504664568) Arthritis of shoulder region, 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) Active confirmed Vital Signs Heart Rate 78 /min 01/05/2025 Blood pressure diastolic 62 mm Hg 01/05/2025 Height 62 in 01/05/2025 Blood pressure systolic 112 mm Hg 01/05/2025 Weight 110.4 lbs 01/05/2025 BMI 20.19 kg/m2 01/05/2025 Encounters Encounter Location Date Provider Diagnosis [facility] [address] [facility] [address] [place], [place] [id number] 01/06/2024 [place] Hypothyroidism, unspecified type E03.9 ; Gastroesophageal reflux disease, unspecified whether esophagitis present K21.9 ; Mixed hyperlipidemia E78.2 ; Productive cough R05.8 and Anemia, unspecified type D64.9 [facility] [address] [facility] [address] [place], [place] [id number] 07/06/2024 Dallin [place] Chronic obstructive pulmonary disease, unspecified COPD type J44.9 ; LPRD (laryngopharyngeal reflux disease) K21.9 ; Hypothyroidism, unspecified type E03.9 ; Mixed hyperlipidemia E78.2 and BMI 20.0-20.9, adult Z68.20 [facility] [address] [place], [place] [id number] 09/06/2024 R Omid Elliot Dermatitis L30.9 and BMI 21.0-21.9, adult Z68.21 [facility] [address] [facility] [address] [place] [id number] 11/23/2024 D[place] Acute URI J06.9 ; Up per back pain on right side M54.9 and BMI 21.0-21.9, adult Z68.21 [facility] [address] [place] [id number] 01/05/2025 Dallin [place] Hypothyroidism, unspecified type E03.9 ; Mixed hyperlipidemia E78.2 ; Anemia, unspecified type D64.9 ; Chronic obstructive pulmonary disease, unspecified COPD type J44.9 ; LPRD (laryngopharyngeal reflux disease) K21.9 and Encounter for [facility] Z[facility] [address] [place] [id number] 09/20/2024 Dall[place] Screening for breast cancer Z12.39 and Screening for osteoporosis Z13.820 [facility] [address] [place], [place] [id number] 10/26/[address] [address] [place], [place] [id number] 12/06/2024 Dallin [place] Assessments Encounter Date Diagnosis (ICD Code) Assessment [...] 09/20/2024 Screening for osteoporosis (ICD-10 - Z13.820) 11/23/2024 Acute URI (ICD-10 - J06.9) 11/23/2024 Upper back pain on right side (ICD-10 - M54.9) heating pad to affected areas 2 to 3 times a day 07/06/2024 LPRD (laryngopharyngeal reflux disease) (ICD-10 - K21.9) 01/05/2025 Mixed hyperlipidemia (ICD-10 - E78.2) 01/05/2025 Hypothyroidism, unspecified type (ICD-10 - E03.9) 11/23/2024 BMI 21.0-21.9, adult (ICD-10 - Z68.21) 07/06/2024 Hypothyroidism, unspecified type (ICD-10 - E03.9) 01/05/2025 Anemia, unspecified type (ICD-10 - D64.9) 01/06/2024 Mixed hyperlipidemia (ICD-10 - E78.2) 01/06/2024 Productive cough (ICD-10 - R05.8) 07/06/2024 Mixed hyperlipidemia (ICD-10 - E78.2) 01/05/2025 Chronic obstructive pulmonary disease, unspecified COPD type (ICD-10 - J44.9) 01/05/2025 LPRD (laryngopharyngeal reflux disease) (ICD-10 - K21.9) 07/06/2024 BMI 20.0-20.9, adult (ICD-10 - Z68.20) 01/06/2024 Anemia, unspecified type (ICD-10 - D64.9) 01/05/2025 Encounter for immunization (ICD-10 - Z23) Plan Of Treatment Pending Test Test Name Order Date H-TSH 01/05/2025 H-CBC 01/05/2025 H-Lipid Panel 01/05/2025 H-CMP 01/05/2025 H-T4 free 01/05/2025 H-Iron 01/05/2025 Next Appt Details Provider Name:Dallin Molina ry, 07/06/2025 09:15:00 AM, [address], [address], [place], [place], [id number], Insurance Providers Payer Name Payer Address Payer Phone Subscriber Number Group Number Insured Name Patient Relationship to Insured Coverage Start Date Coverage End Date [employer] (MEDICAR E) [address] [address] [place] [address] [id number]ENJAMIN Self - patient is 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 Zabala 06/11/2023 Hospitalization History Reason Date(Month/Year)
--- OUTSIDE RECORDS SUMMARY | 2025-01-05 10:16 | XMS_ITS | Clinical Summary ---
Author Organization [facility] Address [address] [place] [address] Care Team Providers Care Sustainability Director Name Role Phone Leticia Kang MARAL Primary Care Provider [phone] Allergies No known active allergies Medications estradiol [...] ANNUAL PHYSICAL 06/09/2018 HEPATITIS C SCREENING 06/09/2018 INFLUENZA VACCINE 10/07/2024 COVID-19 Vaccine ( season) 2024 Insurance MEDICARE ADVANTAGE Care Teams Sustainability Director Relationship Specialty Start Date End Date Leticia Kang APRN [address] [place] [address] PCP - General Family Medicine 06/07/18
--- OUTSIDE RECORDS SUMMARY | 2025-01-05 10:17 | XMS_ITS | Continuity of Care Document ---
Author Organization [facility] JASON Shi [place] Address [address] [place] [address] Care Team Providers Care Dining Room Helper Name Role Phone DARSHAN COLEY Primary Care Provider Assessment Encounter Date Assessment Date Assessment LastModified by Organization Details LastModified Time 12/26/2024 12/26/2024 POST-OPERATIVE 1. Team members confirm that all sharps are accounted for and safely contained prior to dressing application. Ynes Angel CST 2. Vitals signs are documented and acceptable for discharge. Lien Ca RN 3. Photos have been taken and uploaded into the chart. TEVIN Krishnamurthy 4. Written post-operative instructions, prescriptions, and overnight dressing supplies are provided. Ynes Angel CST Dressing Appearance: dry, clean and intact Patient's Pain Level: 0 LOC: Alert DC Instruction sheets received by patient: YES Overnight supplies given: YES Patient discharged with: Self Other Notes: [email or web address] Not available 12/26/2024 10:35:01 Plan of Treatment Reminders Order Date Submit Date Provider Last Modified By Organization Details Last Modified Time Details Appointments MOHS FOLLOWUP 2025 09:20A Carl BLANCHARD MD Not available Not available Not available Lab None recorded. Referral None recorded. Procedures None recorded. Surgeries None recorded. Imaging None recorded. Medication Orders doxycycli ne hyclate 100 mg capsule 2024 025 [place] [facility], [address] [place] [address] [place], [id number], 12/27/2024 10:19:55 Patient TargetsNo targets recorded. Patient InstructionsNo instructions recorded. Reason for Referral None Reported. Problems No Known Problems Procedures Surgical History Date Name Laterality Status Provider Name and Address Organization Details Recorded Time 01/03/20 25 Suture/Staple removal active Terri Tineo [facility] 01/02/2025 10:18:40 12/27/19 25 Mohs 1 Lesion completed [facility] 12/26/2024 13:01:09 12/27/19 25 Mohs Repair: Full-thickness skin graft completed [facility] 12/26/2024 13:20:56 12/20/19 25 Mohs 1 Lesion completed [facility] 12/19/2024 16:03:44 12/20/19 25 Mohs Repair: Complex Linear completed [facility] 12/19/2024 16:04:17 10/26/19 22 Laryngoscopy Flex completed Ramya Dotson [facility] 10/25/2021 14:54:18 03/09/19 22 excision of mass completed Ariana Rosario [facility] 10/25/2021 14:28:42 03/09/19 05 procedure on lung completed Ariana Rosario [facility] 10/25/2021 14:28:24 procedure on nose completed Nataly Caro [facility] 04/29/2023 15:23:08 Imaging Results None recorded. Procedure [...] Not Available Not Available Vitals Date Recorded Heart rate Systolic And Diastolic Provider Name and Address Organization Details Last Updated DateTime 12/26/2024 98 /min 122/80 mm[Hg] Yamilet Quezada [facility] 12/26/2024 12:57:20 Date Recorded Body temperature Heart rate Systolic And Diastolic Provider Name and Address Organization Details Last Updated DateTime 12/26/2024 96.1 [degF] 88 /min 123/74 mm[Hg] Lien Ca [facility] 12/26/2024 09:02:25 Social History None recorded. Functional Status None recorded. Mental Status None recorded. Family History Nothing Reported. Medical History No medical history recorded. Gynecological HistoryNo gynecological history recorded. 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 746452606 C44.475 [id number] Health Concerns Section Related Observation LastModified by Organization Detai ls LastModified Time None Recorded Concern Status LastModified by Organization Details LastModified Time None Recorded Payers Encounter Date Sequence Insurance Name Policy Number Policy Spann Covered Member ID Spann Member ID Guarantor Name 12/26/2024 1 [employer] (MEDICARE REPLACEMENT/A DVANTAGE - PPO) Ariane Pathak [id number] Ariane Pathak Notes Date Note Type Note Provider Name and Address Organization Details Recorded Time 12/26/2024 text/html ROS as noted in the HPI Patient presents for mohs surgery today to treat an SCC on the right nasal tip. PREOP CHECKLIST1. Pacemaker or Defibrillator? NO2. Artificial [...] PROCEDURE1. Patient Name and confirmed with medical recordYnes Angel CST2. Allergies documented and reviewed.Ynes Angel CST3. Pathology report reviewed with patient.Figueroa Krishnamurthy MD4. Surgical consent is confirmed for accuracy and signatures.Figueroa Krishnamurthy MD5. Surgical site is marked with pen by surgeon, confirmed by patient using a mirror, and all other patient care providers prior to administration of pre-operative medications and local anesthesia.Tian Blanchard MD6. Pre-operative medication is administered as ordered by surgeon.7. Pre-operative local anesthetic injected.Ynes Angel, ADRIANA BLANCHARD MD [address] [place] [address], [phone], [facility] 12/27/2024 15:10:00 OBGyn Episode No OBEpisode recorded.
--- OUTSIDE RECORDS SUMMARY | 2025-01-05 10:18 | XMS_ITS | Data Portability ---
Author Organization LIBRA SUSANNA Arellano [place] [facility] Address [address] [facility] [address] [place] [address] Care Team Providers Care Calciner Operator Helper Name Role Phone DARSHAN COLEY Primary [...] 30 mL. [email or web address] Not available 05/12/2023 13:52:19 12/19/2024 12/19/2024 POST-OPERATIVE 1. Team members confirm [...] YES Patient discharged with: Self Other Notes: [email or web address] Not available 12/19/2024 16:04:42 12/26/2024 12/26/2024 POST-OPERATIVE 1. Team members confirm [...] YES Patient discharged with: Self Other Notes: [email or web address] Not available 12/26/2024 10:35:01 Plan of Treatment Reminders Order Date Submit Date Provider Last Modified By Organization Details Last Modified Time Details Appointments MOHS FOLLOWUP 2025 09:20A Carl BLANCHARD MD Not available Not available Not available Lab None recorded. Referral None recorded. Procedures None recorded. Surgeries None recorded. Imaging None recorded. Medication Orders doxycycli ne hyclate 100 mg capsule 2024 025 PIPPA [facility], [address] [address] Luis Alberto [place], [phone], 12/27/2024 10:19:55 Patient TargetsNo targets recorded. Patient Instructions Encounter Date Encounter Id Patient Instructions Last Modified By Organization Details Last Modified Time 04/29/2023 [id number] 1. PET obtained in office today. Results [...] I had a long discussion with Ms. Pathak and her family regarding goals, risks, potential [...] Repor t NAME: MANDO ELDER PATH. :SS-2 51 Copy to: Diagn osis: Right tail [...] be purnima tible with that diagn osis. Howev er, the stain ing marcos rn is not [...] three casse ttes label ed A1-A3 . JAB 05/11 12:18 PM Micro scopi c Descr [...] ar immun ohist ochem ical stain ing marcos reid. DESI PARK M.D. Darling santos Out Date: 05/12 16:04 Page 1 of 1 Not Available [facility] [address] [place] [address], [place], [address], 05/13/2023 16:05:41 04/02/19 24 04/02/2023 PET-C T, skull base to mid-t high scan [address] [place] [address] Patien t Name: CATALINO Pedro YI Popeye Patien t : 950 Patien t Orderi ng Provid er: RICHY VIRGEN EXAM DATE: 2023 EXAM: PET-CT TUMOR SKULL BASE-M ID THIGH SUB CLINIC AL INFORM ATION: Head and Neck Cancer - Restag ing. Primar y in the left subman dibula r saliva ry gland. PROCED URE: Baseli ne blood glucos e level was 99 mg/dL. 13.6 mCi F-18 FDG ([facility] [id number]- 0511-3 0) was inject ed IV. 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 Clinic al signif icance is doubtf ul. Interp reted By: Vicki Allen MD Electr onical ly Signed By: Vicki Allen MD on 024 1:52 PM [email or web address] [facility] [address], [place], [address], 04/02/2023 14:48:38 05/04/19 24 02/26/2023 CT, neck, soft tissu e, w/o contr ast No observ ation record ed. BARCODE Not Available 2023 08:46:48 05/05/19 24 04/21/2023 elect gayatri urrutia am No observ ation record ed. [email or web address] Not Available 2023 09:17:19 02/01/20 24 02/01/2024 PET-C T, skull base to mid-t high scan [facility] [place] [id number] [facility] [place] [address] Patien t Name: CATALINO Nye Patien t : 950 Patien t Orderi ng Provid er: RICHY VIRGEN EXAM DATE: 2023 EXAM: PET-CT TUMOR SKULL BASE-M ID THIGH INT ST CLINIC AL INFORM ATION: Head and Neck Cancer - Restag ing PROCED URE: Baseli ne blood glucos e level was 95 mg/dL. 12.8 mCi F-18 FDG ([facility] [id number]- 0511-3 0) was inject ed IV. After [...] Beny Bella MD on 2023 12:33 PM [email or web address] [facility] [address] [place] [address], [phone], 02/01/2024 13:03:53 Result Notes Documentation Provider Name and Address Organization Details Recorded Time Pet-ct, Skull Base To Mid-thigh Scan : [address] [place] [address] Patient Name: CATALINO PATHAK Patient : [id number] Patient Ordering Provider: DARCY VIRGEN EXAM DATE: 02/01/2024 EXAM: PET-CT TUMOR SKULL BASE-MID THIGH INT ST CLINICAL INFORMATION: Head and Neck Cancer - Restaging PROCEDURE: Baseline blood glucose level was 95 mg/dL. 12.8 mCi F-18 FDG ([facility] [id number]) was injected IV. After an uptake time of 51 minutes, skull base to midthigh PET imaging was performed. This was followed by a low dose attenuation correction/anatomic localization CT from lower cranium through the midthigh levels without IV or oral contrast. The patient did not require sedation for this exam. Comparison: PET/CT 04/02/2023 FINDINGS ON PET WITH CT CORRELATION: HEAD AND NECK: Focal hypermetabolism in the vicinity of the left neck at the tip of the cricoid cartilage, SUV 6.8. Grossly unchanged. Similar smaller lesion on the right side at the same level which was present on retrospective review of the prior study. There is hypermetabolism of the facet joint on the left at C3-4 likely due to active DJD. Previously noted hypermetabolic lesion in the right parotid gland is no longer visualized. There is activity dorsal to both submandibular glands with no definite CT correlate. Previously noted UPPER LIMBS: No abnormal areas of F-18 FDG uptake are seen. CHEST: Normal uptake of F-18 FDG is noted in the myocardium. No abnormal areas of F-18 FDG uptake are seen. Stable calcific lesion in the right apex with left apical pleural thickening. Neither area shows hypermetabolic activity. ABDOMEN: Normal uptake of F-18 FDG is noted in the liver, spleen, bowel and kidneys along with excretion into the ureters. No abnormal areas of F-18 FDG uptake are seen. PELVIS: Normal excretory collection of F-18 FDG is noted in the urinary bladder. No abnormal areas of F-18 FDG uptake are seen. LOWER LIMBS: No abnormal areas of F-18 FDG uptake are seen. IMPRESSION: 1. Persistent subcentimeter mildly hypermetabolic nodes in the neck. Of note is interval improvement or clearing of the largest lesion involving the right parotid 2. No suspicious findings elsewhere in the chest, abdomen, and pelvis Interpreted By: Beny Bella MD [facility] 02/01/2024 13:03:53 Problems No Known Problems Procedures Surgical History Date Name Laterality Status Provider Name and Address Organization Details Recorded Time 01/03/20 Suture/Staple removal active Terri Tineo [facility] 01/02/2025 10:18:40 12/27/19 25 Mohs 1 Lesion completed [facility] 12/26/2024 13:01:09 12/27/19 25 Mohs Repair: Full-thickness skin graft completed [facility] 12/26/2024 13:20:56 12/20/19 25 Mohs 1 Lesion completed [facility] 12/19/2024 16:03:44 12/20/19 25 Mohs Repair: Complex Linear completed [facility] 12/19/2024 16:04:17 10/26/19 22 Laryngoscopy Flex completed Ramya Dotson [facility] 10/25/2021 14:54:18 03/09/19 22 excision of mass completed Ariana Rosario [facility] 10/25/2021 14:28:42 03/09/19 05 procedure on lung completed Ariana Rosario [facility] 10/25/2021 14:28:24 procedure on nose completed Nataly Caro [facility] 04/29/2023 15:23:08 Imaging Results None [...] Body mass index (BMI) Body weight Systolic And Diastolic Provider Name and Address Organization Details Last Updated DateTime 4 157.48 cm 98.4 [degF] 98 % 98 % 84 /min 24.1 kg/m2 03681.1 9 g 132/73 mm[Hg] [facility] 4 15:24:31 Date Recorded Body temperature Heart rate Systolic And Diastolic Provider Name and Address Organization Details Last Updated DateTime 12/19/2024 96.8 [degF] 89 /min 133/79 mm[Hg] [facility] 12/19/2024 09:14:11 Date Recorded Heart rate Systolic And Diastolic Provider Name and Address Organization Details Last Updated DateTime 12/26/2024 98 /min 122/80 mm[Hg] [facility] 12/26/2024 12:57:20 Date Recorded Body temperature Heart rate Systolic And Diastolic Provider Name and Address Organization Details Last Updated DateTime 12/26/2024 96.1 [degF] 88 /min 123/74 mm[Hg] [facility] 12/26/2024 09:02:25 Social History None recorded. Functional Status None recorded. Mental Status None recorded. Family History Nothing Reported. Medical History No medical history recorded. Gynecological HistoryNo gynecological history recorded. Obstetrics History GPAL:G 0 P 0 0 0 0 Past Encounters Encounter ID Performer Location Encounter Start Date Encounter Closed Date Diagnosis/Indication Diagnosis SNOMED-CT Code Diagnosis ICD10 Code Diagnosis IMO Codes Diagnosis Note [id number] MD LIBRA JAIME III RD [address] [place] [address] 10/25/2021 13:59:54 10/28/2021 07:57:26 Lymphadenopathy 33085374 R59.0 Metastatic squamous cell carcinoma 989959548 C77.0 Denture present 64723059 5 Z97.2 [id number] MD LIBRA JAIME III [address] [place] [address] 04/29/2023 14:55:00 05/05/2023 14:20:30 Metastatic squamous cell carcinoma 194146550 C77.0 Lymphadenopathy 87652749 R59.0 Denture present 54311820 5 Z97.2 Mass of ri ght parotid gland 5233963937 6945003 R22.1 [id number] BENJY LOVELL III, MD SURGERY SCHEDULE [address] [place] [address] 05/11/2023 08:57:26 05/11/2023 09:04:01 [id number] TIAN BLANCHARD MD [facility] [address] [place] [address] 12/19/2024 08:34:01 12/21/2024 10:00:10 Basal cell carcinoma of forehead 361216440 C44.319 [id number] [id number] TIAN BLANCHARD MD 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 975465908 C44.552 [id number] Health Concerns Section Related Observation LastModified by Organization Detai ls LastModified Time None Recorded Concern Status LastModified by Organization Details LastModified Time None Recorded Advance Directives Directive None Recorded Payers Insurance Date Sequence Insurance Name Policy Number Policy Spann Covered Member ID Spann Member ID Guarantor Name 12/30/2024 1 [employer] (MEDICARE REPLACEMENT/A DVANTAGE - PPO) Catalino Pathak [id number] Catalino Pathak Notes Date Note Type Note Provider Name and Address Organization Details Recorded Time text/html Catalino visits us in office today [...] right neck mass. BENJY LOVELL III, MD [address] [place] [address], [phone], [facility] 04/29/2023 16:46:11 5 text/html Patient presents for mohs surgery today [...] surgeon.7. Pre-operative local anesthetic injected.AMAURY Yuen MD [address] [place] [address], [phone], [facility] 12/19/2024 16:43:46 5 text/html ROS as noted in the HPI [...] local anesthetic injected.Ynes Angel, ADRIANA BLANCHARD MD [address] [place] [address], [phone], [facility] 12/27/2024 15:10:00 5 text/html ROS as noted in the HPI Patient presents for a 7day bolster removal status post Mohs surgery on 12/26/2024 to R nasal tip to treat a squamous cell carcinoma with a full thickness skin graft. Not Available Not Available Not Available OBGyn Episode No OBEpisode recorded.
[2025-01-05 10:44] LABS: Hematocrit 31.1 % (37.0-47.0); Hemoglobin 10.3 g/dL (12.2-16.2); Immature Granulocytes % 1.0 %; Mean Corpuscular HGB Conc 33.1 g/dL (31.8-35.4); Mean Corpuscular Hemoglobin 32.8 pg (27.0-31.2); Mean Corpuscular Volume 99.0 fl (81-99); Nucleated Red Blood Cells % 0 %; Platelet Count 682 K/mm3 (142-424); Red Blood Count 3.14 M/mm3 (4.20-5.40); Red Cell Distribution Width-SD 46.5 fL; White Blood Count 6.8 K/mm3 (4.8-10.8)
[2025-01-05 11:27] LABS: Albumin Level 3.2 g/dl (3.5-5.0); Chloride 88 mmol/L (98-107)
[2025-01-05 11:28] LABS: Potassium 5.1 mmoL/L (3.5-5.1); Sodium 124 mmol/L (136-145)
[2025-01-05 11:30] LABS: Alanine Aminotransferase 23 U/L (12-78); Albumin/Globulin Ratio 0.7 (1.1-1.8); Anion Gap 12.1 mEq/L (5-15); Aspartate Amino Transferase 40 U/L (14-36); Blood Urea Nitrogen 17 mg/dl (7-17); Carbon Dioxide 29 mmol/L (22.0-30.0); Creatinine,Serum 0.80 mg/dl (0.52-1.04); Estimated Glomerular Filt Rate 70 ml/min (>60); GFR (African American) 85 ML/MIN (>60); Globulin 4.9 g/dL (1.3-3.2); Total Protein,Serum 8.1 g/dl (6.3-8.2)
[2025-01-05 11:31] LABS: Alkaline Phosphatase 149 U/L (38-126); Bilirubin,Total 0.3 mg/dl (0.2-1.3); Calcium 9.6 mg/dl (8.4-10.2); Cholesterol 161 mg/dl (140-200); Glucose 103 mg/dl (74-100); HDL Cholesterol 52 mg/dl (40-60); Iron 85 ug/dL (37-170); Triglycerides 149 mg/dl (30-150)
[2025-01-05 11:47] LABS: Free T4 (Free Thyroxine) 1.22 ng/dl (0.78-2.19)
[2025-01-05 12:01] LABS: Thyroid Stimulating Hormone 5.26 uIU/mL (0.465-4.68)
== END 2025-01-05 23:59 | disposition home or self-care (01) ==
LOC: LAB 09:49
PROVIDERS: PCP Family Medicine; Visit Provider Family Medicine
DX: E78.2 Mixed hyperlipidemia (principal); D64.9 Anemia, unspecified; E03.9 Hypothyroidism, unspecified
CPT/HCPCS: 36415; 80053; 80061; 83540; 84439; 84443; 85025

== ENCOUNTER 2025-01-26 07:48 | Outpatient (CLI) | payer MEDICARE, SELFPAY ==
--- OUTSIDE RECORDS SUMMARY | 2025-01-26 07:51 | XMS_ITS | Continuity of Care Document ---
Author Organization [facility] JASON Shi [place] Address [address] [place] [address] Care Team Providers Care Shotgun Shell Loading Machine Operator Name Role Phone DARSHAN COLEY Primary Care [...] YES Patient discharged with: Self Other Notes: [email or web address] Not available 12/19/2024 16:04:42 Plan of Treatment [...] Organization Details Recorded Time 01/03/20 Suture/Staple removal completed Terri Tineo [facility] 01/02/2025 10:18:40 12/27/19 25 Mohs 1 Lesion completed [facility] 12/26/2024 13:01:09 12/27/19 25 Mohs Repair: Full-thickness skin graft completed [facility] 12/26/2024 13:20:56 12/20/19 25 Mohs 1 Lesion completed [facility] 12/19/2024 16:03:44 12/20/19 25 Mohs Repair: Complex Linear completed [facility] 12/19/2024 16:04:17 10/26/19 22 Laryngoscopy Flex completed Ramya Mauri [facility] 10/25/2021 14:54:18 03/09/19 22 excision of mass completed Ariana Rosario [facility] 10/25/2021 14:28:42 03/09/19 05 procedure on lung completed Ariana Rosario [facility] 10/25/2021 14:28:24 procedure on nose completed Nataly Caro [facility] 04/29/2023 15:23:08 Imaging Results None recorded. Procedure Notes None recorded. Medical Equipment None Reported. Allergies No known drug allergies Medications Name Sig Start Date Stop Date Status Note LastModified by Organization Details LastModified Time desonide 0.05 % topical cream As Directed 2008 active Instruct ions: apply to affected area on face bid x2 weeks prn;Freq uency: as direct.; Medicati on Descript ion: desonide topical; Dosage:a s directed ; Route:to pical; refills: 1; Quantity :30gm cream Not Available Not Available Not Available doxycycli ne hyclate 100 mg capsule Take 1 capsule twice a day by oral route with meal(s) for 5 days. 01/07 completed Not Available Not Available Not Available azithromy gurjit 250 mg tablet TAKE 2 TABLETS BY MOUTH ON DAY 1, THEN TAKE 1 TABLET DAILY ON DAYS 2 THROUGH 5 active Not Available Not Available No t Available benzonata te 200 mg capsule TAKE ONE CAPSULE BY MOUTH 3 TIMES A DAY NEEDED active Not Available Not Available No t Available hydrocodo ne 5 mg-acetam inophen 325 mg tablet active Not Available Not Available Not Available betametha sone, augmented 0.05 % topical cream APPLY TO THE AFFECTED AREA(S) 2 TIMES A DAY active Not Available Not Available No t Available omeprazol e 40 mg capsule,d elayed release TAKE 1 CAPSULE BY MOUTH ONCE A DAY active Not Available Not Available No t Available pravastat in 80 mg tablet TAKE 1 TABLET BY MOUTH ONCE A DAY active Not Available Not Available No t Available metronida zole 0.75 % lotion active Not Available Not Available Not Available levothyro xine 50 mcg tablet TAKE 1 TABLET BY MOUTH ONCE A DAY active Not Available Not Available No t Available hydrocodo ne 7.5 mg-acetam inophen 325 mg tablet Take 1 tablet every 6 hours by oral route. active Not Available Not Available No t Available triamcino lone acetonide 0.1 % topical ointment APPLY TO THE AFFECTED AREA(S) FOR 3 WEEKS THEN take 1 WEEK off. REPEAT needed active Not Available Not Available No t Available estradiol 0.5 mg tablet active Not Available Not Available Not Available azelastin e 137 mcg (0.1 %) nasal spray active Not Available Not Available Not Available albuterol sulfate HFA 90 mcg/actua tion aerosol inhaler active Not Available Not Available Not Available ondansetr on 4 mg disintegr ating tablet Place 1 tablet twice a day by translin gual route. active Not Available Not Available No t Available doxycycli ne hyclate 100 mg tablet active Not Available Not Available Not Available cyclobenz aprine 5 mg tablet active Not Available Not Available No t Available Combivent Respimat active Not Available Not Available Not Available Stiolto Respimat 2.5 mcg-2.5 mcg/actua tion solution for inhalatio n INHALE 2 PUFFS BY MOUTH ONCE A DAY active Not Available Not Available No t Available Bevespi Aerospher e 9 mcg-4.8 mcg HFA aerosol inhaler active Not Available Not Available Not Available Vitals Date Recorded Body temperature Heart rate Systolic And Diastolic Provider Name and Address Organization Details Last Updated DateTime 12/19/2024 96.8 [degF] 89 /min 133/79 mm[Hg] Lien Nancyvictor mtanvi [facility] 12/19/2024 09:14:11 Social History None recorded. Functional Status None recorded. Mental Status None recorded. Family History Nothing Reported. Medical History No medical history recorded. Gynecological HistoryNo gynecological history recorded. Obstetrics History GPAL:G 0 P 0 0 0 0 Past Encounters Encounter ID Performer Location Encounter Start Date Encounter Closed Date Diagnosis/Indication Diagnosis SNOMED-CT Code Diagnosis ICD10 Code Diagnosis IMO Codes Diagnosis Note [id number] TIAN BLANCHARD MD [address] [address] 12/19/2024 08:34:01 12/21/2024 10:00:10 Basal cell carcinoma of forehead 970386246 C44.319 [id number] Health Concerns Section Related Observation LastModified by Organization Detai ls LastModified Time None Recorded Concern Status LastModified by Organization Details LastModified Time None Recorded Payers Encounter Date Sequence Insurance Name Policy Number Policy Spann Covered Member ID Spann Member ID Guarantor Name 12/19/2024 1 [employer] (MEDICARE REPLACEMENT/A DVANTAGE - PPO) Ariane Pathak [id number] Ariane Pathak Notes Date Note Type Note [...] PROCEDURE1. Patient Name and confirmed with medical recordBETH Yuen. Allergies documented and reviewed.Yamil Meza LPN3. Pathology [...] surgeon.7. Pre-operative local anesthetic injected.AMAURY Yuen MD [address] [place], [address], [facility] 12/19/2024 16:43:46 OBGyn Episode No OBEpisode recorded.
--- OUTSIDE RECORDS SUMMARY | 2025-01-26 07:51 | XMS_ITS | Clinical Summary ---
Author Organization [facility] Address [address] [place] [address] Care Team Providers Care Panel Monitor Name Role Phone Leticia Kang MARAL Primary Care Provider [phone]- [phone] Allergies No known active allergies Medications estradiol [...] 1950 TDAP/TD VACCINES (1 - Tdap) 1969 COLOGUARD 1995 COLON CANCER SCREENING 5 YEAR SIGMOIDOSCOPY 1995 COLONOSCOPY 1995 [address] CANCER SCREENING 1995 CT COLONOGRAPHY 1995 FECAL OCCULT BLOOD TEST 1995 FIT Testing (1 year) 1995 Pneumococcal Vaccine 50+ (1 of 1 - PCV) 01/16/2000 ZOSTER VACCINE (1 of 2) 01/16/2000 ANNUAL PHYSICAL 06/09/2018 HEPATITIS C SCREENING 06/09/2018 INFLUENZA VACCINE 10/07/2024 COVID-19 Vaccine ( season) 2024 RSV Vaccine - Adults (1 - 1-dose 75+ series) 5 Insurance MEDICARE ADVANTAGE Care Teams Panel Monitor Relationship Specialty Start Date End Date Leticia Kang APRN [address] [place] [address] PCP - General Family Medicine 06/07/18
--- OUTSIDE RECORDS SUMMARY | 2025-01-26 07:52 | XMS_ITS | Continuity of Care Document ---
Author Organization [facility] JASON Shi [place] Address [address] [place] [address] Care Team Providers Care Trading Assistant Name Role Phone DARSHAN COLEY Primary Care Provider Assessment No assessment recorded. Plan of Treatment Reminders Order Date Submit Date Provider Last Modified By Organization Details Last Modified Time Details Appointments MOHS FOLLOWUP 2025 09:20A M TIAN GUADARRAMA MD Not available Not available Not available Lab None recorded. Referral None recorded. Procedures None recorded. Surgeries None recorded. Imaging None recorded. Medication Orders None recorded. Patient TargetsNo targets recorded. Patient Instructions Encounter Date Encounter Id Patient Instructions Last Modified By Organization Details Last Modified Time 01/02/2025 [id number] Pt educated that new graft is fragile. Let soapy water run gently down over graft site and gently pat dry and apply vaseline. Vaseline is going to protect the wound and provide barrier. Bandage is not necessary but protects you from the vaseline. The lumpiness of the site will fade over the next few months. It is very important to protect new graph site from the sun to prevent discoloration and freckles. Follow up in 3 months. [email or web address] Not available 01/02/2025 10:18:53 Reason for Referral None Reported. Problems No Known Problems Procedures Surgical History Date Name Laterality Status Provider Name and Address Organization Details Recorded Time 01/03/20 25 Suture/Staple removal completed Terri Tineo [facility] 01/02/2025 10:18:40 12/27/19 25 Mohs 1 Lesion completed Yamilet Quezada [facility] 12/26/2024 13:01:09 12/27/19 25 Mohs Repair: Full-thickness skin graft completed [facility] 12/26/2024 13:20:56 12/20/19 25 Mohs 1 Lesion completed [facility] 12/19/2024 16:03:44 12/20/19 25 Mohs Repair: Complex Linear completed [facility] 12/19/2024 16:04:17 10/26/19 22 Laryngoscopy Flex completed Ramya Mauri [facility] 10/25/2021 14:54:18 03/09/19 22 excision of mass completed Ariana [facility] 10/25/2021 14:28:42 03/09/19 05 procedure on lung completed Ariana Rosario [facility] 10/25/2021 14:28:24 procedure on nose completed Nataly Caro [facility] 04/29/2023 15:23:08 Imaging Results None recorded. [...] Not Available Not Available Not Available Vitals None Recorded Social History None recorded. Functional Status None recorded. Mental Status None recorded. Family History Nothing Reported. Medical History No medical history recorded. Gynecological HistoryNo gynecological history recorded. 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 Discussed risk of recurrence and new skin cancers, so regular self exam and profession al skin checks are recommende d. Sun protection with broad spectrum SPF 30 sunscreen and broad-brim med hat is recommende d. Sun protection with SPF 30 broad spectrum sunscreen and protective gear discussed. Postoperative visit 1836 20060 Z09 Scar 669437122 L90.5 Healing properly. Health Concerns Section Related Observation LastModified by Organization Detai ls LastModified Time None Recorded Concern Status LastModified by Organization Details LastModified Time None Recorded Payers Encounter Date Sequence Insurance Name Policy Number Policy Spann Covered Member ID Spann Member ID Guarantor Name 01/02/2025 1 [employer] (MEDICARE REPLACEMENT/A DVANTAGE - PPO) Ariane Pathak [id number] Ariane Pathak Notes Date Note Type Note Provider Name and Address Organization Details Recorded Time 01/02/2025 text/html ROS as noted in the HPI Patient presents for a 7day bolster removal status post Mohs surgery on 12/26/2024 to R nasal tip to treat a squamous cell carcinoma with a full thickness skin graft. TIAN GUADARRAMA MD [address] [place], [address], [facility] 01/16/2025 10:58:41 OBGyn Episode No OBEpisode recorded.
--- OUTSIDE RECORDS SUMMARY | 2025-01-26 07:52 | XMS_ITS | Continuity of Care Document ---
Author Organization [facility] JASON Shi ALLIGATOR Address [address] [place] [address] Care Team Providers Care Men[employer] Cl[employer] Salesperson Name Role Phone DARSHAN COLEY Primary Care Provider Assessment Encounter Date Assessment Date Assessment LastModified by Organization Details LastModified Time 12/26/2024 12/26/2024 POST-OPERATIVE 1. Team members confirm that all sharps are accounted for and safely contained prior to dressing application. Ynes Angel CST 2. Vitals signs are documented and acceptable for discharge. iLen Ca RN 3. Photos have been taken and uploaded into the chart. TEVIN Krishnamurthy 4. Written post-operative instructions, prescriptions, and overnight dressing supplies are provided. Ynes Angel CST Dressing Appearance: dry, clean and intact Patient's Pain Level: 0 LOC: Alert DC Instruction sheets received by patient: YES Overnight supplies given: YES Patient discharged with: Self Other Notes: Not available 12/26/2024 10:35:01 Plan of Treatment Reminders Order Date Submit Date Provider Last Modified By Organization Details Last Modified Time Details Appointments MOHS FOLLOWUP 2025 09:20A Carl BLANCHARD MD Not available Not available Not available Lab None recorded. Referral None recorded. Procedures None recorded. Surgeries None recorded. Imaging None recorded. Medication Orders doxycycli ne hyclate 100 mg capsule 2024 10 025 PIPPA [facility], [address] [place] [address] Luis Alberto [place], [phone], 01/07/2025 05:01:49 Patient TargetsNo targets recorded. Patient InstructionsNo instructions recorded. Reason for Referral None Reported. Problems No Known Problems Procedures Surgical History Date Name Laterality Status Provider Name and Address Organization Details Recorded Time 01/03/20 Suture/Staple removal completed Terri Tineo [facility] 01/02/2025 10:18:40 12/27/19 25 Mohs 1 Lesion completed [facility] 12/26/2024 13:01:09 12/27/19 25 Mohs Repair: Full-thickness skin graft completed [facility] 12/26/2024 13:20:56 12/20/19 25 Mohs 1 Lesion completed [facility] 12/19/2024 16:03:44 12/20/19 Mohs Repair: Complex Linear completed [facility] 12/19/2024 16:04:17 10/26/19 22 Laryngoscopy Flex completed Ramya Dotson [facility] 10/25/2021 14:54:18 03/09/19 22 excision of mass completed Ariana Rosario [facility] 10/25/2021 14:28:42 03/09/19 05 procedure on lung completed Ariana Rosario [facility] 10/25/2021 14:28:24 procedure on nose completed Nataly Caro [facility] 04/29/2023 15:23:08 Imaging Results None recorded. [...] 12/26/2024 98 /min 122/80 mm[Hg] Yamilet Quezada [facility] 12/26/2024 12:57:20 Date Recorded Body temperature Heart rate Systolic And Diastolic Provider Name and Address Organization Details Last Updated DateTime 12/26/2024 96.1 [degF] 88 /min 123/74 mm[Hg] Lien Ca [facility] 12/26/2024 09:02:25 Social History None recorded. Functional Status None recorded. Mental Status None recorded. Family History Nothing Reported. Medical History No medical history recorded. Gynecological HistoryNo gynecological history recorded. 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 245312213 C44.422 [id number] Health Concerns Section Related Observation LastModified by Organization Detai ls LastModified Time None Recorded Concern Status LastModified by Organization Details LastModified Time None Recorded Payers Encounter Date Sequence Insurance Name Policy Number Policy Spann Covered Member ID Spann Member ID Guarantor Name 12/26/2024 1 [employer] (MEDICARE REPLACEMENT/A DVANTAGE - PPO) Ariane Pathak [id number] Ariane Pathak Notes Date Note Type Note [...] local anesthetic injected.Ynes Angel, ADRIANA BLANCHARD MD [address] [place] [address], [phone], [facility] 12/27/2024 15:10:00 OBGyn Episode No OBEpisode recorded.
--- OUTSIDE RECORDS SUMMARY | 2025-01-26 07:52 | XMS_ITS | Data Portability ---
Author Organization [facility] [place] [facility] Address [address] [place] [address] Care Team Providers Care Plater Hot Dip Name Role Phone DARSHAN COLEY Primary Care [...] YES Patient discharged with: Self Other Notes: [email or web address] Not available 12/19/2024 16:04:42 12/26/2024 12/26/2024 POST-OPERATIVE [...] YES Patient discharged with: Self Other Notes: [email or web address] Not available 12/26/2024 10:35:01 Plan of Treatment Reminders Order Date Submit Date Provider Last Modified By Organization Details Last Modified Time Details Appointments MOHS FOLLOWUP 2025 09:20A Carl BLANCHARD MD Not available Not available Not available Lab None recorded. Referral None recorded. Procedures None recorded. Surgeries None recorded. Imaging None recorded. Medication Orders doxycycli ne hyclate 100 mg capsule 2024 025 PIPPA Sahu [facility], [address] [address] Luis Alberto [place], [phone], 01/07/2025 05:01:49 Patient TargetsNo targets recorded. Patient Instructions Encounter Date Encounter Id Patient Instructions Last Modified By Organization Details Last Modified Time 04/29/2023 [id number] 1. PET obtained in office today. Results [...] to proceed. [email or web address] Not available 04/29/2023 16:45:50 01/02/2025 [id number] Pt educated that new graft is fragile. [...] 01/02/2025 10:18:53 Reason for Referral None Reported. Results Created Date Observation Date Name Description Value Unit Range Abnormal Flag Note LastModifiedBy Organization Detail LastModifiedTime 05/11/19 24 05/11/2023 SURGI RYAN surgical SEE BELOW abnormal Depar tment of Patho logy Surgi ryan Patho logy Repor t NAME: CHINOMANDO FRANCIS PATH. :SS-2 51 Copy to: Diagn osis: [...] and Melan -A. While this stain ing dina hernandez is purnima tible with squam ous carci noma, other prima ry saliv tonya gland tumor s may also show a simil ar immun ohist ochem ical stain ing marcos reid. DESI PARK M.D. Darling santos Out Date: 05/12 16:04 Page 1 of 1 Not Available [facility] [address] [place] [address], [place], [address], 05/13/2023 16:05:41 04/02/19 24 04/02/2023 PET-C T, skull base to mid-t high scan [facility] [address] [place] [address] P[place] t Name: CATALINO wong : [address] Orderi ng Provid er: RICHY VIRGEN EXAM DATE: 2023 EXAM: PET-CT TUMOR SKULL BASE-M ID THIGH SUB ST CLINIC AL INFORM ATION: Head and Neck Cancer - Restag ing. Primar y in the left subman dibula r saliva ry gland. PROCED URE: Baseli ne blood glucos e level was 99 mg/dL. 13.6 mCi F-18 FDG ([facility] [address]- 0511-3 0) was inject ed IV. After [...] of increa sed metabo lism in the founder chairman and chief creative officer ior portio n of the cricoi d [...] Stable hyperm etabol ic focus in the founder chairman and chief creative officer ior portio n of the cricoi d cartil age on the right side. Clinic al signif icance is doubtf ul. Interp reted By: Vicki Allen MD Electr onical ly Signed By: Vicki Allen MD on 024 1:52 PM [email or web address] [facility] [address], [place], [address], 04/02/2023 14:48:38 05/04/19 24 02/26/2023 CT, neck, soft tissu e, w/o contr ast No observ ation record ed. BARCODE Not Available 2023 08:46:48 05/05/19 24 04/21/2023 elect agyatri urrutia am No observ ation record ed. [email or web address] Not Available 2023 09:17:19 02/01/20 24 02/01/2024 PET-C T, skull base to mid-t high scan [place] [address] [place] [address] Patien t Name: CATALINO Nye Patien t : [address] Patien t Orderi [facility] er: RICHY VIRGEN EXAM DATE: 2023 EXAM: PET-CT TUMOR SKULL BASE-M ID THIGH INT ST CLINIC AL INFORM ATION: Head and Neck Cancer - Restag ing PROCED URE: Baseli ne blood glucos e level was 95 mg/dL. 12.8 mCi F-18 FDG ([facility] [address]- 0511-3 0) was inject ed IV. After [...] Beny Bella MD on 2023 12:33 PM [email or web address] [facility] [address], [address], 02/01/2024 13:03:53 Result Notes Documentation Provider Name and Address Organization Details Recorded Time Pet-ct, Skull Base To Mid-thigh Scan : [address] [address] Patient Name: CATALINO PATHAK Patient : 1950 Patient Ordering Provider: DARCY VIRGEN EXAM DATE: 02/01/2024 EXAM: PET-CT TUMOR SKULL BASE-MID THIGH INT ST CLINICAL INFORMATION: Head and Neck Cancer - Restaging PROCEDURE: Baseline blood glucose level was 95 mg/dL. 12.8 mCi F-18 FDG ([facility] [address]-42) was injected IV. After an uptake time [...] pelvis Interpreted By: Beny Bella MD Bao Simons [facility] 02/01/2024 13:03:53 Problems No Known Problems Procedures Surgical History Date Name Laterality Status Provider Name and Address Organization Details Recorded Time 01/03/20 Suture/Staple removal completed Terri Tineo [facility] 01/02/2025 10:18:40 12/27/19 Mohs 1 [facility] 12/26/20[facility] 13:01:09 12/27/19 Mohs Repair: Full-thickness skin graft completed Yamilet Quezada [facility] 12/26/2024 13:20:56 12/20/19 Mohs 1 [facility]ion [facility] 12/19/2024 16:03:44 12/20/19 Mohs Repair: Complex Linear completed Yamiletlauren Quezada [facility] 12/19/2024 16:04:17 10/26/19 22 Laryngoscopy Flex completed Ramya Mauri [facility] 10/25/2021 14:54:18 03/09/19 22 excision of mass completed Ariana Rosario [facility] 10/25/2021 14:28:42 03/09/19 05 procedure on lung completed Ariana Rosario [facility] 10/25/2021 14:28:24 procedure on nose completed Nataly Caro [facility] 04/29/2023 15:23:08 Imaging Results None recorded. Procedure [...] Recorded Body height Body temperature Oxygen saturation Heart rate Body mass index (BMI) Body weight Systolic And Diastolic Provider Name and Address Organization Details Last Updated DateTime 4 157.48 cm 98.4 [degF] 98 % 84 /min 24.1 kg/m2 15187.1 9 g 132/73 mm[Hg] Nataly Caro [facility] 4 15:24:31 Date Recorded Body temperature Heart rate Systolic And Diastolic Provider Name and Address Organization Details Last Updated DateTime 12/19/2024 96.8 [degF] 89 /min 133/79 mm[Hg] Lien Ca [facility] 12/19/2024 09:14:11 Date Recorded Heart rate Systolic And Diastolic Provider Name and Address Organization Details Last Updated DateTime 12/26/2024 98 /min 122/80 mm[Hg] Yamilet Quezada [facility] 12/26/2024 12:57:20 Date Recorded Body temperature Heart rate Systolic And Diastolic Provider Name and Address Organization Details Last Updated DateTime 12/26/2024 96.1 [degF] 88 /min 123/74 mm[Hg] Lien Ca [facility] 12/26/2024 09:02:25 Social History None recorded. Functional Status None recorded. Mental Status None recorded. Family History Nothing Reported. Medical History No medical history recorded. Gynecological HistoryNo gynecological history recorded. Obstetrics History GPAL:G 0 P 0 0 0 0 Past Encounters Encounter ID Performer Location Encounter Start Date Encounter Closed Date Diagnosis/Indication Diagnosis SNOMED-CT Code Diagnosis ICD10 Code Diagnosis IMO Codes Diagnosis Note [id number] BENJY LOVELL III, MD [place] [address] [place] [address] 10/25/2021 13:59:54 10/28/2021 07:57:26 Lymphadenopathy 54493473 R59.0 Metastatic squamous cell carcinoma 100390588 C77.0 Denture present 62136524 5 Z97.2 [id number] BENJY LOVELL III, MD [place] [address] [place] [address] 04/29/2023 14:55:00 05/05/2023 14:20:30 Metastatic squamous cell carcinoma 287588411 C77.0 Lymphadenopathy 71194281 R59.0 Denture present 70295758 5 Z97.2 Mass of ri ght parotid gland 1967997743 6159983 R22.1 [id number] BENJY LOVELL III, MD SURGERY SCHEDULE [address] [place] [address] 05/11/2023 08:57:26 05/11/2023 09:04:01 [id number] TIAN BLANCHARD MD [facility] [address] [place] [address] 12/19/2024 08:34:01 12/21/2024 10:00:10 Basal cell carcinoma of forehead 344188322 C44.319 [id number] TIAN BLANCHARD MD [facility] [address] [place] [address] 12/26/2024 08:37:08 12/28/2024 17:00:30 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 Discussed risk of recurrence and new skin cancers, so regular self exam and profession al skin checks are recommende d. Sun protection with broad spectrum SPF 30 sunscreen and broad-brim med hat is recommende d. Sun protection with SPF 30 broad spectrum sunscreen and protective gear discussed. Postoperative visit 1836 63660 Z09 Scar 958896733 L90.5 Healing properly. Health Concerns Section Related Observation LastModified by Organization Detai ls LastModified Time None Recorded Concern Status LastModified by Organization Details LastModified Time None Recorded Advance Directives Directive None Recorded Payers Insurance Date Sequence Insurance Name Policy Number Policy Spann Covered Member ID Spann Member ID Guarantor Name 01/17/2025 1 [employer] (MEDICARE REPLACEMENT/A DVANTAGE - PPO) Catalino Pathak [id number] Catalino Pathak Notes Date Note Type Note Provider Name and Address Organization Details Recorded Time 04/29/2023 text/html Catalino visits us in office [...] right neck mass. BENJY LOVELL III, MD [facility] [place], [address], [facility] 04/29/2023 16:46:11 12/19/2024 text/html Patient presents for mohs surgery [...] surgeon.7. Pre-operative local anesthetic injected.AMAURY Yuen MD [address] [place] [address], [phone], [facility] 12/19/2024 16:43:46 12/26/2024 text/html ROS as noted in the [...] by surgeon.7. Pre-operative local anesthetic injected.Ynes Angel, VENEER TAPING [place] [address] [place] [address], [phone], [facility] 12/27/2024 15:10:00 01/02/2025 text/html ROS as noted in the HPI Patient presents for a 7day bolster removal status post Mohs surgery on 12/26/2024 to R nasal tip to treat a squamous cell carcinoma with a full thickness skin graft. TIAN BLANCHARD MD [address] [place] [address], [phone], [facility] 01/16/2025 10:58:41 OBGyn Episode No OBEpisode recorded.
--- NOTE | 2025-01-26 08:00 | CT_ITS ---
FINAL REPORT TECHNIQUE: Axial CT images of the abdomen were obtained with IV contrast only. Coronal reformatted images were also obtained. This study was performed with techniques to keep radiation doses as low as reasonably achievable (ALARA). Individualized dose reduction techniques using automated exposure control or adjustment of mA and/or kV according to the patient''s size were employed. CLINICAL HISTORY: head neck cancer COMPARISON: 08/11/2024 FINDINGS: The liver is homogeneous. The gallbladder is present. The spleen, pancreas, adrenal glands, and kidneys are unremarkable. Again noted is a saccular aneurysm of the infrarenal abdominal aorta well seen on image 34 of series 5 measuring 2.5 cm and stable. Mild amount of stool is seen throughout the colon consistent with constipation. IMPRESSION: Stable infrarenal abdominal aortic saccular aneurysm. Constipation. Reviewed, Interpreted and Dictated by Nathaniel Hogue MD Transcribed by Florecita Ordaz Authenticated and [facility]
--- NOTE | 2025-01-26 08:00 | CT_ITS ---
FINAL REPORT TECHNIQUE: Thin section axial CT images with coronal reformats were obtained through the neck after the administration of IV contrast. This study was performed with techniques to keep radiation doses as low as reasonably achievable (ALARA). Individualized dose reduction techniques using automated exposure control or adjustment of mA and/or kV according to the patient''s size were employed. CLINICAL HISTORY: head neck cancer COMPARISON: 08/11/2024 FINDINGS: There is no cervical adenopathy or mass lesion present. The thyroid is unremarkable. The glottis and supraglottic areas are unremarkable. No acute osseous abnormality is identified. No evidence of significant stenosis or major branch occlusion. Lung apices demonstrate a large mass in the left lung apex seen on the prior exam and similar in appearance with associated volume loss. There is a densely calcified focus at the right lung apex measuring 3.8 x 2.8 cm, also stable. Scarring is noted at the lung apices. Findings are likely related to posttreatment change. IMPRESSION: No acute process. Stable findings in the lung apices, likely posttreatment change. Reviewed, Interpreted and Dictated by Nathaniel Hogue MD Transcribed by Florecita Ordaz Authenticated and . [facility]
[2025-01-26] MEDS: SODIUM CHLORIDE 0.9% 10ML SYR (RAD ONLY) 10 ML IV (08:43)
[2025-01-26] MEDS: IOPAMIDOL-370 (76%);100ML BOTTLE 100 ML IV (08:44)
--- NOTE | 2025-01-26 08:45 | CT_ITS ---
FINAL REPORT TECHNIQUE: Routine axial images were obtained from the lung apices to below the diaphragm following IV contrast administration. Individualized dose reduction techniques using automated exposure control or adjustment of the mA and/or kV according to the patient size were employed. CLINICAL HISTORY: head neck cancer COMPARISON: 08/11/2024 FINDINGS: No pleural or pericardial effusion is seen. No adenopathy is present. There is abnormal soft tissue density of the left lung apex with associated volume loss. There is a densely calcified focus in the right upper lobe. There is scattered pleural and parenchymal scarring in the harry thoraces. IMPRESSION: Stable density left lung apex with volume loss. Calcified focus right lung apex.. Reviewed, Interpreted and Dictated by Nathaniel Hogue MD Transcribed by Florecita Ordaz Authenticated and [facility]
== END 2025-01-26 23:59 | disposition home or self-care (01) ==
LOC: RAD 07:50
PROVIDERS: PCP Family Medicine; Visit Provider Internal Medicine Medical Oncology
DX: C44.42 Squamous cell carcinoma of skin of scalp and neck (principal); I71.43 Infrarenal abdominal aortic aneurysm, without rupture; J98.4 Other disorders of lung; R91.8 Other nonspecific abnormal finding of lung field
CPT/HCPCS: 70491; 71260; 74160; Q9967

== ENCOUNTER 2025-02-07 11:16 | Outpatient (CLI) | payer MEDICARE, SELFPAY ==
--- OUTSIDE RECORDS SUMMARY | 2025-02-07 11:18 | XMS_ITS | Clinical Summary ---
Author Organization [facility] Address [address] [place] [address] Care Team Providers Care Airbrush Artist Technical Name Role Phone Leticia Kang MARAL Primary Care Provider [phone]- [phone] Allergies No known active allergies Medications estradiol [...] series) 5 Insurance MEDICARE ADVANTAGE Care Teams Airbrush Artist Technical Relationship Specialty Start Date End Date Leticia aKng APRN [address] [place] [address] PCP - General Family Medicine 06/07/18
--- NOTE | 2025-02-07 11:26 | PC.NURSE ---
1126-collected labs via venipuncture stick in left ac with butterfly needle.
[2025-02-07 11:38] LABS: Hematocrit 30.8 % (37.0-47.0); Hemoglobin 10.2 g/dL (12.2-16.2); Immature Granulocytes % 0.2 %; Mean Corpuscular HGB Conc 33.1 g/dL (31.8-35.4); Mean Corpuscular Hemoglobin 33.6 pg (27.0-31.2); Mean Corpuscular Volume 101.3 fl (81-99); Nucleated Red Blood Cells % 0 %; Platelet Count 328 K/mm3 (142-424); Red Blood Count 3.04 M/mm3 (4.20-5.40); Red Cell Distribution Width-SD 51.6 fL; White Blood Count 6.4 K/mm3 (4.8-10.8)
[2025-02-07 11:41] LABS: Albumin Level 4.4 g/dl (3.5-5.0); Chloride 92 mmol/L (98-107)
[2025-02-07 11:42] LABS: Potassium 5.1 mmoL/L (3.5-5.1); Sodium 131 mmol/L (136-145)
[2025-02-07 11:44] LABS: Alanine Aminotransferase 14 U/L (12-78); Albumin/Globulin Ratio 1.1 (1.1-1.8); Alkaline Phosphatase 82 U/L (38-126); Anion Gap 15.1 mEq/L (5-15); Aspartate Amino Transferase 37 U/L (14-36); Bilirubin,Total 0.4 mg/dl (0.2-1.3); Blood Urea Nitrogen 21 mg/dl (7-17); Carbon Dioxide 29 mmol/L (22.0-30.0); Creatinine,Serum 1.00 mg/dl (0.52-1.04); Estimated Glomerular Filt Rate 54 ml/min (>60); GFR (African American) 65 ML/MIN (>60); Globulin 4.0 g/dL (1.3-3.2); Total Protein,Serum 8.4 g/dl (6.3-8.2)
[2025-02-07 11:45] LABS: Iron 107 ug/dL (37-170)
[2025-02-07 12:01] LABS: Calcium 9.3 mg/dl (8.4-10.2); Glucose 88 mg/dl (74-100); Total Iron Binding Capacity 190 ug/dL (265-497)
[2025-02-07 12:20] LABS: Ferritin 146 ng/ml (11.1-264)
== END 2025-02-07 23:59 | disposition home or self-care (01) ==
PROVIDERS: PCP Family Medicine; Visit Provider Internal Medicine Medical Oncology
DX: C44.42 Squamous cell carcinoma of skin of scalp and neck (principal)
CPT/HCPCS: 36415; 80053; 82728; 83540; 83550; 85025